=== PATIENT | female | born 1945 | race Caucasian/White ===

== ENCOUNTER → 2016-11-25 | Outpatient (CLI) | payer MEDICARE, OTHER | LOC: OD 15:46 | PROVIDERS: ATTEND Family Medicine | DX: J44.9 Chronic obstructive pulmonary disease, unspecified (principal); R05 Cough; E11.9 Type 2 diabetes mellitus without complications | CPT/HCPCS: 36415; 71020; 83036 ==

== ENCOUNTER 2017-02-24 08:35 | Day surgery (SDC) | payer MEDICARE, OTHER ==
[~2017-02-24 08:35] MED LIST: BUPIVACAINE HCL 0.75% INJ/PF (7.5 MG/1 ML) 10 ML SDV OS PRN; CHONDR SU A NA/HYALUR INTRAOC KIT (SURGICARE) ONE; EPINEPHRINE INJ/PF 1 MG/1 ML AMPULE ONE; KETOROLAC TROMETHAMINE 0.45% 4 DROP/0.4 ML DROPERETTE OS PRN; LIDOCAINE 1% INJ-PF (10 MG/ML) 30 ML SDV ONE
[2017-02-24] MEDS: CYCLOPENTOLATE 0.2%/PHENYLEPHRINE 1% OPH SOLN 2 ML OS PRN ×3 (08:59→09:37)
[2017-02-24] MEDS: TROPICAMIDE 1% OPH SOLN 3 ML OS PRN ×3 (08:59→09:37)
[2017-02-24] MEDS: BESIFLOXACIN HCL 0.6% OPH SUSP 5 ML BOTTLE OS PRN ×4 (09:00→10:09)
[2017-02-24] MEDS: TETRACAINE HCL 0.5% OPH SOLN 2 ML OS PRN ×3 (09:01→09:45)
[2017-02-24] MEDS ORDERED: MIDAZOLAM 2 MG/2 ML INJ ONE (09:21)
[2017-02-24] MEDS ORDERED: ALBUTEROL SULFATE 0.083% NEB 2.5 MG/3 ML AMPUL NEB ONE (09:27)
--- NOTE | 2017-02-27 20:33 | [facility] OPERATIVE REPORT E ---
[facility] Operative Report NAME: DIEGO BURDEN AGE: 71Y DATE OF SURGERY: 02/24/2017 ROOM: PREOPERATIVE DIAGNOSIS: Cataract, left eye. POSTOPERATIVE DIAGNOSIS: Cataract, left eye. OPERATION: Cataract extraction with intraocular lens implant of the left eye. SURGEON: AUDELIA DIAZ M.D. ANESTHESIA: Topical. PROCEDURE: After obtaining appropriate consent, the patient's left eye was prepped and draped in sterile fashion as well as the surgeon in a sterile manner and cataract surgery was started. First a paracentesis blade was used to make a small side-port incision. Viscoelastic was used to inflate the anterior chamber. Next a 2.4 mm incision was made with the paracentesis blade. A continuous capsulorrhexis incision was made using a cystotome and Utrata forceps. Following this hydrodissection was carried out to make the lens fully loose and mobile and it was rotated 90 degrees. Following this, a tssofp-pob-fzowxbe technique was used to phacoemulsify the lens with a CDE of 7.86. The remaining cortex was removed with irrigation/aspiration. Provisc was instilled into the capsular bag to inflate the bag. A SN60WF, 22.0 diopter lens was placed. The remaining viscoelastic material was removed with irrigation/aspiration. Following this, a 10-0 nylon suture was used to close the incision and it was found to be watertight. Vigamox was instilled in the eye and a protective shield was placed over the eye. The patient returned to the postoperative recovery in stable condition. DICTATING PHYSICIAN: AUDELIA DIAZ M.D. [id number] PHY#: [id number] ID: [id number] JOB#: [id number] ACCT: [id number] cc:AUDELIA DIAZ M.D. >
--- NOTE | 2017-02-27 20:34 | [facility] DISCHARGE SUMMARY E ---
[facility] Discharge Summary NAME: DIEGO BURDEN AGE: 71Y ADMITTED: 02/24/2017 DISCHARGED: 02/24/2017 HISTORY OF PRESENT ILLNESS AND HOSPITAL COURSE: This is a 71-year-old female who underwent cataract extraction of the left eye. DIAGNOSIS: Cataract, left eye. HOSPITAL COURSE: She underwent surgery because she was having trouble reading small print. DISCHARGE INSTRUCTIONS: 1. She should be on a regular diet. 2. No bending at her waist and no heavy lifting. 3. She should use his Besivance, Ilevro, and Durezol at 3 p.m. and 8 p.m. and sleep with a rigid shield. 4. I will see her for her one-day postoperative tomorrow. DICTATING PHYSICIAN: AUDELIA DIAZ M.D. [id number] PHY#: [id number] ID: [id number] JOB#: [id number] ACCT: [id number] cc:AUDELIA DIAZ M.D. >
== END 2017-02-24 11:00 | disposition home or self-care (01) ==
LOC: SC 08:35
PROVIDERS: ATTEND Internal Medicine
PROC: 08RK3JZ Replacement of Left Lens with Synthetic Substitute, Percutaneous Approach (ICD-10-PCS; principal; 2017-02-24 10:00)
DX: H25.812 Combined forms of age-related cataract, left eye (principal); Z96.1 Presence of intraocular lens; H04.123 Dry eye syndrome of bilateral lacrimal glands; E11.9 Type 2 diabetes mellitus without complications; H53.2 Diplopia; J44.9 Chronic obstructive pulmonary disease, unspecified; M19.90 Unspecified osteoarthritis, unspecified site; F17.210 Nicotine dependence, cigarettes, uncomplicated; I11.0 Hypertensive heart disease with heart failure; I50.9 Heart failure, unspecified; I35.8 Other nonrheumatic aortic valve disorders; Z79.1 Long term (current) use of non-steroidal anti-inflammatories (NSAID); Z79.84 Long term (current) use of oral hypoglycemic drugs; Z79.82 Long term (current) use of aspirin; Z88.5 Allergy status to narcotic agent; Z85.41 Personal history of malignant neoplasm of cervix uteri; Z79.51 Long term (current) use of inhaled steroids
CPT/HCPCS: 66984; 82962; V2632; J2250; J3490 ×2; A9270 ×2; J0171; 142

== ENCOUNTER → 2017-05-25 | Outpatient (CLI) | payer MEDICARE, OTHER ==
--- NOTE | 2017-05-25 17:12 | WOMENS IMAGING REPORT ---
EXAM DESCRIPTION: 3D SCREENING MAMMO BILAT COMPLETED DATE/TIME: 05/25/2017 2:26 pm REASON FOR STUDY: ROUTINE SCREENING; Z12.31 Z12.31 ENCNTR SCREEN MAMMOGRAM FOR MALIGNANT NEOPLASM O F DYLAN COMPARISON: Multiple since 2008 TECHNIQUE: Standard craniocaudal and mediolateral oblique views of each breast recorded using digita l acquisition and breast tomosynthesis. LIMITATIONS: None. FINDINGS: Findings present which are benign by mammographic criteria. No suspicious masses, calcifi cations or architectural distortion. Pertinent benign findings: Bilateral benign breast parenchymal calcifications. Read with the assistance of CAD. .[facility] - R2 Cenova Version 1.3 .[facility] - R2 Cenova Version 1.3 .[facility] - R2 Cenova Version 2.4 .[facility] - R2 Cenova Version 2.4 .[facility] - R2 S[employer]ability Project Manager Version 9.2 Benign mammographic findings may include one or more of the following: Smooth masses, popcorn/rim/co arse calcifications, asymmetries, post-procedure changes, and lesions with long-standing stability. IMPRESSION: BENIGN MAMMOGRAPHIC FINDINGS. BIRADS 2 BREAST DENSITY: b. There are scattered areas of fibroglandular density. BIRAD: 2 BENIGN FINDING(S) RECOMMENDATION: RECOMMENDATION: ROUTINE SCREENING Please continue yearly bilateral screening tomosynthesis in May 2018 COMMENT: The patient has been notified of the results by letter per MQSA requirements. Additional no tification policies are in place for contacting patient with suspicious or incomplete findings. Quality ID #225: The [employer] recommends an annual screening mammogram for women aged 40 years or over. This facility utilizes a reminder system to ensure that all patients receive reminder letters, and/or direct phone calls for appointments. This includes reminders for routine scr eening mammograms, diagnostic mammograms, or other Breast Imaging Interventions when appropriate. Th is patient will be placed in the appropriate reminder system. The [employer] (ACR) has developed recommendations for screening MRI of the breast s in certain patient populations, to be used in conjunction with mammography. Breast MRI surveillanc e may be appropriate for women with more than 20% lifetime risk of developing breast cancer as deter mined by genetic testing, significant family history of the disease, or history of mantle radiation f or Hodgkins Disease. ACR Practice Guidelines 2008. DBT Technology DBT is a type of tomographic mammography. With conventional mammography, overlapping breast tissue ma y make lesions difficult to detect, even with good compression. DBT uses an x-ray tube that rotates a round the breast, taking images at different angles. These images are then combined to create thin sl ices of the breast that the radiologist can view as a 3D reconstruction. The [employer] unit can perform full-field digital mammograms (2D imaging); or DBT (3D imaging); or both, in a combination mode that quickly performs both the mammogram and the tomosynthesis scan while the breast is still compressed. PQRS 6045F: Fluoroscopic imaging is not utilized for breast tomosynthesis. TECHNICAL DOCUMENTATION: FINDING NUMBER: (1) ASSESSMENT: (1) JOB ID: [id number] [employer]- All Rights Reserved
== END ==
LOC: WI 14:09
PROVIDERS: ATTEND Family Medicine
DX: Z12.31 Encounter for screening mammogram for malignant neoplasm of breast (principal)
CPT/HCPCS: 77063; G0202; 77067

== ENCOUNTER 2017-07-18 09:32 | Observation (INO) | payer MEDICARE, OTHER ==
[2017-07-18 10:03] LABS: ABSOLUTE BASOPHILS # (AUTO) 0.1 10^3/uL (0.0-0.2); ABSOLUTE EOSINOPHILS # (AUTO) 0.1 10^3/uL (0.0-0.6); ABSOLUTE LYMPHOCYTES (AUTO) 1.7 10^3/uL (0.5-4.7); ABSOLUTE MONOCYTES (AUTO) 0.6 10^3/uL (0.1-1.4); ABSOLUTE NEUT (AUTO) 7.6 10^3/uL (1.7-8.2); EOSINOPHILS % (AUTO) 0.9 % (0-6); HEMATOCRIT 43.4 % (36.0-47.0); HEMOGLOBIN 15.2 g/dL (12.0-15.5); HGB HCT DIFFERENCE 2.2; LYMPHOCYTES % (AUTO) 16.5 % (13-45); MEAN CORPUSCULAR HEMOGLOBIN 32.9 pg (27.0-33.4); MEAN CORPUSCULAR VOLUME 94 fl (80-97); MONOCYTES % (AUTO) 6.3 % (3-13); RED BLOOD COUNT 4.62 10^6/uL (3.72-5.28); RED CELL DISTRIBUTION WIDTH 13.4 % (11.5-14.0); SEGMENTED NEUTROPHILS % (AUTO) 75.3 % (42-78); WHITE BLOOD COUNT 10.1 10^3/uL (4.0-10.5)
[2017-07-18 10:06] LABS: APPEARANCE,URINE CLEAR; BILIRUBIN,URINE NEGATIVE (NEGATIVE); GLUCOSE, URINE NEGATIVE (NEGATIVE); KETONES,URINE NEGATIVE (NEGATIVE); LEUKOCYTE ESTERASE,URINE NEGATIVE (NEGATIVE); NITRITE,URINE NEGATIVE (NEGATIVE); PROTEIN,URINE NEGATIVE (NEGATIVE); URINE SPECIFIC GRAVITY 1.001; UROBILINOGEN,URINE NEGATIVE mg/dL (<2.0)
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
[2017-07-18 10:50] LABS: ALANINE AMINOTRANSFERASE 24 U/L (9-52); ALBUMIN 4.4 g/dL (3.5-5.0); ALKALINE PHOSPHATASE 98 U/L (38-126); ANION GAP 13 (5-19); ASPARTATE AMINO TRANSFERASE 21 U/L (14-36); BILIRUBIN,DIRECT 0.5 mg/dL (0.0-0.4); BILIRUBIN,TOTAL 0.8 mg/dL (0.2-1.3); BLOOD UREA NITROGEN 13 mg/dL (7-20); CALCIUM 9.2 mg/dL (8.4-10.2); CARBON DIOXIDE 26 mmol/L (22-30); CHLORIDE 108 mmol/L (98-107); CREATININE RESULT 0.64 mg/dL (0.52-1.25); GLUCOSE 85 mg/dL (75-110); POTASSIUM 3.8 mmol/L (3.6-5.0); SODIUM 147.1 mmol/L (137-145); TOTAL PROTEIN 6.9 g/dL (6.3-8.2)
--- NOTE | 2017-07-18 10:53 | RADIOLOGY REPORT (SQ) ---
EXAM DESCRIPTION: CT CERVICAL SPINE WITHOUT COMPLETED DATE/TIME: 07/18/2017 10:38 am REASON FOR STUDY: fall with neck pain COMPARISON: None. TECHNIQUE: Axial images acquired through the cervical spine without intravenous contrast. Images re viewed with lung, soft tissue and bone windows. Reconstructed coronal and sagittal MPR images review ed. Images stored on PACS. All CT scanners at this facility use dose modulation, iterative reconstruction, and/or weight based d osing when appropriate to reduce radiation dose to as low as reasonably achievable (ALARA). [facility]: Dose Right [facility]: CareDose [facility]: Dose Right [facility]: Teradose 4D [facility]: Smart [employer]odies RADIATION DOSE: Up-to-date CT equipment and radiation dose reduction techniques were employed. CTDIv ol: 19.2 mGy. DLP: 329 mGy-cm. mGy. LIMITATIONS: None. FINDINGS: ALIGNMENT: Anatomic. MINERALIZATION: Normal. VERTEBRAL BODIES: No fractures or dislocation. DISCS: Multilevel disc space narrowing with osteophytes. FACETS, LATERAL MASSES, POSTERIOR ELEMENTS: Facet arthropathy. No fractures. No dislocation. No ac robinson findings. HARDWARE: None in the spine. VISUALIZED RIBS: No fractures. LUNG APICES AND SOFT TISSUES: No significant or acute findings. OTHER: No other significant finding. IMPRESSION: CHRONIC DEGENERATIVE CHANGES. NO ACUTE FINDINGS. TECHNICAL DOCUMENTATION: JOB ID: [id number] Quality ID # [id number]: Final reports with documentation of one or more dose reduction techniques (e.g., Au tomated exposure control, adjustment of the mA and/or kV according to patient size, use of iterative reconstruction technique) 2010 [employer]- All Rights Reserved
--- NOTE | 2017-07-18 10:58 | RADIOLOGY REPORT (SQ) ---
EXAM DESCRIPTION: CT HEAD WITHOUT COMPLETED DATE/TIME: 07/18/2017 10:38 am REASON FOR STUDY: Near-syncope, fall, Hx brain radiation COMPARISON: CT and MR 2011 TECHNIQUE: Axial images acquired through the brain without intravenous contrast. Images reviewed wi th bone, brain and subdural windows. Images stored on PACS. All CT scanners at this facility use dose modulation, iterative reconstruction, and/or weight based d osing when appropriate to reduce radiation dose to as low as reasonably achievable (ALARA). [facility]: Dose Right [facility]: CareDose [facility]: Dose Right [facility]: Teradose 4D [facility]: [facility] RADIATION DOSE: Up-to-date CT equipment and radiation dose reduction techniques were employed. CTDIv ol: 64.6 mGy. DLP: 2326 mGy-cm. mGy. LIMITATIONS: Motion artifact FINDINGS: VENTRICLES: Normal size and contour. CEREBRUM: No masses. No hemorrhage. No midline shift. No evidence for acute infarction. Normal gra y/white matter differentiation. No areas of low density in the white matter. CEREBELLUM: No masses. No hemorrhage. No alteration of density. No evidence for acute infarction. EXTRAAXIAL SPACES: No fluid collections. No masses. ORBITS AND GLOBE: No intra- or extraconal masses. Normal contour of globe without masses. CALVARIUM: No fracture. PARANASAL SINUSES: No fluid or mucosal thickening. SOFT TISSUES: No mass or hematoma. OTHER: No other significant finding. IMPRESSION: Nothing acute. Study is limited by motion artifact. EVIDENCE OF ACUTE STROKE: NO. COMMENT: At malignancy of concern, consider MR follow-up. Quality ID # [id number]: Final reports with documentation of one or more dose reduction techniques (e.g., Au tomated exposure control, adjustment of the mA and/or kV according to patient size, use of iterative reconstruction technique) TECHNICAL DOCUMENTATION: JOB ID: [id number] [employer]- All Rights Reserved
--- NOTE | 2017-07-18 11:04 | RADIOLOGY REPORT (SQ) ---
EXAM DESCRIPTION: CHEST / portable COMPLETED DATE/TIME: 07/18/2017 10:41 am REASON FOR STUDY: near Syncope COMPARISON: 11/25/2016 EXAM PARAMETERS: NUMBER OF VIEWS: two views TECHNIQUE: Digital Frontal and Lateral radiographic views of the chest acquired. RADIATION DOSE: NA LIMITATIONS: Patient body habitus FINDINGS: LUNGS AND PLEURA: No opacities, masses or pneumothorax. No pleural effusion. MEDIASTINUM AND HILAR STRUCTURES: No masses or contour abnormalities. HEART AND VASCULAR STRUCTURES: Heart normal size. No evidence for failure. BONES: No acute findings. HARDWARE: None in the chest. OTHER: No other significant finding. IMPRESSION: NO SIGNIFICANT RADIOGRAPHIC FINDING IN THE CHEST. TECHNICAL DOCUMENTATION: JOB ID: [id number] [employer]- All Rights Reserved
[2017-07-18 11:11] LABS: TROPONIN I < 0.012 ng/mL
--- NOTE | 2017-07-18 11:32 | RADIOLOGY REPORT (SQ) ---
EXAM DESCRIPTION: U/S RETROPERITON (RENAL/AORTA) COMPLETED DATE/TIME: 07/18/2017 11:24 am REASON FOR STUDY: Abdominal pain and near syncope COMPARISON: None. TECHNIQUE: Static and dynamic grayscale images acquired of the aorta and stored on PACs. Selected co cody Doppler and spectral images recorded. LIMITATIONS: None. FINDINGS: AORTIC CALIBER MAXIMAL PROXIMAL: 2.0 cm. MID: 1.5 cm. DISTAL: 2.1 cm. ILIAC DIAMETER RIGHT: Not seen cm. LEFT: Not seen cm. OTHER: No other significant finding. IMPRESSION: NO ABDOMINAL AORTIC ANEURYSM. TECHNICAL DOCUMENTATION: JOB ID: [id number] [employer]- All Rights Reserved
[2017-07-18] MEDS ORDERED: HYDROCODONE/ACETAMINOPHEN 10-325 MG TABLET PO ONE (13:03)
--- NOTE | 2017-07-18 14:11 | EKG REPORT ---
SEVERITY:- OTHERWISE NORMAL ECG - SINUS RHYTHM BORDERLINE LEFT AXIS DEVIATION : Confirmed by: Derick Dao 18-Jul-2017 14:10:47
[2017-07-18] MEDS ORDERED: HYDROCODONE/ACETAMINOPHEN 5-325 MG TABLET PO ONE (14:35)
[2017-07-18] MEDS ORDERED: IPRATROPIUM/ALBUTEROL 0.5-2.5 MG/3 ML AMPUL NEB PRN (15:10)
[2017-07-18] MEDS ORDERED: ACETAMINOPHEN 325 MG TABLET PO PRN (15:23)
[2017-07-18] MEDS ORDERED: DOCUSATE SODIUM 100 MG CAPSULE PO PRN (15:23)
[2017-07-18] MEDS ORDERED: AMLODIPINE BESYLATE 5 MG TABLET PO ONE (15:30)
[2017-07-18] MEDS ORDERED: INSULIN LISPRO 100 UNIT/ML 3 ML VIAL SUBCUT PRN (15:41)
[2017-07-18] MEDS ORDERED: DEXTROSE 40% GEL 15 GM TUBE PO PRN ×2 (15:41)
[2017-07-18] MEDS ORDERED: GLUCAGON,HUMAN RECOMB 1 MG INJ IM PRN (15:41)
[2017-07-18] MEDS ORDERED: DEXTROSE 50%-WATER 25 GM/50 ML DISP.SYRIN IV PRN ×2 (15:41)
[2017-07-18] MEDS ORDERED: NORMAL SALINE 1000 ML 1,000 ML IV PRN (15:43)
[2017-07-18] MEDS ORDERED: NICOTINE 21 MG/24 HR PATCH.TD24 TD ONE (16:00)
[2017-07-18] MEDS ORDERED: IPRATROPIUM/ALBUTEROL 0.5-2.5 MG/3 ML AMPUL NEB ONE (16:00)
[2017-07-18] MEDS ORDERED: NORMAL SALINE 1000 ML 1,000 ML IV ONE (16:00)
--- NOTE | 2017-07-18 16:03 | PDOC H&P ---
History of Present Illness Admission Date/PCP: 07/18/17 13:43 MOSHE MEDINA MD History of Present Illness: DIEGO BURDEN is a 72 year old female who presented to the emergency department with a complaint of generalized weakness and fall. Pt reports that upon waking this morning, she felt fatigued and "lightheaded." She states that she ambulated independently to the bathroom, but then had difficulty getting up from the commode. She reports that as she was walking down the hallway to the kitchen, she became lightheaded and felt her "legs giving out" and states she fell, landing on her buttocks. She reports that she was aware that she was going to fall and was able to hold onto the wall to ease her way down. She denies injury related to the fall. She denies hitting her head and LOC. She called out to her granddaughter, who lives with her, for help and who then called EMS for assistance. Work up in the emergency department was essentially normal; Head and C-spine CT were normal. Ultrasound of aorta was negative, chest xray was normal, EKG was normal, and laboratory work up did not reveal any significant abnormalities. Pt reports that she is feeling better, however, continues to require assistance with ambulation 2/2 generalized weakness. She was referred to the hospitalist service for observational admission of near syncope. Past Medical History Cardiac Medical History: Reports: Congestive Heart Failure, Coronary Artery Disease, Hyperlipidema, Hypertension, Heart Murmur - Told she has a leaky aortic valve Denies: Atrial Fibrillation, Myocardial Infarction, Peripheral Vascular Disease, Pulmonary Embolism Pulmonary Medical History: Reports: Asthma - ON MEDS, Bronchitis, Chronic Obstructive Pulmonary Disease (COPD), Pneumonia Denies: Respiratory Failure, Sleep Apnea, Tuberculosis Neurological Medical History: Denies: Seizures Endocrine Medical History: Reports: Diabetes Mellitus Type 2 Denies: Hyperthyroidism, Hypothyroidism Renal/ Medical History: Reports: None Malignancy Medical History: Reports: Cervical Cancer - s/p hysterectomy, Ovarian Cancer, Other - sinus meningioma s/p radiation treatments Denies: Breast Cancer, Lung Cancer GI Medical History: Reports: None Denies: Hepatitis, Hiatal Hernia Musculoskeltal Medical History: Reports: Arthritis - DJD Denies: Fibromyalgia Psychiatric Medical History: Denies: Dementia, Depression, General Anxiety Disorder Hematology: Reports: None Denies: Anemia, Sickle Cell Disease Infectious Medical History: Reports: Clostridium Difficile Past Surgical History Past Surgical History: Reports: Appendectomy, Hysterectomy, Orthopedic Surgery Denies: Amputation, Section, Cholecystectomy, Coronary Artery Bypass Graft, Gastric Bypass Surgery, Herniorrhaphy, Mastectomy, Pacemaker, Tonsillectomy, Tubal Ligation Social History Information Source: Patient, Relative Lives with: Family Smoking Status: Current Every Day Smoker - 1 pack a day. Number of Years Smokin Frequency of Alcohol Use: None Hx Recreational Drug Use: No Hx Prescription Drug Abuse: No - Advance Directive Resuscitation Status: Full Code Family History Family History: Reviewed & Not Pertinent Parental Family History Reviewed: Yes Children Family History Reviewed: Yes Sibling(s) Family History Reviewed.: Yes Medication/Allergy Home Medications: Amlodipine Besylate [Norvasc 10 mg Tablet] 10 mg PO QHS 07/18/17 Atorvastatin Calcium [Lipitor 40 mg Tablet] 40 mg PO QHS 07/18/17 Fluticasone/Salmeterol [Advair 250-50 Diskus 14 Dose/Diskus] 1 puff IH Q12 07/18 Furosemide [Lasix 40 mg Tablet] 40 mg PO DAILY 07/18/17 Hydrocodone/Acetaminophen [Hydrocodone-Acetamin 10-325 mg] 1 tab PO Q6HP PRN Lisinopril [Prinivil 40 mg Tablet] 40 mg PO DAILY 07/18/17 Meloxicam [Mobic] 150 mg PO DAILY 07/18/17 Metformin HCl [Glucophage] 850 mg PO BID 07/18/17 Allergies/Adverse Reactions: codeine [Codeine] Adverse Reaction (Verified 07/18/17 13:59) nausea/vomiting Review of Systems Constitutional: PRESENT: as per HPI, weakness. ABSENT: fatigue, fever(s), headache(s) Eyes: ABSENT: visual disturbances Ears: ABSENT: hearing changes Nose, Mouth, and Throat: PRESENT: as per HPI. ABSENT: headache(s), sore throat , vertigo Cardiovascular: ABSENT: chest pain, dyspnea on exertion, edema, orthropnea, palpitations Respiratory: ABSENT: cough, hemoptysis Gastrointestinal: ABSENT: abdominal pain, constipation, diarrhea, hematemesis, hematochezia, nausea, vomiting Genitourinary: ABSENT: dysuria, hematuria Musculoskeletal: PRESENT: back pain. ABSENT: deformity, joint swelling Integumentary: ABSENT: rash, wounds Neurological: PRESENT: weakness. ABSENT: abnormal gait, abnormal speech, confusion, dizziness, focal weakness, syncope Psychiatric: ABSENT: anxiety, depression, homidical ideation, suicidal ideation Endocrine: ABSENT: cold intolerance, heat intolerance, polydipsia, polyuria Hematologic/Lymphatic: ABSENT: easy bleeding, easy bruising Physical Exam Vital Signs: Temp Pulse Resp BP Pulse Ox 62 163/63 H 07/18/17 15:21 07/18/17 15:21 General appearance: PRESENT: no acute distress, well-developed, well-nourished Head exam: PRESENT: atraumatic, normocephalic Eye exam: PRESENT: conjunctiva pink, EOMI, PERRLA. ABSENT: scleral icterus Ear exam: PRESENT: normal external ear exam Mouth exam: PRESENT: moist, tongue midline Neck exam: ABSENT: carotid bruit, JVD, lymphadenopathy, thyromegaly Respiratory exam: PRESENT: symmetrical, unlabored, wheezes - bibasilar expiratory; Rt>Lt. ABSENT: crackles, rales, rhonchi Cardiovascular exam: PRESENT: RRR, +S1, +S2. ABSENT: diastolic murmur, rubs, systolic murmur Pulses: PRESENT: normal dorsalis pedis pul Vascular exam: PRESENT: normal capillary refill GI/Abdominal exam: PRESENT: normal bowel sounds, soft. ABSENT: distended, guarding, mass, organolmegaly, rebound, tenderness Rectal exam: PRESENT: deferred Extremities exam: PRESENT: full ROM. ABSENT: calf tenderness, clubbing, pedal edema Neurological exam: PRESENT: alert, awake, oriented to person, oriented to place , oriented to time, oriented to situation, CN II-XII grossly intact. ABSENT: motor sensory deficit Psychiatric exam: PRESENT: appropriate affect, normal mood. ABSENT: homicidal ideation, suicidal ideation Skin exam: PRESENT: dry, intact, warm. ABSENT: cyanosis, rash Results Impressions: Head CT 07/18/17 10:12 IMPRESSION: Nothing acute. Study is limited by motion artifact. EVIDENCE OF ACUTE STROKE: NO. Renal Ultrasound 07/18/17 10:13 IMPRESSION: NO ABDOMINAL AORTIC ANEURYSM. Chest X-Ray 07/18/17 10:16 IMPRESSION: NO SIGNIFICANT RADIOGRAPHIC FINDING IN THE CHEST. Cervical Spine CT 07/18/17 10:30 IMPRESSION: CHRONIC DEGENERATIVE CHANGES. NO ACUTE FINDINGS. Assessment & Plan - Diagnosis (1) Near syncope Is this a current diagnosis for this admission?: Yes Plan: Pt presented with fall 2/2 near syncope. Differential includes TIA, cardiac arrythmias, orthostatic hypotension, and medication side effect. Emergency department evaluation included blood work, CT head and C-spine, and ultrasound of aorta; all of which was unrevealing. She is found to be orthostatic with supine BP 163/63 HR 62 and standing BP 98/ 74 HR 91. She will be admitted to observation tele on continuous cardiac monitoring and provided IVF hydration. As she does not describe LOC, confusion, slurred speech, or focal deficits and none are revealed on exam, she will be monitored for now. Should she develop more definitive s/sx of TIA/CVA, we will need to obtain MRI. 1- Admit to medicine on continuous telemetry 2- IVF 3- Will hold pt's home lasix and lisinopril for now 4- Will provide reduced dose of amlodipine. 5- SCHUYLER hose 6- Fall precautions (2) Orthostatic hypotension Is this a current diagnosis for this admission?: Yes Plan: Pt is profoundly orthostatic with SBP dropping from 160 to 90s with standing. Will make adjustments to home HTN medications and rehydrate with IVF as described above. (4) Hypertension Qualifiers: Hypertension type: essential hypertension Qualified Code(s): I10 - Essential (primary) hypertension Is this a current diagnosis for this admission?: Yes Plan: Adjustments to home medications as above; will need to reevaluate home regiment at time of discharge. 1- Cardiac diet 2- Daily wts (5) Hyperlipidemia Is this a current diagnosis for this admission?: Yes Plan: Will hold atorvastatin for now; pt with generalized weakness, potentially is myopathy r/t statin intolerance. (6) Diabetes mellitus type 2 in nonobese Is this a current diagnosis for this admission?: Yes Plan: Will hold metformin while inpatient. 1- Consistent carb diet 2- Accuchecks ACHS with [employer]SI for coverage (7) Tobacco dependence Is this a current diagnosis for this admission?: Yes Plan: Smoking cessation discussed. Nicotine replacement therapy provided. - Time Time Spent: 50 to 70 Minutes Smoking Cessation Education: 3 to 10 minutes Medications reviewed and adjusted accordingly: Yes Anticipated discharge: Home Within: within 24 hours
[2017-07-18] MEDS ORDERED: INFLUENZA ADLT QUAD (36MOS+) 2017-18 VAC 0.5 ML SYR IM PRN (18:10)
[2017-07-18] MEDS: FAMOTIDINE 20 MG TABLET PO SCH (21:26)
[2017-07-18] MEDS: HYDROCODONE/ACETAMINOPHEN 10-325 MG TABLET PO PRN (21:27)
[2017-07-18] MEDS: FLUTICASONE/SALMETEROL DISKUS 250-50 MCG/DOSE IH SCH (21:29)
[2017-07-18] MEDS ORDERED: AMLODIPINE BESYLATE 10 MG TABLET PO SCH (22:00)
[2017-07-18] MEDS ORDERED: AMLODIPINE BESYLATE 5 MG TABLET PO SCH (22:00)
[2017-07-18] MEDS ORDERED: ATORVASTATIN CALCIUM 40 MG TABLET PO SCH (22:00)
[2017-07-19] MEDS: HYDROCODONE/ACETAMINOPHEN 10-325 MG TABLET PO PRN (03:31)
[2017-07-19 06:11] LABS: HEMATOCRIT 42.3 % (36.0-47.0); HEMOGLOBIN 14.7 g/dL (12.0-15.5); HGB HCT DIFFERENCE 1.8; MEAN CORPUSCULAR HEMOGLOBIN 32.5 pg (27.0-33.4); MEAN CORPUSCULAR HGB CONC 34.7 g/dL (32.0-36.0); MEAN CORPUSCULAR VOLUME 94 fl (80-97); RED BLOOD COUNT 4.52 10^6/uL (3.72-5.28); RED CELL DISTRIBUTION WIDTH 13.4 % (11.5-14.0); WHITE BLOOD COUNT 6.2 10^3/uL (4.0-10.5)
[2017-07-19 06:45] LABS: ANION GAP 13 (5-19); BLOOD UREA NITROGEN 8 mg/dL (7-20); CALCIUM 9.1 mg/dL (8.4-10.2); CARBON DIOXIDE 23 mmol/L (22-30); CHLORIDE 110 mmol/L (98-107); CREATININE RESULT 0.53 mg/dL (0.52-1.25); GLUCOSE 84 mg/dL (75-110); POTASSIUM 3.4 mmol/L (3.6-5.0); SODIUM 146.4 mmol/L (137-145)
[2017-07-19] MEDS ORDERED: POTASSIUM CHLORIDE 10 MEQ TABLET.SA PO ONE (07:48)
[2017-07-19] MEDS: FAMOTIDINE 20 MG TABLET PO SCH (09:20)
[2017-07-19] MEDS: FLUTICASONE/SALMETEROL DISKUS 250-50 MCG/DOSE IH SCH (09:21)
[2017-07-19 09:38] VITALS: BP 142/90
[2017-07-19] MEDS ORDERED: ASPIRIN 81 MG TABLET, ENT COATED PO SCH (10:00)
[2017-07-19] MEDS ORDERED: METFORMIN HCL 850 MG TABLET PO SCH (10:00)
[2017-07-19] MEDS ORDERED: ENOXAPARIN SODIUM INJ 40 MG/0.4 ML DISP.SYRIN SUBCUT SCH (10:00)
[2017-07-19] MEDS ORDERED: NICOTINE 21 MG/24 HR PATCH.TD24 TD SCH (10:00)
--- NOTE | 2017-07-19 10:06 | DISCHARGE SUMMARY E ---
Discharge Summary NAME: DIEGO BURDEN : 1945 AGE: 72Y ADMITTED: 07/18/2017 DISCHARGED: 07/19/2017 CODE STATUS: FULL CODE. PRIMARY CARE PROVIDER: Tom Polk M.D. DISCHARGE DIAGNOSES: Include: 1. Orthostatic hypertension. 2. Near-syncope secondary to #1. 3. Hypertension. 4. Hyperlipidemia. 5. Diabetes mellitus type 2. 6. Tobacco dependency. 7. Dehydration. DISCHARGE MEDICATIONS: Include: 1. Norvasc 10 mg p.o. at hour of sleep. 2. Lipitor 40 mg p.o. daily. 3. Advair 250/50 one puff inhalation q.12 hours. 4. Lasix 20 mg p.o. daily. 5. Vicodin 10/325 one tablet p.o. q.6 hours p.r.n. 6. Lisinopril 20 mg p.o. daily. 7. Mobic 15 mg p.o. daily. 8. Glucophage 850 mg p.o. b.i.d. DIET: Heart healthy, diabetic. ACTIVITY: As tolerated. DIAGNOSTICS: Lab values are as follows: Hematology obtained on 07/19/2017: WBCs are 6.2, hemoglobin is 14.7, hematocrit is 42.3, platelet count is 160,000. Chemistry panel obtained on 07/19/2017: Sodium is 146, potassium 4.4. chloride is 110, carbon dioxide 23, BUN 8, creatinine is 0.53, glucose 84, calcium is 9.1, bilirubin is 0.8, AST 21, ALT is 24, alk phos 98. CK-MB is 1.70, troponin is 0.012. Total protein 6.9, albumin 4.4, lipase is 100. Urinalysis obtained on 07/18/2017: Color colorless, appearance clear, pH is 7.0, specific gravity is 1.001, protein negative, glucose negative, ketones negative, occult blood negative, nitrite negative, bilirubin negative, urobilinogen is negative, leukocyte esterase is negative, WBCs 0. EKG obtained on 07/18/2017 reveals sinus rhythm with left axis deviation. Head CT obtained on 07/18/2017 reveals nothing acute study, no acute findings. Renal ultrasound obtained on 07/18/2017 reveals no abdominal aortic aneurysm to be noted. Chest x-ray obtained on 07/18/2017 reveals no significant radiographic finding of the chest. Cervical spine CT obtained on 07/18/2017 revealed chronic degenerative changes but no acute findings. PHYSICAL EXAMINATION: GENERAL: On examination, the patient is a well-developed, well-nourished 72-year-old female who is awake, alert, and oriented to person, place, time, and situation. She is verbal, conversational, ambulatory, does not appear to be in any acute distress. VITAL SIGNS FOLLOWS: Temperature is 98.3, pulse 72, respirations 190, blood pressure is 138/57, oxygen saturation 96% on room air. SKIN: Warm and dry. No rashes. Not diaphoretic. HEENT: Pupils equal, round, reactive to light and accommodation. Conjunctivae pink. No JVP. CARDIOVASCULAR SYSTEM: Heart is regular. There is no murmur or rub. CHEST: Clear, symmetrical, unlabored. ABDOMEN: Soft, nontender, nondistended. BACK: No CVA tenderness, sacral edema. EXTREMITIES: No clubbing, cyanosis, or edema. PSYCHIATRIC: Appropriate affect. Pleasant mood. HISTORY OF PRESENT ILLNESS: The patient is a 72-year-old female with a past medical history of hypertension and chronic pain. The patient presented to the emergency department with a chief complaint of generalized weakness and presyncope. The patient reports upon walking on the morning of presentation where she felt fatigued and lightheaded, the patient stated that she normally ambulated independently to the bathroom but was having difficulty getting to the commode. The patient stated that she was walking down the hallway to the kitchen; she became lightheaded and felt as though her legs may be giving out, and she landed on her buttocks. The patient said she felt that she was going to fall and was able to hold on to the wall and ease her way down. The patient denies any injury related to the fall. Denies hitting her head. No loss of consciousness. The patient's granddaughter who lives with her was able to help and notified EMS. Upon presentation to the emergency department, the patient's workup was unremarkable; however, the patient was found to have mild hypernatremia, suggestive of dehydration, and the patient was referred to the hospitalist for admission and management. HOSPITAL COURSE: Patient was admitted to telemetry unit. The patient was gently hydrated, and the patient denied any further symptoms since admission. The patient denied any symptoms of nausea, vomiting, diarrhea. No shortness of breath, dizziness, chest pain. The patient did not have any replication of symptoms. The patient's orthostatic vitals did show about a 20 mmHg drop systolically from lying to standing, and therefore the patient was encouraged to get up slowly. The patient's diuretic was cut in half as well as her lisinopril, and the patient does have an already scheduled followup appointment with her primary care provider on . The patient is quite eager for discharge. The patient will ambulate this morning after breakfast and can be discharged after that. DISCHARGE PLANNING: The patient is going to follow up with her primary care provider, Dr. Polk, within 2 days for hospital followup. Time spent on this discharge including assessment, plan, physical examination, patient education, and review of previous current medical records is 25 minutes. DICTATING PHYSICIAN: CALVIN GUNDERSON NP [id number] PHY#: [id number] ID: [id number] JOB#: [id number] ACCT: [id number] cc:CALVIN GUNDERSON NP > MTDD
== END 2017-07-19 10:11 | disposition home health service (06) ==
LOC: ER 09:32 → INTOOBSV 13:43 → EH 13:43 → 3W 16:53
PROVIDERS: ADMIT Internal Medicine; ATTEND Internal Medicine
PROC: 3E0234Z Introduction of Serum, Toxoid and Vaccine into Muscle, Percutaneous Approach (ICD-10-PCS; principal; 2017-07-19)
DX: I95.1 Orthostatic hypotension (principal); I11.0 Hypertensive heart disease with heart failure; I50.9 Heart failure, unspecified; E78.5 Hyperlipidemia, unspecified; E11.9 Type 2 diabetes mellitus without complications; F17.210 Nicotine dependence, cigarettes, uncomplicated; E86.0 Dehydration; I25.10 Atherosclerotic heart disease of native coronary artery without angina pectoris; R53.1 Weakness; M54.9 Dorsalgia, unspecified; R05 Cough; R09.89 Other specified symptoms and signs involving the circulatory and respiratory systems; E87.0 Hyperosmolality and hypernatremia; Z85.41 Personal history of malignant neoplasm of cervix uteri; Z90.710 Acquired absence of both cervix and uterus; Z85.43 Personal history of malignant neoplasm of ovary; Z92.3 Personal history of irradiation; Z90.49 Acquired absence of other specified parts of digestive tract; Z23 Encounter for immunization; Z85.841 Personal history of malignant neoplasm of brain; Z79.899 Other long term (current) drug therapy
CPT/HCPCS: 99285; 36415 ×2; 82553; 82962 ×2; 83690; 85025; 85027; 80048; 80053; 81001; 84484; 71020; 76770; 70450; 72125; 90686; 93005; 93010; 94640; A9270 ×10; J3490 ×2; J7030; J7620

== ENCOUNTER 2017-07-21 13:14 | Observation (INO) | payer MEDICARE, OTHER ==
[2017-07-21 13:53] LABS: ABSOLUTE BASOPHILS # (AUTO) 0.1 10^3/uL (0.0-0.2); ABSOLUTE EOSINOPHILS # (AUTO) 0.1 10^3/uL (0.0-0.6); ABSOLUTE LYMPHOCYTES (AUTO) 1.7 10^3/uL (0.5-4.7); ABSOLUTE MONOCYTES (AUTO) 0.6 10^3/uL (0.1-1.4); ABSOLUTE NEUT (AUTO) 4.6 10^3/uL (1.7-8.2); BASOPHILS % (AUTO) 0.8 % (0-2); HEMOGLOBIN 15.8 g/dL (12.0-15.5); HGB HCT DIFFERENCE 2.4; LYMPHOCYTES % (AUTO) 24.6 % (13-45); MEAN CORPUSCULAR HEMOGLOBIN 32.6 pg (27.0-33.4); MEAN CORPUSCULAR HGB CONC 35.1 g/dL (32.0-36.0); MEAN CORPUSCULAR VOLUME 93 fl (80-97); MONOCYTES % (AUTO) 8.2 % (3-13); RED BLOOD COUNT 4.84 10^6/uL (3.72-5.28); RED CELL DISTRIBUTION WIDTH 13.8 % (11.5-14.0); SEGMENTED NEUTROPHILS % (AUTO) 65.4 % (42-78); WHITE BLOOD COUNT 7.1 10^3/uL (4.0-10.5)
[2017-07-21 14:01] LABS: PARTIAL THROMBOPLASTIN TIME 31.7 SEC (23.5-35.8); PROTHROMBIN TIME 13.4 SEC (11.4-15.4)
--- NOTE | 2017-07-21 14:19 | RADIOLOGY REPORT (SQ) ---
EXAM DESCRIPTION: CT HEAD WITHOUT COMPLETED DATE/TIME: 07/21/2017 2:05 pm REASON FOR STUDY: right paralysis COMPARISON: CT brain 07/18/2017, 05/19/2012 TECHNIQUE: Axial images acquired through the brain without intravenous contrast. Images reviewed wi th bone, brain and subdural windows. Images stored on PACS. All CT scanners at this facility use dose modulation, iterative reconstruction, and/or weight based d osing when appropriate to reduce radiation dose to as low as reasonably achievable (ALARA). [facility]: Dose Right [facility]: CareDose [facility]: Dose Right [facility]: Teradose 4D [facility]: [employer] RADIATION DOSE: Up-to-date CT equipment and radiation dose reduction techniques were employed. CTDIv ol: 59.0 mGy. DLP: 1163 mGy-cm. mGy. LIMITATIONS: Motion artifact FINDINGS: VENTRICLES: Normal size and contour. CEREBRUM: Motion artifact. On images without motion, there is no CT evidence of acute large territor y ischemic change, acute intracranial hemorrhage, mass effect, or midline shift. Spotty white matter disease is present with an old left frontal deep white matter infarct. CEREBELLUM: Punctate low attenuation in the left dre axial image 14 from chronic small vessel diseas e. No posterior fossa acute large territory ischemic change, hemorrhage, or midline shift. EXTRAAXIAL SPACES: No fluid collections. No masses. ORBITS AND GLOBE: No intra- or extraconal masses. Normal contour of globe without masses. Old bilat eral cataract surgery CALVARIUM: No fracture. PARANASAL SINUSES: No fluid or mucosal thickening. SOFT TISSUES: No mass or hematoma. OTHER: No other significant finding. IMPRESSION: Limited study due to patient motion artifact. No acute intracranial hemorrhage, mass effect, or midline shift. 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 COMMENT: Quality ID # [id number]: Final reports with documentation of one or more dose reduction techniques (e.g., Automated exposure control, adjustment of the mA and/or kV according to patient size, use of iterative reconstruction technique) TECHNICAL DOCUMENTATION: JOB ID: [id number] rumr: turn off the lights- All Rights Reserved
[2017-07-21 14:23] LABS: ALANINE AMINOTRANSFERASE 27 U/L (9-52); ALBUMIN 4.6 g/dL (3.5-5.0); ALKALINE PHOSPHATASE 83 U/L (38-126); ANION GAP 15 (5-19); ASPARTATE AMINO TRANSFERASE 18 U/L (14-36); BILIRUBIN,DIRECT 0.6 mg/dL (0.0-0.4); BILIRUBIN,TOTAL 0.7 mg/dL (0.2-1.3); BLOOD UREA NITROGEN 20 mg/dL (7-20); CALCIUM 10.1 mg/dL (8.4-10.2); CARBON DIOXIDE 22 mmol/L (22-30); CHLORIDE 107 mmol/L (98-107); CREATINE KINASE 103 U/L (30-135); CREATININE RESULT 0.75 mg/dL (0.52-1.25); GLUCOSE 85 mg/dL (75-110); POTASSIUM 3.9 mmol/L (3.6-5.0); SODIUM 144.3 mmol/L (137-145); TOTAL PROTEIN 7.5 g/dL (6.3-8.2)
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
[2017-07-21 14:36] LABS: CREATINE KINASE MB 1.24 ng/mL (<4.55); TROPONIN I < 0.012 ng/mL
--- NOTE | 2017-07-21 14:41 | RADIOLOGY REPORT (SQ) ---
EXAM DESCRIPTION: CHEST SINGLE VIEW COMPLETED DATE/TIME: 07/21/2017 1:58 pm REASON FOR STUDY: right paralysis COMPARISON: Chest films 07/18/2017, 11/25/2016 CT chest 08/01/2012 EXAM PARAMETERS: NUMBER OF VIEWS: One view. TECHNIQUE: Single frontal radiographic view of the chest acquired. RADIATION DOSE: NA LIMITATIONS: None. FINDINGS: LUNGS AND PLEURA: 5 mm nodule seen on chest CT 08/01/2012 is not apparent by plain film. No acute infiltrates. No pleural effusion. No pneumothorax. MEDIASTINUM AND HILAR STRUCTURES: No masses. Contour normal. HEART AND VASCULAR STRUCTURES: Borderline cardiomegaly. Normal pulmonary vascular pattern BONES: Osteoporotic, old healed left lower lateral rib fractures. HARDWARE: None in the chest. OTHER: No other significant finding. IMPRESSION: No acute infiltrates. TECHNICAL DOCUMENTATION: JOB ID: [id number] [employer]- All Rights Reserved
[2017-07-21] MEDS ORDERED: ASPIRIN 325 MG TABLET PO ONE (15:09)
[2017-07-21] MEDS ORDERED: OXYCODONE-ACETAMINOPHEN 5-325 MG TABLET PO ONE (15:09)
[2017-07-21] MEDS ORDERED: DIAZEPAM INJ 10 MG/2 ML DISP.SYRIN IV ONE ×2 (15:28→20:27)
[2017-07-21] MEDS ORDERED: ENOXAPARIN SODIUM INJ 40 MG/0.4 ML DISP.SYRIN SUBCUT ONE (16:00)
[2017-07-21] MEDS ORDERED: HYDROCODONE/ACETAMINOPHEN 10-325 MG TABLET PO PRN (17:12)
[2017-07-21] MEDS ORDERED: LABETALOL HCL INJ 20 MG/4 ML DISP.SYRIN IV PRN (17:12)
--- NOTE | 2017-07-21 17:57 | RADIOLOGY REPORT (SQ) ---
EXAM DESCRIPTION: MRI HEAD COMBO COMPLETED DATE/TIME: 07/21/2017 5:23 pm REASON FOR STUDY: CT changes, TIA vs CVA, H/O radiation COMPARISON: CT dated 07/21/2017. MRI dated 05/22/2012. TECHNIQUE: Multiplanar imaging includes noncontrasted T1, T2, FLAIR, Diffusion with ADC map and post gadolinium contrast T1 sequences. Images stored on PACS. CONTRAST TYPE AND DOSE: 10 mL Multihance. RENAL FUNCTION: GFR > 60. LIMITATIONS: None. FINDINGS: ANATOMY: No anomalies. Normal vascular flow voids. Pituitary fossa normal. CSF SPACES: Atrophy-induced prominence of CSF spaces and ventricles. CEREBRUM: High-signal intensity lesions scattered throughout the white matter on FLAIR imaging with d istribution suggesting chronic micro-vascular ischemic change. No evidence of hemorrhage, mass, extra axial fluid collection or acute ischemic change. No enhancing lesions. POSTERIOR FOSSA: No signal alteration. No hemorrhage. Again seen is an enhancing mass along the righ t side of the cavernous sinus and extending into the pre pontine cistern. This appears generally unc hanged in size and appearance compared to the prior study. There is some impression and deformity up on the right side of the gwyn. ORBITS: No masses. Globes normal. PARANASAL SINUSES: No fluid levels. Mucosa normal. DIFFUSION: Restricted diffusion in the left side of the gwyn. OTHER: No other significant finding. IMPRESSION: 1. RESTRICTED DIFFUSION IN THE LEFT SIDE OF THE GWYN CONSISTENT WITH ACUTE INFARCT. 2. ENHANCING MASS ON THE RIGHT SIDE OF THE CAVERNOUS SINUS EXTENDING INTO THE PRE PONTINE CISTERN, ES SENTIALLY UNCHANGED SINCE 2011. THIS IS PRESUMABLY A MENINGIOMA. THIS DOES CAUSE SOME MAS S EFFECT ON THE RIGHT SIDE OF THE GWYN WITH SOME DEFORMITY. 3. ATROPHY AND CHRONIC MICRO-VASCULAR ISCHEMIC CHANGES. EVIDENCE OF ACUTE STROKE: YES. LEFT VERTEBROBASILAR COMMENT: Pertinent findings on the imaging study reported as a CRITICAL RESULT to the ER staff by [employer] engineering technologist at17:50 on 07/21/2017. Category of Critical Result: Acute infarct. TECHNICAL DOCUMENTATION: JOB ID: [id number] [employer]- All Rights Reserved
--- NOTE | 2017-07-21 18:43 | HISTORY AND PHYSICAL E ---
History and Physical NAME: DIEGO BURDEN : 1945 AGE: 72Y ADMITTED: 07/21/2017 ROOM: ED15 CODE STATUS: FULL CODE. PRIMARY CARE PROVIDER: Dr. Polk. CHIEF COMPLAINT: Right-sided weakness. HISTORY OF PRESENT ILLNESS: The patient is a 72-year-old female with a past medical history of hypertension. The patient presented to the emergency department via EMS, due to right-sided weakness. According to the patient, her symptoms started Tuesday, when she noticed that her right side was weak. Family noticed that the patient did not use her right extremity to feed herself Tuesday night. The patient was seen and evaluated by home health services today, and the patient was noted to have garbled speech and both upper and lower extremity right-sided weakness, which is new for the patient, and subsequently, felt that the patient had had a stroke. Upon presentation to the emergency department, the patient was found to be normotensive, oxygenating 94% on room air. The patient was not tachycardic. She was in sinus rhythm. A plain CT of the head revealed evidence of old lacunar infarction. The patient was referred to the hospitalist for admission and management. Of note, the patient was observed on the Hospitalist service 07/18/2017 through 07/19/2017 for near-syncope. At that time, the patient came in due to an episode of near-syncope, and the patient was found to be symptomatically orthostatic at that time, and was felt to be dehydrated. The patient was given fluids overnight, and the patient had complete resolution of her symptoms. The patient walked under her own power around the unit and was discharged with home health services, as well as additional mobility devices. The patient's family and the patient are adamant that the patient was at her baseline when she left this hospital on Tuesday, and her symptoms came on later in the week. They do not feel that there were associated symptoms. The patient had been discharged on a reduced dose of Lasix, as well as a reduction in her blood pressure medications, and the patient has been taking the reduced dosages according to family that is present at bedside. PAST MEDICAL HISTORY: Remarkable for: 1. Coronary artery disease. 2. Hyperlipidemia. 3. Hypertension. 4. Chronic obstructive pulmonary disease. 5. Diabetes mellitus, type 2. 6. Tobacco dependency, continuous. 7. History of cervical cancer. 8. 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 9. Arthritis and degenerative disk disease. 10. Remote history of Clostridium difficile colitis. PAST SURGICAL HISTORY: Remarkable for: 1. Hysterectomy. 2. Appendectomy. ALLERGIES: INCLUDE CODEINE. HOME MEDICATIONS: Include: 1. Lisinopril 20 mg p.o. daily. 2. Lasix 20 mg p.o. daily. 3. Glucophage 850 mg p.o. b.i.d. 4. Mobic 150 mg p.o. daily. 5. Vicodin 10/325 one tablet p.o. q.6 hours p.r.n. 6. Advair 250/50 one puff inhalation q.12 hours. 7. Lipitor 40 mg p.o. q. hour of sleep. 8. Norvasc 10 mg p.o. q. hour of sleep. SOCIAL HISTORY: The patient currently resides at home. The patient does have family nearby that are quite attentive with her. The patient is a smoker. She smokes about a pack a day, and has about 52 pack years. No history of alcohol use or illicit drug use. FAMILY MEDICAL HISTORY: Remarkable for cerebrovascular accident in her mother. The patient stated that her mother had numerous strokes and then . The patient also admits to a family history of coronary artery disease. The patient does have children, all of which are healthy. The patient also has a sister present at the bedside, who is healthy. REVIEW OF SYSTEMS: CONSTITUTIONAL: The patient denies any fevers, chills, dizziness or loss of appetite. The patient admits to both upper and lower extremity weakness. INTEGUMENTARY: The patient denies any diaphoresis, rashes, bruising or itching. HEENT: Denies any vision changes, hearing loss, nasal drainage, sore throat. No headaches. CARDIOVASCULAR: Denies any chest pain, edema, heart palpitations. RESPIRATORY: Denies any cough, sputum production or hemoptysis. GASTROINTESTINAL: Denies any nausea, vomiting, diarrhea, abdominal pain, bloating, hematemesis, constipation, melena, hematochezia. No epigastric pain. GENITOURINARY: Denies any hematuria, pyuria or dysuria. MUSCULOSKELETAL: The patient does have some chronic joint pain. NEUROLOGICAL: No seizures, tremors. Denies loss of consciousness. HEMATOLOGICAL: Denies any elle bleeding, easy bruising. ENDOCRINE: Denies any recent weight changes. PSYCHIATRIC: Denies suicidal/homicidal ideation. NEUROLOGICAL: The patient is noted to have garbled speech, as well as flaccidity of her right upper and lower extremities. Rest of review of the other organ systems is negative. PHYSICAL EXAMINATION: GENERAL: The patient is a well-developed, well-nourished 72-year-old female, who is awake, alert and oriented to person, place, time and situation. She is verbal, conversational. Her speech is garbled, but she does not appear to be in any acute distress. VITAL SIGNS ARE FOLLOWS: Temperature is 98.6, pulse 73, respirations 17, blood pressure 121/68. Oxygen saturation 95% on room air. SKIN: Warm and dry. No rashes. She is not diaphoretic. HEENT: Pupils equal, round and reactive to light and accommodation. Conjunctivae are pink. Sclerae are not icteric. There are no mouth lesions. Tongue is midline. The patient does have a slight right-sided facial droop. NECK: Supple. No JVD. No palpable lymphadenopathy or thyromegaly. The CARDIOVASCULAR: Heart is regular. There is no murmur, rub. CHEST: Clear, symmetrical, unlabored. ABDOMEN: Soft, nontender, nondistended. Bowel sounds are present. No palpable organomegaly. BACK: No CVA tenderness or sacral edema. EXTREMITIES: No clubbing, cyanosis, edema or peripheral signs of embolization. Plus 2 pedal pulses noted bilaterally. PSYCHIATRIC: Patient denies suicidal or homicidal ideation. DIAGNOSTICS: Lab values are as follows: Hematology obtained 07/21/2017: WBC is 10.1, hemoglobin, hematocrit 45.0, platelet count is 190,000. Coagulation obtained 07/21/2017: PT is 13.5, INR is 0.95. Chemistry panel obtained 07/21/2017: Sodium is 144, potassium 3.4, chloride is 107, carbon dioxide 22, BUN 20, creatinine 0.75. Glucose 85, calcium is 2.1, bilirubin is 0.7. AST 18, ALT 27, alk phos 83. CK 103, CK MB is 1.64. Troponin is 0.012. Total protein 7.5, albumin 4.6. Chest x-ray obtained on 07/21/2017 reveals no acute infiltrate. EKG obtained on 07/21/2017 reveals sinus rhythm. Head CT obtained on 07/21/2017 reveals limited study, due to motion artifact. No acute intracranial hemorrhage, mass effect or midline shift. No CT evidence of acute large territory infarct. Old left pontine lacunar infarct. Left posterior frontal periventricular white matter infarct with spotty low attenuation of the white matter from chronic small vessel disease. IMPRESSION AND PLAN: 1. Acute cerebrovascular accident. Will obtain MRI, carotid Doppler, echocardiogram. Start the patient on full dose statin. The patient was aspirin-sidney; therefore, will start the patient on aspirin therapy and consult Physical, Occupational and Speech Therapies, and also social science instructor to help arrange rehab, and follow. 2. Hypertension. Will hold the patient's blood pressure medications this evening to allow for permissive hypertension. 3. Arthritis pain. Will continue the patient's home medications. 4. Hyperlipidemia. The patient will be on maximized statin therapy. 5. Diabetes mellitus type 2. Will add sliding scale coverage. 6. Tobacco dependency. Will add a p.r.n. nicotine patch. I did spend 3 minutes discussing cessation education. The patient declines any pharmacological intervention at this time. DISPOSITION: The patient is a FULL CODE. Pending patient's symptomatology and diagnostic findings, will reevaluate in the a.m. Will admit the patient to inpatient IMCU, as the patient's expected length of stay should surpass 2 midnights. Time spent on this admission, including assessment, plan, physical examination, patient education and extensive family meeting and teaching is 60 minutes. DICTATING PHYSICIAN: CALVIN GUNDERSON NP [id number] PHY#: [id number] ID: [id number] JOB#: [id number] ACCT: [id number] cc:DORINDA GOYAL M.D. > ELIZA
[2017-07-21] MEDS ORDERED: ATORVASTATIN CALCIUM 80 MG TABLET PO SCH (22:00)
[2017-07-21] MEDS ORDERED: NICOTINE 14 MG/24 HR PATCH.TD24 TD ONE (22:30)
[2017-07-21] MEDS ORDERED: HALOPERIDOL LACTATE INJ 5 MG/1 ML VIAL IV ONE (23:16)
[2017-07-21] MEDS ORDERED: LIDOCAINE 5% (700 MG) TRANSDERMAL ADH..PATCH TP ONE (23:45)
[2017-07-22] MEDS ORDERED: LIDOCAINE 5% (700 MG) TRANSDERMAL ADH..PATCH ONE ×2 (00:21→01:13)
--- NOTE | 2017-07-22 00:33 | ER Document Report ---
ED NIH Stroke Scale - NIH Stroke Scale When completed:: Before Alteplase *: 1. NIH scale should be completed with appropriate accompanying assessment tools. *: 2. The NIH should reflect what the patient is capable of doing and should not be coached by the clinician. 1a. Level of Consciousness: 0=Alert;keenly responsive -: 1=Drowsy -: 2=Obtunded -: 3=Coma/unresponsive or reflex to noxious stimuli. 1a. Responses: 0 1b. Orientation Questions: a. What month is it? -: b. How old are you? -: 0=Answers both questions correctly. -: 1=Answers one question correctly or patient is intubated or has orotracheal trauma. -: 2=Answers neither question correctly. 1b. Responses: 0 1c. Response to commands: a. Open and close eyes? -: b. Weights And Measures Inspector and release hand? -: Credit is given despite weakness. Demonstration of task is permitted. Substitute command if hands cannot be used. -: 0=Performs both tasks correctly -: 1=Performs one task correctly -: 2=Performs neither task correctly 1c. Responses: 0 2. Gaze: Establish eye contact and instruct patient to "Follow my finger" -: 0=Normal -: 1=Partial gaze palsy. Gaze is abnormal in one or both eyes, but where forced deviation or total gaze paresis is not present. -: 2=Forced deviation or total gaze paresis. 2. Responses: 0 3. Visual Mcneill: Sees fingers in all four quadrants. -: 0=No visual loss. -: 1=Partial hemianopsia. -: 2=Complete hemianopsia. -: 3=Bilateral hemianopsia (including Cortical blindness) 3. Responses: 0 4. Facial Movement: Instruct patient to: -: a. Show me your teeth -: b. Raise your eyebrows -: c. Close your eyes -: d. Smile -: 0=Normal symmetrical movement -: 1=Minor paralysis (flattened nasolabial fold, asymmetry on smiling). -: 2=Partial paralysis (total or near total paralysis of lower face). -: 3=Complete paralysis of upper and lower face 4. Responses: 0 5. Motor functions (left arm): Alternate sides and extend each arm with palms down (90 degrees if sitting or 45 degrees for supine). -: 0=No drift;limb holds for full 10 seconds. -: 1=Drift; limb holds but drifts down before full 10 seconds, but does not hit bed. -: 2=Some effort against gravity; limb cannot get to or maintain position. -: 3=No effort against gravity; limb falls. -: 4=No movement. -: UN=Amputation, joint fusion, explain in comments. 5. Responses (left arm): 0 5. Motor Functions (right arm): Alternate sides and extend each arm with palms down (90 degrees if sitting or 45 degrees for supine). -: 0=No drift;limb holds for full 10 seconds. -: 1=Drift; limb holds but drifts down before full 10 seconds, but does not hit bed. -: 2=Some effort against gravity; limb cannot get to or maintain position. -: 3=No effort against gravity; limb falls. -: 4=No movement. -: UN=Amputation, joint fusion, explain in comments. 5. Responses (right arm): 4 6. Motor Functions (left leg): With patient lying supine, alternate sides and extend each leg (30 degrees always while supine). -: 0=No drift, leg holds position for full 5 seconds -: 1=Drift; leg falls before full 5 seconds but does not hit bed. -: 2=Some effort against gravity, leg falls to bed but some effort against gravity. -: 3=No effort against gravity, leg falls to bed immediately. -: 4=No movement. -: UN=Amputation, joint fusion; explain in comments. 6. Responses (left leg): 0 6. Motor Functions (right leg): With patient lying supine, alternate sides and extend each leg (30 degrees always while supine). -: 0=No drift, leg holds position for full 5 seconds -: 1=Drift; leg falls before full 5 seconds but does not hit bed. -: 2=Some effort against gravity, leg falls to bed but some effort against gravity. -: 3=No effort against gravity, leg falls to bed immediately. -: 4=No movement. -: UN=Amputation, joint fusion; explain in comments. 6. Responses (right leg): 4 7. Limb Ataxia: With eyes open instruct patient to: -: a. "Touch your finger to your nose". -: b. "Touch your heel to your bloom" -: 0=Absent -: 1=Present in one limb. -: 2=Present in two limbs. -: UN=Amputation or joint fusion; explain in comments. 7. Responses: 0 8. Sensory: Test sensation using pinprick or noxious stimuli. Test as many body parts as possible. -: 0=Normal;no sensory loss -: 1=Mile to moderate sensory loss (patient feels pin prick but is less sharp on affected side). -: 2=Severe or total sensory loss. 8. Responses: 0 9. Best Language: Instruct patient to: -: a. "Describe what you see in this picture." -: b. "Name the items in this picture." -: c. "Read these sentences." -: 0=No aphasia, normal -: 1=Mild to moderate aphasia. -: 2=Severe aphasia -: 3=Mute, global aphasia, no usable speech or auditory comprehension. 9. Responses: 1 10. Articulation, Dysarthia: Instruct patient to: -: "Read these words" or "Repeat these words" -: 0=Normal -: 1=Mild to moderate; patient may slur some words but can be understood without difficulty. -: 2=Severe; patients speech so slurred as to be unintelligible in the absence of dysphasia. -: UN=Intubated or other physical barrier, explain in comments. 10. Responses: 0 11. Extinction or inattention: 0=No abnormality -: 1= Visual, tactile, auditory, spatial, or personal inattention or extinction to bilateral simulation in one or the sensory modalities. -: 2=Profound gely-inattention or gely-inattention to more than one modality; does not recognize own hand. 11. Responses: 0 Total Score: 9
[2017-07-22] MEDS ORDERED: MORPHINE SULFATE 10 MG/ML INJ IV ONE (04:00)
[2017-07-22 09:07] VITALS: BP 151/64
--- NOTE | 2017-07-22 09:22 | EKG REPORT ---
SEVERITY:- ABNORMAL ECG - SINUS RHYTHM CONSIDER LEFT VENTRICULAR HYPERTROPHY : Confirmed by: Derick Dao 22-Jul-2017 09:21:58
--- NOTE | 2017-07-22 09:29 | Progress Note ---
Provider Note Provider Note: There is a 72-year-old female who was admitted for acute left pontine stroke yesterday. Patient was due to have an echo and ultrasound of the carotids today. I was called by the nurse at and informed that the patient was fully dressed by her family. I was informed that they wanted to take the patient out of the hospital AGAINST MEDICAL ADVICE. I came to see the patient at 923 and the patient was not in the room. The nurse informed me that the patient was taken home by family.
[2017-07-22] MEDS ORDERED: NICOTINE 14 MG/24 HR PATCH.TD24 TD PRN (10:00)
[2017-07-22] MEDS ORDERED: ENOXAPARIN SODIUM INJ 40 MG/0.4 ML DISP.SYRIN SUBCUT SCH (10:00)
--- NOTE | 2017-07-22 17:45 | PDOC DISCHARGE SUMMARY ---
General - Admit/Disc Date/PCP Admission Date/Primary Care Provider: 07/21/17 15:11 MOSHE MEDINA MD Discharge Date: 07/22/17 - Additional Information Home Medications: Albuterol Sulfate [Ventolin HFA MDI 18 GM] 2 puff IH Q8HP PRN 07/21/17 Amlodipine Besylate [Norvasc 10 mg Tablet] 10 mg PO DAILY 07/21/17 Atorvastatin Calcium [Lipitor 40 mg Tablet] 40 mg PO QHS 07/21/17 Fluticasone/Salmeterol [Advair 250-50 Diskus 14 Dose/Diskus] 1 puff IH Q12 07/21 Furosemide [Lasix 40 mg Tablet] 40 mg PO DAILY 07/21/17 Hydrocodone Bit/Acetaminophen [Hydrocodon-Acetaminophn 10-325] 1 tab PO Q4HP PRN 07/21/17 Lisinopril [Prinivil 40 mg Tablet] 40 mg PO DAILY 07/21/17 Metformin HCl [Glucophage] 850 mg PO BID 07/21/17 History of Present Illness History of Present Illness: DIEGO BURDEN is a 72 year old female admitted with acute pontine stroke. Please see HPI for further details Hospital Course Hospital Course: Patient was admitted and given at least aspirin. Please see H&P for details. The patient left AMA early this morning prior to ever being seen by me. Please see nurse's notes. Physical Exam Vital Signs: Temp Pulse Resp BP Pulse Ox 97.9 F 84 18 151/64 H 97 07/22/17 07:52 07/22/17 07:52 07/22/17 07:52 07/22/17 07:52 07/22/17 07:52 Intake & Output 07/21/17 07/22/17 07/23/17 06:59 06:59 06:59 Intake Total 1 Balance 1 Results Impressions: Chest X-Ray 07/21/17 13:41 IMPRESSION: No acute infiltrates. Head CT 07/21/17 13:41 IMPRESSION: Limited study due to patient motion artifact. No acute intracranial hemorrhage, mass effect, or midline shift. No CT evidence of acute large territory infarct Old left pontine lacunar infarct, left posterior frontal periventricular white matter infarct with spotty low attenuation in the white matter from chronic small vessel disease EVIDENCE OF ACUTE STROKE: NO. Head MRI 07/21/17 17:23 IMPRESSION: 1. RESTRICTED DIFFUSION IN THE LEFT SIDE OF THE GWYN CONSISTENT WITH ACUTE INFARCT. 2. ENHANCING MASS ON THE RIGHT SIDE OF THE CAVERNOUS SINUS EXTENDING INTO THE PRE PONTINE CISTERN, ESSENTIALLY UNCHANGED SINCE 2011. THIS IS PRESUMABLY A MENINGIOMA. THIS DOES CAUSE SOME MASS EFFECT ON THE RIGHT SIDE OF THE GWYN WITH SOME DEFORMITY. 3. ATROPHY AND CHRONIC MICRO-VASCULAR ISCHEMIC CHANGES. EVIDENCE OF ACUTE STROKE: YES. LEFT VERTEBROBASILAR Qualifiers PATEINT BEING DISCHARGED WITH ANY OF THE FOLLOWING DIAGNOSIS?: Stroke Stroke Pt being discharged on Anti-thrombolytic therapy?: No Reason(s) for not prescribing Anti-thrombolytic therapy:: Drug declined by patient Stroke Pt being discharged on Anti-coagulation therapy?: No Reason(s) for not prescribing Anti-coagulation therapy:: Drug declined by patient Stroke Pt being discharged on Statins?: No Reason(s) for not prescribing Statins therapy:: Drug declined by patient [place] Pt being discharged on Aspirin therapy?: No Reason(s) for not prescribing Aspirin therapy:: Drug declined by patient [place] Pt being discharged on Statins?: No Reason(s) for not prescribing Statin therapy:: Drug declined by patient
[2017-07-22] MEDS ORDERED: LIDOCAINE 5% (700 MG) TRANSDERMAL ADH..PATCH TP SCH (22:00)
== END 2017-07-22 08:55 | disposition left against medical advice (07) ==
LOC: ER 13:14 → EH 15:11 → INTOOBSV 15:11 → 3N 20:58
PROVIDERS: ADMIT Emergency Medicine; ATTEND Emergency Medicine
DX: I63.8 Other cerebral infarction (principal); G81.91 Hemiplegia, unspecified affecting right dominant side; R29.709 NIHSS score 9; Z53.21 Procedure and treatment not carried out due to patient leaving prior to being seen by health care provider; I25.10 Atherosclerotic heart disease of native coronary artery without angina pectoris; I10 Essential (primary) hypertension; E78.5 Hyperlipidemia, unspecified; E11.9 Type 2 diabetes mellitus without complications; J44.9 Chronic obstructive pulmonary disease, unspecified; F17.210 Nicotine dependence, cigarettes, uncomplicated; M19.90 Unspecified osteoarthritis, unspecified site; Z79.84 Long term (current) use of oral hypoglycemic drugs; Z92.3 Personal history of irradiation; Z86.03 Personal history of neoplasm of uncertain behavior; Z90.49 Acquired absence of other specified parts of digestive tract; Z79.899 Other long term (current) drug therapy; Z82.3 Family history of stroke
CPT/HCPCS: 93005; 99285; 36415; 82553; 82550; 85025; 85610; 85730; 80053; 84484; 70553; 71010; 70450; 93010; 97163; 97167; A9577; A9270 ×4; J3360; J1630; J2270; J1650; J3490; G8978; G8979; G8987; G8988

== ENCOUNTER 2017-07-27 11:10 | Emergency (ER) | payer MEDICARE, OTHER ==
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
[2017-07-27] MEDS ORDERED: IPRATROPIUM/ALBUTEROL 0.5-2.5 MG/3 ML AMPUL NEB ONE (11:35)
[2017-07-27 11:57] LABS: ABSOLUTE BASOPHILS # (AUTO) 0.1 10^3/uL (0.0-0.2); ABSOLUTE EOSINOPHILS # (AUTO) 0.1 10^3/uL (0.0-0.6); ABSOLUTE MONOCYTES (AUTO) 0.9 10^3/uL (0.1-1.4); ABSOLUTE NEUT (AUTO) 6.4 10^3/uL (1.7-8.2); BASOPHILS % (AUTO) 0.9 % (0-2); EOSINOPHILS % (AUTO) 0.8 % (0-6); HEMATOCRIT 45.3 % (36.0-47.0); HEMOGLOBIN 15.9 g/dL (12.0-15.5); HGB HCT DIFFERENCE 2.4; LYMPHOCYTES % (AUTO) 21.1 % (13-45); MEAN CORPUSCULAR HEMOGLOBIN 32.9 pg (27.0-33.4); MEAN CORPUSCULAR HGB CONC 35.2 g/dL (32.0-36.0); MEAN CORPUSCULAR VOLUME 94 fl (80-97); MONOCYTES % (AUTO) 9.2 % (3-13); RED BLOOD COUNT 4.84 10^6/uL (3.72-5.28); RED CELL DISTRIBUTION WIDTH 13.2 % (11.5-14.0); WHITE BLOOD COUNT 9.5 10^3/uL (4.0-10.5)
--- NOTE | 2017-07-27 12:18 | RADIOLOGY REPORT (SQ) ---
EXAM DESCRIPTION: CHEST SINGLE VIEW COMPLETED DATE/TIME: 07/27/2017 12:03 pm REASON FOR STUDY: Congested cough with thick yellow sputum, COPD COMPARISON: AP chest 07/21/2017 Chest films 07/08/2017, 11/25/2016 EXAM PARAMETERS: NUMBER OF VIEWS: One view. TECHNIQUE: Single frontal radiographic view of the chest acquired. RADIATION DOSE: NA LIMITATIONS: AP portable chest film, obese patient, EKG leads over the chest FINDINGS: LUNGS AND PLEURA: No opacities, masses or pneumothorax. No pleural effusion. MEDIASTINUM AND HILAR STRUCTURES: No masses. Contour normal. HEART AND VASCULAR STRUCTURES: Heart normal in size. Normal vasculature. BONES: No acute findings. HARDWARE: None in the chest. OTHER: No other significant finding. IMPRESSION: NO ACUTE RADIOGRAPHIC FINDING IN THE CHEST. TECHNICAL DOCUMENTATION: JOB ID: [id number] [employer]- All Rights Reserved
[2017-07-27] MEDS ORDERED: ALBUTEROL SULFATE 0.083% NEB 2.5 MG/3 ML AMPUL NEB ONE ×2 (12:25→13:10)
[2017-07-27] MEDS ORDERED: METHYLPREDNISOLONE INJ 125 MG/2 ML SDV IV ONE (12:25)
[2017-07-27 13:03] LABS: APPEARANCE,URINE CLEAR; BILIRUBIN,URINE NEGATIVE (NEGATIVE); GLUCOSE, URINE NEGATIVE (NEGATIVE); KETONES,URINE NEGATIVE (NEGATIVE); LEUKOCYTE ESTERASE,URINE SMALL (NEGATIVE); NITRITE,URINE NEGATIVE (NEGATIVE); PROTEIN,URINE NEGATIVE (NEGATIVE); URINE SPECIFIC GRAVITY 1.017
[2017-07-27] MEDS ORDERED: LEVOFLOXACIN 750 MG/D5W RTU 750 MG/150 ML RTUPB IV ONE (14:22)
[2017-07-27 15:14] LABS: ALANINE AMINOTRANSFERASE 24 U/L (9-52); ALBUMIN 4.6 g/dL (3.5-5.0); ALKALINE PHOSPHATASE 96 U/L (38-126); ANION GAP 16 (5-19); ASPARTATE AMINO TRANSFERASE 28 U/L (14-36); BILIRUBIN,DIRECT 0.9 mg/dL (0.0-0.4); BLOOD UREA NITROGEN 21 mg/dL (7-20); CALCIUM 10.1 mg/dL (8.4-10.2); CARBON DIOXIDE 26 mmol/L (22-30); CHLORIDE 102 mmol/L (98-107); CREATINE KINASE 137 U/L (30-135); CREATININE RESULT 0.73 mg/dL (0.52-1.25); GLUCOSE 93 mg/dL (75-110); POTASSIUM 4.1 mmol/L (3.6-5.0); SODIUM 143.7 mmol/L (137-145); TOTAL PROTEIN 7.6 g/dL (6.3-8.2)
[2017-07-27 15:26] LABS: CREATINE KINASE MB 1.45 ng/mL (<4.55)
[2017-07-27 15:28] LABS: TROPONIN I < 0.012 ng/mL
[2017-07-27 18:36] VITALS: BP 138/61
--- NOTE | 2017-07-27 19:29 | EKG REPORT ---
SEVERITY:- ABNORMAL ECG - SINUS TACHYCARDIA PROBABLE LVH WITH SECONDARY REPOL ABNRM : Confirmed by: Siobhan Molina MD 27-Jul-2017 19:28:44
== END 2017-07-27 18:38 | disposition home or self-care (01) ==
LOC: ER 11:10
DX: J44.1 Chronic obstructive pulmonary disease with (acute) exacerbation (principal); R09.81 Nasal congestion; F17.210 Nicotine dependence, cigarettes, uncomplicated; I50.9 Heart failure, unspecified; I25.10 Atherosclerotic heart disease of native coronary artery without angina pectoris; E78.00 Pure hypercholesterolemia, unspecified; I11.0 Hypertensive heart disease with heart failure; E11.9 Type 2 diabetes mellitus without complications; Z86.73 Personal history of transient ischemic attack (TIA), and cerebral infarction without residual deficits; Z88.6 Allergy status to analgesic agent; Z90.710 Acquired absence of both cervix and uterus
CPT/HCPCS: 93005; 94640 ×2; 99284; 96375; 96365; 36415; 87040; 87070; 87086; 87205; 82553; 82550; 85025; 87077; 87088; 80053; 81001; 84484; 87186; 71010; 93010; J2930; J1956; A9270 ×2; J7620

== ENCOUNTER 2017-09-19 14:10 | Inpatient (IN) | payer MEDICARE, OTHER, MEDICAID ==
--- NOTE | 2017-09-19 14:57 | RADIOLOGY REPORT (SQ) ---
EXAM DESCRIPTION: CT HEAD WITHOUT COMPLETED DATE/TIME: 09/19/2017 2:49 pm REASON FOR STUDY: stroke s/s COMPARISON: None. TECHNIQUE: Axial images acquired through the brain without intravenous contrast. Images reviewed wi th bone, brain and subdural windows. Images stored on PACS. All CT scanners at this facility use dose modulation, iterative reconstruction, and/or weight based d osing when appropriate to reduce radiation dose to as low as reasonably achievable (ALARA). [facility]: Dose Right [facility]: CareDose [facility]: Dose Right [facility]: Teradose 4D [facility]: Smart Bitglass RADIATION DOSE: CT Rad equipment meets quality standard of care and radiation dose reduction techniq ues were employed. CTDIvol: 64.6 mGy. DLP: 1034 mGy-cm. mGy. LIMITATIONS: None. FINDINGS: VENTRICLES: Prominent. CEREBRUM: No masses. No hemorrhage. No midline shift. Areas of low density in the white matter mos t likely due to chronic micro-vascular ischemic change. No evidence for acute infarction. CEREBELLUM: No masses. No hemorrhage. No alteration of density. No evidence for acute infarction. EXTRAAXIAL SPACES: Mild age-related involutional change. No fluid collections. No masses. ORBITS AND GLOBE: No intra- or extraconal masses. Normal contour of globe without masses. CALVARIUM: No fracture. PARANASAL SINUSES: No fluid or mucosal thickening. SOFT TISSUES: No mass or hematoma. OTHER: No other significant finding. IMPRESSION: No acute findings. EVIDENCE OF ACUTE STROKE: NO. TECHNICAL DOCUMENTATION: JOB ID: [id number] Quality ID # [id number]: Final reports with documentation of one or more dose reduction techniques (e.g., Au tomated exposure control, adjustment of the mA and/or kV according to patient size, use of iterative reconstruction technique) 2010 [employer]- All Rights Reserved
--- NOTE | 2017-09-19 15:25 | RADIOLOGY REPORT (SQ) ---
EXAM DESCRIPTION: CHEST SINGLE VIEW COMPLETED DATE/TIME: 09/19/2017 3:14 pm REASON FOR STUDY: stroke s/s COMPARISON: 07/27/2017 EXAM PARAMETERS: NUMBER OF VIEWS: One view. TECHNIQUE: Single frontal radiographic view of the chest acquired. RADIATION DOSE: NA LIMITATIONS: None. FINDINGS: LUNGS AND PLEURA: No new opacities, masses or pneumothorax. No pleural effusion. MEDIASTINUM AND HILAR STRUCTURES: No masses. Contour normal. HEART AND VASCULAR STRUCTURES: Heart normal in size. Normal vasculature. BONES: No acute findings. HARDWARE: None in the chest. OTHER: No other significant finding. IMPRESSION: NO ACUTE RADIOGRAPHIC FINDING IN THE CHEST. NO SIGNIFICANT CHANGE FROM PRIOR STUDY. TECHNICAL DOCUMENTATION: JOB ID: [id number] [employer]- All Rights Reserved
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
[2017-09-19 16:36] LABS: INTERNATIONAL RATION (INR) 0.93; PROTHROMBIN TIME 13.1 SEC (11.4-15.4)
[2017-09-19 16:37] LABS: PARTIAL THROMBOPLASTIN TIME 30.6 SEC (23.5-35.8)
--- NOTE | 2017-09-19 16:41 | EKG REPORT ---
SEVERITY:- ABNORMAL ECG - SINUS RHYTHM ATRIAL PREMATURE COMPLEX LEFT VENTRICULAR HYPERTROPHY : Confirmed by: Derick Dao 19-Sep-2017 16:40:50
[2017-09-19 16:42] LABS: ABSOLUTE LYMPHOCYTES (AUTO) 0.9 10^3/uL (0.5-4.7); ABSOLUTE MONOCYTES (AUTO) 0.4 10^3/uL (0.1-1.4); ABSOLUTE NEUT (AUTO) 3.3 10^3/uL (1.7-8.2); BASOPHILS % (AUTO) 0.6 % (0-2); EOSINOPHILS % (AUTO) 0.8 % (0-6); HEMATOCRIT 39.8 % (36.0-47.0); HEMOGLOBIN 13.4 g/dL (12.0-15.5); LYMPHOCYTES % (AUTO) 19.6 % (13-45); MEAN CORPUSCULAR HEMOGLOBIN 31.5 pg (27.0-33.4); MEAN CORPUSCULAR HGB CONC 33.5 g/dL (32.0-36.0); MEAN CORPUSCULAR VOLUME 94 fl (80-97); MONOCYTES % (AUTO) 8.9 % (3-13); PLATELET COUNT 179 10^3/uL (150-450); RED BLOOD COUNT 4.23 10^6/uL (3.72-5.28); SEGMENTED NEUTROPHILS % (AUTO) 70.1 % (42-78); TOTAL CELLS COUNTED % (AUTO) 100 %; WHITE BLOOD COUNT 4.7 10^3/uL (4.0-10.5)
[2017-09-19 17:07] LABS: A TYPE INFLUENZA AG NEGATIVE (NEGATIVE); B INFLUENZA AG NEGATIVE (NEGATIVE)
[2017-09-19 17:21] LABS: CREATINE KINASE MB 0.94 ng/mL (<4.55); TROPONIN I 0.018 ng/mL
[2017-09-19 17:23] LABS: ALANINE AMINOTRANSFERASE 39 U/L (9-52); ALBUMIN 4.2 g/dL (3.5-5.0); ALKALINE PHOSPHATASE 48 U/L (38-126); ANION GAP 14 (5-19); ASPARTATE AMINO TRANSFERASE 66 U/L (14-36); BILIRUBIN,DIRECT 0.7 mg/dL (0.0-0.4); BILIRUBIN,TOTAL 0.8 mg/dL (0.2-1.3); BLOOD UREA NITROGEN 29 mg/dL (7-20); CALCIUM 9.4 mg/dL (8.4-10.2); CARBON DIOXIDE 24 mmol/L (22-30); CHLORIDE 102 mmol/L (98-107); CREATINE KINASE 85 U/L (30-135); GLUCOSE 81 mg/dL (75-110); POTASSIUM 3.8 mmol/L (3.6-5.0); SODIUM 140.3 mmol/L (137-145); TOTAL PROTEIN 6.8 g/dL (6.3-8.2)
[2017-09-19 17:59] LABS: APPEARANCE,URINE SLIGHTLY-CLOUDY; BILIRUBIN,URINE NEGATIVE (NEGATIVE); COLOR,URINE YELLOW; GLUCOSE, URINE NEGATIVE (NEGATIVE); KETONES,URINE NEGATIVE (NEGATIVE); LEUKOCYTE ESTERASE,URINE NEGATIVE (NEGATIVE); NITRITE,URINE NEGATIVE (NEGATIVE); PROTEIN,URINE NEGATIVE (NEGATIVE); URINE SPECIFIC GRAVITY 1.023
[2017-09-19] MEDS ORDERED: ACETAMINOPHEN 325 MG TABLET PO ONE (20:03)
[2017-09-19] MEDS ORDERED: NORMAL SALINE 1000 ML 2,000 ML IV ONE (20:41)
[2017-09-19] MEDS ORDERED: ONDANSETRON HCL INJ/PF 4 MG/2 ML SDV IV PRN (20:42)
[2017-09-19] MEDS ORDERED: ACETAMINOPHEN 325 MG TABLET PO PRN (20:42)
[2017-09-19] MEDS ORDERED: MAGNESIUM HYDROXIDE SUSP 30 ML UDCUP PO PRN (20:42)
[2017-09-19] MEDS ORDERED: ALBUTEROL SULFATE HFA (90 MCG/PUFF) 200 PUFF/8.5 GM MDI IH PRN (20:49)
[2017-09-19 21:40] LABS: URINE AMPHETAMINES SCREEN NEGATIVE; URINE BARBITURATES SCREEN NEGATIVE; URINE BENZODIAZEPINES SCREEN NEGATIVE; URINE COCAINE SCREEN NEGATIVE; URINE MARIJUANA (THC) SCREEN NEGATIVE; URINE METHADONE SCREEN NEGATIVE; URINE PHENCYCLIDINE SCREEN NEGATIVE
[2017-09-19] MEDS ORDERED: LORAZEPAM INJ 2 MG/1 ML VIAL ONE (22:28)
[2017-09-19 23:09] LABS: CREATINE KINASE MB 0.87 ng/mL (<4.55); TROPONIN I 0.013 ng/mL
[2017-09-19] MEDS: ATORVASTATIN CALCIUM 80 MG TABLET PO SCH (23:32)
[2017-09-19] MEDS: HEPARIN SOD (PORCINE) 5,000 UNIT/ML 1 ML SYRINGE SUBCUT SCH (23:33)
[2017-09-19] MEDS: FLUTICASONE/SALMETEROL DISKUS 250-50 MCG/DOSE IH SCH (23:34)
[2017-09-19] MEDS: HYDROCODONE/ACETAMINOPHEN 5-325 MG TABLET PO PRN (23:36)
[2017-09-19] MEDS: NORMAL SALINE 1000 ML 1,000 ML IV PRN (23:37)
--- NOTE | 2017-09-20 00:18 | RADIOLOGY REPORT (SQ) ---
EXAM DESCRIPTION: KUB/ABDOMEN (SINGLE VIEW) CLINICAL HISTORY: 72 years, Female, abd pain COMPARISON: None. NUMBER OF VIEWS: Two. LIMITATIONS: None. FINDINGS: Intestinal gas pattern is unremarkable. No dilated bowel loops. No suspicious calcification. Mild osteoarthritis of bilateral hips. Moderate disc desiccation. IMPRESSION: No acute findings. 2011 [employer]- All Rights Reserved
[2017-09-20] MEDS: NORMAL SALINE 1000 ML 1,000 ML IV PRN (01:39)
[2017-09-20] MEDS ORDERED: HALOPERIDOL LACTATE INJ 5 MG/1 ML VIAL IV ONE (03:45)
[2017-09-20 04:12] LABS: APPEARANCE,URINE CLEAR; BILIRUBIN,URINE NEGATIVE (NEGATIVE); COLOR,URINE STRAW; GLUCOSE, URINE NEGATIVE (NEGATIVE); KETONES,URINE NEGATIVE (NEGATIVE); LEUKOCYTE ESTERASE,URINE NEGATIVE (NEGATIVE); NITRITE,URINE NEGATIVE (NEGATIVE); PROTEIN,URINE NEGATIVE (NEGATIVE); URINE SPECIFIC GRAVITY 1.004; UROBILINOGEN,URINE NEGATIVE mg/dL (<2.0)
[2017-09-20] MEDS: HEPARIN SOD (PORCINE) 5,000 UNIT/ML 1 ML SYRINGE SUBCUT SCH ×3 (05:24→23:29)
[2017-09-20 05:30] LABS: CHOLESTEROL 113.39 mg/dL (0-200); TRIGLYCERIDES 142 mg/dL (<150)
[2017-09-20 05:41] LABS: DIRECT LDL 35 mg/dL (<100)
[2017-09-20 05:49] LABS: CREATINE KINASE MB 1.77 ng/mL (<4.55); TROPONIN I 0.014 ng/mL
--- NOTE | 2017-09-20 07:36 | PDOC H&P ---
History of Present Illness Admission Date/PCP: 09/19/17 18:38 History of Present Illness: DIEGO BURDEN is a 72 year old female with a past medical history of acute 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 When I see this patient, she is awake alert and oriented 3. She reports that she has had nausea and vomiting for about 2 days. Apparently there is been a virus going through the family. I discussed her care with her son and over the phone in the company of her sister. He reports that at 930 yesterday morning she was normal and at 1130 she had a late breakfast. He reports that later after this she became confused and was not talking correctly and unable to move her legs. Patient does not recall any of these events. She is referred to the hospital service for possible TIA. There is some concern and it is noted to be on admission, the patient has multiple fingerlike bruises on her inner thighs. Her sister reports that she has concerns that patient's narcotics are being diverted by the family. Past Medical History Cardiac Medical History: Reports: Congestive Heart Failure, Coronary Artery Disease, Hyperlipidema, Hypertension - medicated, Heart Murmur - Told she has a leaky aortic valve Denies: Atrial Fibrillation, Myocardial Infarction, Peripheral Vascular Disease, Pulmonary Embolism Pulmonary Medical History: Reports: Asthma - ON MEDS, Bronchitis, Chronic Obstructive Pulmonary Disease (COPD), Pneumonia Denies: Respiratory Failure, Sleep Apnea, Tuberculosis Neurological Medical History: Denies: Seizures Endocrine Medical History: Reports: Diabetes Mellitus Type 2 Denies: Hyperthyroidism, Hypothyroidism Malignancy Medical History: Reports: Cervical Cancer - Surgery, Ovarian Cancer Denies: Breast Cancer, Lung Cancer GI Medical History: Denies: Hepatitis, Hiatal Hernia Musculoskeltal Medical History: Reports: Arthritis - DJD Denies: Fibromyalgia Psychiatric Medical History: Denies: Dementia, Depression Hematology: Denies: Anemia, Sickle Cell Disease Infectious Medical History: Reports: Clostridium Difficile Past Surgical History Past Surgical History: Reports: Appendectomy, Hysterectomy, Orthopedic Surgery Denies: Amputation, Section, Cholecystectomy, Coronary Artery Bypass Graft, Gastric Bypass Surgery, Herniorrhaphy, Mastectomy, Pacemaker, Tonsillectomy, Tubal Ligation Social History Smoking Status: Unknown if Ever Smoked Frequency of Alcohol Use: None Hx Recreational Drug Use: No Drugs: None Hx Prescription Drug Abuse: No - Advance Directive Resuscitation Status: Do Not Resuscitate Surrogate healthcare decision maker:: Reema Sifuentes, sister Family History Family History: CVA, Hypertension Parental Family History Reviewed: Yes Children Family History Reviewed: Yes Sibling(s) Family History Reviewed.: Yes Medication/Allergy Home Medications: Albuterol Sulfate [Ventolin HFA MDI 18 GM] 2 puff IH TIDP PRN 09/19/17 Amlodipine Besylate [Norvasc 10 mg Tablet] 10 mg PO QHS 09/19/17 Atorvastatin Calcium [Lipitor 40 mg Tablet] 40 mg PO QHS 09/19/17 Clopidogrel Bisulfate [Plavix 75 mg Tablet] 75 mg PO DAILY 09/19/17 Ezetimibe [Zetia 10 mg Tablet] 10 mg PO DAILY 09/19/17 Fluticasone/Salmeterol [Advair 250-50 Diskus 28 dose] 1 inh IH Q12 09/19/17 Furosemide [Lasix 40 mg Tablet] 20 mg PO DAILY 09/19/17 Hydrocodone/Acetaminophen [Hydrocodon-Acetaminophn 10-325] 1 each PO QIDP PRN Lisinopril [Prinivil 40 mg Tablet] 20 mg PO DAILY 09/19/17 Meloxicam [Mobic] 15 mg PO DAILY 09/19/17 Metformin HCl [Glucophage] 850 mg PO [id number] 09/19/17 Allergies/Adverse Reactions: codeine [Codeine] Adverse Reaction (Verified 07/27/17 11:41) nausea/vomiting lorazepam [From Ativan] Adverse Reaction (Verified 09/20/17 01:09) Change in behavior Review of Systems Constitutional: ABSENT: chills, fever(s), headache(s), weight gain, weight loss Eyes: ABSENT: visual disturbances Ears: ABSENT: hearing changes Cardiovascular: ABSENT: chest pain, dyspnea on exertion, edema, orthropnea, palpitations Respiratory: ABSENT: cough, hemoptysis Gastrointestinal: PRESENT: nausea, vomiting. ABSENT: abdominal pain, constipation, diarrhea, hematemesis, hematochezia Genitourinary: ABSENT: dysuria, hematuria Musculoskeletal: ABSENT: joint swelling Integumentary: ABSENT: rash, wounds Neurological: PRESENT: memory loss. ABSENT: abnormal gait, abnormal speech, confusion, dizziness, focal weakness, syncope Psychiatric: ABSENT: anxiety, depression, homidical ideation, suicidal ideation Endocrine: ABSENT: cold intolerance, heat intolerance, polydipsia, polyuria Hematologic/Lymphatic: ABSENT: easy bleeding, easy bruising Physical Exam Vital Signs: Temp Pulse Resp BP Pulse Ox 97.7 F 83 25 H 114/66 95 09/19/17 14:20 09/19/17 15:15 09/19/17 19:38 09/19/17 19:38 09/19/17 19:38 Intake & Output 09/18/17 09/19/17 09/20/17 06:59 06:59 06:59 Weight 70 kg General appearance: PRESENT: no acute distress, well-developed, well-nourished Head exam: PRESENT: atraumatic, normocephalic Eye exam: PRESENT: conjunctiva pink, EOMI, PERRLA. ABSENT: scleral icterus Ear exam: PRESENT: normal external ear exam Mouth exam: PRESENT: dry mucosa, tongue midline Neck exam: ABSENT: carotid bruit, JVD, lymphadenopathy, thyromegaly Respiratory exam: PRESENT: clear to auscultation tressa. ABSENT: rales, rhonchi, wheezes Cardiovascular exam: PRESENT: RRR, +S1, +S2, systolic murmur. ABSENT: diastolic murmur, rubs Pulses: PRESENT: normal dorsalis pedis pul Vascular exam: PRESENT: normal capillary refill GI/Abdominal exam: PRESENT: normal bowel sounds, soft. ABSENT: distended, guarding, mass, organolmegaly, rebound, tenderness Rectal exam: PRESENT: deferred Extremities exam: PRESENT: full ROM. ABSENT: calf tenderness, clubbing, pedal edema Neurological exam: PRESENT: alert, awake, oriented to person, oriented to place , oriented to time, oriented to situation, CN II-XII grossly intact. ABSENT: motor sensory deficit Psychiatric exam: PRESENT: appropriate affect, normal mood. ABSENT: homicidal ideation, suicidal ideation Skin exam: PRESENT: dry, intact, warm. ABSENT: cyanosis, rash Results Impressions: Chest X-Ray 09/19/17 14:30 IMPRESSION: NO ACUTE RADIOGRAPHIC FINDING IN THE CHEST. NO SIGNIFICANT CHANGE FROM PRIOR STUDY. Head CT 09/19/17 14:30 IMPRESSION: No acute findings. EVIDENCE OF ACUTE STROKE: NO. Assessment & Plan - Diagnosis (1) TIA (transient ischemic attack) Is this a current diagnosis for this admission?: Yes Plan: Concern for TIA like symptoms. obtain MRI On telemetry Give aspirin Likely secondary to nausea vomiting and dehydration. (2) CHF (congestive heart failure) Qualifiers: Congestive heart failure type: unspecified Congestive heart failure chronicity: chronic Qualified Code(s): I50.9 - Heart failure, unspecified Is this a current diagnosis for this admission?: Yes Plan: Patient is currently euvolemic (3) CVA (cerebral vascular accident) Qualifiers: CVA mechanism: unspecified Qualified Code(s): I63.9 - Cerebral infarction, unspecified Is this a current diagnosis for this admission?: Yes Plan: Patient had an acute pontine CVA and 1117 and was signed out AGAINST MEDICAL ADVICE by her family. Due to the fact that her workup was incomplete at that time, will obtain carotid Dopplers and an echocardiogram. (4) Diabetes mellitus type 2 in nonobese Is this a current diagnosis for this admission?: Yes (5) Hyperlipidemia Is this a current diagnosis for this admission?: Yes (6) Hypertension Qualifiers: Hypertension type: essential hypertension Qualified Code(s): I10 - Essential (primary) hypertension Is this a current diagnosis for this admission?: Yes (7) Tobacco dependence Is this a current diagnosis for this admission?: Yes - Time Time Spent: 30 to 50 Minutes Medications reviewed and adjusted accordingly: Yes
--- NOTE | 2017-09-20 10:23 | RADIOLOGY REPORT (SQ) ---
EXAM DESCRIPTION: CAROTID DOPPLER COMPLETED DATE/TIME: 09/20/2017 10:03 am REASON FOR STUDY: tia, hx of pontine infarct COMPARISON: CT brain 09/19/2017, 07/21/2017 MRI brain 07/21/2017 TECHNIQUE: Grayscale ultrasound, Doppler velocity and spectra, and color Doppler images acquired of the extra-cranial carotid and vertebral arteries. Images stored on PACS. LIMITATIONS: None. FINDINGS: RIGHT CAROTID CCA Velocities: Within normal limits. ICA Velocities Peak systolic 0.44 m/s. End diastolic 0.17 m/s. Proximal ICA/CCA peak systolic ratio 0.9. Spectra normal. No significant plaque. LEFT CAROTID CCA Velocities: Within normal limits. ICA Velocities Peak systolic 0.78 m/s. End diastolic 0.27 m/s. Proximal ICA/CCA peak systolic ratio 1.0. Spectra normal. No significant plaque. VERTEBRAL ARTERIES: Antegrade flow. Normal waveforms. SUBCLAVIAN ARTERIES: Not examined OTHER: No other significant finding. IMPRESSION: NO HEMODYNAMICALLY SIGNIFICANT STENOSIS. COMMENT: Quality ID #[id number]: Velocity criteria are extrapolated from the diameter data as defined by t he Society of Radiologists in Ultrasound Consensus Conference. Radiology 2003: 229; 340-346. TECHNICAL DOCUMENTATION: JOB ID: [id number] [employer]- All Rights Reserved
[2017-09-20] MEDS: EZETIMIBE 10 MG TABLET PO SCH (10:33)
[2017-09-20] MEDS: NICOTINE 21 MG/24 HR PATCH.TD24 TD SCH (10:34)
[2017-09-20] MEDS: CLOPIDOGREL BISULFATE 75 MG TABLET PO SCH (10:34)
[2017-09-20] MEDS: ASPIRIN 325 MG TABLET, ENT COATED PO SCH (10:34)
[2017-09-20] MEDS ORDERED: DIAZEPAM 5 MG TABLET ONE (11:23)
[2017-09-20] MEDS ORDERED: DIAZEPAM 5 MG TABLET PO PRN (11:51)
[2017-09-20 12:05] LABS: CREATINE KINASE MB 2.63 ng/mL (<4.55); TROPONIN I 0.013 ng/mL
--- NOTE | 2017-09-20 12:18 | Physician Advisory Note ---
Physician Advisor ProgressNote .: [facility] I have reviewed the medical record for this patient. Physician Advisor Statement: Please consider documenting, if you agree: 1. Specify type of altered mental status present: A. "Acute Metabolic Encephalopathy due to " = altered mental status due to acute or chronic medical disease state, such as fever, infection, dehydration, electrolyte imbalance, acidosis, hypoxia. B. "Acute Toxic Encephalopathy due to " = altered mental status due to drug, poison, or toxin. C. "Acute Delirium due to " = nonspecific disorientation/behavioral problem, cause that can be psychiatric, encephalopathic or intracranial. *If documentation does not specify the underlying cause of delirium, the ICD-10 coding classification attributes it to a psychiatric origin (such as schizophrenia, makenzie, or rapid progression of dementia), with a correspondingly lower severity of illness than if there is encephalopathy. -Cause Ex.s: acute cerebral ischemia of ___ location, hypotension w/atherosclerotic cerebrovascular dz, reversible cerebrovascular vasoconstriction syndrome , acute cerebrovascular insult, acute ____{embolic/thrombotic/systemic hypoperfusion from intravascular volume depletion} CVA of Rt/Lt___ location involving the ___ artery, producing dominant/nondominant Rt hemiparesis, slurred speech, ... 2. "mild Rt hemiparesis, residual from prior CVA" 3. "Chronic CHF, suspect diastolic", or "Chronic HF w/preserved EF" - 2011 ECHO = LV EF 60%, mild Aortic Regurg, mildly dilated LA. Diastolic fn not assessed. 4. Medical necessity: If you find that pt is clinically not safe for d/c today , please document concerns/reasons, & may change to Inpatient status. - Ex: "mental status worsened since arrival, not safe for d/c", "I AM CONCERNED about ", "persistent acute neurologic deficits", "new neurologic findings developing", ... (see points below) Status: Medicare pt, appropriately brought in initially as Outpt Obs for AMS, possible TIA/dehydration. However, since coming in, pt may have had significant worsening in mental status. Per 09/19/17 nursing notes: EMS reported pt w/slurred speech, confusion, & decreased ambulation x 30hrs prior to arrival. Pt had had improvement but not resolution of Rt sided weakness deficits since CVA in Nov. At 14:10, GCS 14 (not oriented to month/year), speech slurred. At 20:26, "pt calm, rational, thinking intact, speech clear & appropriate. Strength L>R, ROM limited on Rt. Bruises noted upper thighs." At 03:29, note states "confused upon arrival & has remained confused requiring continuous oversight for pt safety. Pt is restless & is repeatedly trying to get OOB. Pt has begun hallucinating... unable to grasp reality.... At 03:45, straight cath collected 400ml urine. "Remains agitated & confused." ED dr note stated Rt weakness, unable to walk, weakness coming & going, Rt facial weakness, flattening of Rt nasolabial fold, slightly slurred speech, mild -mod Rt pronator drift, RUE & RLE weaker than LUE & LLE. Thanks! CK
--- NOTE | 2017-09-20 14:24 | RADIOLOGY REPORT (SQ) ---
EXAM DESCRIPTION: MRI HEAD WITHOUT COMPLETED DATE/TIME: 09/20/2017 12:18 pm REASON FOR STUDY: tia, hx of meningioma and pontine infarct COMPARISON: CT brain 09/19/2017, 07/21/2017 MRI brain 07/21/2017, 05/22/2012 TECHNIQUE: Multiplanar imaging includes non-contrasted T1, T2, FLAIR, and diffusion with ADC map seq uences. Images stored on PACS. LIMITATIONS: Motion artifact. Rapid sequences were utilized. FINDINGS: Study is degraded by patient motion artifact. No gross large territory acute ischemic change on today's exam. No midline shift. No acute intracra nial hemorrhage. There is a subacute to chronic appearing left pontine infarct best shown on axial T1 image 80. Multi ple small foci of increased FLAIR/T2 signal in the deep periventricular white matter are present, sim ilar compared to 07/21/2017 MRI brain. Limited view of the orbits and paranasal sinuses, mastoid air cells unremarkable. Stable small clivu s meningioma to the right of midline, 13 x 5 mm in size axial image 8. IMPRESSION: Motion artifact throughout the study. No acute findings. Left pontine infarct, spotty bifrontal and biparietal deep periventricular white matter disease. The se findings are similar compared to MRI brain 07/21/2017 Stable plaque-like meningioma along the right clivus EVIDENCE OF ACUTE STROKE: NO. TECHNICAL DOCUMENTATION: JOB ID: [id number] [employer]- All Rights Reserved
--- NOTE | 2017-09-20 15:22 | PDOC PROGRESS REPORT ---
Subjective Progress Note for:: 09/20/17 Subjective:: Patient is slightly confused today. She is alert to person and place and time but is confused as to why she is in the hospital. Reason For Visit: TIA Physical Exam Vital Signs: Temp Pulse Resp BP Pulse Ox 98.0 F 109 H 18 146/76 H 95 09/20/17 07:19 09/20/17 08:00 09/20/17 08:00 09/20/17 08:00 09/20/17 08:00 Intake & Output 09/19/17 09/20/17 09/21/17 06:59 06:59 06:59 Intake Total 619 Output Total 800 Balance -181 Weight 64.8 kg General appearance: PRESENT: no acute distress Eye exam: PRESENT: conjunctiva pink. ABSENT: scleral icterus Mouth exam: PRESENT: moist, tongue midline Neck exam: ABSENT: JVD Respiratory exam: PRESENT: clear to auscultation tressa. ABSENT: rales, rhonchi, wheezes Cardiovascular exam: PRESENT: RRR. ABSENT: diastolic murmur, rubs, systolic murmur GI/Abdominal exam: PRESENT: normal bowel sounds, soft. ABSENT: distended, guarding, mass, organolmegaly, rebound, tenderness Extremities exam: ABSENT: calf tenderness, clubbing, pedal edema Neurological exam: PRESENT: alert, awake, oriented to person, oriented to place , oriented to time, motor sensory deficit - Strength 4 out of 5 in the right upper and lower extremity.. ABSENT: oriented to situation Psychiatric exam: PRESENT: agitated Skin exam: PRESENT: dry, intact, warm. ABSENT: cyanosis, rash Results Laboratory Results: 09/20/17 09/20/17 03:45 04:35 Triglycerides 142 Cholesterol 113.39 LDL Cholesterol Direct 35 VLDL Cholesterol 28.0 HDL Cholesterol 51 Urine Color STRAW Urine Appearance CLEAR Urine pH 5.0 Ur Specific [place] 1.004 Urine Protein NEGATIVE Urine Glucose (UA) NEGATIVE Urine Ketones NEGATIVE Urine Blood SMALL H Urine Nitrite NEGATIVE Ur Leukocyte Esterase NEGATIVE Urine WBC (Auto) 1 09/19/17 09/19/17 09/20/17 22:26 22:26 04:35 Creatine Kinase 82 110 CK-MB (CK-2) 0.87 Troponin I 0.013 09/20/17 09/20/17 09/20/17 04:35 11:00 11:00 Creatine Kinase 150 H CK-MB (CK-2) 1.77 2.63 Troponin I 0.014 0.013 Impressions: KUB X-Ray 09/19/17 00:00 IMPRESSION: No acute findings. 2010 [employer]- All Rights Reserved Chest X-Ray 09/19/17 14:30 IMPRESSION: NO ACUTE RADIOGRAPHIC FINDING IN THE CHEST. NO SIGNIFICANT CHANGE FROM PRIOR STUDY. Head CT 09/19/17 14:30 IMPRESSION: No acute findings. EVIDENCE OF ACUTE STROKE: NO. Carotid Doppler Study 09/20/17 00:00 IMPRESSION: NO HEMODYNAMICALLY SIGNIFICANT STENOSIS. Head MRI 09/20/17 00:00 IMPRESSION: Motion artifact throughout the study. No acute findings. Left pontine infarct, spotty bifrontal and biparietal deep periventricular white matter disease. 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 Assessment & Plan - Diagnosis (1) Delirium Is this a current diagnosis for this admission?: Yes Plan: The patient is somewhat confused today. It is unclear as to whether she did suffer a TIA and that is the source for her confusion or whether it could possibly be medication related. She does take chronic pain medications. We will continue to watch closely with continued neurological exams. I do not feel that she is safe to be discharged given her continued confusion and we will need to monitor at least 1 more night and will change to an inpatient. (2) CVA (cerebral vascular accident) Qualifiers: CVA mechanism: unspecified Qualified Code(s): I63.9 - Cerebral infarction, unspecified Is this a current diagnosis for this admission?: Yes Plan: Has had a previous CVA with right-sided weakness. MRI did not show an acute CVA. This may have represented a TIA. We will continue with aspirin, Plavix, statin. (3) CHF (congestive heart failure) Qualifiers: Congestive heart failure type: unspecified Congestive heart failure chronicity: chronic Qualified Code(s): I50.9 - Heart failure, unspecified Is this a current diagnosis for this admission?: Yes Plan: Patient is currently euvolemic. (4) Diabetes mellitus type 2 in nonobese Is this a current diagnosis for this admission?: Yes (5) Hyperlipidemia Is this a current diagnosis for this admission?: Yes Plan: Continue with Lipitor and Zetia. (6) Hypertension Qualifiers: Hypertension type: essential hypertension Qualified Code(s): I10 - Essential (primary) hypertension Is this a current diagnosis for this admission?: Yes - Time Time Spent with patient: 25-34 minutes - Inpatient Certification Medical Necessity: Need for Neurological Checks
[2017-09-20] MEDS: FLUTICASONE/SALMETEROL DISKUS 250-50 MCG/DOSE IH SCH ×2 (16:04→23:28)
[2017-09-20] MEDS ORDERED: LORAZEPAM INJ 2 MG/1 ML VIAL IV ONE (22:24)
[2017-09-20] MEDS: ATORVASTATIN CALCIUM 80 MG TABLET PO SCH (23:28)
[2017-09-21 05:01] LABS: ABSOLUTE LYMPHOCYTES (AUTO) 0.8 10^3/uL (0.5-4.7); ABSOLUTE MONOCYTES (AUTO) 0.6 10^3/uL (0.1-1.4); ABSOLUTE NEUT (AUTO) 7.1 10^3/uL (1.7-8.2); BASOPHILS % (AUTO) 0.3 % (0-2); HEMATOCRIT 39.7 % (36.0-47.0); HEMOGLOBIN 13.9 g/dL (12.0-15.5); LYMPHOCYTES % (AUTO) 9.8 % (13-45); MEAN CORPUSCULAR HEMOGLOBIN 32.3 pg (27.0-33.4); MEAN CORPUSCULAR VOLUME 93 fl (80-97); MONOCYTES % (AUTO) 7.3 % (3-13); PLATELET COUNT 162 10^3/uL (150-450); RED BLOOD COUNT 4.29 10^6/uL (3.72-5.28); RED CELL DISTRIBUTION WIDTH 13.7 % (11.5-14.0); SEGMENTED NEUTROPHILS % (AUTO) 82.6 % (42-78); TOTAL CELLS COUNTED % (AUTO) 100 %; WHITE BLOOD COUNT 8.6 10^3/uL (4.0-10.5)
[2017-09-21 05:26] LABS: ANION GAP 13 (5-19); BLOOD UREA NITROGEN 11 mg/dL (7-20); CALCIUM 9.5 mg/dL (8.4-10.2); CARBON DIOXIDE 21 mmol/L (22-30); CHLORIDE 112 mmol/L (98-107); GLUCOSE 76 mg/dL (75-110); POTASSIUM 3.3 mmol/L (3.6-5.0); SODIUM 146.4 mmol/L (137-145)
[2017-09-21] MEDS: HEPARIN SOD (PORCINE) 5,000 UNIT/ML 1 ML SYRINGE SUBCUT SCH ×3 (09:00→22:32)
[2017-09-21] MEDS ORDERED: CEFTRIAXONE 1 GM/D5W RTU 1 GM/50 ML RTUPB IV SCH (10:00)
--- NOTE | 2017-09-21 10:33 | PDOC PROGRESS REPORT ---
Subjective Progress Note for:: 09/21/17 Subjective:: Patient denies any complaints. She has one positive blood culture. Reason For Visit: TIA Physical Exam Vital Signs: Temp Pulse Resp BP Pulse Ox 99.1 F 105 H 23 H 148/57 H 96 09/21/17 07:08 09/21/17 07:08 09/21/17 07:08 09/21/17 07:08 09/21/17 07:08 Intake & Output 09/20/17 09/21/17 09/22/17 06:59 06:59 06:59 Intake Total 619 2557 Output Total 800 600 Balance -181 1957 Weight 64.8 kg General appearance: PRESENT: no acute distress Eye exam: PRESENT: conjunctiva pink. ABSENT: scleral icterus Mouth exam: PRESENT: moist, tongue midline Neck exam: ABSENT: JVD Respiratory exam: PRESENT: crackles - Right basilar. ABSENT: rales, rhonchi, wheezes Cardiovascular exam: PRESENT: RRR. ABSENT: diastolic murmur, rubs, systolic murmur GI/Abdominal exam: PRESENT: normal bowel sounds, soft. ABSENT: distended, guarding, mass, organolmegaly, rebound, tenderness Extremities exam: ABSENT: calf tenderness, clubbing, pedal edema Neurological exam: PRESENT: alert, awake, oriented to person, oriented to place , oriented to time, CN II-XII grossly intact. ABSENT: oriented to situation, motor sensory deficit Psychiatric exam: PRESENT: appropriate affect Skin exam: PRESENT: dry, intact, warm. ABSENT: cyanosis, rash Results Laboratory Results: 09/21/17 04:18 09/21/17 04:18 09/21/17 09/21/17 04:18 04:18 WBC 8.6 RBC 4.29 Hgb 13.9 Hct 39.7 MCV 93 MCH 32.3 MCHC 35.0 RDW 13.7 Plt Count 162 Seg Neutrophils % 82.6 H Lymphocytes % 9.8 L Monocytes % 7.3 Eosinophils % 0.0 Basophils % 0.3 Absolute Neutrophils 7.1 Absolute Lymphocytes 0.8 Absolute Monocytes 0.6 Absolute Eosinophils 0.0 Absolute Basophils 0.0 Sodium 146.4 H Potassium 3.3 L Chloride 112 H Carbon Dioxide 21 L Anion Gap 13 BUN 11 Creatinine 0.63 Est GFR ( Amer) > 60 Est GFR (Non-Af Amer) > 60 Glucose 76 Calcium 9.5 09/19/17 09/19/17 09/20/17 22:26 22:26 04:35 Creatine Kinase 82 110 CK-MB (CK-2) 0.87 Troponin I 0.013 09/20/17 09/20/17 09/20/17 04:35 11:00 11:00 Creatine Kinase 150 H CK-MB (CK-2) 1.77 2.63 Troponin I 0.014 0.013 Impressions: KUB X-Ray 09/19/17 00:00 IMPRESSION: No acute findings. 2010 [employer]- All Rights Reserved Chest X-Ray 09/19/17 14:30 IMPRESSION: NO ACUTE RADIOGRAPHIC FINDING IN THE CHEST. NO SIGNIFICANT CHANGE FROM PRIOR STUDY. Head CT 09/19/17 14:30 IMPRESSION: No acute findings. EVIDENCE OF ACUTE STROKE: NO. Carotid Doppler Study 09/20/17 00:00 IMPRESSION: NO HEMODYNAMICALLY SIGNIFICANT STENOSIS. Head MRI 09/20/17 00:00 IMPRESSION: Motion artifact throughout the study. No acute findings. Left pontine infarct, spotty bifrontal and biparietal deep periventricular white matter disease. 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 Assessment & Plan - Diagnosis (1) Delirium Is this a current diagnosis for this admission?: Yes Plan: The patient is less confused today. She does have a positive blood culture. This most likely is the cause for her symptoms. Will start the patient on Rocephin today. (2) CVA (cerebral vascular accident) Qualifiers: CVA mechanism: unspecified Qualified Code(s): I63.9 - Cerebral infarction, unspecified Is this a current diagnosis for this admission?: Yes Plan: Has had a previous CVA with right-sided weakness. MRI did not show an acute CVA. This may have represented a TIA. We will continue with aspirin, Plavix, statin. (3) CHF (congestive heart failure) Qualifiers: Congestive heart failure type: unspecified Congestive heart failure chronicity: chronic Qualified Code(s): I50.9 - Heart failure, unspecified Is this a current diagnosis for this admission?: Yes Plan: Patient is currently euvolemic. (4) Diabetes mellitus type 2 in nonobese Is this a current diagnosis for this admission?: Yes (5) Hyperlipidemia Is this a current diagnosis for this admission?: Yes Plan: Continue with Lipitor and Zetia. (6) Hypertension Qualifiers: Hypertension type: essential hypertension Qualified Code(s): I10 - Essential (primary) hypertension Is this a current diagnosis for this admission?: Yes - Time Time Spent with patient: 25-34 minutes - Inpatient Certification Medical Necessity: Need for IV Antibiotics
[2017-09-21] MEDS: POTASSI CL 20 MEQ/50 ML RIDER 20 MEQ/50 ML RTUPB IV SCH ×2 (11:02→13:53)
[2017-09-21] MEDS: FLUTICASONE/SALMETEROL DISKUS 250-50 MCG/DOSE IH SCH ×2 (11:02→22:31)
[2017-09-21] MEDS: NICOTINE 21 MG/24 HR PATCH.TD24 TD SCH (11:02)
[2017-09-21] MEDS: CLOPIDOGREL BISULFATE 75 MG TABLET PO SCH (11:02)
[2017-09-21] MEDS: ASPIRIN 325 MG TABLET, ENT COATED PO SCH (11:02)
[2017-09-21] MEDS: EZETIMIBE 10 MG TABLET PO SCH (11:03)
[2017-09-21] MEDS: CEFTRIAXONE SODIUM 1,000 MG in DEXTROSE 5%-WATER 50 ML IV SCH (13:50)
[2017-09-21] MEDS: NORMAL SALINE 1000 ML 1,000 ML IV PRN (20:42)
[2017-09-21] MEDS: ATORVASTATIN CALCIUM 80 MG TABLET PO SCH (22:31)
[2017-09-22] MEDS: HYDROCODONE/ACETAMINOPHEN 5-325 MG TABLET PO PRN (01:14)
[2017-09-22] MEDS: NORMAL SALINE 1000 ML 1,000 ML IV PRN ×3 (04:30→23:36)
[2017-09-22 05:25] LABS: ABSOLUTE LYMPHOCYTES (AUTO) 1.3 10^3/uL (0.5-4.7); ABSOLUTE MONOCYTES (AUTO) 0.8 10^3/uL (0.1-1.4); ABSOLUTE NEUT (AUTO) 8.5 10^3/uL (1.7-8.2); BASOPHILS % (AUTO) 0.3 % (0-2); HEMATOCRIT 40.3 % (36.0-47.0); LYMPHOCYTES % (AUTO) 11.9 % (13-45); MEAN CORPUSCULAR HEMOGLOBIN 32.1 pg (27.0-33.4); MEAN CORPUSCULAR HGB CONC 34.6 g/dL (32.0-36.0); MEAN CORPUSCULAR VOLUME 93 fl (80-97); MONOCYTES % (AUTO) 7.6 % (3-13); PLATELET COUNT 173 10^3/uL (150-450); RED BLOOD COUNT 4.35 10^6/uL (3.72-5.28); RED CELL DISTRIBUTION WIDTH 14.1 % (11.5-14.0); SEGMENTED NEUTROPHILS % (AUTO) 80.2 % (42-78); TOTAL CELLS COUNTED % (AUTO) 100 %; WHITE BLOOD COUNT 10.6 10^3/uL (4.0-10.5)
[2017-09-22] MEDS: HEPARIN SOD (PORCINE) 5,000 UNIT/ML 1 ML SYRINGE SUBCUT SCH ×3 (05:43→21:54)
[2017-09-22 05:47] LABS: ANION GAP 19 (5-19); BLOOD UREA NITROGEN 13 mg/dL (7-20); CALCIUM 9.7 mg/dL (8.4-10.2); CARBON DIOXIDE 16 mmol/L (22-30); CHLORIDE 115 mmol/L (98-107); GLUCOSE 79 mg/dL (75-110); POTASSIUM 3.3 mmol/L (3.6-5.0); SODIUM 149.7 mmol/L (137-145)
[2017-09-22] MEDS: ASPIRIN 325 MG TABLET, ENT COATED PO SCH (09:21)
[2017-09-22] MEDS: CLOPIDOGREL BISULFATE 75 MG TABLET PO SCH (09:21)
[2017-09-22] MEDS: EZETIMIBE 10 MG TABLET PO SCH (09:21)
[2017-09-22] MEDS: NICOTINE 21 MG/24 HR PATCH.TD24 TD SCH (09:22)
[2017-09-22] MEDS: FLUTICASONE/SALMETEROL DISKUS 250-50 MCG/DOSE IH SCH ×2 (09:29→21:56)
[2017-09-22] MEDS: CEFTRIAXONE SODIUM 1,000 MG in DEXTROSE 5%-WATER 50 ML IV SCH (11:07)
--- NOTE | 2017-09-22 13:14 | PDOC PROGRESS REPORT ---
Subjective Progress Note for:: 09/22/17 Subjective:: Patient was confused and hallucinating at the time of my exam. Reason For Visit: BACTEREMIA Physical Exam Vital Signs: Temp Pulse Resp BP Pulse Ox 97.6 F 115 H 20 159/72 H 95 09/22/17 08:19 09/22/17 08:19 09/22/17 08:19 09/22/17 08:19 09/22/17 08:19 Intake & Output 09/21/17 09/22/17 09/23/17 06:59 06:59 06:59 Intake Total 2414 Output Total 375 Balance 2039 Weight 62.9 kg General appearance: PRESENT: no acute distress Eye exam: PRESENT: conjunctiva pink. ABSENT: scleral icterus Mouth exam: PRESENT: moist, tongue midline Neck exam: ABSENT: JVD Respiratory exam: PRESENT: clear to auscultation tressa. ABSENT: rales, rhonchi, wheezes Cardiovascular exam: PRESENT: RRR. ABSENT: diastolic murmur, rubs, systolic murmur GI/Abdominal exam: PRESENT: normal bowel sounds, soft. ABSENT: distended, guarding, mass, organolmegaly, rebound, tenderness Extremities exam: ABSENT: calf tenderness, clubbing, pedal edema Neurological exam: PRESENT: alert, awake, oriented to person, oriented to place , CN II-XII grossly intact. ABSENT: oriented to time, oriented to situation, motor sensory deficit Psychiatric exam: PRESENT: agitated Skin exam: PRESENT: dry, intact, warm. ABSENT: cyanosis, rash Results Laboratory Results: 09/22/17 04:23 09/22/17 04:23 09/22/17 09/22/17 04:23 04:23 WBC 10.6 H RBC 4.35 Hgb 14.0 Hct 40.3 MCV 93 MCH 32.1 MCHC 34.6 RDW 14.1 H Plt Count 173 Seg Neutrophils % 80.2 H Lymphocytes % 11.9 L Monocytes % 7.6 Eosinophils % 0.0 Basophils % 0.3 Absolute Neutrophils 8.5 H Absolute Lymphocytes 1.3 Absolute Monocytes 0.8 Absolute Eosinophils 0.0 Absolute Basophils 0.0 Sodium 149.7 H Potassium 3.3 L Chloride 115 H Carbon Dioxide 16 L Anion Gap 19 BUN 13 Creatinine 0.69 Est GFR ( Amer) > 60 Est GFR (Non-Af Amer) > 60 Glucose 79 Calcium 9.7 Impressions: KUB X-Ray 09/19/17 00:00 IMPRESSION: No acute findings. 2010 [employer]- All Rights Reserved Chest X-Ray 09/19/17 14:30 IMPRESSION: NO ACUTE RADIOGRAPHIC FINDING IN THE CHEST. NO SIGNIFICANT CHANGE FROM PRIOR STUDY. Head CT 09/19/17 14:30 IMPRESSION: No acute findings. EVIDENCE OF ACUTE STROKE: NO. Carotid Doppler Study 09/20/17 00:00 IMPRESSION: NO HEMODYNAMICALLY SIGNIFICANT STENOSIS. Head MRI 09/20/17 00:00 IMPRESSION: Motion artifact throughout the study. No acute findings. Left pontine infarct, spotty bifrontal and biparietal deep periventricular white matter disease. 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 Assessment & Plan - Diagnosis (1) Delirium Is this a current diagnosis for this admission?: Yes Plan: She is more confused today. The patient is growing out a staph auricularis from her blood culture. This most likely is the cause for her symptoms. Will change from Rocephin to Levaquin. (2) CVA (cerebral vascular accident) Qualifiers: CVA mechanism: unspecified Qualified Code(s): I63.9 - Cerebral infarction, unspecified Is this a current diagnosis for this admission?: Yes Plan: Has had a previous CVA with right-sided weakness. MRI did not show an acute CVA. This may have represented a TIA. We will continue with aspirin, Plavix, statin. (3) CHF (congestive heart failure) Qualifiers: Congestive heart failure type: unspecified Congestive heart failure chronicity: chronic Qualified Code(s): I50.9 - Heart failure, unspecified Is this a current diagnosis for this admission?: Yes Plan: Patient is currently euvolemic. (4) Diabetes mellitus type 2 in nonobese Is this a current diagnosis for this admission?: Yes (5) Hyperlipidemia Is this a current diagnosis for this admission?: Yes Plan: Continue with Lipitor and Zetia. (6) Hypertension Qualifiers: Hypertension type: essential hypertension Qualified Code(s): I10 - Essential (primary) hypertension Is this a current diagnosis for this admission?: Yes - Time Time Spent with patient: 25-34 minutes - Inpatient Certification Medical Necessity: Need Close Monitoring Due to Risk of Patient Decompensation, Need for IV Antibiotics
[2017-09-22] MEDS ORDERED: POTASSIUM CHLORIDE 10 MEQ TABLET.SA PO ONE (14:00)
[2017-09-22] MEDS ORDERED: LEVOFLOXACIN 750 MG/D5W RTU 750 MG/150 ML RTUPB IV ONE (14:00)
[2017-09-22] MEDS: ATORVASTATIN CALCIUM 80 MG TABLET PO SCH (21:55)
[2017-09-22] MEDS: POTASSIUM CHLORIDE 10 MEQ TABLET.SA PO SCH (21:56)
[2017-09-23] MEDS: HYDROCODONE/ACETAMINOPHEN 5-325 MG TABLET PO PRN ×4 (04:35→21:55)
[2017-09-23 05:28] LABS: ABSOLUTE BASOPHILS # (AUTO) 0.1 10^3/uL (0.0-0.2); ABSOLUTE EOSINOPHILS # (AUTO) 0.1 10^3/uL (0.0-0.6); ABSOLUTE LYMPHOCYTES (AUTO) 1.4 10^3/uL (0.5-4.7); BASOPHILS % (AUTO) 0.6 % (0-2); EOSINOPHILS % (AUTO) 1.5 % (0-6); HEMATOCRIT 39.1 % (36.0-47.0); HEMOGLOBIN 13.4 g/dL (12.0-15.5); LYMPHOCYTES % (AUTO) 16.4 % (13-45); MEAN CORPUSCULAR HEMOGLOBIN 31.9 pg (27.0-33.4); MEAN CORPUSCULAR HGB CONC 34.1 g/dL (32.0-36.0); MEAN CORPUSCULAR VOLUME 93 fl (80-97); MONOCYTES % (AUTO) 11.3 % (3-13); PLATELET COUNT 151 10^3/uL (150-450); RED BLOOD COUNT 4.19 10^6/uL (3.72-5.28); RED CELL DISTRIBUTION WIDTH 13.7 % (11.5-14.0); SEGMENTED NEUTROPHILS % (AUTO) 70.2 % (42-78); TOTAL CELLS COUNTED % (AUTO) 100 %; WHITE BLOOD COUNT 8.6 10^3/uL (4.0-10.5)
[2017-09-23] MEDS: HEPARIN SOD (PORCINE) 5,000 UNIT/ML 1 ML SYRINGE SUBCUT SCH ×3 (05:45→21:55)
[2017-09-23 05:49] LABS: ANION GAP 16 (5-19); BLOOD UREA NITROGEN 9 mg/dL (7-20); CARBON DIOXIDE 18 mmol/L (22-30); CHLORIDE 112 mmol/L (98-107); GLUCOSE 84 mg/dL (75-110); SODIUM 145.9 mmol/L (137-145)
[2017-09-23 05:57] LABS: POTASSIUM 2.9 mmol/L (3.6-5.0)
[2017-09-23] MEDS: POTASSIUM CHLORIDE 20 MEQ/50 ML RTU IV SCH ×2 (06:39→09:52)
[2017-09-23] MEDS ORDERED: POTASSIUM CHLORIDE 10 MEQ TABLET.SA PO ONE (07:00)
[2017-09-23] MEDS ORDERED: POTASSIUM CHLORIDE 20 MEQ/15 ML UDCUP PO ONE (08:00)
[2017-09-23] MEDS: POTASSIUM CHLORIDE 10 MEQ TABLET.SA PO SCH ×2 (09:54→21:55)
[2017-09-23] MEDS: EZETIMIBE 10 MG TABLET PO SCH (09:57)
[2017-09-23] MEDS: CLOPIDOGREL BISULFATE 75 MG TABLET PO SCH (09:58)
[2017-09-23] MEDS: ASPIRIN 325 MG TABLET, ENT COATED PO SCH (09:59)
[2017-09-23] MEDS: FLUTICASONE/SALMETEROL DISKUS 250-50 MCG/DOSE IH SCH ×2 (09:59→21:55)
[2017-09-23] MEDS: NICOTINE 21 MG/24 HR PATCH.TD24 TD SCH (10:00)
[2017-09-23] MEDS: LEVOFLOXACIN 750 MG/D5W RTU 750 MG/150 ML RTUPB IV SCH (12:50)
--- NOTE | 2017-09-23 13:33 | PDOC PROGRESS REPORT ---
Subjective Progress Note for:: 09/23/17 Subjective:: Patient was confused at the time of my exam. Reason For Visit: BACTEREMIA Physical Exam Vital Signs: Temp Pulse Resp BP Pulse Ox 99.9 F 96 20 157/70 H 97 09/23/17 12:50 09/23/17 12:50 09/23/17 12:50 09/23/17 12:50 09/23/17 12:50 Intake & Output 09/22/17 09/23/17 09/24/17 06:59 06:59 06:59 Intake Total 2414 3650 120 Output Total 375 Balance 2039 3650 120 Weight 62.9 kg 62.8 kg General appearance: PRESENT: no acute distress Eye exam: PRESENT: conjunctiva pink. ABSENT: scleral icterus Mouth exam: PRESENT: moist, tongue midline Neck exam: ABSENT: JVD Respiratory exam: PRESENT: clear to auscultation tressa. ABSENT: rales, rhonchi, wheezes Cardiovascular exam: PRESENT: RRR. ABSENT: diastolic murmur, rubs, systolic murmur GI/Abdominal exam: PRESENT: normal bowel sounds, soft. ABSENT: distended, guarding, mass, organolmegaly, rebound, tenderness Extremities exam: PRESENT: full ROM. ABSENT: calf tenderness, clubbing, pedal edema Neurological exam: PRESENT: awake, oriented to person, oriented to place. ABSENT: oriented to time, oriented to situation Psychiatric exam: PRESENT: appropriate affect Skin exam: PRESENT: dry, intact, warm. ABSENT: cyanosis, rash Results Laboratory Results: 09/23/17 04:57 09/23/17 04:57 09/23/17 09/23/17 09/23/17 04:57 04:57 04:57 WBC 8.6 RBC 4.19 Hgb 13.4 Hct 39.1 MCV 93 MCH 31.9 MCHC 34.1 RDW 13.7 Plt Count 151 Seg Neutrophils % 70.2 Lymphocytes % 16.4 Monocytes % 11.3 Eosinophils % 1.5 Basophils % 0.6 Absolute Neutrophils 6.0 Absolute Lymphocytes 1.4 Absolute Monocytes 1.0 Absolute Eosinophils 0.1 Absolute Basophils 0.1 Sodium 145.9 H Potassium 2.9 L* Chloride 112 H Carbon Dioxide 18 L Anion Gap 16 BUN 9 Creatinine 0.56 Est GFR ( Amer) > 60 Est GFR (Non-Af Amer) > 60 Glucose 84 Calcium 9.0 Magnesium 1.7 Impressions: KUB X-Ray 09/19/17 00:00 IMPRESSION: No acute findings. 2010 [employer]- All Rights Reserved Chest X-Ray 09/19/17 14:30 IMPRESSION: NO ACUTE RADIOGRAPHIC FINDING IN THE CHEST. NO SIGNIFICANT CHANGE FROM PRIOR STUDY. Head CT 09/19/17 14:30 IMPRESSION: No acute findings. EVIDENCE OF ACUTE STROKE: NO. Carotid Doppler Study 09/20/17 00:00 IMPRESSION: NO HEMODYNAMICALLY SIGNIFICANT STENOSIS. Head MRI 09/20/17 00:00 IMPRESSION: Motion artifact throughout the study. No acute findings. Left pontine infarct, spotty bifrontal and biparietal deep periventricular white matter disease. 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 Assessment & Plan - Diagnosis (1) Delirium Is this a current diagnosis for this admission?: Yes Plan: She is confused today. The patient is growing out a staph auricularis from her blood culture. This most likely is the cause for her symptoms. Will continue Levaquin. (2) CVA (cerebral vascular accident) Qualifiers: CVA mechanism: unspecified Qualified Code(s): I63.9 - Cerebral infarction, unspecified Is this a current diagnosis for this admission?: Yes Plan: Has had a previous CVA with right-sided weakness. MRI did not show an acute CVA. This may have represented a TIA. We will continue with aspirin, Plavix, statin. (3) CHF (congestive heart failure) Qualifiers: Congestive heart failure type: unspecified Congestive heart failure chronicity: chronic Qualified Code(s): I50.9 - Heart failure, unspecified Is this a current diagnosis for this admission?: Yes Plan: Patient is currently euvolemic. (4) Diabetes mellitus type 2 in nonobese Is this a current diagnosis for this admission?: Yes (5) Hyperlipidemia Is this a current diagnosis for this admission?: Yes Plan: Continue with Lipitor and Zetia. (6) Hypertension Qualifiers: Hypertension type: essential hypertension Qualified Code(s): I10 - Essential (primary) hypertension Is this a current diagnosis for this admission?: Yes - Time Time Spent with patient: 25-34 minutes - Inpatient Certification Medical Necessity: Need for IV Antibiotics
[2017-09-23] MEDS: NORMAL SALINE 1000 ML 1,000 ML IV PRN (15:40)
[2017-09-23] MEDS: ATORVASTATIN CALCIUM 80 MG TABLET PO SCH (21:55)
[2017-09-24] MEDS: NORMAL SALINE 1000 ML 1,000 ML IV PRN (00:06)
[2017-09-24 05:10] LABS: ABSOLUTE EOSINOPHILS # (AUTO) 0.2 10^3/uL (0.0-0.6); ABSOLUTE LYMPHOCYTES (AUTO) 1.3 10^3/uL (0.5-4.7); ABSOLUTE MONOCYTES (AUTO) 0.9 10^3/uL (0.1-1.4); ABSOLUTE NEUT (AUTO) 5.6 10^3/uL (1.7-8.2); BASOPHILS % (AUTO) 0.4 % (0-2); EOSINOPHILS % (AUTO) 2.8 % (0-6); HEMOGLOBIN 13.4 g/dL (12.0-15.5); LYMPHOCYTES % (AUTO) 15.9 % (13-45); MEAN CORPUSCULAR HEMOGLOBIN 31.9 pg (27.0-33.4); MEAN CORPUSCULAR HGB CONC 34.4 g/dL (32.0-36.0); MEAN CORPUSCULAR VOLUME 93 fl (80-97); MONOCYTES % (AUTO) 10.7 % (3-13); PLATELET COUNT 144 10^3/uL (150-450); RED BLOOD COUNT 4.21 10^6/uL (3.72-5.28); RED CELL DISTRIBUTION WIDTH 14.1 % (11.5-14.0); SEGMENTED NEUTROPHILS % (AUTO) 70.2 % (42-78); TOTAL CELLS COUNTED % (AUTO) 100 %; WHITE BLOOD COUNT 7.9 10^3/uL (4.0-10.5)
[2017-09-24 05:30] LABS: ANION GAP 9 (5-19); BLOOD UREA NITROGEN 8 mg/dL (7-20); CARBON DIOXIDE 20 mmol/L (22-30); CHLORIDE 113 mmol/L (98-107); GLUCOSE 83 mg/dL (75-110); POTASSIUM 3.8 mmol/L (3.6-5.0); SODIUM 141.7 mmol/L (137-145)
[2017-09-24] MEDS: HEPARIN SOD (PORCINE) 5,000 UNIT/ML 1 ML SYRINGE SUBCUT SCH ×3 (05:47→21:45)
[2017-09-24] MEDS: CLOPIDOGREL BISULFATE 75 MG TABLET PO SCH (09:56)
[2017-09-24] MEDS: EZETIMIBE 10 MG TABLET PO SCH (09:56)
[2017-09-24] MEDS: POTASSIUM CHLORIDE 10 MEQ TABLET.SA PO SCH ×2 (09:56→21:45)
[2017-09-24] MEDS: ASPIRIN 325 MG TABLET, ENT COATED PO SCH (09:56)
[2017-09-24] MEDS: FLUTICASONE/SALMETEROL DISKUS 250-50 MCG/DOSE IH SCH ×2 (09:57→21:45)
[2017-09-24] MEDS: NICOTINE 21 MG/24 HR PATCH.TD24 TD SCH (09:57)
[2017-09-24] MEDS: LEVOFLOXACIN 750 MG/D5W RTU 750 MG/150 ML RTUPB IV SCH (09:57)
--- NOTE | 2017-09-24 10:08 | PDOC PROGRESS REPORT ---
Subjective Progress Note for:: 09/24/17 Subjective:: Patient is less confused this morning Reason For Visit: BACTEREMIA Physical Exam Vital Signs: Temp Pulse Resp BP Pulse Ox 98.0 F 96 22 H 171/73 H 95 09/24/17 03:59 09/24/17 03:59 09/24/17 03:59 09/24/17 03:59 09/24/17 03:59 Intake & Output 09/23/17 09/24/17 09/25/17 06:59 06:59 06:59 Intake Total 3650 3580 Balance 3650 3580 Weight 62.8 kg 63.2 kg General appearance: PRESENT: no acute distress Eye exam: PRESENT: conjunctiva pink. ABSENT: scleral icterus Mouth exam: PRESENT: moist, tongue midline Neck exam: ABSENT: JVD Respiratory exam: PRESENT: clear to auscultation tressa. ABSENT: rales, rhonchi, wheezes Cardiovascular exam: PRESENT: RRR. ABSENT: diastolic murmur, rubs, systolic murmur GI/Abdominal exam: PRESENT: normal bowel sounds, soft. ABSENT: distended, guarding, mass, organolmegaly, rebound, tenderness Extremities exam: ABSENT: calf tenderness, clubbing, pedal edema Neurological exam: PRESENT: alert, awake, oriented to person, oriented to place , oriented to time, oriented to situation, CN II-XII grossly intact. ABSENT: motor sensory deficit Psychiatric exam: PRESENT: appropriate affect Skin exam: PRESENT: dry, intact, warm. ABSENT: cyanosis, rash Results Laboratory Results: 09/24/17 04:32 09/24/17 04:32 09/24/17 09/24/17 04:32 04:32 WBC 7.9 RBC 4.21 Hgb 13.4 Hct 39.0 MCV 93 MCH 31.9 MCHC 34.4 RDW 14.1 H Plt Count 144 L Seg Neutrophils % 70.2 Lymphocytes % 15.9 Monocytes % 10.7 Eosinophils % 2.8 Basophils % 0.4 Absolute Neutrophils 5.6 Absolute Lymphocytes 1.3 Absolute Monocytes 0.9 Absolute Eosinophils 0.2 Absolute Basophils 0.0 Sodium 141.7 Potassium 3.8 Chloride 113 H Carbon Dioxide 20 L Anion Gap 9 BUN 8 Creatinine 0.55 Est GFR ( Amer) > 60 Est GFR (Non-Af Amer) > 60 Glucose 83 Calcium 9.0 Impressions: KUB X-Ray 09/19/17 00:00 IMPRESSION: No acute findings. 2010 [employer] All Rights Reserved Chest X-Ray 09/19/17 14:30 IMPRESSION: NO ACUTE RADIOGRAPHIC FINDING IN THE CHEST. NO SIGNIFICANT CHANGE FROM PRIOR STUDY. Head CT 09/19/17 14:30 IMPRESSION: No acute findings. EVIDENCE OF ACUTE STROKE: NO. Carotid Doppler Study 09/20/17 00:00 IMPRESSION: NO HEMODYNAMICALLY SIGNIFICANT STENOSIS. Head MRI 09/20/17 00:00 IMPRESSION: Motion artifact throughout the study. No acute findings. Left pontine infarct, spotty bifrontal and biparietal deep periventricular white matter disease. 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 Assessment & Plan - Diagnosis (1) Delirium Is this a current diagnosis for this admission?: Yes Plan: The patient is growing out a staph auricularis from her blood culture. This most likely is the cause for her symptoms. Her confusion is improving. Will continue Levaquin. (2) CVA (cerebral vascular accident) Qualifiers: CVA mechanism: unspecified Qualified Code(s): I63.9 - Cerebral infarction, unspecified Is this a current diagnosis for this admission?: Yes Plan: Has had a previous CVA with right-sided weakness. MRI did not show an acute CVA. This may have represented a TIA. We will continue with aspirin, Plavix, statin. (3) CHF (congestive heart failure) Qualifiers: Congestive heart failure type: unspecified Congestive heart failure chronicity: chronic Qualified Code(s): I50.9 - Heart failure, unspecified Is this a current diagnosis for this admission?: Yes Plan: Patient is currently euvolemic. (4) Diabetes mellitus type 2 in nonobese Is this a current diagnosis for this admission?: Yes (5) Hyperlipidemia Is this a current diagnosis for this admission?: Yes Plan: Continue with Lipitor and Zetia. (6) Hypertension Qualifiers: Hypertension type: essential hypertension Qualified Code(s): I10 - Essential (primary) hypertension Is this a current diagnosis for this admission?: Yes Plan: Her blood pressure has been elevated. Will add on Norvasc. - Time Time Spent with patient: 25-34 minutes - Inpatient Certification Medical Necessity: Need for IV Antibiotics
[2017-09-24] MEDS ORDERED: AMLODIPINE BESYLATE 5 MG TABLET PO ONE (11:00)
[2017-09-24] MEDS: ATORVASTATIN CALCIUM 80 MG TABLET PO SCH (21:45)
[2017-09-25] MEDS: NORMAL SALINE 1000 ML 1,000 ML IV PRN ×2 (01:55→19:54)
[2017-09-25] MEDS: HEPARIN SOD (PORCINE) 5,000 UNIT/ML 1 ML SYRINGE SUBCUT SCH ×3 (06:29→21:46)
[2017-09-25] MEDS: EZETIMIBE 10 MG TABLET PO SCH (09:04)
[2017-09-25] MEDS: POTASSIUM CHLORIDE 10 MEQ TABLET.SA PO SCH ×2 (09:04→21:46)
[2017-09-25] MEDS: AMLODIPINE BESYLATE 5 MG TABLET PO SCH (09:05)
[2017-09-25] MEDS: ASPIRIN 325 MG TABLET, ENT COATED PO SCH (09:05)
[2017-09-25] MEDS: CLOPIDOGREL BISULFATE 75 MG TABLET PO SCH (09:05)
[2017-09-25] MEDS: NICOTINE 21 MG/24 HR PATCH.TD24 TD SCH (09:05)
[2017-09-25] MEDS: LEVOFLOXACIN 750 MG/D5W RTU 750 MG/150 ML RTUPB IV SCH (09:06)
[2017-09-25] MEDS: FLUTICASONE/SALMETEROL DISKUS 250-50 MCG/DOSE IH SCH ×2 (09:06→21:47)
--- NOTE | 2017-09-25 11:16 | PDOC PROGRESS REPORT ---
Subjective Progress Note for:: 09/25/17 Subjective:: Patient is less confused this morning Reason For Visit: BACTEREMIA Physical Exam Vital Signs: Temp Pulse Resp BP Pulse Ox 97.4 F 98 20 164/74 H 98 09/25/17 07:19 09/25/17 07:19 09/25/17 07:19 09/25/17 07:19 09/25/17 07:19 Intake & Output 09/24/17 09/25/17 09/26/17 06:59 06:59 06:59 Intake Total 3580 3242 Balance 3580 3242 Weight 63.2 kg 68.3 kg General appearance: PRESENT: no acute distress Eye exam: PRESENT: conjunctiva pink. ABSENT: scleral icterus Mouth exam: PRESENT: moist, tongue midline Neck exam: ABSENT: JVD Respiratory exam: PRESENT: clear to auscultation tressa. ABSENT: rales, rhonchi, wheezes Cardiovascular exam: PRESENT: RRR. ABSENT: diastolic murmur, rubs, systolic murmur GI/Abdominal exam: PRESENT: normal bowel sounds, soft. ABSENT: distended, guarding, mass, organolmegaly, rebound, tenderness Extremities exam: ABSENT: calf tenderness, clubbing, pedal edema Neurological exam: PRESENT: alert, awake, oriented to person, oriented to place , CN II-XII grossly intact. ABSENT: oriented to time, oriented to situation, motor sensory deficit Psychiatric exam: PRESENT: appropriate affect Skin exam: PRESENT: dry, intact, warm. ABSENT: cyanosis, rash Results Laboratory Results: 09/24/17 04:32 09/24/17 04:32 Impressions: KUB X-Ray 09/19/17 00:00 IMPRESSION: No acute findings. [facility] [employer]- All Rights Reserved Chest X-Ray 09/19/17 14:30 IMPRESSION: NO ACUTE RADIOGRAPHIC FINDING IN THE CHEST. NO SIGNIFICANT CHANGE FROM PRIOR STUDY. Head CT 09/19/17 14:30 IMPRESSION: No acute findings. EVIDENCE OF ACUTE STROKE: NO. Carotid Doppler Study 09/20/17 00:00 IMPRESSION: NO HEMODYNAMICALLY SIGNIFICANT STENOSIS. Head MRI 09/20/17 00:00 IMPRESSION: Motion artifact throughout the study. No acute findings. Left pontine infarct, spotty bifrontal and biparietal deep periventricular white matter disease. 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 Assessment & Plan - Diagnosis (1) Delirium Is this a current diagnosis for this admission?: Yes Plan: The patient is growing out a staph auricularis from her blood culture. This most likely is the cause for her symptoms. Her confusion is improving. Will continue Levaquin. (2) CVA (cerebral vascular accident) Qualifiers: CVA mechanism: unspecified Qualified Code(s): I63.9 - Cerebral infarction, unspecified Is this a current diagnosis for this admission?: Yes Plan: Has had a previous CVA with right-sided weakness. MRI did not show an acute CVA. This may have represented a TIA. We will continue with aspirin, Plavix, statin. (3) CHF (congestive heart failure) Qualifiers: Congestive heart failure type: unspecified Congestive heart failure chronicity: chronic Qualified Code(s): I50.9 - Heart failure, unspecified Is this a current diagnosis for this admission?: Yes Plan: Patient is currently euvolemic. (4) Diabetes mellitus type 2 in nonobese Is this a current diagnosis for this admission?: Yes (5) Hyperlipidemia Is this a current diagnosis for this admission?: Yes Plan: Continue with Lipitor and Zetia. (6) Hypertension Qualifiers: Hypertension type: essential hypertension Qualified Code(s): I10 - Essential (primary) hypertension Is this a current diagnosis for this admission?: Yes Plan: Her blood pressure has been elevated. Will continue with Norvasc. - Time Time Spent with patient: 25-34 minutes - Inpatient Certification Medical Necessity: Need Close Monitoring Due to Risk of Patient Decompensation
[2017-09-25] MEDS: ATORVASTATIN CALCIUM 80 MG TABLET PO SCH (21:45)
[2017-09-25] MEDS: HYDROCODONE/ACETAMINOPHEN 5-325 MG TABLET PO PRN (21:55)
[2017-09-25] MEDS ORDERED: HALOPERIDOL 5 MG TABLET PO SCH (22:00)
[2017-09-26 05:39] LABS: ABSOLUTE EOSINOPHILS # (AUTO) 0.2 10^3/uL (0.0-0.6); ABSOLUTE LYMPHOCYTES (AUTO) 1.5 10^3/uL (0.5-4.7); ABSOLUTE MONOCYTES (AUTO) 0.8 10^3/uL (0.1-1.4); ABSOLUTE NEUT (AUTO) 4.9 10^3/uL (1.7-8.2); BASOPHILS % (AUTO) 0.6 % (0-2); EOSINOPHILS % (AUTO) 2.4 % (0-6); HEMATOCRIT 38.3 % (36.0-47.0); HEMOGLOBIN 13.4 g/dL (12.0-15.5); LYMPHOCYTES % (AUTO) 19.8 % (13-45); MEAN CORPUSCULAR HEMOGLOBIN 32.1 pg (27.0-33.4); MEAN CORPUSCULAR VOLUME 92 fl (80-97); MONOCYTES % (AUTO) 10.5 % (3-13); PLATELET COUNT 169 10^3/uL (150-450); RED BLOOD COUNT 4.17 10^6/uL (3.72-5.28); SEGMENTED NEUTROPHILS % (AUTO) 66.7 % (42-78); TOTAL CELLS COUNTED % (AUTO) 100 %; WHITE BLOOD COUNT 7.3 10^3/uL (4.0-10.5)
[2017-09-26 05:45] LABS: ANION GAP 10 (5-19); BLOOD UREA NITROGEN 7 mg/dL (7-20); CALCIUM 9.5 mg/dL (8.4-10.2); CARBON DIOXIDE 20 mmol/L (22-30); CHLORIDE 112 mmol/L (98-107); GLUCOSE 99 mg/dL (75-110); POTASSIUM 3.4 mmol/L (3.6-5.0); SODIUM 142.1 mmol/L (137-145)
[2017-09-26] MEDS: HEPARIN SOD (PORCINE) 5,000 UNIT/ML 1 ML SYRINGE SUBCUT SCH ×2 (06:24→13:48)
[2017-09-26] MEDS: FLUTICASONE/SALMETEROL DISKUS 250-50 MCG/DOSE IH SCH (09:14)
[2017-09-26] MEDS: CLOPIDOGREL BISULFATE 75 MG TABLET PO SCH (09:14)
[2017-09-26] MEDS: ASPIRIN 325 MG TABLET, ENT COATED PO SCH (09:14)
[2017-09-26] MEDS: EZETIMIBE 10 MG TABLET PO SCH (09:14)
[2017-09-26] MEDS: AMLODIPINE BESYLATE 5 MG TABLET PO SCH (09:14)
[2017-09-26] MEDS: NICOTINE 21 MG/24 HR PATCH.TD24 TD SCH (09:15)
[2017-09-26] MEDS: POTASSIUM CHLORIDE 10 MEQ TABLET.SA PO SCH (09:15)
[2017-09-26] MEDS ORDERED: LEVOFLOXACIN 750 MG TABLET PO SCH (10:00)
[2017-09-26] MEDS ORDERED: LEVOFLOXACIN 500 MG TABLET PO SCH (10:00)
--- NOTE | 2017-09-26 12:08 | PDOC TRANSFER SUMMARY ---
General - Admit/Disc Date/PCP Admission Date/Primary Care Provider: 09/21/17 14:06 Discharge Date: 09/26/17 - Discharge Diagnosis (1) Delirium Is this a current diagnosis for this admission?: Yes Summary: Most likely secondary to bronchitis with bacteremia. This is resolved. (2) CVA (cerebral vascular accident) Is this a current diagnosis for this admission?: Yes Summary: Patient is right-sided weakness. She most likely suffered a TIA as her symptoms resolved. (3) CHF (congestive heart failure) Is this a current diagnosis for this admission?: Yes (4) Diabetes mellitus type 2 in nonobese Is this a current diagnosis for this admission?: Yes (5) Hyperlipidemia Is this a current diagnosis for this admission?: Yes (6) Hypertension Is this a current diagnosis for this admission?: Yes - Additional Information Resuscitation Status: Do Not Resuscitate Discharge Diet: Cardiac, Diabetic Discharge Activity: Activity As Tolerated Prescriptions: Levofloxacin [Levaquin 750 mg Tablet] 750 mg PO DAILY #9 tablet Home Medications: Albuterol Sulfate [Ventolin HFA MDI 18 GM] 2 puff IH TIDP PRN 09/19/17 Amlodipine Besylate [Norvasc 10 mg Tablet] 10 mg PO QHS 09/19/17 Atorvastatin Calcium [Lipitor 40 mg Tablet] 40 mg PO QHS 09/19/17 Clopidogrel Bisulfate [Plavix 75 mg Tablet] 75 mg PO DAILY 09/19/17 Ezetimibe [Zetia 10 mg Tablet] 10 mg PO DAILY 09/19/17 Fluticasone/Salmeterol [Advair 250-50 Diskus 28 dose] 1 inh IH Q12 09/19/17 Furosemide [Lasix 40 mg Tablet] 20 mg PO DAILY 09/19/17 Lisinopril [Prinivil 40 mg Tablet] 20 mg PO DAILY 09/19/17 Meloxicam [Mobic] 15 mg PO DAILY 09/19/17 Metformin HCl [Glucophage] 850 mg PO [id number] 09/19/17 Albuterol Sulfate [Proair HFA Inhalation Aerosol 8.5 gm MDI] 2 puff IH Q6HP PRN hfa.aer.ad 09/26/17 Aspirin [Ecotrin 325 mg EC Tablet] 325 mg PO DAILY tabec 09/26/17 Haloperidol [Haldol 5 mg Tablet] 5 mg PO QHS tablet 09/26/17 Levofloxacin [Levaquin 750 mg Tablet] 750 mg PO DAILY #9 tablet 09/26/17 Potassium Chloride [Klor-Con 10 Meq Tablet.sa] 20 meq PO Q12 tablet.sa History of Present Illness Admission Date/PCP: 09/21/17 14:06 History of Present Illness: DIEGO BURDEN is a 72 year old female with a past medical history of acute 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 When I see this patient, she is awake alert and oriented 3. She reports that she has had nausea and vomiting for about 2 days. Apparently there is been a virus going through the family. I discussed her care with her son and over the phone in the company of her sister. He reports that at 930 yesterday morning she was normal and at 1130 she had a late breakfast. He reports that later after this she became confused and was not talking correctly and unable to move her legs. Patient does not recall any of these events. She is referred to the hospital service for possible TIA. There is some concern and it is noted to be on admission, the patient has multiple fingerlike bruises on her inner thighs. Her sister reports that she has concerns that patient's narcotics are being diverted by the family. Hospital Course Hospital Course: 72-year-old female with a history of CVA in July 2017 as well as a history of hypertension, hyperlipidemia, congestive heart failure who presented to emergency room with altered mental status. The patient had had nausea and vomiting for 2 days. The patient had been confused and had difficulty moving her legs right greater than left. Patient was admitted to the hospital service for TIA. There is also concern that she may have some infection as cause for her symptoms. The patient had a positive blood culture that grew out staph auricularis. This was treated with Levaquin. She will need a total of 14 days of Levaquin. She so far has completed 5 days of antibiotic. The patient was worked up for a CVA versus a TIA and the MRI did not show any acute event. Echocardiogram showed no significant stenosis. Is felt that she most likely had a TIA. Patient also did have delirium and this probably was related to the infection although the possibilities. TIA also was considered. She still has some intermittent confusion and probably has some baseline dementia. Patient has a history of heart disease but has not had any problems with any chest pain. The patient is weak and was felt that she would benefit from rehab and will be sent to [place] skilled nurse facility today. Physical Exam Vital Signs: Temp Pulse Resp BP Pulse Ox 97.3 F 82 17 155/63 H 100 09/26/17 07:29 09/26/17 07:29 09/26/17 07:29 09/26/17 07:29 09/26/17 07:29 Intake & Output 09/25/17 09/26/17 09/27/17 06:59 06:59 06:59 Intake Total 3242 2134 Balance 3242 2134 Weight 68.3 kg 69.3 kg General appearance: PRESENT: no acute distress Eye exam: PRESENT: conjunctiva pink. ABSENT: scleral icterus Mouth exam: PRESENT: moist, tongue midline Neck exam: ABSENT: JVD Respiratory exam: PRESENT: clear to auscultation tressa. ABSENT: rales, rhonchi, wheezes Cardiovascular exam: PRESENT: RRR. ABSENT: diastolic murmur, rubs, systolic murmur GI/Abdominal exam: PRESENT: normal bowel sounds, soft. ABSENT: distended, guarding, mass, organolmegaly, rebound, tenderness Extremities exam: ABSENT: calf tenderness, clubbing, pedal edema Neurological exam: PRESENT: alert, awake, oriented to person, oriented to place , oriented to time, CN II-XII grossly intact, motor sensory deficit - Mild right lower extremity weakness.. ABSENT: oriented to situation Psychiatric exam: PRESENT: appropriate affect Skin exam: PRESENT: dry, intact, warm. ABSENT: cyanosis, rash Results Laboratory Results: 09/26/17 05:12 09/26/17 05:12 09/26/17 09/26/17 05:12 05:12 WBC 7.3 RBC 4.17 Hgb 13.4 Hct 38.3 MCV 92 MCH 32.1 MCHC 35.0 RDW 14.0 Plt Count 169 Seg Neutrophils % 66.7 Lymphocytes % 19.8 Monocytes % 10.5 Eosinophils % 2.4 Basophils % 0.6 Absolute Neutrophils 4.9 Absolute Lymphocytes 1.5 Absolute Monocytes 0.8 Absolute Eosinophils 0.2 Absolute Basophils 0.0 Sodium 142.1 Potassium 3.4 L Chloride 112 H Carbon Dioxide 20 L Anion Gap 10 BUN 7 Creatinine 0.49 L Est GFR ( Amer) > 60 Est GFR (Non-Af Amer) > 60 Glucose 99 Calcium 9.5 Impressions: KUB X-Ray 09/19/17 00:00 IMPRESSION: No acute findings. 2010 [employer]- All Rights Reserved Chest X-Ray 09/19/17 14:30 IMPRESSION: NO ACUTE RADIOGRAPHIC FINDING IN THE CHEST. NO SIGNIFICANT CHANGE FROM PRIOR STUDY. Head CT 09/19/17 14:30 IMPRESSION: No acute findings. EVIDENCE OF ACUTE STROKE: NO. Carotid Doppler Study 09/20/17 00:00 IMPRESSION: NO HEMODYNAMICALLY SIGNIFICANT STENOSIS. Head MRI 09/20/17 00:00 IMPRESSION: Motion artifact throughout the study. No acute findings. Left pontine infarct, spotty bifrontal and biparietal deep periventricular white matter disease. 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 Transfer Plan - Disposition Transfer Plan: Patient will be transferred to [place] [facility] skilled nurse facility today for rehab. - Time Spent with Patient Time spent with patient: Greater than 30 Minutes Qualifiers PATEINT BEING DISCHARGED WITH ANY OF THE FOLLOWING DIAGNOSIS?: No Plan Discharge Plan: Patient is transferred to [place] [facility] skilled nurse facility for rehab. Time Spent: Greater than 30 Minutes
[2017-09-26] MEDS ORDERED: BISACODYL 10 MG SUPP.RECT PR ONE (13:00)
[2017-09-26 13:19] VITALS: BP 145/67
[2017-09-26] MEDS: HYDROCODONE/ACETAMINOPHEN 5-325 MG TABLET PO PRN (13:52)
== END 2017-09-26 17:28 | DRG 872 ==
LOC: ER 14:10 → INTOOBSV 18:38 → EH 18:38 → 3W 09-20 01:11 → OBSVTOIN 09-21 14:06
PROVIDERS: ADMIT Emergency Medicine; ATTEND Emergency Medicine
DX: R78.81 Bacteremia (principal); G45.9 Transient cerebral ischemic attack, unspecified; B95.7 Other staphylococcus as the cause of diseases classified elsewhere; Z66 Do not resuscitate; J40 Bronchitis, not specified as acute or chronic; I50.9 Heart failure, unspecified; I11.0 Hypertensive heart disease with heart failure; I25.10 Atherosclerotic heart disease of native coronary artery without angina pectoris; E78.00 Pure hypercholesterolemia, unspecified; E11.9 Type 2 diabetes mellitus without complications; C53.9 Malignant neoplasm of cervix uteri, unspecified; D32.9 Benign neoplasm of meninges, unspecified; R41.0 Disorientation, unspecified; Z86.73 Personal history of transient ischemic attack (TIA), and cerebral infarction without residual deficits
CPT/HCPCS: 36415; 51701; 70450; 70551; 71045; 74018; 80048; 80053; 80061; 80307; 81001; 82550; 82553; 82962; 83036; 83605; 83735; 84484; 85025; 85610; 85730; 87040; 87077; 87086; 87186; 87804; 93005; 93010; 93880; 99285; G0378; G8987-GO; G8988-GO; G9159-GN; G9160-GN; J0696; J1630; J1644; J1956; J2060; J3480; J3490; J7030

== ENCOUNTER 2017-11-25 20:32 | Emergency (ER) | payer MEDICARE, OTHER, MEDICAID ==
[2017-11-25] MEDS ORDERED: FENTANYL CITRATE INJ/PF 100 MCG/2 ML AMPUL IV ONE (20:52)
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
--- NOTE | 2017-11-25 21:42 | RADIOLOGY REPORT (SQ) ---
EXAM DESCRIPTION: HIP RIGHT 2-3 VIEWS COMPLETED DATE/TIME: 11/25/2017 9:34 pm REASON FOR STUDY: right hip pain COMPARISON: None. NUMBER OF VIEWS: Two views. TECHNIQUE: AP pelvis and additional frog-leg view of the right hip. LIMITATIONS: None. FINDINGS: MINERALIZATION: Normal. RIGHT HIP: Mild to moderate osteoarthritis. No fracture or dislocation. No worrisome bone lesions. LEFT HIP: Mild to moderate osteoarthritis. No fracture or dislocation. No worrisome bone lesions. PUBIS AND ISCHIUM: No fracture. PELVIS: No fracture. SACRUM: No fracture or dislocation. No worrisome bone lesions. LOWER LUMBAR SPINE: No fracture or dislocation. No worrisome bone lesions. Advanced degenerative dis c disease. SOFT TISSUES: No findings. OTHER: No other significant finding. IMPRESSION: DEGENERATIVE CHANGE ABOVE. NO RADIOGRAPHIC EVIDENCE OF ACUTE INJURY. TECHNICAL DOCUMENTATION: JOB ID: [id number] [employer]- All Rights Reserved Reading location - IP/workstation name: [email or web address]
--- NOTE | 2017-11-25 21:48 | EKG REPORT ---
SEVERITY:- ABNORMAL ECG - SINUS RHYTHM ATRIAL PREMATURE COMPLEX PROBABLE LEFT ATRIAL ABNORMALITY LEFT VENTRICULAR HYPERTROPHY : Confirmed by: Derick Dao 25-Nov-2017 21:48:22
[2017-11-25 22:03] LABS: PARTIAL THROMBOPLASTIN TIME 29.4 SEC (23.5-35.8); PROTHROMBIN TIME 13.9 SEC (11.4-15.4)
[2017-11-25 22:04] LABS: ABSOLUTE BASOPHILS # (AUTO) 0.1 10^3/uL (0.0-0.2); ABSOLUTE LYMPHOCYTES (AUTO) 1.3 10^3/uL (0.5-4.7); ABSOLUTE MONOCYTES (AUTO) 0.7 10^3/uL (0.1-1.4); ABSOLUTE NEUT (AUTO) 7.5 10^3/uL (1.7-8.2); BASOPHILS % (AUTO) 0.8 % (0-2); EOSINOPHILS % (AUTO) 0.3 % (0-6); HEMATOCRIT 32.8 % (36.0-47.0); HEMOGLOBIN 11.2 g/dL (12.0-15.5); LYMPHOCYTES % (AUTO) 13.2 % (13-45); MEAN CORPUSCULAR HEMOGLOBIN 32.4 pg (27.0-33.4); MEAN CORPUSCULAR HGB CONC 34.3 g/dL (32.0-36.0); MEAN CORPUSCULAR VOLUME 95 fl (80-97); MONOCYTES % (AUTO) 7.6 % (3-13); PLATELET COUNT 211 10^3/uL (150-450); RED BLOOD COUNT 3.47 10^6/uL (3.72-5.28); RED CELL DISTRIBUTION WIDTH 15.8 % (11.5-14.0); SEGMENTED NEUTROPHILS % (AUTO) 78.1 % (42-78); TOTAL CELLS COUNTED % (AUTO) 100 %; WHITE BLOOD COUNT 9.6 10^3/uL (4.0-10.5)
[2017-11-25 22:05] LABS: ALANINE AMINOTRANSFERASE 24 U/L (9-52); ALKALINE PHOSPHATASE 70 U/L (38-126); ANION GAP 10 (5-19); ASPARTATE AMINO TRANSFERASE 21 U/L (14-36); BILIRUBIN,DIRECT 0.2 mg/dL (0.0-0.4); BILIRUBIN,TOTAL 0.6 mg/dL (0.2-1.3); BLOOD UREA NITROGEN 15 mg/dL (7-20); CALCIUM 9.4 mg/dL (8.4-10.2); CARBON DIOXIDE 27 mmol/L (22-30); CHLORIDE 102 mmol/L (98-107); GLUCOSE 96 mg/dL (75-110); POTASSIUM 3.4 mmol/L (3.6-5.0); SODIUM 139.1 mmol/L (137-145); TOTAL PROTEIN 6.3 g/dL (6.3-8.2)
--- NOTE | 2017-11-25 23:13 | RADIOLOGY REPORT (SQ) ---
EXAM DESCRIPTION: CT PELVIS WITHOUT COMPLETED DATE/TIME: 11/25/2017 11:03 pm REASON FOR STUDY: pain COMPARISON: None. TECHNIQUE: CT scan of the pelvis performed without intravenous or oral contrast. Images reviewed wi th soft tissue and bone windows. Reconstructed coronal and sagittal MPR images reviewed. All images stored on PACS. All CT scanners at this facility use dose modulation, iterative reconstruction, and/or weight based d osing when appropriate to reduce radiation dose to as low as reasonably achievable (ALARA). [facility]: Dose Right [facility]: CareDose [facility]: Dose Right [facility]: Teradose 4D [facility]: Cagenix RADIATION DOSE: CT Rad equipment meets quality standard of care and radiation dose reduction techniq ues were employed. CTDIvol: 23.1 mGy. DLP: 724 mGy-cm. mGy. LIMITATIONS: None. FINDINGS: PELVIC BONES: No acute fracture. No worrisome bone lesions. VISUALIZED SPINE: Degenerative change without fracture. HIP(S): Mild to moderate osteoarthritis. No acute fracture or dislocation. No worrisome bone lesions . PELVIC SOFT TISSUES: No significant findings. EXTRAPELVIC SOFT TISSUES: There is a 6.8 x 3.3 x 7.8 cm soft tissue mass centered within the subcutan eous fat of the right lateral hip with surrounding stranding presumably representing a soft tissue he matoma. Soft tissues otherwise grossly normal. OTHER: No other significant finding. IMPRESSION: NO FRACTURE. PRESUMED SOFT TISSUE HEMATOMA RIGHT LATERAL HIP. CORRELATE WITH ANY HISTORY OF TRAUMA ONLY PROVID ED HISTORY IS PAIN. TECHNICAL DOCUMENTATION: JOB ID: [id number] Quality ID # [id number]: Final reports with documentation of one or more dose reduction techniques (e.g., Au tomated exposure control, adjustment of the mA and/or kV according to patient size, use of iterative reconstruction technique) 2010 [employer]- All Rights Reserved Reading location - IP/workstation name: [email or web address]
[2017-11-25 23:41] LABS: APPEARANCE,URINE CLEAR; BILIRUBIN,URINE NEGATIVE (NEGATIVE); COLOR,URINE YELLOW; GLUCOSE, URINE NEGATIVE (NEGATIVE); KETONES,URINE NEGATIVE (NEGATIVE); LEUKOCYTE ESTERASE,URINE NEGATIVE (NEGATIVE); NITRITE,URINE NEGATIVE (NEGATIVE); PROTEIN,URINE NEGATIVE (NEGATIVE); URINE SPECIFIC GRAVITY 1.013
[2017-11-26 00:19] VITALS: BP 157/78
== END 2017-11-25 23:46 | disposition home or self-care (01) ==
LOC: ER 20:32
DX: S70.01XA Contusion of right hip, initial encounter (principal); S30.0XXA Contusion of lower back and pelvis, initial encounter; M25.551 Pain in right hip; W01.0XXA Fall on same level from slipping, tripping and stumbling without subsequent striking against object, initial encounter; Y93.89 Activity, other specified; Y92.003 Bedroom of unspecified non-institutional (private) residence as the place of occurrence of the external cause; I69.351 Hemiplegia and hemiparesis following cerebral infarction affecting right dominant side; M51.36 Other intervertebral disc degeneration, lumbar region; I25.10 Atherosclerotic heart disease of native coronary artery without angina pectoris; I10 Essential (primary) hypertension; J44.9 Chronic obstructive pulmonary disease, unspecified; E11.9 Type 2 diabetes mellitus without complications; Z87.891 Personal history of nicotine dependence; Z85.41 Personal history of malignant neoplasm of cervix uteri; Z85.43 Personal history of malignant neoplasm of ovary
CPT/HCPCS: 93005; 99284; 96374; 36415; 87086; 85025; 85610; 85730; 80053; 81001; 73502; 72192; 93010; J3010

== ENCOUNTER 2017-12-14 13:27 | Inpatient (IN) | payer MEDICARE, OTHER, MEDICAID ==
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
--- NOTE | 2017-12-14 14:48 | RADIOLOGY REPORT (SQ) ---
EXAM DESCRIPTION: HIP RIGHT AP/LATERAL COMPLETED DATE/TIME: 12/14/2017 2:32 pm REASON FOR STUDY: fell/pain COMPARISON: Right hip films 11/25/2017 CT pelvis 11/25/2017 NUMBER OF VIEWS: Two views. TECHNIQUE: AP pelvis and additional frog-leg view of the right hip. LIMITATIONS: None. FINDINGS: MINERALIZATION: Osteopenic RIGHT HIP: Question nondisplaced fracture through the right femur intratrochanteric region on AP view marked with an arrow. This report was called to Dr. Bautista in the emergency room LEFT HIP: No fracture or dislocation. No worrisome bone lesions. PUBIS AND ISCHIUM: No fracture. PELVIS: No fracture. SACRUM: No fracture or dislocation. No worrisome bone lesions. Bilateral SI joint sclerosis LOWER LUMBAR SPINE: Facet arthropathy L5-S1 SOFT TISSUES: No findings. OTHER: No other significant finding. IMPRESSION: Question acute right intratrochanteric fracture proximal femur. Recommend CT for follow up. TECHNICAL DOCUMENTATION: JOB ID: [id number] [employer]- All Rights Reserved Reading location - IP/workstation name: [email or web address]
[2017-12-14 14:58] LABS: ABSOLUTE BASOPHILS # (AUTO) 0.1 10^3/uL (0.0-0.2); ABSOLUTE EOSINOPHILS # (AUTO) 0.1 10^3/uL (0.0-0.6); ABSOLUTE LYMPHOCYTES (AUTO) 1.7 10^3/uL (0.5-4.7); ABSOLUTE MONOCYTES (AUTO) 0.5 10^3/uL (0.1-1.4); ABSOLUTE NEUT (AUTO) 6.1 10^3/uL (1.7-8.2); EOSINOPHILS % (AUTO) 0.6 % (0-6); HEMATOCRIT 40.3 % (36.0-47.0); HEMOGLOBIN 13.6 g/dL (12.0-15.5); LYMPHOCYTES % (AUTO) 20.3 % (13-45); MEAN CORPUSCULAR HGB CONC 33.7 g/dL (32.0-36.0); MEAN CORPUSCULAR VOLUME 95 fl (80-97); MONOCYTES % (AUTO) 6.4 % (3-13); PLATELET COUNT 340 10^3/uL (150-450); RED BLOOD COUNT 4.24 10^6/uL (3.72-5.28); RED CELL DISTRIBUTION WIDTH 15.6 % (11.5-14.0); SEGMENTED NEUTROPHILS % (AUTO) 71.7 % (42-78); TOTAL CELLS COUNTED % (AUTO) 100 %; WHITE BLOOD COUNT 8.6 10^3/uL (4.0-10.5)
[2017-12-14 15:20] LABS: ALANINE AMINOTRANSFERASE 23 U/L (9-52); ALKALINE PHOSPHATASE 95 U/L (38-126); ASPARTATE AMINO TRANSFERASE 23 U/L (14-36); BILIRUBIN,DIRECT 0.6 mg/dL (0.0-0.4); BILIRUBIN,TOTAL 0.6 mg/dL (0.2-1.3); BLOOD UREA NITROGEN 41 mg/dL (7-20); CALCIUM 10.3 mg/dL (8.4-10.2); CHLORIDE 103 mmol/L (98-107); GLUCOSE 113 mg/dL (75-110); POTASSIUM 3.4 mmol/L (3.6-5.0); TOTAL PROTEIN 7.9 g/dL (6.3-8.2)
[2017-12-14 15:29] LABS: CARBON DIOXIDE 21 mmol/L (22-30); SODIUM 142.9 mmol/L (137-145)
[2017-12-14 15:33] LABS: ANION GAP 19 (5-19)
--- NOTE | 2017-12-14 15:43 | RADIOLOGY REPORT (SQ) ---
EXAM DESCRIPTION: CT PELVIS WITHOUT COMPLETED DATE/TIME: 12/14/2017 3:21 pm REASON FOR STUDY: xray suggestive of right IT fx/fall pain COMPARISON: CT pelvis 11/25/2017 Right hip films 12/14/2017, 11/25/2017 TECHNIQUE: CT scan of the pelvis performed without intravenous or oral contrast. Images reviewed wi th soft tissue and bone windows. Reconstructed coronal and sagittal MPR images reviewed. All images stored on PACS. All CT scanners at this facility use dose modulation, iterative reconstruction, and/or weight based d osing when appropriate to reduce radiation dose to as low as reasonably achievable (ALARA). [facility]: Dose Right [facility]: CareDose [facility]: Dose Right [facility]: Teradose 4D [facility]: Red e App RADIATION DOSE: CT Rad equipment meets quality standard of care and radiation dose reduction techniq ues were employed. CTDIvol: 10.6 mGy. DLP: 379 mGy-cm. mGy. LIMITATIONS: None. FINDINGS: Bones are osteoporotic An acute right intertrochanteric fracture is present, best shown on coronal images 44-49, and axial i mages 59-65. No significant varus or valgus angulation. Remainder of the bony pelvis is osteoporotic without acute fracture. There is sclerosis along the le ft sacral ala likely from old sacral insufficiency fracture. Bilateral SI joint vacuum phenomenon and bony spurring. Degenerative changes lower lumbar spine. Soft tissue images of the pelvis demonstrate post hysterectomy change. Decrease in size of right glu teal hematoma since 11/25/2017. Currently, hematoma measures 3 x 1.6 cm (was 5 x 3 cm). IMPRESSION: Acute right intertrochanteric proximal femoral fracture TECHNICAL DOCUMENTATION: JOB ID: [id number] Quality ID # [id number]: Final reports with documentation of one or more dose reduction techniques (e.g., Au tomated exposure control, adjustment of the mA and/or kV according to patient size, use of iterative reconstruction technique) 2010 [employer]- All Rights Reserved Reading location - IP/workstation name: [email or web address]
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
[2017-12-14] MEDS ORDERED: ZOLPIDEM TARTRATE 5 MG TABLET PO PRN (16:24)
[2017-12-14] MEDS ORDERED: ONDANSETRON HCL INJ/PF 4 MG/2 ML SDV IV PRN (16:24)
[2017-12-14] MEDS ORDERED: ACETAMINOPHEN 325 MG TABLET PO PRN (16:24)
[2017-12-14] MEDS ORDERED: INSULIN LISPRO 100 UNIT/ML 3 ML VIAL SUBCUT PRN (16:52)
[2017-12-14] MEDS ORDERED: DEXTROSE 40% GEL 15 GM TUBE PO PRN ×2 (16:52)
[2017-12-14] MEDS ORDERED: DEXTROSE 50%-WATER 25 GM/50 ML DISP.SYRIN IV PRN ×2 (16:52)
[2017-12-14] MEDS ORDERED: GLUCAGON,HUMAN RECOMB 1 MG INJ IM PRN (16:52)
--- NOTE | 2017-12-14 17:22 | RADIOLOGY REPORT (SQ) ---
EXAM DESCRIPTION: CHEST SINGLE VIEW COMPLETED DATE/TIME: 12/14/2017 5:05 pm REASON FOR STUDY: Fractured hip for surgery COMPARISON: 09/19/2017 EXAM PARAMETERS: NUMBER OF VIEWS: One view. TECHNIQUE: Single frontal radiographic view of the chest acquired. RADIATION DOSE: NA LIMITATIONS: None. FINDINGS: LUNGS AND PLEURA: No opacities, masses or pneumothorax. No pleural effusion. MEDIASTINUM AND HILAR STRUCTURES: No masses. Contour normal. HEART AND VASCULAR STRUCTURES: Heart normal in size. Normal vasculature. BONES: No acute findings. HARDWARE: None in the chest. OTHER: No other significant finding. IMPRESSION: NO ACUTE RADIOGRAPHIC FINDING IN THE CHEST. TECHNICAL DOCUMENTATION: JOB ID: [id number] [employer]- All Rights Reserved Reading location - IP/workstation name: [email or web address]
--- NOTE | 2017-12-14 17:24 | PDOC H&P ---
History of Present Illness Admission Date/PCP: 12/14/17 16:35 MOSHE MEDINA MD Patient complains of: Pain to right hip for one week History of Present Illness: DIEGO BURDEN is a 72 year old female presented to emergency room for the second occasion complaining of persistent right hip. Patient states that while at home she fell and hit her right hip last week. Patient states that after she had another stroke on September and has been having problems with her right side. She thinks that likely contributed to her falling. She lives by herself however her sister helps her on a daily basis with daily day activities. My understanding is that when she initially presented to emergency room she was evaluated through regular x-rays and CT and the fracture was not visible at that time. Today the same workup yielded nondisplaced intratrocanteric fracture. Dr. King was contacted by ED physician and he recommended for patient to be admitted under the hospitalist service due to comorbidities. To stroke patient has coronary artery disease, high blood pressure, diabetes Past Medical History Cardiac Medical History: Reports: Congestive Heart Failure, Coronary Artery Disease, Hyperlipidema, Hypertension - medicated, Heart Murmur - Told she has a leaky aortic valve Denies: Atrial Fibrillation, Myocardial Infarction, Peripheral Vascular Disease, Pulmonary Embolism Pulmonary Medical History: Reports: Asthma - ON MEDS, Bronchitis, Chronic Obstructive Pulmonary Disease (COPD), Pneumonia Denies: Respiratory Failure, Sleep Apnea, Tuberculosis EENT Medical History: Reports: None Neurological Medical History: Reports: None Denies: Seizures Endocrine Medical History: Reports: Diabetes Mellitus Type 2 Denies: Hyperthyroidism, Hypothyroidism Malignancy Medical History: Reports: Cervical Cancer - Surgery, Ovarian Cancer Denies: Breast Cancer, Lung Cancer GI Medical History: Denies: Hepatitis, Hiatal Hernia Musculoskeltal Medical History: Reports: Arthritis - DJD Denies: Fibromyalgia Skin Medical History: Reports: None Psychiatric Medical History: Denies: Dementia, Depression Traumatic Medical History: Reports: None Hematology: Denies: Anemia, Sickle Cell Disease Infectious Medical History: Reports: Clostridium Difficile Past Surgical History Past Surgical History: Reports: Appendectomy, Hysterectomy, Orthopedic Surgery Denies: Amputation, Section, Cholecystectomy, Coronary Artery Bypass Graft, Gastric Bypass Surgery, Herniorrhaphy, Mastectomy, Pacemaker, Tonsillectomy, Tubal Ligation Social History Information Source: Patient Smoking Status: Former Smoker - Stopped in July,. Frequency of Alcohol Use: None Hx Recreational Drug Use: No Drugs: None Hx Prescription Drug Abuse: No - Advance Directive Resuscitation Status: Full Code Family History Family History: Reviewed & Not Pertinent, CVA, Hypertension Parental Family History Reviewed: Yes Children Family History Reviewed: Yes Sibling(s) Family History Reviewed.: Yes Medication/Allergy Home Medications: Albuterol Sulfate [Ventolin HFA MDI 18 GM] 2 puff IH TIDP PRN 09/19/17 Amlodipine Besylate [Norvasc 10 mg Tablet] 10 mg PO QHS 09/19/17 Atorvastatin Calcium [Lipitor 40 mg Tablet] 40 mg PO QHS 09/19/17 Clopidogrel Bisulfate [Plavix 75 mg Tablet] 75 mg PO DAILY 09/19/17 Ezetimibe [Zetia 10 mg Tablet] 10 mg PO DAILY 09/19/17 Fluticasone/Salmeterol [Advair 250-50 Diskus 28 dose] 1 inh IH Q12 09/19/17 Furosemide [Lasix 40 mg Tablet] 20 mg PO DAILY 09/19/17 Lisinopril [Prinivil 40 mg Tablet] 20 mg PO DAILY 09/19/17 Meloxicam [Mobic] 15 mg PO DAILY 09/19/17 Metformin HCl [Glucophage] 850 mg PO [id number] 09/19/17 Albuterol Sulfate [Proair HFA Inhalation Aerosol 8.5 gm MDI] 2 puff IH Q6HP PRN hfa.aer.ad 09/26/17 Aspirin [Ecotrin 325 mg EC Tablet] 325 mg PO DAILY tabec 09/26/17 Haloperidol [Haldol 5 mg Tablet] 5 mg PO QHS tablet 09/26/17 Levofloxacin [Levaquin 750 mg Tablet] 750 mg PO DAILY #9 tablet 09/26/17 Potassium Chloride [Klor-Con 10 Meq Tablet.sa] 20 meq PO Q12 tablet.sa Tramadol HCl [Ultram 50 mg Tablet] 50 mg PO TID PRN 7 Days #20 tab 11/25/17 Allergies/Adverse Reactions: codeine [Codeine] Adverse Reaction (Verified 12/14/17 13:30) nausea/vomiting lorazepam [From Ativan] Adverse Reaction (Verified 12/14/17 13:30) Change in behavior Review of Systems Constitutional: ABSENT: anorexia, fatigue, headache(s), weakness Eyes: ABSENT: visual disturbances Ears: ABSENT: hearing changes Nose, Mouth, and Throat: ABSENT: mouth pain, sore throat Cardiovascular: ABSENT: chest pain, edema, orthropnea Respiratory: ABSENT: cough, dyspnea Gastrointestinal: ABSENT: abdominal pain, nausea, vomiting Genitourinary: ABSENT: dysuria Musculoskeletal: PRESENT: joint swelling, other - right hip pain Neurological: ABSENT: numbness, paresthesias Physical Exam Vital Signs: Temp Pulse Resp BP Pulse Ox 97.4 F 86 22 H 121/69 98 12/14/17 13:32 12/14/17 13:32 12/14/17 13:32 12/14/17 13:32 12/14/17 13:32 Results Impressions: Hip/Pelvis X-Ray 12/14/17 14:10 IMPRESSION: Question acute right intratrochanteric fracture proximal femur. Recommend CT for followup. Pelvis CT 12/14/17 14:38 IMPRESSION: Acute right intertrochanteric proximal femoral fracture Assessment & Plan - Diagnosis (1) Intertrochanteric fracture of right hip Qualifiers: Encounter type: initial encounter Fracture type: closed Fracture alignment: nondisplaced Qualified Code(s): S72.144A - Nondisplaced intertrochanteric fracture of right femur, initial encounter for closed fracture Is this a current diagnosis for this admission?: Yes Plan: Reconsult Dr Brumfield. For now to start heparin subQ since patient is on plavix. Start bowel regimen to avoid post op ileus. Further orders pertaining surgery including DVT prophylaxis by Dr King (2) Diabetes mellitus type 2 in nonobese Is this a current diagnosis for this admission?: Yes Plan: To place patient on home Humalog sliding scale with bedside glucose before meals and at bedtime (3) History of CVA with residual deficit Is this a current diagnosis for this admission?: Yes Plan: Patient had recent stroke in September 2017 making her high risk within the first 6 month. Deficit definitely contributed to fall. Patient agrees that she may need to go to retirement (4) Hyperlipidemia Qualifiers: Hyperlipidemia type: unspecified Qualified Code(s): E78.5 - Hyperlipidemia , unspecified Is this a current diagnosis for this admission?: Yes Plan: Continue outpatient regimen (5) Hypertension Qualifiers: Hypertension type: essential hypertension Is this a current diagnosis for this admission?: Yes Plan: Continue outpatient regimen (6) Pre-op evaluation Is this a current diagnosis for this admission?: Yes Plan: Will hold plavix and aspirin. To consult cardiology for pre op clearance/ evaluation (7) Hypokalemia Is this a current diagnosis for this admission?: Yes Plan: Replace p.o. and trend - Time Time Spent: 30 to 50 Minutes Medications reviewed and adjusted accordingly: Yes Anticipated discharge: SNF Within: within 72 hours - Inpatient Certification Based on my medical assessment, after consideration of the patient's comorbidities, presenting symptoms, or acuity I expect that the services needed warrant INPATIENT care.: Yes I certify that my determination is in accordance with my understanding of Medicare's requirements for reasonable and necessary INPATIENT services [42 CFR 412.3e].: Yes Medical Necessity: Need Close Monitoring Due to Risk of Patient Decompensation, Need for Surgery
[2017-12-14] MEDS ORDERED: POLYETHYLENE GLYCOL 3350 POWDER 17 GM/1 PACKET PO ONE (17:30)
[2017-12-14] MEDS ORDERED: POTASSIUM CHLORIDE 10 MEQ TABLET.SA PO ONE (18:00)
[2017-12-14] MEDS: LACTULOSE SYRUP 20 GM/30 ML UDCUP PO SCH (19:58)
--- NOTE | 2017-12-14 21:27 | RADIOLOGY REPORT (SQ) ---
EXAM DESCRIPTION: CT CHEST WITH COMPLETED DATE/TIME: 12/14/2017 9:14 pm REASON FOR STUDY: eval for metastatic disease COMPARISON: None. TECHNIQUE: CT scan of the chest performed using helical scanning technique with dynamic intravenous contrast injection. Images reviewed with lung, soft tissue and bone windows. Reconstructed coronal and sagittal MPR images reviewed. All images stored on PACS. All CT scanners at this facility use dose modulation, iterative reconstruction, and/or weight based d osing when appropriate to reduce radiation dose to as low as reasonably achievable (ALARA). [facility]: Dose Right [facility]: CareDose [facility]: Dose Right [facility]: Teradose 4D [facility]: Panviva CONTRAST TYPE AND DOSE: contrast/concentration: Isovue 370.00 mg/ml; Total Contrast Delivered: 80.0 ml; Total Saline Delivered: 40.0 ml RENAL FUNCTION: Creatinine 1.1 RADIATION DOSE: . LIMITATIONS: None. FINDINGS: LUNGS AND PLEURA: No opacities, nodules, masses. No pneumothorax. No effusions. HILAR AND MEDIASTINAL STRUCTURES: No identified masses or abnormal nodes. HEART AND VASCULAR STRUCTURES: No aneurysm or dissection. No central pulmonary emboli. No pericardi al effusion. Coronary artery calcification. HARDWARE: None in the chest. UPPER ABDOMEN: See separate report of the CT of the abdomen. THYROID AND OTHER SOFT TISSUES: Calcified thyroid nodule under 1 cm. Requires no further evaluation. BONES: No significant finding. OTHER: No other significant finding. IMPRESSION: No metastatic lesions. TECHNICAL DOCUMENTATION: JOB ID: [id number] Quality ID # [id number]: Final reports with documentation of one or more dose reduction techniques (e.g., Au tomated exposure control, adjustment of the mA and/or kV according to patient size, use of iterative reconstruction technique) 2010 [employer]- All Rights Reserved Reading location - IP/workstation name: [email or web address]
--- NOTE | 2017-12-14 21:31 | RADIOLOGY REPORT (SQ) ---
EXAM DESCRIPTION: CT ABDOMEN IV CONTRAST ONLY COMPLETED DATE/TIME: 12/14/2017 9:14 pm REASON FOR STUDY: eval for metastatic disease (Abd ONLY per Dr King) COMPARISON: None. TECHNIQUE: CT scan of the abdomen performed with intravenous and without oral contrast using helical scanning technique with dynamic intravenous contrast injection. Images reviewed with lung, soft tiss ue, and bone windows. Reconstructed coronal and sagittal MPR images reviewed. Delayed images were not acquired. All images stored on PACS. All CT scanners at this facility use dose modulation, iterative reconstruc tion, and/or weight based dosing when appropriate to reduce radiation dose to as low as reasonably ac hievable (ALARA). [facility]: Dose Right [facility]: CareDose [facility]: Dose Right [facility]: Teradose 4D [facility]: AlloCure CONTRAST TYPE AND DOSE: 80 Isovue 370- low osmolar. RENAL FUNCTION: Creatinine 1.1 RADIATION DOSE: CT Rad equipment meets quality standard of care and radiation dose reduction techniq ues were employed. CTDIvol: 6.0 mGy. DLP: 249 mGy-cm. . LIMITATIONS: None. FINDINGS: LOWER CHEST: See separate report of the CT of the chest. LIVER: Normal size. No masses. No dilated ducts. SPLEEN: Normal size. No focal lesions. PANCREAS: No masses. No significant calcifications. No adjacent inflammation or peripancreatic fluid collections. Pancreatic duct not dilated. GALLBLADDER: Gallstones. No inflammatory changes to suggest cholecystitis. ADRENAL GLANDS: No significant masses or asymmetry. RIGHT KIDNEY AND URETER: No solid masses. No significant calcifications. No hydronephrosis or hyd roureter. LEFT KIDNEY AND URETER: No solid masses. No significant calcifications. No hydronephrosis or hydr oureter. AORTA AND VESSELS: No aneurysm. No dissection. Renal arteries, SMA, celiac without stenosis. RETROPERITONEUM: No retroperitoneal adenopathy, hemorrhage or masses. BOWEL AND PERITONEAL CAVITY: No masses or inflammatory changes. No free fluid or peritoneal masses. APPENDIX: Not visualized. ABDOMINAL WALL: No masses. No hernias. BONES: No significant or acute findings. OTHER: No other significant finding. IMPRESSION: Gallstones. No metastases. TECHNICAL DOCUMENTATION: JOB ID: [id number] Quality ID # [id number]: Final reports with documentation of one or more dose reduction techniques (e.g., Au tomated exposure control, adjustment of the mA and/or kV according to patient size, use of iterative reconstruction technique) 2010 [employer]- All Rights Reserved Reading location - IP/workstation name: [email or web address]
[2017-12-14] MEDS: ATORVASTATIN CALCIUM 40 MG TABLET PO SCH (22:42)
[2017-12-14] MEDS: HEPARIN SOD (PORCINE) 5,000 UNIT/ML 1 ML SYRINGE SUBCUT SCH (22:42)
--- NOTE | 2017-12-14 22:49 | EKG REPORT ---
SEVERITY:- ABNORMAL ECG - SINUS RHYTHM NONSPECIFIC T ABNORMALITIES, LATERAL LEADS : Confirmed by: Ezio Massey MD 14-Dec-2017 22:48:28
[2017-12-15 05:13] LABS: ABSOLUTE BASOPHILS # (AUTO) 0.1 10^3/uL (0.0-0.2); ABSOLUTE EOSINOPHILS # (AUTO) 0.1 10^3/uL (0.0-0.6); ABSOLUTE LYMPHOCYTES (AUTO) 2.2 10^3/uL (0.5-4.7); ABSOLUTE MONOCYTES (AUTO) 0.6 10^3/uL (0.1-1.4); ABSOLUTE NEUT (AUTO) 3.2 10^3/uL (1.7-8.2); BASOPHILS % (AUTO) 1.3 % (0-2); EOSINOPHILS % (AUTO) 1.3 % (0-6); HEMATOCRIT 36.2 % (36.0-47.0); HEMOGLOBIN 12.6 g/dL (12.0-15.5); LYMPHOCYTES % (AUTO) 35.6 % (13-45); MEAN CORPUSCULAR HEMOGLOBIN 32.4 pg (27.0-33.4); MEAN CORPUSCULAR HGB CONC 34.8 g/dL (32.0-36.0); MEAN CORPUSCULAR VOLUME 93 fl (80-97); PLATELET COUNT 256 10^3/uL (150-450); RED BLOOD COUNT 3.89 10^6/uL (3.72-5.28); RED CELL DISTRIBUTION WIDTH 15.6 % (11.5-14.0); SEGMENTED NEUTROPHILS % (AUTO) 52.8 % (42-78); TOTAL CELLS COUNTED % (AUTO) 100 %; WHITE BLOOD COUNT 6.1 10^3/uL (4.0-10.5)
[2017-12-15 05:40] LABS: ANION GAP 12 (5-19); BLOOD UREA NITROGEN 34 mg/dL (7-20); CALCIUM 9.6 mg/dL (8.4-10.2); CARBON DIOXIDE 23 mmol/L (22-30); CHLORIDE 108 mmol/L (98-107); GLUCOSE 87 mg/dL (75-110); POTASSIUM 3.5 mmol/L (3.6-5.0); SODIUM 143.4 mmol/L (137-145)
[2017-12-15] MEDS: OXYCODONE-ACETAMINOPHEN 5-325 MG TABLET PO PRN (05:51)
[2017-12-15] MEDS: HEPARIN SOD (PORCINE) 5,000 UNIT/ML 1 ML SYRINGE SUBCUT SCH ×3 (05:51→22:26)
[2017-12-15] MEDS ORDERED: POTASSIUM CHLORIDE 10 MEQ TABLET.SA PO ONE ×2 (08:32→09:58)
[2017-12-15] MEDS ORDERED: ALPRAZOLAM 0.5 MG TABLET PO PRN (09:23)
[2017-12-15] MEDS: LACTULOSE SYRUP 20 GM/30 ML UDCUP PO SCH ×2 (09:38→17:33)
[2017-12-15] MEDS: MAGNESIUM SULFATE/D5W 1 GM/100 ML RTUPB IV SCH ×2 (10:01→11:20)
[2017-12-15] MEDS: AMLODIPINE BESYLATE 10 MG TABLET PO SCH (10:02)
[2017-12-15] MEDS: MORPHINE SULFATE 10 MG/ML INJ IV PRN (12:25)
--- NOTE | 2017-12-15 13:05 | RADIOLOGY REPORT (SQ) ---
EXAM DESCRIPTION: NM WHOLE BODY BONE SCAN COMPLETED DATE/TIME: 12/15/2017 12:40 pm REASON FOR STUDY: eval for metastatic disease COMPARISON: CT chest abdomen pelvis 12/14/2017 CT pelvis 12/14/2017, 11/25/2017 Right hand films 12/14/2017 RADIONUCLIDE AND DOSE: 21.2 millicuries Tc99m MDP. The route of agent administration: Intravenous. ADDITIONAL DRUGS AND DOSES: None. TECHNIQUE: Routine delayed images at 3 hour post radionuclide injection acquired of the bony skeleto n including anterior and posterior whole-body projections and additional focused images as needed. LIMITATIONS: Whole-body planar images were unobtainable due to patient cooperation. Static images o nishi the chest abdomen pelvis and upper legs were obtained. FINDINGS: There is a band of increased uptake along the of right femur intertrochanteric region diego elating with fractures seen on prior CT. There are increased foci of uptake along the left anterior 4th 5th 6th and 7th ribs likely radiograph ically occult fractures at the rib -costochondral cartilage junction. No bandlike increased uptake over the spine worrisome for acute or subacute vertebral body compressio n fracture. No other increased uptake over the pelvis worrisome for radiographically occult sacral or left hip fr acture. IMPRESSION: Increased uptake right femur intertrochanteric region from acute fracture Increased uptake left anterior lower ribs from fractures at the rib-costochondral cartilage junction COMMENT: Quality measure 147: Current bone scan is compared with any available plain radiographs, p rior bone scans, and CT/MRI. TECHNICAL DOCUMENTATION: JOB ID: [id number] [employer]- All Rights Reserved Reading location - IP/workstation name: [email or web address]
--- NOTE | 2017-12-15 14:48 | PDOC PROGRESS REPORT ---
Subjective Progress Note for:: 12/15/17 Subjective:: Patient complains of pain and being nervous because has to go for another test. Discussed with patient the reason why she had been subject to a lot of scanning. She was made aware that as per orthopedist request we will order the test since there was a concern about the possibility of a malignancy. She was also made aware that so far the tests have been negative. Review of system All organ systems evaluated and negative except as in subjective All significant diagnostics and laboratories have been reviewed Reason For Visit: RIGHT HIP FRACTURE,HX OF STROKE Physical Exam Vital Signs: Temp Pulse Resp BP Pulse Ox 98.0 F 78 18 133/66 H 100 12/14/17 23:23 12/14/17 23:23 12/14/17 23:23 12/14/17 23:23 12/14/17 23:23 Intake & Output 12/14/17 12/15/17 12/16/17 06:59 06:59 06:59 Intake Total 220 Balance 220 Weight 58.8 kg General appearance: PRESENT: cooperative, well-developed, well-nourished Head exam: PRESENT: atraumatic, normocephalic Eye exam: PRESENT: conjunctiva pink, EOMI, PERRLA Ear exam: PRESENT: normal external ear exam Mouth exam: PRESENT: moist Neck exam: PRESENT: full ROM. ABSENT: JVD, lymphadenopathy, tenderness Respiratory exam: PRESENT: clear to auscultation tressa Cardiovascular exam: PRESENT: RRR. ABSENT: diastolic murmur, systolic murmur Vascular exam: PRESENT: normal capillary refill GI/Abdominal exam: PRESENT: normal bowel sounds, soft. ABSENT: tenderness Extremities exam: PRESENT: +1 edema. ABSENT: full ROM Musculoskeletal exam: ABSENT: ambulatory Neurological exam: PRESENT: alert, awake, oriented to person, oriented to place , oriented to time, oriented to situation, CN II-XII grossly intact Psychiatric exam: PRESENT: anxious Skin exam: PRESENT: normal color Results Laboratory Results: 12/15/17 04:57 12/15/17 04:57 12/15/17 12/15/17 04:57 04:57 WBC 6.1 RBC 3.89 Hgb 12.6 Hct 36.2 MCV 93 MCH 32.4 MCHC 34.8 RDW 15.6 H Plt Count 256 Seg Neutrophils % 52.8 Lymphocytes % 35.6 Monocytes % 9.0 Eosinophils % 1.3 Basophils % 1.3 Absolute Neutrophils 3.2 Absolute Lymphocytes 2.2 Absolute Monocytes 0.6 Absolute Eosinophils 0.1 Absolute Basophils 0.1 Sodium 143.4 Potassium 3.5 L Chloride 108 H Carbon Dioxide 23 Anion Gap 12 BUN 34 H Creatinine 0.78 Est GFR ( Amer) > 60 Est GFR (Non-Af Amer) > 60 Glucose 87 Calcium 9.6 Magnesium 1.5 L Impressions: Abdomen CT 12/14/17 00:00 IMPRESSION: Gallstones. No metastases. Chest CT 12/14/17 00:00 IMPRESSION: No metastatic lesions. Hip/Pelvis X-Ray 12/14/17 14:10 IMPRESSION: Question acute right intratrochanteric fracture proximal femur. Recommend CT for followup. Pelvis CT 12/14/17 14:38 IMPRESSION: Acute right intertrochanteric proximal femoral fracture Chest X-Ray 12/14/17 16:17 IMPRESSION: NO ACUTE RADIOGRAPHIC FINDING IN THE CHEST. Assessment & Plan - Diagnosis (1) Intertrochanteric fracture of right hip Qualifiers: Encounter type: initial encounter Fracture type: closed Fracture alignment: nondisplaced Qualified Code(s): S72.144A - Nondisplaced intertrochanteric fracture of right femur, initial encounter for closed fracture Is this a current diagnosis for this admission?: Yes Plan: Dr. King had requested scanning patient to evaluate for the possibility of malignancy. So far CT of the abdomen and chest have been negative. Bone scan is significant for rib fractures and right intertrochanteric fracture. Will continue with pain management. If cleared by cardiology for surgery she may be ready to go for procedure on Tuesday, December 19 which hopefully had clear Plavix from her system (2) Diabetes mellitus type 2 in nonobese Is this a current diagnosis for this admission?: Yes Plan: Continue Humalog sliding scale with bedside glucose before meals and at bedtime (3) History of CVA with residual deficit Is this a current diagnosis for this admission?: Yes Plan: Patient had recent stroke in September 2017 making her high risk within the first 6 months. Deficit definitely contributed to fall. Patient agrees that she may need to go to assisted (4) Hyperlipidemia Qualifiers: Hyperlipidemia type: unspecified Qualified Code(s): E78.5 - Hyperlipidemia , unspecified Is this a current diagnosis for this admission?: Yes Plan: Continue outpatient regimen (5) Hypertension Qualifiers: Hypertension type: essential hypertension Qualified Code(s): I10 - Essential (primary) hypertension Is this a current diagnosis for this admission?: Yes Plan: Continue outpatient regimen (6) Pre-op evaluation Is this a current diagnosis for this admission?: Yes Plan: Plavix and aspirin on hold. Cardiology has been consulted for preop evaluation. Dr. De Oliveira states that she may be able to be ready for surgery pending to clearance by December 19 from his stand point of view. (7) Hypokalemia Is this a current diagnosis for this admission?: Yes Plan: Replace p.o. and trend (8) Hypomagnesemia Is this a current diagnosis for this admission?: Yes Plan: Replace IV and trend (9) Rib fractures Qualifiers: Rib fracture type: multiple ribs Fracture type: closed Laterality: right Fracture healing: with routine healing Is this a current diagnosis for this admission?: Yes Plan: Patient has been suffering recurrent falls contributing to rib fractures which have been detected for bone scan - Time Time Spent with patient: 15-24 minutes Medications reviewed and adjusted accordingly: Yes Anticipated discharge: SNF Within: Other - Intake a week or longer - Inpatient Certification Based on my medical assessment, after consideration of the patient's comorbidities, presenting symptoms, or acuity I expect that the services needed warrant INPATIENT care.: Yes I certify that my determination is in accordance with my understanding of Medicare's requirements for reasonable and necessary INPATIENT services [42 CFR 412.3e].: Yes Medical Necessity: Need Close Monitoring Due to Risk of Patient Decompensation, Need for Pain Control, Need for IV Antibiotics, Need for Surgery
[2017-12-15] MEDS ORDERED: (PENDING PHARMACY ID) (Tolterodine Tartrate [Tolterodine Tartrate Er] 4 MG) PO SCH (17:00)
[2017-12-15] MEDS: TOLTERODINE TARTRATE 1 MG TABLET PO SCH (17:55)
--- NOTE | 2017-12-15 18:35 | XCELERA REPORT ---
[address] [address] Transthoracic Echocardiogram Report Name: DIEGO BURDEN Age: 72 yrs Gender: Female : 1945 Patient Status: Inpatient Patient Location: [address] [place] [address] Study Date: 12/15/2017 10:33 AM Height: 60 in Weight: 121 lb BSA: 1.5 m2 Procedure: A complete two-dimensional transthoracic echocardiogram was performed (2D, M-mode, spectral and color flow Doppler). The study was technically adequate with some images being suboptimal in quality. Reason For Study: Heart murmur, preop cardiac evaluation Ordering Physician: DERICK ROBLES Performed By: Maris Simms Interpretation Summary The left ventricular ejection fraction is normal. There is mild concentric left ventricular hypertrophy. The left ventricle is grossly normal size. Doppler measurements suggest pseudonormalized left ventricular relaxation, which is associated with grade II/IV or mild to moderate diastolic dysfunction Wall motion cannot be accurately commented on, but no definite regional wall motion abnormalities noted. The right ventricular systolic function is normal. The left atrium is mildly dilated. The right atrium is normal in size There is a trace amount of mitral regurgitation There is no mitral valve stenosis. There is a trace or physiologic amount of tricuspid regurgitation Tricuspid regurgitation jet envelope not well defined to measure RV systolic pressure accurately. The aortic root is not well visualized but is probably normal size. The inferior vena cava was not well visualized There is no pericardial effusion. MMode/2D Measurements & Calculations RVDd: 3.2 cm LVIDd: 3.3 cm FS: 37.9 % Ao root diam: 2.4 cm IVSd: 1.1 cm LVIDs: 2.1 cm EDV(Teich): 45.5 ml LVPWd: 0.98 cm ESV(Teich): 14.0 ml Ao root area: 4.4 cm2 EF(Teich): 69.3 % LA dimension: 3.7 cm Doppler Measurements & Calculations MV E max star: MV P1/2t max star: Ao V2 max: AI max star: 78.5 cm/sec 79.0 cm/sec 123.7 cm/sec 376.8 cm/sec MV A max star: MV P1/2t: 108.3 msec Ao max PG: AI max P.4 cm/sec 6.1 mmHg 56.8 mmHg MV E/A: 0.65 MVA(P1/2t): 2.0 cm2 AI dec slope: MV dec slope: 213.7 cm/sec2 202.0 cm/sec2 MV dec time: AI P1/2t: 0.36 sec 546.4 msec LV V1 max PG: PA V2 max: 5.1 mmHg 73.2 cm/sec LV V1 max: PA max P.1 mmHg 112.5 cm/sec Left Ventricle The left ventricle is grossly normal size. There is mild concentric left ventricular hypertrophy. The left ventricular ejection fraction is normal. Doppler measurements suggest pseudonormalized left ventricular relaxation, which is associated with grade II/IV or mild to moderate diastolic dysfunction. Wall motion cannot be accurately commented on, but no definite regional wall motion abnormalities noted. Right Ventricle The right ventricle is grossly normal size. There is normal right ventricular wall thickness. The right ventricular systolic function is normal. Atria The right atrium is normal in size. The left atrium is mildly dilated. Interarterial septum not well visualized and not well dopplered. Cannot comment on ASD/PFO presence. Mitral Valve There is mild mitral leaflet calcification. There is moderate mitral annular calcification. There is no mitral valve stenosis. There is a trace amount of mitral regurgitation. Aortic Valve The aortic valve opens well. There is no aortic valve stenosis. There is a mild to moderate amount of aortic regurgitation. Tricuspid Valve The tricuspid valve is not well visualized, but is grossly normal. There is no tricuspid stenosis. There is a trace or physiologic amount of tricuspid regurgitation. Tricuspid regurgitation jet envelope not well defined to measure RV systolic pressure accurately. Pulmonic Valve The pulmonic valve is not well visualized. Great Vessels The aortic root is not well visualized but is probably normal size. The inferior vena cava was not well visualized. Effusions There is no pericardial effusion. : DERICK ROBLES > Derick Robles
--- NOTE | 2017-12-15 20:38 | PDOC CONSULTATION ---
Consultation Consult Date: 12/14/17 Attending physician:: CHARISSA CLAY Consult reason:: Cardiac clearance History of Present Illness Admission Date/PCP: 12/14/17 16:35 MOSHE MEDINA MD Patient complains of: Right hip pain History of Present Illness: DIEGO BURDEN is a 72 year old female presented to emergency room for the second occasion complaining of persistent right hip. Patient states that while at home she fell and hit her right hip last week. Patient states that after she had another stroke on September and has been having problems with her right side. She thinks that likely contributed to her falling. She lives by herself however her sister helps her on a daily basis with daily day activities. My understanding is that when she initially presented to emergency room she was evaluated through regular x-rays and CT and the fracture was not visible at that time. Today the same workup yielded nondisplaced intratrocanteric fracture. Dr. King was contacted by ED physician and he recommended for patient to be admitted under the hospitalist service due to comorbidities. To stroke patient has coronary artery disease, high blood pressure, diabetes. Patient denied any prior history of myocardial infarction, strokes, mini strokes , blood clots in the legs are in the lungs. She does however describes history of heart murmur. Patient denied any sustained palpitations, syncope, near syncope. Past Medical History Cardiac Medical History: Reports: Congestive Heart Failure, Coronary Artery Disease, Hyperlipidema, Hypertension - medicated, Heart Murmur - Told she has a leaky aortic valve Denies: Atrial Fibrillation, Myocardial Infarction, Peripheral Vascular Disease, Pulmonary Embolism Pulmonary Medical History: Reports: Asthma - ON MEDS, Bronchitis, Chronic Obstructive Pulmonary Disease (COPD), Pneumonia Denies: Respiratory Failure, Sleep Apnea, Tuberculosis EENT Medical History: Reports: None Neurological Medical History: Reports: None Denies: Seizures Endocrine Medical History: Reports: Diabetes Mellitus Type 2 Denies: Hyperthyroidism, Hypothyroidism Malignancy Medical History: Reports: Cervical Cancer - Surgery, Ovarian Cancer Denies: Breast Cancer, Lung Cancer GI Medical History: Denies: Hepatitis, Hiatal Hernia Musculoskeltal Medical History: Reports: Arthritis - DJD Denies: Fibromyalgia Skin Medical History: Reports: None Psychiatric Medical History: Denies: Dementia, Depression Traumatic Medical History: Reports: None Hematology: Denies: Anemia, Sickle Cell Disease Infectious Medical History: Reports: Clostridium Difficile Past Surgical History Past Surgical History: Reports: Appendectomy, Hysterectomy, Orthopedic Surgery Denies: Amputation, Section, Cholecystectomy, Coronary Artery Bypass Graft, Gastric Bypass Surgery, Herniorrhaphy, Mastectomy, Pacemaker, Tonsillectomy, Tubal Ligation Social History Information Source: Patient Smoking Status: Former Smoker - Stopped in July,. Frequency of Alcohol Use: None Hx Recreational Drug Use: No Drugs: None Hx Prescription Drug Abuse: No - Advance Directive Resuscitation Status: Full Code Surrogate healthcare decision maker:: Patient's son is the surrogate decision-maker Family History Family History: Reviewed & Not Pertinent, CVA, Hypertension Parental Family History Reviewed: Yes Children Family History Reviewed: Yes Sibling(s) Family History Reviewed.: Yes Medication/Allergy Home Medications: Amlodipine Besylate [Norvasc 10 mg Tablet] 10 mg PO DAILY 12/14/17 Aspirin [Ecotrin 81 mg EC Tablet] 81 mg PO DAILY 12/14/17 Atorvastatin Calcium [Lipitor 40 mg Tablet] 40 mg PO QHS 12/14/17 Clopidogrel Bisulfate [Plavix 75 mg Tablet] 75 mg PO DAILY 12/14/17 Metformin HCl [Glucophage] 850 mg PO BID 12/14/17 Tolterodine Tartrate [Tolterodine Tartrate ER] 4 mg PO WSUPPER 12/14/17 Allergies/Adverse Reactions: codeine [Codeine] Adverse Reaction (Verified 12/14/17 13:30) nausea/vomiting lorazepam [From Ativan] Adverse Reaction (Verified 12/14/17 13:30) Change in behavior Review of Systems Review of Systems: Please see history of present illness and past medical history as wall. Constitutional: No fever or chills reported. Head : No recent chronic headaches, recent head injury. Eyes: No recent eye pain, diplopia, redness, discharge, acute visual changes. Ears: No recent chronic ear pain, acute hearing loss, ear discharge. Oral cavity: No recent ulcerations, bleeding, oral cavity discomfort. Neck: No recent acute neck pain reported. Hematologic: No recent easy bruising or bleeding or hematologic malignancy reported. Lymphatic: No recent lymphatic malignancy, chronic lymphadenopathy reported yet Cardiovascular system review: See history of present illness. Respiratory system review: History of mild chronic cough but denies hemoptysis, blood clots in the lungs reported. Mild Shortness of breath on exertion Gastrointestinal system review: Negative for any recent acute or chronic abdominal pain, hematemesis, melena, recent change in bowel habits. Genitourinary system review: No recent acute or chronic hematuria, flank pain, UTI etc. reported. Skin system review: Negative for any recent abnormal bruising, no rash, no pruritus reported. Neurologic: No prior history of strokes, mini strokes, seizure disorder. Psychologic: No history of major psychosis or major depression reported. Musculoskeletal: Minor aches and pains reported. No acute joint swelling reported. Right hip fracture as noted above. Endocrine: No recent polyuria, polydipsia, recent heat or cold intolerance. Physical Exam Vital Signs: Temp Pulse Resp BP Pulse Ox 97.4 F 86 22 H 121/69 98 12/14/17 13:32 12/14/17 13:32 12/14/17 13:32 12/14/17 13:32 12/14/17 13:32 Exam: GENERAL: well-nourished and in no acute distress. Alert and oriented x3 HEAD: Atraumatic, normocephalic. EYES: Pupils equal round and reactive to light, extraocular movements intact, sclera anicteric, conjunctiva are normal. ENT: TMs normal, nares patent, oropharynx clear without exudates. Moist mucous membranes. No oral ulcerations or bleeding gums noted NECK: supple without lymphadenopathy. Trachea is central. No cervical or axillary lymphadenopathy noted. Carotids are 2+, JVD WNL LUNGS: Respiration seems nonlabored, no significant accessory muscle action noted. Breath sounds clear to auscultation bilaterally and equal noted. No wheezes rales or rhonchi noted. No significant dullness noted on percussion. CHEST: Palpation of the chest wall shows no significant chest wall tenderness. No other significant abnormalities noted. 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 ABDOMEN: Soft, no significant tenderness appreciated, normoactive bowel sounds. No guarding, no rebound. No rigidity noted . No masses appreciated. EXTREMITIES: Pedal pulses are 1-2+, no calf tenderness noted. No clubbing or cyanosis. negative pedal edema noted NEUROLOGICAL: Focused neurological exam showed no significant neurologic deficit. Normal speech, no focal weakness appreciated. PSYCH: Normal mood, normal affect. Judgment and insight within normal limits. SKIN: No significant ecchymosis, skin is noted to be warm. MUSCULOSKELETAL EXAM: No significant acute joint swelling noted. Right hip fracture findings noted. Results EKG Comments: Showed sinus rhythm, no acute ST-T wave changes are noted. Impressions: Hip/Pelvis X-Ray 12/14/17 14:10 IMPRESSION: Question acute right intratrochanteric fracture proximal femur. Recommend CT for followup. Pelvis CT 12/14/17 14:38 IMPRESSION: Acute right intertrochanteric proximal femoral fracture Chest X-Ray 12/14/17 16:17 IMPRESSION: NO ACUTE RADIOGRAPHIC FINDING IN THE CHEST. Assessment & Plan - Diagnosis (1) Pre-op evaluation Is this a current diagnosis for this admission?: Yes (2) Diabetes mellitus type 2 in nonobese Is this a current diagnosis for this admission?: Yes (3) Hyperlipidemia Qualifiers: Hyperlipidemia type: unspecified Qualified Code(s): E78.5 - Hyperlipidemia , unspecified Is this a current diagnosis for this admission?: Yes (4) Hypertension Qualifiers: Hypertension type: essential hypertension Qualified Code(s): I10 - Essential (primary) hypertension Is this a current diagnosis for this admission?: Yes (5) Intertrochanteric fracture of right hip Qualifiers: Encounter type: initial encounter Fracture type: closed Fracture alignment: nondisplaced Qualified Code(s): S72.144A - Nondisplaced intertrochanteric fracture of right femur, initial encounter for closed fracture Is this a current diagnosis for this admission?: Yes (6) Cardiac murmur Is this a current diagnosis for this admission?: Yes - Notes Notes: Patient for cardiology clearance. She has multiple comorbid issues. This includes diabetes, hypertension, hyperlipidemia, previous history of stroke but there is no significant cardiac history that she gives although in previous records there is mention of CHF. During this admission, patient is noted to be is stable from cardiac standpoint but because of history of CHF, previous CVA and other significant comorbid diagnosis have ordered a 2D echo. Patient also noted to have 2/6 ejection murmur in the aortic area. Need to rule out aortic stenosis. Right now patient is in sinus rhythm, no clinical CHF and no clinical angina therefore patient is cleared for surgery. A 2D echocardiogram is being obtained just to make sure that patient does not have any significant stenotic heart valve disease or significantly low EF. Once echo report comes back satisfactory, the surgeons can proceed with the surgery. Patient will of course need pulmonary toilet, DVT prophylaxis, adequate pain control. Would also recommend cardiac monitoring and postop. - Time Time Spent: 30 to 50 Minutes - CODE STATUS was discussed, patient remains full code. Surrogate decision-maker unchanged. Multiple medical problems were addressed. More than 50% of the time spent coordinating care, discussing management plans with involved caregivers. Management plans discussed with involved personnels. Medical decision making was of moderate to high complexity , patient's has multiple comorbidities. Medications reviewed and adjusted accordingly: Yes
--- NOTE | 2017-12-15 20:40 | PDOC PROGRESS REPORT ---
Subjective Progress Note for:: 12/15/17 Subjective:: Patient is little frustrated because of right hip pain.. Pt is denying any chest arm or neck discomfort. Patient denying any PND, orthopnea. Patient denied any sustained palpitations, dizziness, syncope, near syncope. Patient denying any fever chills. Patient denying any other significant discomfort. Patient is maintaining sinus rhythm. Review of systems: Rest review of systems negative. Medications: Medications have been reviewed. Reason For Visit: RIGHT HIP FRACTURE,HX OF STROKE Physical Exam Vital Signs: Temp Pulse Resp BP Pulse Ox 97.4 F 66 13 117/56 L 97 12/15/17 15:31 12/15/17 15:31 12/15/17 15:31 12/15/17 15:31 12/15/17 15:31 Intake & Output 12/14/17 12/15/17 12/16/17 06:59 06:59 06:59 Intake Total 220 980 Balance 220 980 Weight 58.8 kg Exam: GENERAL: well-nourished and in no acute distress. Alert and oriented x3 HEAD: Atraumatic, normocephalic. EYES: Pupils equal round and reactive to light, extraocular movements intact, sclera anicteric, conjunctiva are normal. ENT: TMs normal, nares patent, oropharynx clear without exudates. Moist mucous membranes. No oral ulcerations or bleeding gums noted NECK: supple without lymphadenopathy. Trachea is central. No cervical or axillary lymphadenopathy noted. Carotids are 2+, JVD WNL LUNGS: Respiration seems nonlabored, no significant accessory muscle action noted. Breath sounds clear to auscultation bilaterally and equal noted. No wheezes rales or rhonchi noted. No significant dullness noted on percussion. CHEST: Palpation of the chest wall shows no significant chest wall tenderness. No other significant abnormalities noted. 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 ABDOMEN: Soft, no significant tenderness appreciated, normoactive bowel sounds. No guarding, no rebound. No rigidity noted . No masses appreciated. EXTREMITIES: Pedal pulses are 1-2+, no calf tenderness noted. No clubbing or cyanosis. negative pedal edema noted NEUROLOGICAL: Focused neurological exam showed no significant neurologic deficit. Normal speech, no focal weakness appreciated. PSYCH: Normal mood, normal affect. Judgment and insight within normal limits. SKIN: No significant ecchymosis, skin is noted to be warm. MUSCULOSKELETAL EXAM: No significant acute joint swelling noted. Right hip fracture findings noted. Results Laboratory Results: 12/15/17 04:57 12/15/17 04:57 12/15/17 12/15/17 04:57 04:57 WBC 6.1 RBC 3.89 Hgb 12.6 Hct 36.2 MCV 93 MCH 32.4 MCHC 34.8 RDW 15.6 H Plt Count 256 Seg Neutrophils % 52.8 Lymphocytes % 35.6 Monocytes % 9.0 Eosinophils % 1.3 Basophils % 1.3 Absolute Neutrophils 3.2 Absolute Lymphocytes 2.2 Absolute Monocytes 0.6 Absolute Eosinophils 0.1 Absolute Basophils 0.1 Sodium 143.4 Potassium 3.5 L Chloride 108 H Carbon Dioxide 23 Anion Gap 12 BUN 34 H Creatinine 0.78 Est GFR ( Amer) > 60 Est GFR (Non-Af Amer) > 60 Glucose 87 Calcium 9.6 Magnesium 1.5 L EKG Comments: Telemetry shows sinus rhythm. Impressions: Abdomen CT 12/14/17 00:00 IMPRESSION: Gallstones. No metastases. Chest CT 12/14/17 00:00 IMPRESSION: No metastatic lesions. Hip/Pelvis X-Ray 12/14/17 14:10 IMPRESSION: Question acute right intratrochanteric fracture proximal femur. Recommend CT for followup. Pelvis CT 12/14/17 14:38 IMPRESSION: Acute right intertrochanteric proximal femoral fracture Chest X-Ray 12/14/17 16:17 IMPRESSION: NO ACUTE RADIOGRAPHIC FINDING IN THE CHEST. Body Scan Nuclear Medicine 12/15/17 00:00 IMPRESSION: Increased uptake right femur intertrochanteric region from acute fracture Increased uptake left anterior lower ribs from fractures at the rib- costochondral cartilage junction Assessment & Plan - Diagnosis (1) Pre-op evaluation Is this a current diagnosis for this admission?: Yes (2) Diabetes mellitus type 2 in nonobese Is this a current diagnosis for this admission?: Yes (3) History of CVA with residual deficit Is this a current diagnosis for this admission?: Yes (4) Hyperlipidemia Qualifiers: Hyperlipidemia type: unspecified Qualified Code(s): E78.5 - Hyperlipidemia , unspecified Is this a current diagnosis for this admission?: Yes (5) Hypertension Qualifiers: Hypertension type: essential hypertension Qualified Code(s): I10 - Essential (primary) hypertension Is this a current diagnosis for this admission?: Yes (6) Intertrochanteric fracture of right hip Qualifiers: Encounter type: initial encounter Fracture type: closed Fracture alignment: nondisplaced Qualified Code(s): S72.144A - Nondisplaced intertrochanteric fracture of right femur, initial encounter for closed fracture Is this a current diagnosis for this admission?: Yes - Notes Notes: Patient noted to be currently stable as regards above diagnosis. 2D echocardiogram was obtained and reviewed. It showed LVEF to be WNL. Patient not noted to have any significant valvular regurgitation or stenosis. Mild to moderate diastolic dysfunction noted. Feel that patient would be a satisfactory candidate for orthopedic surgery. Will follow patient postop. - Time Time with patient: 15-25 minutes - CODE STATUS was discussed, patient remains full code. Multiple medical problems were addressed. More than 50% of the time spent coordinating care, discussing management plans with involved caregivers. Management plans discussed with involved personnels. Medical decision making was of moderate to high complexity, patient's has multiple comorbidities. Medications reviewed and adjusted accordingly: Yes
[2017-12-15] MEDS: ATORVASTATIN CALCIUM 40 MG TABLET PO SCH (22:25)
[2017-12-16] MEDS: OXYCODONE-ACETAMINOPHEN 5-325 MG TABLET PO PRN ×3 (06:14→21:58)
[2017-12-16] MEDS: HEPARIN SOD (PORCINE) 5,000 UNIT/ML 1 ML SYRINGE SUBCUT SCH ×3 (06:16→21:58)
--- NOTE | 2017-12-16 07:10 | PDOC CONSULTATION ---
Consultation Consult Date: 12/16/17 Consult reason:: Right femoral neck fracture,? Pathologic History of Present Illness Admission Date/PCP: 12/14/17 16:35 MOSHE MEDINA MD History of Present Illness: DIEGO BURDEN is a 72 year old female with a noncontributory past medical history who presents with a right femoral neck fracture and what appears to be an underlying lucent lesion Past Medical History Cardiac Medical History: Reports: Congestive Heart Failure, Coronary Artery Disease, Hyperlipidema, Hypertension - medicated, Heart Murmur - Told she has a leaky aortic valve Denies: Atrial Fibrillation, Myocardial Infarction, Peripheral Vascular Disease, Pulmonary Embolism Pulmonary Medical History: Reports: Asthma - ON MEDS, Bronchitis, Chronic Obstructive Pulmonary Disease (COPD), Pneumonia Denies: Respiratory Failure, Sleep Apnea, Tuberculosis EENT Medical History: Reports: None Neurological Medical History: Reports: None Denies: Seizures Endocrine Medical History: Reports: Diabetes Mellitus Type 2 Denies: Hyperthyroidism, Hypothyroidism Malignancy Medical History: Reports: Cervical Cancer - Surgery, Ovarian Cancer Denies: Breast Cancer, Lung Cancer GI Medical History: Denies: Hepatitis, Hiatal Hernia Musculoskeltal Medical History: Reports: Arthritis - DJD Denies: Fibromyalgia Skin Medical History: Reports: None Psychiatric Medical History: Denies: Dementia, Depression Traumatic Medical History: Reports: None Hematology: Denies: Anemia, Sickle Cell Disease Infectious Medical History: Reports: Clostridium Difficile Past Surgical History Past Surgical History: Reports: Appendectomy, Hysterectomy Denies: Amputation, Section, Cholecystectomy, Coronary Artery Bypass Graft, Gastric Bypass Surgery, Herniorrhaphy, Mastectomy, Pacemaker, Tonsillectomy, Tubal Ligation Social History Information Source: Patient, [facility] Records Smoking Status: Former Smoker - Stopped in July,. Frequency of Alcohol Use: None Hx Recreational Drug Use: No Drugs: None Hx Prescription Drug Abuse: No - Advance Directive Resuscitation Status: Full Code Family History Family History: Reviewed & Not Pertinent, CVA, Hypertension Parental Family History Reviewed: No Children Family History Reviewed: No Sibling(s) Family History Reviewed.: No Medication/Allergy Home Medications: Amlodipine Besylate [Norvasc 10 mg Tablet] 10 mg PO DAILY 12/14/17 Aspirin [Ecotrin 81 mg EC Tablet] 81 mg PO DAILY 12/14/17 Atorvastatin Calcium [Lipitor 40 mg Tablet] 40 mg PO QHS 12/14/17 Clopidogrel Bisulfate [Plavix 75 mg Tablet] 75 mg PO DAILY 12/14/17 Metformin HCl [Glucophage] 850 mg PO BID 12/14/17 Tolterodine Tartrate [Tolterodine Tartrate ER] 4 mg PO WSUPPER 12/14/17 Allergies/Adverse Reactions: codeine [Codeine] Adverse Reaction (Verified 12/14/17 13:30) nausea/vomiting lorazepam [From Ativan] Adverse Reaction (Verified 12/14/17 13:30) Change in behavior Review of Systems ROS unobtainable: Due to mental status Physical Exam Vital Signs: Temp Pulse Resp BP Pulse Ox 36.4 C 66 16 103/68 97 12/15/17 23:07 12/15/17 23:07 12/15/17 23:07 12/15/17 23:07 12/15/17 23:07 Intake & Output 12/15/17 12/16/17 12/17/17 06:59 06:59 06:59 Intake Total 220 1402 Balance 220 1402 Weight 58.8 kg 61.9 kg Physical Exam: Patient is an elderly white female lying in a hospital bed. She is alert and conversant but somewhat confused. General appearance: PRESENT: mild distress Head exam: PRESENT: normocephalic Respiratory exam: PRESENT: unlabored Cardiovascular exam: PRESENT: RRR Pulses: PRESENT: +1 pedal pulses bilateral Vascular exam: PRESENT: normal capillary refill GI/Abdominal exam: PRESENT: soft Rectal exam: PRESENT: deferred Extremities exam: PRESENT: other - Right lower extremity anatomy appears near anatomic. Passive range of motion is not assessed. Distal neurovascular examination is intact. Neurological exam: PRESENT: alert, awake, oriented to person, oriented to situation - Patient not aware that she has a hip fracture. Psychiatric exam: PRESENT: anxious, normal mood. ABSENT: homicidal ideation, suicidal ideation Skin exam: PRESENT: dry, intact, warm. ABSENT: cyanosis, rash Results Laboratory Results: 12/15/17 04:57 12/15/17 04:57 Impressions: Abdomen CT 12/14/17 00:00 IMPRESSION: Gallstones. No metastases. Chest CT 12/14/17 00:00 IMPRESSION: No metastatic lesions. Hip/Pelvis X-Ray 12/14/17 14:10 IMPRESSION: Question acute right intratrochanteric fracture proximal femur. Recommend CT for followup. Pelvis CT 12/14/17 14:38 IMPRESSION: Acute right intertrochanteric proximal femoral fracture Chest X-Ray 12/14/17 16:17 IMPRESSION: NO ACUTE RADIOGRAPHIC FINDING IN THE CHEST. Body Scan Nuclear Medicine 12/15/17 00:00 IMPRESSION: Increased uptake right femur intertrochanteric region from acute fracture Increased uptake left anterior lower ribs from fractures at the rib- costochondral cartilage junction Status: Imported from PACS Assessment & Plan - Diagnosis (1) Intertrochanteric fracture of right hip Qualifiers: Encounter type: initial encounter Fracture type: closed Fracture alignment: nondisplaced Qualified Code(s): S72.144A - Nondisplaced intertrochanteric fracture of right femur, initial encounter for closed fracture Is this a current diagnosis for this admission?: Yes Plan: 72-year-old white female with a right proximal femur fracture and questionable underlying lytic lesion. All imaging studies to date including bone scan and abdomen pelvis and chest CT scans are negative with respect to any further lesions throughout the body. Serum protein electrophoresis is pending. Tentative plan for proximal femoral hemiarthroplasty on Tuesday with a biopsy of the lytic lesion. - Time Time Spent: 50 to 70 Minutes Anticipated discharge: SNF Within: Other
[2017-12-16 08:18] LABS: ABSOLUTE BASOPHILS # (AUTO) 0.1 10^3/uL (0.0-0.2); ABSOLUTE EOSINOPHILS # (AUTO) 0.1 10^3/uL (0.0-0.6); ABSOLUTE LYMPHOCYTES (AUTO) 1.6 10^3/uL (0.5-4.7); ABSOLUTE MONOCYTES (AUTO) 0.6 10^3/uL (0.1-1.4); ABSOLUTE NEUT (AUTO) 4.7 10^3/uL (1.7-8.2); HEMATOCRIT 39.9 % (36.0-47.0); HEMOGLOBIN 13.4 g/dL (12.0-15.5); LYMPHOCYTES % (AUTO) 23.1 % (13-45); MEAN CORPUSCULAR HEMOGLOBIN 32.1 pg (27.0-33.4); MEAN CORPUSCULAR HGB CONC 33.7 g/dL (32.0-36.0); MEAN CORPUSCULAR VOLUME 95 fl (80-97); PLATELET COUNT 255 10^3/uL (150-450); RED BLOOD COUNT 4.19 10^6/uL (3.72-5.28); RED CELL DISTRIBUTION WIDTH 15.5 % (11.5-14.0); SEGMENTED NEUTROPHILS % (AUTO) 66.9 % (42-78); TOTAL CELLS COUNTED % (AUTO) 100 %
[2017-12-16 08:35] LABS: ANION GAP 12 (5-19); BLOOD UREA NITROGEN 22 mg/dL (7-20); CALCIUM 9.8 mg/dL (8.4-10.2); CARBON DIOXIDE 22 mmol/L (22-30); CHLORIDE 107 mmol/L (98-107); GLUCOSE 82 mg/dL (75-110); POTASSIUM 4.4 mmol/L (3.6-5.0)
[2017-12-16] MEDS: IPRATROPIUM/ALBUTEROL 0.5-2.5 MG/3 ML AMPUL NEB PRN (08:38)
[2017-12-16] MEDS: AMLODIPINE BESYLATE 10 MG TABLET PO SCH (10:03)
[2017-12-16] MEDS: LACTULOSE SYRUP 20 GM/30 ML UDCUP PO SCH ×2 (10:04→17:58)
[2017-12-16] MEDS: ALPRAZOLAM 0.5 MG TABLET PO PRN (10:17)
--- NOTE | 2017-12-16 13:57 | PDOC PROGRESS REPORT ---
Subjective Progress Note for:: 12/16/17 Subjective:: No complaints Review of system All organ systems evaluated and negative except as in subjective All significant diagnostics and laboratories have been reviewed Reason For Visit: RIGHT HIP FRACTURE,HX OF STROKE Physical Exam Vital Signs: Temp Pulse Resp BP Pulse Ox 97.5 F 66 16 103/68 97 12/15/17 23:07 12/15/17 23:07 12/15/17 23:07 12/15/17 23:07 12/15/17 23:07 Intake & Output 12/15/17 12/16/17 12/17/17 06:59 06:59 06:59 Intake Total 220 1402 Balance 220 1402 Weight 58.8 kg 61.9 kg Results Laboratory Results: 12/15/17 04:57 12/15/17 04:57 Impressions: Abdomen CT 12/14/17 00:00 IMPRESSION: Gallstones. No metastases. Chest CT 12/14/17 00:00 IMPRESSION: No metastatic lesions. Hip/Pelvis X-Ray 12/14/17 14:10 IMPRESSION: Question acute right intratrochanteric fracture proximal femur. Recommend CT for followup. Pelvis CT 12/14/17 14:38 IMPRESSION: Acute right intertrochanteric proximal femoral fracture Chest X-Ray 12/14/17 16:17 IMPRESSION: NO ACUTE RADIOGRAPHIC FINDING IN THE CHEST. Body Scan Nuclear Medicine 12/15/17 00:00 IMPRESSION: Increased uptake right femur intertrochanteric region from acute fracture Increased uptake left anterior lower ribs from fractures at the rib- costochondral cartilage junction Assessment & Plan - Diagnosis (1) Intertrochanteric fracture of right hip Qualifiers: Encounter type: initial encounter Fracture type: closed Fracture alignment: nondisplaced Qualified Code(s): S72.144A - Nondisplaced intertrochanteric fracture of right femur, initial encounter for closed fracture Is this a current diagnosis for this admission?: Yes Plan: Dr. King had requested scanning patient to evaluate for the possibility of malignancy. So far CT of the abdomen and chest have been negative. Bone scan is significant for rib fractures and right intertrochanteric fracture. Will continue with pain management. If cleared by cardiology for surgery she may be ready to go for procedure on Tuesday, December 19 and hopefully Plavix had been cleared from her system (2) Diabetes mellitus type 2 in nonobese Is this a current diagnosis for this admission?: Yes Plan: Continue Humalog sliding scale with bedside glucose before meals and at bedtime (3) History of CVA with residual deficit Is this a current diagnosis for this admission?: Yes Plan: Patient had recent stroke in September 2017 making her high risk within the first 6 months. Deficit definitely contributed to fall. Patient agrees that she may need to go to retirement (4) Hyperlipidemia Qualifiers: Hyperlipidemia type: unspecified Qualified Code(s): E78.5 - Hyperlipidemia , unspecified Is this a current diagnosis for this admission?: Yes Plan: Continue outpatient management (5) Hypertension Qualifiers: Hypertension type: essential hypertension Qualified Code(s): I10 - Essential (primary) hypertension Is this a current diagnosis for this admission?: Yes Plan: Continue outpatient regimen (6) Pre-op evaluation Is this a current diagnosis for this admission?: Yes Plan: Plavix and aspirin on hold. Cardiology has been consulted for preop evaluation. (7) Hypokalemia Is this a current diagnosis for this admission?: Yes Plan: Replace p.o. and trend (8) Hypomagnesemia Is this a current diagnosis for this admission?: Yes Plan: Replaced (9) Rib fractures Qualifiers: Rib fracture type: multiple ribs Fracture type: closed Laterality: right Fracture healing: with routine healing Is this a current diagnosis for this admission?: Yes Plan: Patient has been suffering recurrent falls contributing to rib fractures which have been detected for bone scan (10) Diastolic dysfunction without heart failure Is this a current diagnosis for this admission?: Yes Plan: Blood pressure management - Time Time Spent with patient: 15-24 minutes Medications reviewed and adjusted accordingly: Yes Anticipated discharge: SNF Within: Other - Awaiting for patient to have surgery - Inpatient Certification Based on my medical assessment, after consideration of the patient's comorbidities, presenting symptoms, or acuity I expect that the services needed warrant INPATIENT care.: Yes I certify that my determination is in accordance with my understanding of Medicare's requirements for reasonable and necessary INPATIENT services [42 CFR 412.3e].: Yes Medical Necessity: Need Close Monitoring Due to Risk of Patient Decompensation
[2017-12-16] MEDS: TOLTERODINE TARTRATE 1 MG TABLET PO SCH (16:30)
[2017-12-16] MEDS: ATORVASTATIN CALCIUM 40 MG TABLET PO SCH (21:58)
[2017-12-17 07:05] LABS: ANION GAP 14 (5-19); BLOOD UREA NITROGEN 21 mg/dL (7-20); CALCIUM 9.7 mg/dL (8.4-10.2); CARBON DIOXIDE 25 mmol/L (22-30); CHLORIDE 105 mmol/L (98-107); GLUCOSE 79 mg/dL (75-110); POTASSIUM 4.3 mmol/L (3.6-5.0); SODIUM 143.5 mmol/L (137-145)
[2017-12-17 08:54] LABS: ABSOLUTE BASOPHILS # (AUTO) 0.1 10^3/uL (0.0-0.2); ABSOLUTE EOSINOPHILS # (AUTO) 0.1 10^3/uL (0.0-0.6); ABSOLUTE LYMPHOCYTES (AUTO) 1.8 10^3/uL (0.5-4.7); ABSOLUTE MONOCYTES (AUTO) 0.7 10^3/uL (0.1-1.4); ABSOLUTE NEUT (AUTO) 4.6 10^3/uL (1.7-8.2); BASOPHILS % (AUTO) 0.8 % (0-2); EOSINOPHILS % (AUTO) 1.8 % (0-6); HEMATOCRIT 38.9 % (36.0-47.0); HEMOGLOBIN 13.1 g/dL (12.0-15.5); LYMPHOCYTES % (AUTO) 24.6 % (13-45); MEAN CORPUSCULAR HEMOGLOBIN 32.2 pg (27.0-33.4); MEAN CORPUSCULAR HGB CONC 33.7 g/dL (32.0-36.0); MEAN CORPUSCULAR VOLUME 96 fl (80-97); MONOCYTES % (AUTO) 9.1 % (3-13); PLATELET COUNT 207 10^3/uL (150-450); RED BLOOD COUNT 4.07 10^6/uL (3.72-5.28); RED CELL DISTRIBUTION WIDTH 15.9 % (11.5-14.0); SEGMENTED NEUTROPHILS % (AUTO) 63.7 % (42-78); TOTAL CELLS COUNTED % (AUTO) 100 %; WHITE BLOOD COUNT 7.2 10^3/uL (4.0-10.5)
[2017-12-17] MEDS: OXYCODONE-ACETAMINOPHEN 5-325 MG TABLET PO PRN ×3 (09:38→21:15)
[2017-12-17] MEDS: AMLODIPINE BESYLATE 10 MG TABLET PO SCH (09:38)
[2017-12-17] MEDS: LACTULOSE SYRUP 20 GM/30 ML UDCUP PO SCH ×2 (09:40→17:36)
[2017-12-17] MEDS: HEPARIN SOD (PORCINE) 5,000 UNIT/ML 1 ML SYRINGE SUBCUT SCH (13:44)
[2017-12-17] MEDS: ALPRAZOLAM 0.5 MG TABLET PO PRN (15:11)
--- NOTE | 2017-12-17 15:52 | PDOC PROGRESS REPORT ---
Subjective Progress Note for:: 12/17/17 Subjective:: 72 yr old female with past medical history of Aortic insufficiency Coronary artery disease Diastolic heart failure Hypertension Hyperlipidemia COPD Type 2 diabetes Cervical cancer and ovarian cancer Arthritis degenerative joint disease Prior stroke with residual right-sided weakness. He presented to the hospital on December 14 right pain after she fell at home and hit her right hip a week prior to presentation. She was found to have a nondisplaced intertrochanteric right hip fracture. She has a history of prior stroke with residual right-sided weakness. Plavix is on hold. She is awaiting surgery on Tuesday. She complains of R hip pain Reason For Visit: RIGHT HIP FRACTURE,HX OF STROKE Physical Exam Vital Signs: Temp Pulse Resp BP Pulse Ox 98.3 F 81 13 108/89 H 99 12/17/17 11:00 12/17/17 11:00 12/17/17 11:00 12/17/17 11:00 12/17/17 11:00 Intake & Output 12/16/17 12/17/17 12/18/17 06:59 06:59 06:59 Intake Total 1402 1256 Balance 1402 1256 Weight 61.9 kg 64.2 kg General appearance: PRESENT: hard of hearing, well-nourished Head exam: PRESENT: normocephalic Eye exam: ABSENT: scleral icterus Ear exam: PRESENT: normal external ear exam Neck exam: ABSENT: tracheal deviation Respiratory exam: PRESENT: symmetrical, unlabored. ABSENT: wheezes Cardiovascular exam: PRESENT: RRR GI/Abdominal exam: PRESENT: normal bowel sounds, soft. ABSENT: tenderness Rectal exam: PRESENT: deferred Extremities exam: ABSENT: calf tenderness, pedal edema Neurological exam: PRESENT: alert, awake Psychiatric exam: PRESENT: anxious Results Laboratory Results: 12/17/17 07:56 12/17/17 06:12 12/17/17 12/17/17 12/17/17 06:12 06:12 07:56 WBC Cancelled 7.2 RBC Cancelled 4.07 Hgb Cancelled 13.1 Hct Cancelled 38.9 MCV Cancelled 96 MCH Cancelled 32.2 MCHC Cancelled 33.7 RDW Cancelled 15.9 H Plt Count Cancelled 207 Seg Neutrophils % Cancelled 63.7 Lymphocytes % Cancelled 24.6 Monocytes % Cancelled 9.1 Eosinophils % Cancelled 1.8 Basophils % Cancelled 0.8 Absolute Neutrophils Cancelled 4.6 Absolute Lymphocytes Cancelled 1.8 Absolute Monocytes Cancelled 0.7 Absolute Eosinophils Cancelled 0.1 Absolute Basophils Cancelled 0.1 Sodium 143.5 Potassium 4.3 Chloride 105 Carbon Dioxide 25 Anion Gap 14 BUN 21 H Creatinine 0.71 Est GFR ( Amer) > 60 Est GFR (Non-Af Amer) > 60 Glucose 79 Calcium 9.7 Magnesium 1.8 Impressions: Abdomen CT 12/14/17 00:00 IMPRESSION: Gallstones. No metastases. Chest CT 12/14/17 00:00 IMPRESSION: No metastatic lesions. Hip/Pelvis X-Ray 12/14/17 14:10 IMPRESSION: Question acute right intratrochanteric fracture proximal femur. Recommend CT for followup. Pelvis CT 12/14/17 14:38 IMPRESSION: Acute right intertrochanteric proximal femoral fracture Chest X-Ray 12/14/17 16:17 IMPRESSION: NO ACUTE RADIOGRAPHIC FINDING IN THE CHEST. Body Scan Nuclear Medicine 12/15/17 00:00 IMPRESSION: Increased uptake right femur intertrochanteric region from acute fracture Increased uptake left anterior lower ribs from fractures at the rib- costochondral cartilage junction Assessment & Plan - Diagnosis (1) Intertrochanteric fracture of right hip Qualifiers: Encounter type: initial encounter Fracture type: closed Fracture alignment: nondisplaced Qualified Code(s): S72.144A - Nondisplaced intertrochanteric fracture of right femur, initial encounter for closed fracture Is this a current diagnosis for this admission?: Yes Plan: Plan for surgery on Tuesday. Aspirin and Plavix on hold. Continue analgesics for pain control (2) Rib fractures Qualifiers: Rib fracture type: multiple ribs Fracture type: closed Laterality: right Fracture healing: with routine healing Is this a current diagnosis for this admission?: Yes Plan: Analgesics for pain Incentive spirometry (3) History of CVA with residual deficit Is this a current diagnosis for this admission?: Yes Plan: fall precautions (4) Diabetes mellitus type 2 in nonobese Is this a current diagnosis for this admission?: Yes Plan: Insulin sliding scale (5) Diastolic dysfunction without heart failure Is this a current diagnosis for this admission?: Yes Plan: Echo done on 12/15/17 shows mild to moderate diastolic dysfunction mild to moderate AI Monitor fluid status- avoid fluid overload- IV fluid rate cut back (6) Hyperlipidemia Qualifiers: Hyperlipidemia type: unspecified Qualified Code(s): E78.5 - Hyperlipidemia , unspecified Is this a current diagnosis for this admission?: Yes Plan: On Statin (7) Hypertension Qualifiers: Hypertension type: essential hypertension Qualified Code(s): I10 - Essential (primary) hypertension Is this a current diagnosis for this admission?: Yes Plan: Continue Amlodipine (8) Hypokalemia Is this a current diagnosis for this admission?: Yes Plan: Replete and monitor (9) Hypomagnesemia Is this a current diagnosis for this admission?: Yes Plan: Replete and monitor - Time Time Spent with patient: 35 or more minutes
[2017-12-17] MEDS: MAGNESIUM OXIDE 400 MG TABLET PO SCH (17:35)
[2017-12-17] MEDS: TOLTERODINE TARTRATE 1 MG TABLET PO SCH (17:35)
[2017-12-17] MEDS: ATORVASTATIN CALCIUM 40 MG TABLET PO SCH (21:14)
[2017-12-18] MEDS: OXYCODONE-ACETAMINOPHEN 5-325 MG TABLET PO PRN ×2 (04:41→11:14)
[2017-12-18 05:21] LABS: INTERNATIONAL RATION (INR) 0.95; PARTIAL THROMBOPLASTIN TIME 30.2 SEC (23.5-35.8); PROTHROMBIN TIME 13.2 SEC (11.4-15.4)
[2017-12-18 05:22] LABS: ALANINE AMINOTRANSFERASE 26 U/L (9-52); ALBUMIN 3.6 g/dL (3.5-5.0); ALKALINE PHOSPHATASE 78 U/L (38-126); ANION GAP 11 (5-19); ASPARTATE AMINO TRANSFERASE 21 U/L (14-36); BILIRUBIN,DIRECT 0.4 mg/dL (0.0-0.4); BILIRUBIN,TOTAL 0.4 mg/dL (0.2-1.3); BLOOD UREA NITROGEN 19 mg/dL (7-20); CALCIUM 9.6 mg/dL (8.4-10.2); CARBON DIOXIDE 23 mmol/L (22-30); CHLORIDE 106 mmol/L (98-107); GLUCOSE 82 mg/dL (75-110); PHOSPHORUS 4.1 mg/dL (2.5-4.5); POTASSIUM 4.6 mmol/L (3.6-5.0); SODIUM 139.5 mmol/L (137-145); TOTAL PROTEIN 6.1 g/dL (6.3-8.2)
[2017-12-18] MEDS: MORPHINE SULFATE 10 MG/ML INJ IV PRN ×3 (05:44→19:35)
[2017-12-18] MEDS: IPRATROPIUM/ALBUTEROL 0.5-2.5 MG/3 ML AMPUL NEB PRN (07:54)
[2017-12-18] MEDS ORDERED: AMLODIPINE BESYLATE 10 MG TABLET PO SCH (08:11)
[2017-12-18] MEDS ORDERED: ENOXAPARIN SODIUM INJ 40 MG/0.4 ML DISP.SYRIN SUBCUT SCH (10:00)
[2017-12-18] MEDS: AMLODIPINE BESYLATE 5 MG TABLET PO SCH (10:00)
[2017-12-18] MEDS: MAGNESIUM OXIDE 400 MG TABLET PO SCH ×2 (10:00→17:49)
[2017-12-18] MEDS: LACTULOSE SYRUP 20 GM/30 ML UDCUP PO SCH ×2 (10:15→17:28)
--- NOTE | 2017-12-18 11:25 | PDOC PROGRESS REPORT ---
Subjective Progress Note for:: 12/16/17 Subjective:: Patient is little frustrated because of right hip pain.. Pt is denying any chest arm or neck discomfort. Patient denying any PND, orthopnea. Patient denied any sustained palpitations, dizziness, syncope, near syncope. Patient denying any fever chills. Patient denying any other significant discomfort. Patient is maintaining sinus rhythm. Review of systems: Rest review of systems negative. Medications: Medications have been reviewed. Reason For Visit: RIGHT HIP FRACTURE,HX OF STROKE Physical Exam Vital Signs: Temp Pulse Resp BP Pulse Ox 97.7 F 97 16 122/51 L 100 12/16/17 19:46 12/16/17 19:46 12/16/17 19:46 12/16/17 19:46 12/16/17 19:46 Intake & Output 12/15/17 12/16/17 12/17/17 06:59 06:59 06:59 Intake Total 220 1402 1016 Balance 220 1402 1016 Weight 58.8 kg 61.9 kg Exam: GENERAL: well-nourished and in no acute distress. Alert and oriented x3 HEAD: Atraumatic, normocephalic. EYES: Pupils equal round and reactive to light, extraocular movements intact, sclera anicteric, conjunctiva are normal. ENT: TMs normal, nares patent, oropharynx clear without exudates. Moist mucous membranes. No oral ulcerations or bleeding gums noted NECK: supple without lymphadenopathy. Trachea is central. No cervical or axillary lymphadenopathy noted. Carotids are 2+, JVD WNL LUNGS: Respiration seems nonlabored, no significant accessory muscle action noted. Breath sounds clear to auscultation bilaterally and equal noted. No wheezes rales or rhonchi noted. No significant dullness noted on percussion. CHEST: Palpation of the chest wall shows no significant chest wall tenderness. No other significant abnormalities noted. HEART: [place] [employer], No PSH, 1/6 PAULA aortic area, 1/6 diez systolic murmur mitral area, no rubs, no gallops. ABDOMEN: Soft, no significant tenderness appreciated, normoactive bowel sounds. No guarding, no rebound. No rigidity noted . No masses appreciated. EXTREMITIES: Pedal pulses are 1-2+, no calf tenderness noted. No clubbing or cyanosis. negative pedal edema noted NEUROLOGICAL: Focused neurological exam showed no significant neurologic deficit. Normal speech, no focal weakness appreciated. PSYCH: Normal mood, normal affect. Judgment and insight within normal limits. SKIN: No significant ecchymosis, skin is noted to be warm. MUSCULOSKELETAL EXAM: No significant acute joint swelling noted. Right hip fracture findings noted. Results Laboratory Results: 12/16/17 07:28 12/16/17 07:28 12/16/17 12/16/17 07:28 07:28 WBC 7.0 RBC 4.19 Hgb 13.4 Hct 39.9 MCV 95 MCH 32.1 MCHC 33.7 RDW 15.5 H Plt Count 255 Seg Neutrophils % 66.9 Lymphocytes % 23.1 Monocytes % 8.0 Eosinophils % 1.0 Basophils % 1.0 Absolute Neutrophils 4.7 Absolute Lymphocytes 1.6 Absolute Monocytes 0.6 Absolute Eosinophils 0.1 Absolute Basophils 0.1 Sodium 141.0 Potassium 4.4 Chloride 107 Carbon Dioxide 22 Anion Gap 12 BUN 22 H Creatinine 0.67 Est GFR ( Amer) > 60 Est GFR (Non-Af Amer) > 60 Glucose 82 Calcium 9.8 Magnesium 2.0 Impressions: Abdomen CT 12/14/17 00:00 IMPRESSION: Gallstones. No metastases. Chest CT 12/14/17 00:00 IMPRESSION: No metastatic lesions. Hip/Pelvis X-Ray 12/14/17 14:10 IMPRESSION: Question acute right intratrochanteric fracture proximal femur. Recommend CT for followup. Pelvis CT 12/14/17 14:38 IMPRESSION: Acute right intertrochanteric proximal femoral fracture Chest X-Ray 12/14/17 16:17 IMPRESSION: NO ACUTE RADIOGRAPHIC FINDING IN THE CHEST. Body Scan Nuclear Medicine 12/15/17 00:00 IMPRESSION: Increased uptake right femur intertrochanteric region from acute fracture Increased uptake left anterior lower ribs from fractures at the rib- costochondral cartilage junction Assessment & Plan - Diagnosis (1) Pre-op evaluation Is this a current diagnosis for this admission?: Yes (2) Diabetes mellitus type 2 in nonobese Is this a current diagnosis for this admission?: Yes (3) Hyperlipidemia Qualifiers: Hyperlipidemia type: unspecified Qualified Code(s): E78.5 - Hyperlipidemia , unspecified Is this a current diagnosis for this admission?: Yes (4) Hypertension Qualifiers: Hypertension type: essential hypertension Qualified Code(s): I10 - Essential (primary) hypertension Is this a current diagnosis for this admission?: Yes (5) Intertrochanteric fracture of right hip Qualifiers: Encounter type: initial encounter Fracture type: closed Fracture alignment: nondisplaced Qualified Code(s): S72.144A - Nondisplaced intertrochanteric fracture of right femur, initial encounter for closed fracture Is this a current diagnosis for this admission?: Yes (6) Cardiac murmur Is this a current diagnosis for this admission?: Yes - Notes Notes: Patient noted to be currently stable as regards above diagnosis. Patient was previously cleared for surgery from cardiac standpoint. 2D echocardiogram was obtained and reviewed. It showed LVEF to be WNL. Patient not noted to have any significant valvular regurgitation or stenosis. Mild to moderate diastolic dysfunction noted. Feel that patient would be a satisfactory candidate for orthopedic surgery. Will follow patient postop. Will pick patient up on the day of surgery. Also please note that I would not be available on site on the 16th of this month but will be available for phone consultation. - Time Time with patient: 15-25 minutes - CODE STATUS was discussed, patient remains full code. Surrogate decision-maker unchanged. Multiple medical problems were addressed. More than 50% of the time spent coordinating care, discussing management plans with involved caregivers. Management plans discussed with involved personnels. Medical decision making was of moderate to high complexity , patient's has multiple comorbidities. Medications reviewed and adjusted accordingly: Yes
--- NOTE | 2017-12-18 12:29 | PDOC PROGRESS REPORT ---
Subjective Progress Note for:: 12/18/17 Subjective:: 72-year-old white female who has sustained fracture of right proximal female lying comfortably in hospital bed. She has many pillows placed under knee with the right lower extremity in slight external rotation. She notes this is a comfortable position. She has no concerns at this time and indicates her pain is well managed. She is curious as to whether her surgery will take place on Tuesday. She was reassured that orthopedic services are awaiting results of SPEP. Once results have been obtained, we will plan for surgical preparation. Reason For Visit: RIGHT HIP FRACTURE,HX OF STROKE Physical Exam Vital Signs: Temp Pulse Resp BP Pulse Ox 36.8 C 92 20 132/65 H 98 12/18/17 11:34 12/18/17 11:34 12/18/17 11:34 12/18/17 11:34 12/18/17 11:34 Intake & Output 12/17/17 12/18/17 12/19/17 06:59 06:59 06:59 Intake Total 1256 1150 Balance 1256 1150 Weight 64.2 kg 64.7 kg General appearance: PRESENT: no acute distress, well-developed, well-nourished Head exam: PRESENT: atraumatic, normocephalic Additional comments: Patient self-report she is hard of hearing. Pulses: PRESENT: normal dorsalis pedis pul, +2 pedal pulses bilateral Additional comments: Patient lying recumbent in hospital bed with right lower extremity in slight external rotation elevated at the knee with multiple pillows. Resolving ecchymosis along greater trochanter of right femur. She is nontender to palpation. She is hesitant to perform active range of motion due to pain on initiation of motion. No sensory or motor deficits noted. Denies tingling or numbness. +2 dorsalis pedis pulses and less than 2 seconds capillary refill to toes on right foot. Additional comments: Patient maintains nonweightbearing status on right lower extremity. She will work with physical therapy to improve strength and range of motion and work towards independent ambulation right lower extremity postoperatively. Neurological exam: PRESENT: alert, awake, oriented to person, oriented to place , oriented to time, oriented to situation, CN II-XII grossly intact. ABSENT: motor sensory deficit Psychiatric exam: PRESENT: appropriate affect, normal mood. ABSENT: homicidal ideation, suicidal ideation Results Laboratory Results: 12/17/17 07:56 12/18/17 04:17 12/18/17 12/18/17 04:17 04:17 Sodium 139.5 Potassium 4.6 Chloride 106 Carbon Dioxide 23 Anion Gap 11 BUN 19 Creatinine 0.69 Est GFR ( Amer) > 60 Est GFR (Non-Af Amer) > 60 Glucose 82 Calcium 9.6 Phosphorus 4.1 Magnesium 1.8 Total Bilirubin 0.4 AST 21 ALT 26 Alkaline Phosphatase 78 Total Protein 6.1 L Albumin 3.6 TSH 4.08 12/18/17 04:17 NT-Pro-B Natriuret Pep 315 Impressions: Abdomen CT 12/14/17 00:00 IMPRESSION: Gallstones. No metastases. Chest CT 12/14/17 00:00 IMPRESSION: No metastatic lesions. Hip/Pelvis X-Ray 12/14/17 14:10 IMPRESSION: Question acute right intratrochanteric fracture proximal femur. Recommend CT for followup. Pelvis CT 12/14/17 14:38 IMPRESSION: Acute right intertrochanteric proximal femoral fracture Chest X-Ray 12/14/17 16:17 IMPRESSION: NO ACUTE RADIOGRAPHIC FINDING IN THE CHEST. Body Scan Nuclear Medicine 12/15/17 00:00 IMPRESSION: Increased uptake right femur intertrochanteric region from acute fracture Increased uptake left anterior lower ribs from fractures at the rib- costochondral cartilage junction Assessment & Plan - Diagnosis (1) Intertrochanteric fracture of right hip Qualifiers: Encounter type: initial encounter Fracture type: closed Fracture alignment: nondisplaced Qualified Code(s): S72.144A - Nondisplaced intertrochanteric fracture of right femur, initial encounter for closed fracture Is this a current diagnosis for this admission?: Yes Plan: 72-year-old white female with right proximal femoral fracture. Patient was found to have a lytic lesion on the right femur therefore subsequent CT scans and lab panels were ordered. CT is negative for evidence of other lytic lesions however we are still awaiting results of SPEP panel. Pending results of SPEP, patient will likely be scheduled for proximal femoral hemiarthroplasty with biopsy of the right hip on Tuesday, December 19, [address] Ramirez. Until then we will continue: 1. Nonweightbearing status right lower extremity 2. Current pain management regimen 3. DVT prophylaxis
--- NOTE | 2017-12-18 13:39 | PDOC PROGRESS REPORT ---
Subjective Progress Note for:: 12/18/17 Subjective:: 72 yr old female with past medical history of Aortic insufficiency Coronary artery disease Diastolic heart failure Hypertension Hyperlipidemia COPD Type 2 diabetes Cervical cancer and ovarian cancer Arthritis degenerative joint disease Prior stroke with residual right-sided weakness. He presented to the hospital on December 14 right pain after she fell at home and hit her right hip a week prior to presentation. She was found to have a nondisplaced intertrochanteric right hip fracture and suspected lytic lesion. SPEP is pending. The patient has a history of prior stroke with residual right-sided weakness. Plavix is on hold. Possible surgery on Tuesday. Hip pain better controlled. Appetite is good, no constipation. Reason For Visit: RIGHT HIP FRACTURE,HX OF STROKE Physical Exam Vital Signs: Temp Pulse Resp BP Pulse Ox 98.3 F 92 20 132/65 H 98 12/18/17 11:34 12/18/17 11:34 12/18/17 11:34 12/18/17 11:34 12/18/17 11:34 Intake & Output 12/17/17 12/18/17 12/19/17 06:59 06:59 06:59 Intake Total 1256 1150 Balance 1256 1150 Weight 64.2 kg 64.7 kg General appearance: PRESENT: no acute distress Eye exam: ABSENT: scleral icterus Ear exam: PRESENT: normal external ear exam Neck exam: ABSENT: tracheal deviation Respiratory exam: PRESENT: clear to auscultation tressa, symmetrical, unlabored Cardiovascular exam: PRESENT: RRR GI/Abdominal exam: PRESENT: normal bowel sounds, soft. ABSENT: tenderness Rectal exam: PRESENT: deferred Gentrourinary exam: ABSENT: indwelling catheter Extremities exam: ABSENT: calf tenderness Musculoskeletal exam: PRESENT: other - R range of movement R hip Neurological exam: PRESENT: alert, awake, oriented to person Psychiatric exam: PRESENT: normal mood Skin exam: ABSENT: petechiae Results Laboratory Results: 12/17/17 07:56 12/18/17 04:17 12/18/17 12/18/17 04:17 04:17 Sodium 139.5 Potassium 4.6 Chloride 106 Carbon Dioxide 23 Anion Gap 11 BUN 19 Creatinine 0.69 Est GFR ( Amer) > 60 Est GFR (Non-Af Amer) > 60 Glucose 82 Calcium 9.6 Phosphorus 4.1 Magnesium 1.8 Total Bilirubin 0.4 AST 21 ALT 26 Alkaline Phosphatase 78 Total Protein 6.1 L Albumin 3.6 TSH 4.08 12/18/17 04:17 NT-Pro-B Natriuret Pep 315 Impressions: Abdomen CT 12/14/17 00:00 IMPRESSION: Gallstones. No metastases. Chest CT 12/14/17 00:00 IMPRESSION: No metastatic lesions. Hip/Pelvis X-Ray 12/14/17 14:10 IMPRESSION: Question acute right intratrochanteric fracture proximal femur. Recommend CT for followup. Pelvis CT 12/14/17 14:38 IMPRESSION: Acute right intertrochanteric proximal femoral fracture Chest X-Ray 12/14/17 16:17 IMPRESSION: NO ACUTE RADIOGRAPHIC FINDING IN THE CHEST. Body Scan Nuclear Medicine 12/15/17 00:00 IMPRESSION: Increased uptake right femur intertrochanteric region from acute fracture Increased uptake left anterior lower ribs from fractures at the rib- costochondral cartilage junction Assessment & Plan - Diagnosis (1) Intertrochanteric fracture of right hip Qualifiers: Encounter type: initial encounter Fracture type: closed Fracture alignment: nondisplaced Qualified Code(s): S72.144A - Nondisplaced intertrochanteric fracture of right femur, initial encounter for closed fracture Is this a current diagnosis for this admission?: Yes Plan: Plan for surgery on Tuesday. Aspirin and Plavix on hold. Continue analgesics for pain control (2) Rib fractures Qualifiers: Rib fracture type: multiple ribs Fracture type: closed Laterality: right Fracture healing: with routine healing Is this a current diagnosis for this admission?: Yes Plan: Analgesics for pain Incentive spirometry (3) History of CVA with residual deficit Is this a current diagnosis for this admission?: Yes Plan: fall precautions (4) Diabetes mellitus type 2 in nonobese Is this a current diagnosis for this admission?: Yes Plan: Insulin sliding scale (5) Diastolic dysfunction without heart failure Is this a current diagnosis for this admission?: Yes Plan: Echo done on 12/15/17 shows mild to moderate diastolic dysfunction mild to moderate AI Monitor fluid status- avoid fluid overload. (6) Hyperlipidemia Qualifiers: Hyperlipidemia type: unspecified Qualified Code(s): E78.5 - Hyperlipidemia , unspecified Is this a current diagnosis for this admission?: Yes Plan: On Statin (7) Hypertension Qualifiers: Hypertension type: essential hypertension Qualified Code(s): I10 - Essential (primary) hypertension Is this a current diagnosis for this admission?: Yes Plan: Continue Amlodipine (8) Hypokalemia Is this a current diagnosis for this admission?: Yes Plan: Replete and monitor (9) Hypomagnesemia Is this a current diagnosis for this admission?: Yes Plan: Replete and monitor - Time Time Spent with patient: 25-34 minutes
[2017-12-18] MEDS: TOLTERODINE TARTRATE 1 MG TABLET PO SCH (17:49)
[2017-12-18] MEDS: ATORVASTATIN CALCIUM 40 MG TABLET PO SCH (22:08)
[2017-12-19] MEDS ORDERED: VANCOMYCIN HCL 1,000 MG in DEXTROSE 5%-WATER 250 ML IV PRN (05:00)
[2017-12-19] MEDS ORDERED: VANCOMYCIN HCL 1,000 MG in NORMAL SALINE 250 ML IV PRN (05:00)
[2017-12-19] MEDS ORDERED: TRANEXAMIC ACID INJ/PF 1,000 MG/10 ML SDV IV PRN (05:00)
[2017-12-19] MEDS: OXYCODONE-ACETAMINOPHEN 5-325 MG TABLET PO PRN (06:43)
--- NOTE | 2017-12-19 08:15 | EKG REPORT ---
SEVERITY:- ABNORMAL ECG - SINUS RHYTHM CONSIDER LEFT VENTRICULAR HYPERTROPHY : Confirmed by: Derick Dao 19-Dec-2017 08:14:12
[2017-12-19] MEDS: MAGNESIUM OXIDE 400 MG TABLET PO SCH (09:06)
[2017-12-19] MEDS: AMLODIPINE BESYLATE 5 MG TABLET PO SCH (09:06)
[2017-12-19] MEDS: LACTULOSE SYRUP 20 GM/30 ML UDCUP PO SCH (09:06)
[2017-12-19] MEDS: MORPHINE SULFATE 10 MG/ML INJ IV PRN ×3 (09:44→22:43)
[2017-12-19] MEDS ORDERED: FENTANYL CITRATE INJ/PF 100 MCG/2 ML AMPUL ONE ×4 (10:43→13:55)
[2017-12-19] MEDS ORDERED: PROPOFOL INJ 200 MG/20 ML VIAL IV ONE (10:44)
[2017-12-19] MEDS ORDERED: ACETAMINOPHEN 0 ML IV ONE (10:44)
[2017-12-19] MEDS ORDERED: TRANEXAMIC ACID INJ/PF 1,000 MG/10 ML SDV IV ONE ×2 (10:44→14:15)
[2017-12-19] MEDS ORDERED: ONDANSETRON HCL INJ/PF 4 MG/2 ML SDV ONE (10:44)
[2017-12-19] MEDS ORDERED: TETRACAINE HCL/PF 20MG/2ML AMPULE (SPINAL) ONE (10:47)
[2017-12-19] MEDS ORDERED: THROMBIN (BOVINE) TOPICAL 20000 UNIT VIAL ONE (10:55)
[2017-12-19] MEDS ORDERED: THROMBIN (BOVINE) 5000 UNIT EPITAXIS KIT ONE (10:55)
[2017-12-19] MEDS ORDERED: BUPIVACAINE INJ/PF LIPOSOME/PF 266 MG/20 ML SDV ONE (10:55)
--- NOTE | 2017-12-19 11:02 | PDOC PROGRESS REPORT ---
Subjective Progress Note for:: 12/19/17 Subjective:: 72 yr old female with past medical history of Aortic insufficiency Coronary artery disease Diastolic heart failure Hypertension Hyperlipidemia COPD Type 2 diabetes Cervical cancer and ovarian cancer Arthritis degenerative joint disease Prior stroke with residual right-sided weakness. He presented to the hospital on December 14 right pain after she fell at home and hit her right hip a week prior to presentation. She was found to have a nondisplaced intertrochanteric right hip fracture and suspected lytic lesion. SPEP is pending. The patient has a history of prior stroke with residual right-sided weakness. Plavix and Aspirin on hold. Surgery today. No complaints at present. Reason For Visit: RIGHT HIP FRACTURE,HX OF STROKE Physical Exam Vital Signs: Temp Pulse Resp BP Pulse Ox 98.1 F 81 20 129/58 H 98 12/19/17 07:36 12/19/17 07:36 12/19/17 07:36 12/19/17 07:36 12/19/17 07:36 Intake & Output 12/18/17 12/19/17 12/20/17 06:59 06:59 06:59 Intake Total 1150 1129 Balance 1150 1129 Weight 64.7 kg 64 kg General appearance: PRESENT: no acute distress Eye exam: ABSENT: scleral icterus Ear exam: PRESENT: normal external ear exam Mouth exam: PRESENT: moist Neck exam: ABSENT: tracheal deviation Respiratory exam: PRESENT: clear to auscultation tressa, symmetrical, unlabored Cardiovascular exam: PRESENT: RRR GI/Abdominal exam: PRESENT: soft. ABSENT: tenderness Rectal exam: PRESENT: deferred Extremities exam: ABSENT: pedal edema Neurological exam: PRESENT: alert, awake Results Laboratory Results: 12/17/17 07:56 12/18/17 04:17 12/18/17 04:17 NT-Pro-B Natriuret Pep 315 Impressions: Abdomen CT 12/14/17 00:00 IMPRESSION: Gallstones. No metastases. Chest CT 12/14/17 00:00 IMPRESSION: No metastatic lesions. Hip/Pelvis X-Ray 12/14/17 14:10 IMPRESSION: Question acute right intratrochanteric fracture proximal femur. Recommend CT for followup. Pelvis CT 12/14/17 14:38 IMPRESSION: Acute right intertrochanteric proximal femoral fracture Chest X-Ray 12/14/17 16:17 IMPRESSION: NO ACUTE RADIOGRAPHIC FINDING IN THE CHEST. Body Scan Nuclear Medicine 12/15/17 00:00 IMPRESSION: Increased uptake right femur intertrochanteric region from acute fracture Increased uptake left anterior lower ribs from fractures at the rib- costochondral cartilage junction Assessment & Plan - Diagnosis (1) Intertrochanteric fracture of right hip Qualifiers: Encounter type: initial encounter Fracture type: closed Fracture alignment: nondisplaced Qualified Code(s): S72.144A - Nondisplaced intertrochanteric fracture of right femur, initial encounter for closed fracture Is this a current diagnosis for this admission?: Yes Plan: Plan for surgery on Tuesday. Aspirin and Plavix on hold. Continue analgesics for pain control (2) Rib fractures Qualifiers: Rib fracture type: multiple ribs Fracture type: closed Laterality: right Fracture healing: with routine healing Is this a current diagnosis for this admission?: Yes Plan: Analgesics for pain Incentive spirometry (3) History of CVA with residual deficit Is this a current diagnosis for this admission?: Yes Plan: fall precautions (4) Diabetes mellitus type 2 in nonobese Is this a current diagnosis for this admission?: Yes Plan: Insulin sliding scale (5) Diastolic dysfunction without heart failure Is this a current diagnosis for this admission?: Yes Plan: Echo done on 12/15/17 shows mild to moderate diastolic dysfunction mild to moderate AI Monitor fluid status- avoid fluid overload. (6) Hyperlipidemia Qualifiers: Hyperlipidemia type: unspecified Qualified Code(s): E78.5 - Hyperlipidemia , unspecified Is this a current diagnosis for this admission?: Yes Plan: On Statin (7) Hypertension Qualifiers: Hypertension type: essential hypertension Qualified Code(s): I10 - Essential (primary) hypertension Is this a current diagnosis for this admission?: Yes Plan: Continue Amlodipine (8) Hypokalemia Is this a current diagnosis for this admission?: Yes Plan: Replete and monitor (9) Hypomagnesemia Is this a current diagnosis for this admission?: Yes Plan: Replete and monitor - Time Time Spent with patient: 25-34 minutes - Plan Summary Plan Summary: Surgery today
[2017-12-19] MEDS ORDERED: EPHEDRINE SULFATE INJ 50 MG/1 ML AMPULE ONE (11:21)
[2017-12-19] MEDS ORDERED: VANCOMYCIN HCL INJ 1000 MG VIAL ONE (12:24)
[2017-12-19] MEDS ORDERED: PROMETHAZINE HCL INJ 25 MG/1 ML VIAL IV PRN (12:49)
[2017-12-19] MEDS ORDERED: FENTANYL CITRATE INJ/PF 100 MCG/2 ML AMPUL IV PRN (12:49)
[2017-12-19] MEDS ORDERED: DIPHENHYDRAMINE HCL 50 MG/ML VIAL IV PRN ×2 (12:49→12:57)
[2017-12-19] MEDS ORDERED: RINGERS SOLUTION,LACTATED 1,000 ML IV PRN ×3 (12:57)
[2017-12-19] MEDS ORDERED: MORPHINE SULFATE 10 MG/ML INJ IM PRN (12:57)
[2017-12-19] MEDS ORDERED: ONDANSETRON HCL INJ/PF 4 MG/2 ML SDV IV PRN (12:57)
[2017-12-19] MEDS ORDERED: MORPHINE SULFATE 10 MG/ML INJ IV PRN ×2 (12:57)
[2017-12-19] MEDS ORDERED: MAG HYDROX/AL HYDROX/SIMETH SUSP 30 ML UDCUP PO PRN (12:57)
[2017-12-19] MEDS ORDERED: OXYCODONE HCL IR 5 MG TABLET PO PRN (12:57)
[2017-12-19] MEDS ORDERED: ZOLPIDEM TARTRATE 5 MG TABLET PO PRN (12:57)
[2017-12-19] MEDS ORDERED: ONDANSETRON 4 MG TAB.RAPDIS PO PRN (12:57)
--- NOTE | 2017-12-19 12:57 | Operative Report ---
Operative Report DATE OF SURGERY: 12/19/17 PREOPERATIVE DIAGNOSIS: Right proximal femur fracture? Pathologic OPERATION: Right proximal femur biopsy. Right proximal femur hemiarthroplasty SURGEON: TAMMIE PATEL ANESTHESIA: Spinal TISSUE REMOVED OR ALTERED: Bone to pathology ESTIMATED BLOOD LOSS: 75 PROCEDURE: [place], Omnifit size 5 cemented stem 44 mm unipolar head, standard neck With the patient in a left lateral decubitus position the right lower extremity hindquarter prepped and draped in a sterile fashion. A curvilinear incision made over the greater trochanter a posterior approach the hip was taken. The femoral head was dislocated and delivered into the surgical field manipulating the lower extremity. The femoral neck was transected using an oscillating saw and the femoral neck and head delivered to the field. The femoral head was measured and noted to be 44 millimeters. Attention is now turned to the femur. Access is gained to the femoral canal using a box osteotome to the piriformis fossa. The femur is then prepared using a series of tapered broaches until a number 5 broach is seated. A trial reduction was now performed using a 44 head and standard neck. Leg length was restored and there is excellent anterior posterior stability. A decision was made to proceed with this construct. All trial implants were removed. A cement restrictor was placed into the femoral canal to a depth of 210 mm. Subsequently polymethylmethacrylate with vancomycin added is introduced into the canal. The final number 5 femoral stem is impacted into the canal. Once the cement has polymerized the case proceeds. The standard neck is impacted onto the trunnion. Final unipolar head 44 millimeters is impacted onto the neck. The hip was reduced. The wound is copiously irrigated with pulsed lavage. A subsequent closed in layers using Vicryl and clarita. A sterile dressing is applied. The patient was returned to the recovery room in satisfactory condition.
[2017-12-19] MEDS: FENTANYL CITRATE INJ/PF 100 MCG/2 ML AMPUL IV PRN ×4 (13:18→13:57)
[2017-12-19] MEDS ORDERED: MIDAZOLAM 2 MG/2 ML INJ ONE (13:21)
[2017-12-19] MEDS ORDERED: METOPROLOL TARTRATE PF/INJ 5 MG/5 ML SDV IV ONE (13:54)
--- NOTE | 2017-12-19 14:09 | RADIOLOGY REPORT (SQ) ---
EXAM DESCRIPTION: PELVIS AP COMPLETED DATE/TIME: 12/19/2017 1:43 pm REASON FOR STUDY: Post Op Long Cassette in PACU COMPARISON: Bone scan 12/15/2017 CT pelvis 12/14/2017 NUMBER OF VIEWS: AP pelvis, AP right femur to include the entire prosthesis TECHNIQUE: Digital radiographic images of the right hip post-procedure. LIMITATIONS: Rotated towards the MAHER orientation FINDINGS: BONES: Osteoporotic. No fracture right hemipelvis identified DEVICE: Right femoral head replacement, femoral component bone cement. [place] bony acetabulum intact SOFT TISSUES: No worrisome findings. Expected postoperative soft tissue changes. IMPRESSION: SATISFACTORY POSTOPERATIVE RIGHT HIP. TECHNICAL DOCUMENTATION: JOB ID: [id number] [employer]- All Rights Reserved Reading location - IP/workstation name: [email or web address]
[2017-12-19] MEDS ORDERED: ALPRAZOLAM 0.25 MG TABLET PO PRN (14:20)
[2017-12-19 14:40] LABS: A/G RATIO 1.4 (0.7-1.7); ALBUMIN 2 3.8 g/dL (2.9-4.4); BETA GLOBULINS 0.7 g/dL (0.7-1.3); GAMMA GLOBULIN 0.8 g/dL (0.4-1.8); GLOBULIN TOTAL 2.8 g/dL (2.2-3.9); MONOCLONAL SPIKE Not Observed g/dL (Not Observed); PROTEIN TOTAL SERUM 6.6 g/dL (6.0-8.5)
[2017-12-19] MEDS ORDERED: METFORMIN HCL 850 MG TABLET PO SCH (18:00)
[2017-12-19] MEDS: SENNOSIDES/DOCUSATE 8.6-50 MG 1 EACH TABLET PO SCH (18:29)
[2017-12-19] MEDS: OXYCODONE HCL SR 10 MG TABLET PO SCH (22:43)
[2017-12-19] MEDS: ATORVASTATIN CALCIUM 40 MG TABLET PO SCH (22:44)
[2017-12-20] MEDS ORDERED: VANCOMYCIN HCL 1,000 MG in DEXTROSE 5%-WATER 250 ML IV ONE (01:00)
[2017-12-20] MEDS ORDERED: VANCOMYCIN HCL 1,000 MG in NORMAL SALINE 250 ML IV ONE (01:00)
[2017-12-20] MEDS: LANSOPRAZOLE 30 MG TAB.RAP.DR PO SCH (06:06)
--- NOTE | 2017-12-20 06:33 | PDOC PROGRESS REPORT ---
Subjective Progress Note for:: 12/20/17 Reason For Visit: RIGHT PROXIMAL FEMUR FRACTURE 72-year-old white female postop day 1 right proximal femoral hemiarthroplasty for fracture Physical Exam Vital Signs: Temp Pulse Resp BP Pulse Ox 36.7 C 104 H 18 107/65 93 12/20/17 04:00 12/20/17 04:00 12/20/17 04:00 12/20/17 04:00 12/20/17 04:00 Intake & Output 12/18/17 12/19/17 12/20/17 06:59 06:59 06:59 Intake Total 1150 1129 2960 Output Total 2050 Balance 1150 1129 910 Weight 64.7 kg 64 kg 66.1 kg General appearance: PRESENT: no acute distress Head exam: PRESENT: normocephalic Respiratory exam: PRESENT: crackles, unlabored Cardiovascular exam: PRESENT: RRR Pulses: PRESENT: +1 pedal pulses bilateral Vascular exam: PRESENT: normal capillary refill GI/Abdominal exam: PRESENT: soft Rectal exam: PRESENT: deferred Extremities exam: PRESENT: other - Left hip dressing clean and dry. Leg lengths are equal. Patient not cooperative and cannot I cannot assess motor function to the left and right foot. There is brisk capillary refill. Neurological exam: PRESENT: alert, awake Skin exam: PRESENT: dry, intact, warm. ABSENT: cyanosis, rash Results Laboratory Results: 12/16/17 10:29 Total Protein 6.6 Albumin 3.8 12/18/17 04:17 NT-Pro-B Natriuret Pep 315 Impressions: Abdomen CT 12/14/17 00:00 IMPRESSION: Gallstones. No metastases. Chest CT 12/14/17 00:00 IMPRESSION: No metastatic lesions. Hip/Pelvis X-Ray 12/14/17 14:10 IMPRESSION: Question acute right intratrochanteric fracture proximal femur. Recommend CT for followup. Pelvis CT 12/14/17 14:38 IMPRESSION: Acute right intertrochanteric proximal femoral fracture Chest X-Ray 12/14/17 16:17 IMPRESSION: NO ACUTE RADIOGRAPHIC FINDING IN THE CHEST. Body Scan Nuclear Medicine 12/15/17 00:00 IMPRESSION: Increased uptake right femur intertrochanteric region from acute fracture Increased uptake left anterior lower ribs from fractures at the rib- costochondral cartilage junction Pelvis X-Ray 04/16/18 12:59 IMPRESSION: SATISFACTORY POSTOPERATIVE RIGHT HIP. Status: Imported from PACS Assessment & Plan - Diagnosis (1) Intertrochanteric fracture of right hip Qualifiers: Encounter type: initial encounter Fracture type: closed Fracture alignment: nondisplaced Qualified Code(s): S72.144A - Nondisplaced intertrochanteric fracture of right femur, initial encounter for closed fracture Is this a current diagnosis for this admission?: Yes Plan: Status post right proximal femoral hemiarthroplasty. Plan will be mobilization with physical therapy. SPEP is negative final path pending. - Time Time Spent with patient: 15-24 minutes Anticipated discharge: SNF Within: when bed available
[2017-12-20 06:35] LABS: HEMATOCRIT 29.9 % (36.0-47.0); HEMOGLOBIN 10.3 g/dL (12.0-15.5); MEAN CORPUSCULAR HGB CONC 34.3 g/dL (32.0-36.0); MEAN CORPUSCULAR VOLUME 96 fl (80-97); PLATELET COUNT 146 10^3/uL (150-450); RED BLOOD COUNT 3.11 10^6/uL (3.72-5.28); RED CELL DISTRIBUTION WIDTH 16.1 % (11.5-14.0)
[2017-12-20 06:50] LABS: ANION GAP 9 (5-19); BLOOD UREA NITROGEN 16 mg/dL (7-20); CALCIUM 9.2 mg/dL (8.4-10.2); CARBON DIOXIDE 25 mmol/L (22-30); CHLORIDE 106 mmol/L (98-107); GLUCOSE 96 mg/dL (75-110); POTASSIUM 4.7 mmol/L (3.6-5.0); SODIUM 139.5 mmol/L (137-145)
[2017-12-20] MEDS ORDERED: IPRATROPIUM/ALBUTEROL 0.5-2.5 MG/3 ML AMPUL NEB ONE (06:51)
[2017-12-20] MEDS: IPRATROPIUM/ALBUTEROL 0.5-2.5 MG/3 ML AMPUL NEB SCH ×4 (08:51→20:21)
[2017-12-20] MEDS ORDERED: MORPHINE SULFATE 10 MG/ML INJ IM PRN (09:30)
[2017-12-20] MEDS: OXYCODONE HCL SR 10 MG TABLET PO SCH (09:46)
[2017-12-20] MEDS: PRENATAL VITAMIN W DHA CAPSULE PO SCH (09:47)
[2017-12-20] MEDS: SENNOSIDES/DOCUSATE 8.6-50 MG 1 EACH TABLET PO SCH ×2 (09:48→17:11)
[2017-12-20] MEDS: CLOPIDOGREL BISULFATE 75 MG TABLET PO SCH (09:48)
[2017-12-20] MEDS: ASPIRIN 81 MG TABLET, ENT COATED PO SCH (09:49)
[2017-12-20] MEDS ORDERED: AMLODIPINE BESYLATE 10 MG TABLET PO SCH (10:00)
[2017-12-20] MEDS: OXYCODONE HCL IR 5 MG TABLET PO PRN ×2 (17:09→21:26)
--- NOTE | 2017-12-20 17:38 | PDOC PROGRESS REPORT ---
Subjective Progress Note for:: 12/20/17 Subjective:: 72 yr old female with past medical history of Aortic insufficiency Coronary artery disease Diastolic heart failure Hypertension Hyperlipidemia COPD Type 2 diabetes Cervical cancer and ovarian cancer Arthritis degenerative joint disease Prior stroke with residual right-sided weakness. He presented to the hospital on December 14 right pain after she fell at home and hit her right hip a week prior to presentation. She was found to have a nondisplaced intertrochanteric right hip fracture and suspected lytic lesion. SPEP is pending. The patient has a history of prior stroke with residual right-sided weakness. POD#1 R hip surgery for fracture. Pain is well controlled. No complaints Reason For Visit: RIGHT PROXIMAL FEMUR FRACTURE Physical Exam Vital Signs: Temp Pulse Resp BP Pulse Ox 98.4 F 112 H 18 152/83 H 92 12/20/17 12:00 12/20/17 16:30 12/20/17 16:30 12/20/17 12:00 12/20/17 16:30 Intake & Output 12/19/17 12/20/17 12/21/17 06:59 06:59 06:59 Intake Total 1129 3660 340 Output Total 2050 Balance 1129 1610 340 Weight 64 kg 66.1 kg General appearance: PRESENT: no acute distress Head exam: PRESENT: normocephalic Eye exam: PRESENT: PERRLA. ABSENT: scleral icterus Ear exam: PRESENT: normal external ear exam Mouth exam: PRESENT: moist Neck exam: ABSENT: tracheal deviation Respiratory exam: PRESENT: clear to auscultation tressa, symmetrical, unlabored Cardiovascular exam: PRESENT: RRR GI/Abdominal exam: PRESENT: normal bowel sounds, soft. ABSENT: tenderness Rectal exam: PRESENT: deferred Extremities exam: ABSENT: pedal edema Neurological exam: PRESENT: alert, awake, oriented to person, oriented to place Psychiatric exam: PRESENT: appropriate affect Skin exam: ABSENT: rash Results Laboratory Results: 12/20/17 06:05 12/20/17 06:05 12/20/17 12/20/17 06:05 06:05 WBC 8.0 RBC 3.11 L Hgb 10.3 L D Hct 29.9 L MCV 96 MCH 33.0 MCHC 34.3 RDW 16.1 H Plt Count 146 L Sodium 139.5 Potassium 4.7 Chloride 106 Carbon Dioxide 25 Anion Gap 9 BUN 16 Creatinine 0.63 Est GFR ( Amer) > 60 Est GFR (Non-Af Amer) > 60 Glucose 96 Calcium 9.2 12/18/17 04:17 NT-Pro-B Natriuret Pep 315 Impressions: Abdomen CT 12/14/17 00:00 IMPRESSION: Gallstones. No metastases. Chest CT 12/14/17 00:00 IMPRESSION: No metastatic lesions. Hip/Pelvis X-Ray 12/14/17 14:10 IMPRESSION: Question acute right intratrochanteric fracture proximal femur. Recommend CT for followup. Pelvis CT 12/14/17 14:38 IMPRESSION: Acute right intertrochanteric proximal femoral fracture Chest X-Ray 12/14/17 16:17 IMPRESSION: NO ACUTE RADIOGRAPHIC FINDING IN THE CHEST. Body Scan Nuclear Medicine 12/15/17 00:00 IMPRESSION: Increased uptake right femur intertrochanteric region from acute fracture Increased uptake left anterior lower ribs from fractures at the rib- costochondral cartilage junction Pelvis X-Ray 12/19/17 12:59 IMPRESSION: SATISFACTORY POSTOPERATIVE RIGHT HIP. Assessment & Plan - Diagnosis (1) Intertrochanteric fracture of right hip Qualifiers: Encounter type: initial encounter Fracture type: closed Fracture alignment: nondisplaced Qualified Code(s): S72.144A - Nondisplaced intertrochanteric fracture of right femur, initial encounter for closed fracture Is this a current diagnosis for this admission?: Yes Plan: POD #1 Continue analgesics for pain control (2) Rib fractures Qualifiers: Rib fracture type: multiple ribs Fracture type: closed Laterality: right Fracture healing: with routine healing Is this a current diagnosis for this admission?: Yes Plan: Analgesics for pain Incentive spirometry (3) History of CVA with residual deficit Is this a current diagnosis for this admission?: Yes Plan: fall precautions, continue Aspirin and Plavix (4) Diabetes mellitus type 2 in nonobese Is this a current diagnosis for this admission?: Yes Plan: Insulin sliding scale (5) Diastolic dysfunction without heart failure Is this a current diagnosis for this admission?: Yes Plan: Echo done on 12/15/17 shows mild to moderate diastolic dysfunction mild to moderate AI Monitor fluid status- avoid fluid overload. (6) Hyperlipidemia Qualifiers: Hyperlipidemia type: unspecified Qualified Code(s): E78.5 - Hyperlipidemia , unspecified Is this a current diagnosis for this admission?: Yes Plan: On Statin (7) Hypertension Qualifiers: Hypertension type: essential hypertension Qualified Code(s): I10 - Essential (primary) hypertension Is this a current diagnosis for this admission?: Yes Plan: BP low- Amlodipine has been held (8) Hypokalemia Is this a current diagnosis for this admission?: Yes Plan: Replete and monitor (9) Hypomagnesemia Is this a current diagnosis for this admission?: Yes Plan: Replete and monitor (10) Anemia Qualifiers: Other causes of anemia: acute posthemorrhagic Is this a current diagnosis for this admission?: Yes Plan: Likely due to intraoperative blood loss and hemodilutional from IV fluids. Continue to monitor Transfuse if hemoglobin <8 - Time Time Spent with patient: 35 or more minutes
[2017-12-20] MEDS: ATORVASTATIN CALCIUM 40 MG TABLET PO SCH (21:25)
[2017-12-21] MEDS: OXYCODONE HCL SR 10 MG TABLET PO SCH ×2 (03:56→11:31)
[2017-12-21] MEDS: OXYCODONE HCL IR 5 MG TABLET PO PRN ×2 (04:40→17:57)
[2017-12-21] MEDS: ACETAMINOPHEN 325 MG TABLET PO PRN (04:41)
[2017-12-21] MEDS: LANSOPRAZOLE 30 MG TAB.RAP.DR PO SCH (06:01)
[2017-12-21 06:03] LABS: HEMATOCRIT 27.6 % (36.0-47.0); HEMOGLOBIN 9.6 g/dL (12.0-15.5); MEAN CORPUSCULAR HEMOGLOBIN 32.9 pg (27.0-33.4); MEAN CORPUSCULAR HGB CONC 34.6 g/dL (32.0-36.0); MEAN CORPUSCULAR VOLUME 95 fl (80-97); PLATELET COUNT 142 10^3/uL (150-450); RED BLOOD COUNT 2.91 10^6/uL (3.72-5.28); RED CELL DISTRIBUTION WIDTH 15.9 % (11.5-14.0); WHITE BLOOD COUNT 6.8 10^3/uL (4.0-10.5)
[2017-12-21 06:20] LABS: ANION GAP 9 (5-19); BLOOD UREA NITROGEN 16 mg/dL (7-20); CALCIUM 9.1 mg/dL (8.4-10.2); CARBON DIOXIDE 26 mmol/L (22-30); CHLORIDE 101 mmol/L (98-107); GLUCOSE 97 mg/dL (75-110); PHOSPHORUS 4.2 mg/dL (2.5-4.5); POTASSIUM 4.2 mmol/L (3.6-5.0); SODIUM 135.8 mmol/L (137-145)
[2017-12-21] MEDS: IPRATROPIUM/ALBUTEROL 0.5-2.5 MG/3 ML AMPUL NEB SCH ×4 (08:41→20:52)
--- NOTE | 2017-12-21 09:42 | EKG REPORT ---
SEVERITY:- OTHERWISE NORMAL ECG - SINUS RHYTHM BORDERLINE LEFT AXIS DEVIATION : Confirmed by: Derick Dao 21-Dec-2017 09:41:20
[2017-12-21] MEDS: SENNOSIDES/DOCUSATE 8.6-50 MG 1 EACH TABLET PO SCH ×2 (11:32→17:57)
[2017-12-21] MEDS: CLOPIDOGREL BISULFATE 75 MG TABLET PO SCH (11:33)
[2017-12-21] MEDS: PRENATAL VITAMIN W DHA CAPSULE PO SCH (11:33)
[2017-12-21] MEDS: MAGNESIUM OXIDE 400 MG TABLET PO SCH (11:33)
[2017-12-21] MEDS: ASPIRIN 81 MG TABLET, ENT COATED PO SCH (11:34)
--- NOTE | 2017-12-21 12:43 | PDOC PROGRESS REPORT ---
Subjective Progress Note for:: 12/21/17 Subjective:: 72 yr old female with past medical history of Aortic insufficiency Coronary artery disease Diastolic heart failure Hypertension Hyperlipidemia COPD Type 2 diabetes Cervical cancer and ovarian cancer Arthritis degenerative joint disease Prior stroke with residual right-sided weakness. She presented to the hospital on December 14 right pain after she fell at home and hit her right hip a week prior to presentation. She was found to have a nondisplaced intertrochanteric right hip fracture and suspected lytic lesion. SPEP is pending. The patient has a history of prior stroke with residual right-sided weakness. POD#2 R hip surgery for fracture. She is currently working with with physical therapy and awaiting rehab. No complaints at present. Pain is relatively well controlled. Appetite is good. Having regular bowel movements. Reason For Visit: RIGHT PROXIMAL FEMUR FRACTURE Physical Exam Vital Signs: Temp Pulse Resp BP Pulse Ox 98.1 F 104 H 18 129/56 H 94 12/21/17 11:32 12/21/17 11:55 12/21/17 11:55 12/21/17 11:32 12/21/17 11:55 Intake & Output 12/20/17 12/21/17 12/22/17 06:59 06:59 06:59 Intake Total 3660 453 Output Total 2050 Balance 1610 453 Weight 66.1 kg 66.3 kg General appearance: PRESENT: no acute distress Head exam: PRESENT: normocephalic Eye exam: ABSENT: scleral icterus Ear exam: PRESENT: normal external ear exam Mouth exam: PRESENT: moist Neck exam: ABSENT: tenderness Respiratory exam: PRESENT: clear to auscultation tressa, unlabored Cardiovascular exam: PRESENT: RRR GI/Abdominal exam: PRESENT: normal bowel sounds, soft Rectal exam: PRESENT: deferred Extremities exam: ABSENT: calf tenderness Neurological exam: PRESENT: alert, awake, oriented to person, oriented to place Psychiatric exam: PRESENT: appropriate affect Skin exam: ABSENT: petechiae Results Laboratory Results: 12/21/17 05:44 12/21/17 05:44 12/21/17 12/21/17 05:44 05:44 WBC 6.8 RBC 2.91 L Hgb 9.6 L Hct 27.6 L MCV 95 MCH 32.9 MCHC 34.6 RDW 15.9 H Plt Count 142 L Sodium 135.8 L Potassium 4.2 Chloride 101 Carbon Dioxide 26 Anion Gap 9 BUN 16 Creatinine 0.61 Est GFR ( Amer) > 60 Est GFR (Non-Af Amer) > 60 Glucose 97 Calcium 9.1 Phosphorus 4.2 Magnesium 1.8 12/18/17 04:17 NT-Pro-B Natriuret Pep 315 Impressions: Abdomen CT 12/14/17 00:00 IMPRESSION: Gallstones. No metastases. Chest CT 12/14/17 00:00 IMPRESSION: No metastatic lesions. Hip/Pelvis X-Ray 12/14/17 14:10 IMPRESSION: Question acute right intratrochanteric fracture proximal femur. Recommend CT for followup. Pelvis CT 12/14/17 14:38 IMPRESSION: Acute right intertrochanteric proximal femoral fracture Chest X-Ray 12/14/17 16:17 IMPRESSION: NO ACUTE RADIOGRAPHIC FINDING IN THE CHEST. Body Scan Nuclear Medicine 12/15/17 00:00 IMPRESSION: Increased uptake right femur intertrochanteric region from acute fracture Increased uptake left anterior lower ribs from fractures at the rib- costochondral cartilage junction Pelvis X-Ray 12/19/17 12:59 IMPRESSION: SATISFACTORY POSTOPERATIVE RIGHT HIP. Assessment & Plan - Diagnosis (1) Intertrochanteric fracture of right hip Qualifiers: Encounter type: subsequent encounter Fracture type: closed Fracture alignment: nondisplaced Is this a current diagnosis for this admission?: Yes Plan: POD #2 Continue analgesics for pain control (2) Rib fractures Qualifiers: Rib fracture type: multiple ribs Fracture type: closed Laterality: right Fracture healing: with routine healing Is this a current diagnosis for this admission?: Yes Plan: Analgesics for pain Incentive spirometry (3) History of CVA with residual deficit Is this a current diagnosis for this admission?: Yes Plan: Continue fall precautions, PT, continue Aspirin and Plavix (4) Diabetes mellitus type 2 in nonobese Is this a current diagnosis for this admission?: Yes Plan: Insulin sliding scale (5) Diastolic dysfunction without heart failure Is this a current diagnosis for this admission?: Yes Plan: Echo done on 12/15/17 shows mild to moderate diastolic dysfunction and mild to moderate AI Monitor fluid status- avoid fluid overload. (6) Hyperlipidemia Qualifiers: Hyperlipidemia type: unspecified Qualified Code(s): E78.5 - Hyperlipidemia , unspecified Is this a current diagnosis for this admission?: Yes Plan: On Statin (7) Hypertension Qualifiers: Hypertension type: essential hypertension Qualified Code(s): I10 - Essential (primary) hypertension Is this a current diagnosis for this admission?: Yes Plan: BP low normal, continue to monitor- Amlodipine has been held (8) Hypokalemia Is this a current diagnosis for this admission?: Yes Plan: Replete and monitor (9) Hypomagnesemia Is this a current diagnosis for this admission?: Yes Plan: Replete and monitor (10) Anemia Qualifiers: Other causes of anemia: acute posthemorrhagic Is this a current diagnosis for this admission?: Yes Plan: Likely due to intraoperative blood loss and hemodilutional from IV fluids. Continue to monitor Transfuse if hemoglobin <8 - Time Time Spent with patient: 35 or more minutes
[2017-12-21] MEDS: ATORVASTATIN CALCIUM 40 MG TABLET PO SCH (21:28)
[2017-12-21] MEDS: MORPHINE SULFATE 10 MG/ML INJ IV PRN (21:28)
[2017-12-22] MEDS: LANSOPRAZOLE 30 MG TAB.RAP.DR PO SCH (05:52)
[2017-12-22 06:28] LABS: HEMATOCRIT 27.4 % (36.0-47.0); HEMOGLOBIN 9.3 g/dL (12.0-15.5); MEAN CORPUSCULAR HEMOGLOBIN 32.7 pg (27.0-33.4); MEAN CORPUSCULAR HGB CONC 33.9 g/dL (32.0-36.0); MEAN CORPUSCULAR VOLUME 97 fl (80-97); PLATELET COUNT 158 10^3/uL (150-450); RED BLOOD COUNT 2.84 10^6/uL (3.72-5.28); RED CELL DISTRIBUTION WIDTH 15.8 % (11.5-14.0); WHITE BLOOD COUNT 5.9 10^3/uL (4.0-10.5)
--- NOTE | 2017-12-22 07:05 | PDOC PROGRESS REPORT ---
Subjective Progress Note for:: 12/22/17 Reason For Visit: RIGHT PROXIMAL FEMUR FRACTURE 72-year-old white female postop day 2 from proximal femoral hemiarthroplasty for an underlying femoral neck fracture,? Pathologic Physical Exam Vital Signs: Temp Pulse Resp BP Pulse Ox 36.8 C 92 16 138/67 H 96 12/22/17 00:00 12/22/17 02:00 12/22/17 00:00 12/22/17 00:00 12/22/17 00:38 Intake & Output 12/21/17 12/22/17 12/23/17 06:59 06:59 06:59 Intake Total 453 450 Balance 453 450 Weight 66.3 kg General appearance: PRESENT: no acute distress Head exam: PRESENT: normocephalic Respiratory exam: PRESENT: unlabored Cardiovascular exam: PRESENT: RRR Pulses: PRESENT: +1 pedal pulses bilateral Vascular exam: PRESENT: normal capillary refill GI/Abdominal exam: PRESENT: soft Rectal exam: PRESENT: deferred Extremities exam: PRESENT: other - Right hip dressing clean dry and intact. Leg lengths are equal. Distal neurovascular examination is intact. Results Laboratory Results: 12/22/17 05:59 12/21/17 05:44 12/22/17 05:59 WBC 5.9 RBC 2.84 L Hgb 9.3 L Hct 27.4 L MCV 97 MCH 32.7 MCHC 33.9 RDW 15.8 H Plt Count 158 12/18/17 04:17 NT-Pro-B Natriuret Pep 315 Impressions: Abdomen CT 12/14/17 00:00 IMPRESSION: Gallstones. No metastases. Chest CT 12/14/17 00:00 IMPRESSION: No metastatic lesions. Hip/Pelvis X-Ray 12/14/17 14:10 IMPRESSION: Question acute right intratrochanteric fracture proximal femur. Recommend CT for followup. Pelvis CT 12/14/17 14:38 IMPRESSION: Acute right intertrochanteric proximal femoral fracture Chest X-Ray 12/14/17 16:17 IMPRESSION: NO ACUTE RADIOGRAPHIC FINDING IN THE CHEST. Body Scan Nuclear Medicine 12/15/17 00:00 IMPRESSION: Increased uptake right femur intertrochanteric region from acute fracture Increased uptake left anterior lower ribs from fractures at the rib- costochondral cartilage junction Pelvis X-Ray 12/19/17 12:59 IMPRESSION: SATISFACTORY POSTOPERATIVE RIGHT HIP. Status: Imported from PACS Assessment & Plan - Diagnosis (1) Intertrochanteric fracture of right hip Qualifiers: Encounter type: subsequent encounter Fracture type: closed Fracture alignment: nondisplaced Is this a current diagnosis for this admission?: Yes Plan: Status post hemiarthroplasty for femoral neck fracture. Patient to be mobilized with physical therapy on a weightbearing as tolerated amatory basis. [facility]. - Time Time Spent with patient: 15-24 minutes Anticipated discharge: SNF Within: when bed available
[2017-12-22] MEDS: MORPHINE SULFATE 10 MG/ML INJ IV PRN ×3 (07:46→22:46)
[2017-12-22] MEDS: IPRATROPIUM/ALBUTEROL 0.5-2.5 MG/3 ML AMPUL NEB SCH ×4 (07:55→21:12)
[2017-12-22] MEDS: PRENATAL VITAMIN W DHA CAPSULE PO SCH (09:53)
[2017-12-22] MEDS: ASPIRIN 81 MG TABLET, ENT COATED PO SCH (09:53)
[2017-12-22] MEDS: CLOPIDOGREL BISULFATE 75 MG TABLET PO SCH (09:53)
[2017-12-22] MEDS: SENNOSIDES/DOCUSATE 8.6-50 MG 1 EACH TABLET PO SCH ×2 (09:53→17:54)
[2017-12-22] MEDS: MAGNESIUM OXIDE 400 MG TABLET PO SCH (09:53)
--- NOTE | 2017-12-22 11:01 | PDOC PROGRESS REPORT ---
Subjective Progress Note for:: 12/22/17 Subjective:: 72 yr old female with past medical history of Aortic insufficiency Coronary artery disease Diastolic heart failure Hypertension Hyperlipidemia COPD Type 2 diabetes Cervical cancer and ovarian cancer Arthritis degenerative joint disease Prior stroke with residual right-sided weakness. She presented to the hospital on December 14 right pain after she fell at home and hit her right hip a week prior to presentation. She was found to have a nondisplaced intertrochanteric right hip fracture and suspected lytic lesion. SPEP is pending. The patient has a history of prior stroke with residual right-sided weakness. POD#3 R hip hemiarthroplasty for femoral neck fracture. She is currently working with physical therapy and awaiting rehab. pain is reasonably well controlled Reason For Visit: RIGHT PROXIMAL FEMUR FRACTURE Physical Exam Vital Signs: Temp Pulse Resp BP Pulse Ox 98.1 F 106 H 18 137/65 H 91 L 12/22/17 07:50 12/22/17 07:55 12/22/17 07:55 12/22/17 07:50 12/22/17 07:55 Intake & Output 12/21/17 12/22/17 12/23/17 06:59 06:59 06:59 Intake Total 453 877 Balance 453 877 Weight 66.3 kg 66.9 kg General appearance: PRESENT: no acute distress Head exam: PRESENT: normocephalic Eye exam: ABSENT: scleral icterus Ear exam: PRESENT: normal external ear exam Mouth exam: PRESENT: moist Neck exam: ABSENT: tenderness Respiratory exam: PRESENT: symmetrical, unlabored Cardiovascular exam: PRESENT: RRR GI/Abdominal exam: PRESENT: normal bowel sounds, soft. ABSENT: tenderness Rectal exam: PRESENT: deferred Extremities exam: ABSENT: calf tenderness Neurological exam: PRESENT: alert, awake Psychiatric exam: PRESENT: appropriate affect Skin exam: ABSENT: petechiae Results Laboratory Results: 12/22/17 05:59 12/21/17 05:44 12/22/17 05:59 WBC 5.9 RBC 2.84 L Hgb 9.3 L Hct 27.4 L MCV 97 MCH 32.7 MCHC 33.9 RDW 15.8 H Plt Count 158 12/18/17 04:17 NT-Pro-B Natriuret Pep 315 Impressions: Abdomen CT 12/14/17 00:00 IMPRESSION: Gallstones. No metastases. Chest CT 12/14/17 00:00 IMPRESSION: No metastatic lesions. Hip/Pelvis X-Ray 12/14/17 14:10 IMPRESSION: Question acute right intratrochanteric fracture proximal femur. Recommend CT for followup. Pelvis CT 12/14/17 14:38 IMPRESSION: Acute right intertrochanteric proximal femoral fracture Chest X-Ray 12/14/17 16:17 IMPRESSION: NO ACUTE RADIOGRAPHIC FINDING IN THE CHEST. Body Scan Nuclear Medicine 12/15/17 00:00 IMPRESSION: Increased uptake right femur intertrochanteric region from acute fracture Increased uptake left anterior lower ribs from fractures at the rib- costochondral cartilage junction Pelvis X-Ray 12/19/17 12:59 IMPRESSION: SATISFACTORY POSTOPERATIVE RIGHT HIP. Assessment & Plan - Diagnosis (1) Intertrochanteric fracture of right hip Qualifiers: Encounter type: subsequent encounter Fracture type: closed Fracture alignment: nondisplaced Is this a current diagnosis for this admission?: Yes Plan: POD #3 Continue analgesics for pain control (2) Rib fractures Qualifiers: Rib fracture type: multiple ribs Fracture type: closed Laterality: right Fracture healing: with routine healing Is this a current diagnosis for this admission?: Yes Plan: Analgesics for pain Incentive spirometry (3) History of CVA with residual deficit Is this a current diagnosis for this admission?: Yes Plan: Continue fall precautions, PT, continue Aspirin and Plavix (4) Diabetes mellitus type 2 in nonobese Is this a current diagnosis for this admission?: Yes Plan: Insulin sliding scale (5) Diastolic dysfunction without heart failure Is this a current diagnosis for this admission?: Yes Plan: Echo done on 12/15/17 shows mild to moderate diastolic dysfunction and mild to moderate AI. Monitor fluid status- avoid fluid overload. (6) Hyperlipidemia Qualifiers: Hyperlipidemia type: unspecified Qualified Code(s): E78.5 - Hyperlipidemia , unspecified Is this a current diagnosis for this admission?: Yes Plan: On Statin (7) Hypertension Qualifiers: Hypertension type: essential hypertension Qualified Code(s): I10 - Essential (primary) hypertension Is this a current diagnosis for this admission?: Yes Plan: BP low normal, continue to monitor- Amlodipine has been held (8) Hypokalemia Is this a current diagnosis for this admission?: Yes Plan: Replete and monitor (9) Hypomagnesemia Is this a current diagnosis for this admission?: Yes Plan: Replete and monitor (10) Anemia Qualifiers: Other causes of anemia: acute posthemorrhagic Is this a current diagnosis for this admission?: Yes Plan: Likely due to intraoperative blood loss and hemodilutional from IV fluids. Continue to monitor Transfuse if hemoglobin <8 - Time Time Spent with patient: 25-34 minutes
[2017-12-22] MEDS: OXYCODONE HCL IR 5 MG TABLET PO PRN (17:58)
[2017-12-22] MEDS: ATORVASTATIN CALCIUM 40 MG TABLET PO SCH (22:47)
[2017-12-23] MEDS: MORPHINE SULFATE 10 MG/ML INJ IV PRN ×2 (01:57→05:27)
[2017-12-23] MEDS: LANSOPRAZOLE 30 MG TAB.RAP.DR PO SCH (05:28)
[2017-12-23] MEDS: IPRATROPIUM/ALBUTEROL 0.5-2.5 MG/3 ML AMPUL NEB SCH ×4 (08:15→19:48)
[2017-12-23] MEDS: SENNOSIDES/DOCUSATE 8.6-50 MG 1 EACH TABLET PO SCH ×2 (09:59→17:17)
[2017-12-23] MEDS: MAGNESIUM OXIDE 400 MG TABLET PO SCH (09:59)
[2017-12-23] MEDS: OXYCODONE HCL IR 5 MG TABLET PO PRN ×3 (09:59→21:03)
[2017-12-23] MEDS: PRENATAL VITAMIN W DHA CAPSULE PO SCH (09:59)
[2017-12-23] MEDS: CLOPIDOGREL BISULFATE 75 MG TABLET PO SCH (09:59)
[2017-12-23] MEDS: ASPIRIN 81 MG TABLET, ENT COATED PO SCH (09:59)
--- NOTE | 2017-12-23 14:36 | PDOC PROGRESS REPORT ---
Subjective Progress Note for:: 12/23/17 Subjective:: I seen and examined the patient while she is resting in bed comfortably. She is not in pain or distress. She is awake alert and oriented. Reason For Visit: RIGHT PROXIMAL FEMUR FRACTURE Physical Exam Vital Signs: Temp Pulse Resp BP Pulse Ox 98.5 F 93 16 123/68 97 12/23/17 11:25 12/23/17 11:54 12/23/17 11:54 12/23/17 11:25 12/23/17 11:25 Intake & Output 12/22/17 12/23/17 12/24/17 06:59 06:59 06:59 Intake Total 877 790 437 Balance 877 790 437 Weight 66.9 kg 67.2 kg General appearance: PRESENT: no acute distress, well-developed, well-nourished Neck exam: ABSENT: carotid bruit, JVD, lymphadenopathy, thyromegaly Respiratory exam: PRESENT: clear to auscultation tressa. ABSENT: rales, rhonchi, wheezes Cardiovascular exam: PRESENT: RRR. ABSENT: diastolic murmur, rubs, systolic murmur Neurological exam: PRESENT: alert, awake, oriented to time, oriented to situation Results Laboratory Results: 12/22/17 05:59 12/21/17 05:44 12/18/17 04:17 NT-Pro-B Natriuret Pep 315 Impressions: Abdomen CT 12/14/17 00:00 IMPRESSION: Gallstones. No metastases. Chest CT 12/14/17 00:00 IMPRESSION: No metastatic lesions. Hip/Pelvis X-Ray 12/14/17 14:10 IMPRESSION: Question acute right intratrochanteric fracture proximal femur. Recommend CT for followup. Pelvis CT 12/14/17 14:38 IMPRESSION: Acute right intertrochanteric proximal femoral fracture Chest X-Ray 12/14/17 16:17 IMPRESSION: NO ACUTE RADIOGRAPHIC FINDING IN THE CHEST. Body Scan Nuclear Medicine 12/15/17 00:00 IMPRESSION: Increased uptake right femur intertrochanteric region from acute fracture Increased uptake left anterior lower ribs from fractures at the rib- costochondral cartilage junction Pelvis X-Ray 12/19/17 12:59 IMPRESSION: SATISFACTORY POSTOPERATIVE RIGHT HIP. Assessment & Plan - Diagnosis (1) Diabetes mellitus type 2 in nonobese Is this a current diagnosis for this admission?: Yes Plan: Stable continue sliding scale. (2) Diastolic dysfunction without heart failure Is this a current diagnosis for this admission?: Yes Plan: Stable no need for intervention. (3) History of CVA with residual deficit Is this a current diagnosis for this admission?: Yes Plan: Stable (4) Intertrochanteric fracture of right hip Qualifiers: Encounter type: subsequent encounter Fracture type: closed Fracture alignment: nondisplaced Is this a current diagnosis for this admission?: Yes Plan: Status post hemiarthroplasty. (5) Rib fractures Qualifiers: Rib fracture type: multiple ribs Fracture type: closed Laterality: right Fracture healing: with routine healing Is this a current diagnosis for this admission?: Yes - Plan Summary Plan Summary: Patient has been awaiting rehab placement.
[2017-12-23] MEDS: ATORVASTATIN CALCIUM 40 MG TABLET PO SCH (21:03)
[2017-12-24] MEDS: OXYCODONE HCL IR 5 MG TABLET PO PRN ×4 (00:37→21:09)
[2017-12-24] MEDS: LANSOPRAZOLE 30 MG TAB.RAP.DR PO SCH (05:35)
--- NOTE | 2017-12-24 08:10 | PDOC PROGRESS REPORT ---
Subjective Progress Note for:: 12/24/17 Reason For Visit: RIGHT PROXIMAL FEMUR FRACTURE 72-year-old white female postop day 5 from right proximal femoral hemiarthroplasty for femoral neck fracture. Patient denies any significant discomfort this morning. Physical Exam Vital Signs: Temp Pulse Resp BP Pulse Ox 36.7 C 104 H 20 146/67 H 100 12/24/17 05:31 12/24/17 05:31 12/24/17 05:31 12/24/17 05:31 12/24/17 05:31 Intake & Output 12/23/17 12/24/17 12/25/17 06:59 06:59 06:59 Intake Total 790 797 Balance 790 797 Weight 67.2 kg 69.2 kg General appearance: PRESENT: no acute distress Head exam: PRESENT: normocephalic Respiratory exam: PRESENT: unlabored Cardiovascular exam: PRESENT: RRR Musculoskeletal exam: PRESENT: other - Right hip dressing clean dry and intact. Leg lengths are equal. Distal neurovascular examination is intact. Results Laboratory Results: 12/22/17 05:59 12/21/17 05:44 12/18/17 04:17 NT-Pro-B Natriuret Pep 315 Impressions: Abdomen CT 12/14/17 00:00 IMPRESSION: Gallstones. No metastases. Chest CT 12/14/17 00:00 IMPRESSION: No metastatic lesions. Hip/Pelvis X-Ray 12/14/17 14:10 IMPRESSION: Question acute right intratrochanteric fracture proximal femur. Recommend CT for followup. Pelvis CT 12/14/17 14:38 IMPRESSION: Acute right intertrochanteric proximal femoral fracture Chest X-Ray 12/14/17 16:17 IMPRESSION: NO ACUTE RADIOGRAPHIC FINDING IN THE CHEST. Body Scan Nuclear Medicine 12/15/17 00:00 IMPRESSION: Increased uptake right femur intertrochanteric region from acute fracture Increased uptake left anterior lower ribs from fractures at the rib- costochondral cartilage junction Pelvis X-Ray 12/19/17 12:59 IMPRESSION: SATISFACTORY POSTOPERATIVE RIGHT HIP. Status: Imported from PACS Assessment & Plan - Diagnosis (1) Intertrochanteric fracture of right hip Qualifiers: Encounter type: subsequent encounter Fracture type: closed Fracture alignment: nondisplaced Is this a current diagnosis for this admission?: Yes Plan: Patient working with physical therapy and awaiting intermediate facility placement
[2017-12-24] MEDS: IPRATROPIUM/ALBUTEROL 0.5-2.5 MG/3 ML AMPUL NEB SCH ×4 (08:45→20:22)
[2017-12-24] MEDS: SENNOSIDES/DOCUSATE 8.6-50 MG 1 EACH TABLET PO SCH ×2 (10:46→18:42)
[2017-12-24] MEDS: MAGNESIUM OXIDE 400 MG TABLET PO SCH (10:46)
[2017-12-24] MEDS: PRENATAL VITAMIN W DHA CAPSULE PO SCH (10:46)
[2017-12-24] MEDS: CLOPIDOGREL BISULFATE 75 MG TABLET PO SCH (10:46)
[2017-12-24] MEDS: ASPIRIN 81 MG TABLET, ENT COATED PO SCH (10:46)
--- NOTE | 2017-12-24 13:36 | PDOC PROGRESS REPORT ---
Subjective Progress Note for:: 12/24/17 Subjective:: No significant change Reason For Visit: RIGHT PROXIMAL FEMUR FRACTURE Physical Exam Vital Signs: Temp Pulse Resp BP Pulse Ox 98.4 F 47 L 18 143/75 H 98 12/24/17 11:39 12/24/17 11:39 12/24/17 11:39 12/24/17 11:39 12/24/17 11:39 Intake & Output 12/23/17 12/24/17 12/25/17 06:59 06:59 06:59 Intake Total 790 797 Balance 790 797 Weight 67.2 kg 69.2 kg Results Laboratory Results: 12/22/17 05:59 12/21/17 05:44 12/18/17 04:17 NT-Pro-B Natriuret Pep 315 Impressions: Abdomen CT 12/14/17 00:00 IMPRESSION: Gallstones. No metastases. Chest CT 12/14/17 00:00 IMPRESSION: No metastatic lesions. Hip/Pelvis X-Ray 12/14/17 14:10 IMPRESSION: Question acute right intratrochanteric fracture proximal femur. Recommend CT for followup. Pelvis CT 12/14/17 14:38 IMPRESSION: Acute right intertrochanteric proximal femoral fracture Chest X-Ray 12/14/17 16:17 IMPRESSION: NO ACUTE RADIOGRAPHIC FINDING IN THE CHEST. Body Scan Nuclear Medicine 12/15/17 00:00 IMPRESSION: Increased uptake right femur intertrochanteric region from acute fracture Increased uptake left anterior lower ribs from fractures at the rib- costochondral cartilage junction Pelvis X-Ray 12/19/17 12:59 IMPRESSION: SATISFACTORY POSTOPERATIVE RIGHT HIP. Assessment & Plan - Diagnosis (1) Diabetes mellitus type 2 in nonobese Is this a current diagnosis for this admission?: Yes Plan: Stable continue sliding scale. (2) Diastolic dysfunction without heart failure Is this a current diagnosis for this admission?: Yes Plan: Stable no need for intervention. (3) History of CVA with residual deficit Is this a current diagnosis for this admission?: Yes Plan: Stable (4) Intertrochanteric fracture of right hip Qualifiers: Encounter type: subsequent encounter Fracture type: closed Fracture alignment: nondisplaced Is this a current diagnosis for this admission?: Yes Plan: Status post hemiarthroplasty. (5) Rib fractures Qualifiers: Rib fracture type: multiple ribs Fracture type: closed Laterality: right Fracture healing: with routine healing Is this a current diagnosis for this admission?: Yes Plan: Supportive treatment
[2017-12-24] MEDS: ATORVASTATIN CALCIUM 40 MG TABLET PO SCH (21:09)
[2017-12-25] MEDS: OXYCODONE HCL IR 5 MG TABLET PO PRN ×5 (03:15→21:36)
[2017-12-25] MEDS: LANSOPRAZOLE 30 MG TAB.RAP.DR PO SCH (05:05)
--- NOTE | 2017-12-25 06:59 | PDOC PROGRESS REPORT ---
Subjective Progress Note for:: 12/25/17 Reason For Visit: RIGHT PROXIMAL FEMUR FRACTURE 72-year-old white female postop day 6 from right proximal femoral hemiarthroplasty for femoral neck fracture. Uneventful postoperative course. Physical Exam Vital Signs: Temp Pulse Resp BP Pulse Ox 37.1 C 97 16 146/73 H 97 12/25/17 03:39 12/25/17 03:39 12/25/17 03:39 12/25/17 03:39 12/25/17 03:39 Intake & Output 12/23/17 12/24/17 12/25/17 06:59 06:59 06:59 Intake Total 790 797 703 Balance 790 797 703 Weight 67.2 kg 69.2 kg 64.3 kg General appearance: PRESENT: no acute distress Head exam: PRESENT: normocephalic Respiratory exam: PRESENT: unlabored Cardiovascular exam: PRESENT: RRR Pulses: PRESENT: +1 pedal pulses bilateral Extremities exam: PRESENT: other - Right hip dressing clean dry and intact. Leg lengths are equal. Distal neurovascular examination is intact. Results Laboratory Results: 12/22/17 05:59 12/21/17 05:44 12/18/17 04:17 NT-Pro-B Natriuret Pep 315 Impressions: Abdomen CT 12/14/17 00:00 IMPRESSION: Gallstones. No metastases. Chest CT 12/14/17 00:00 IMPRESSION: No metastatic lesions. Hip/Pelvis X-Ray 12/14/17 14:10 IMPRESSION: Question acute right intratrochanteric fracture proximal femur. Recommend CT for followup. Pelvis CT 12/14/17 14:38 IMPRESSION: Acute right intertrochanteric proximal femoral fracture Chest X-Ray 12/14/17 16:17 IMPRESSION: NO ACUTE RADIOGRAPHIC FINDING IN THE CHEST. Body Scan Nuclear Medicine 12/15/17 00:00 IMPRESSION: Increased uptake right femur intertrochanteric region from acute fracture Increased uptake left anterior lower ribs from fractures at the rib- costochondral cartilage junction Pelvis X-Ray 12/19/17 12:59 IMPRESSION: SATISFACTORY POSTOPERATIVE RIGHT HIP. Status: Imported from PACS Assessment & Plan - Diagnosis (1) Intertrochanteric fracture of right hip Qualifiers: Encounter type: subsequent encounter Fracture type: closed Fracture alignment: nondisplaced Is this a current diagnosis for this admission?: Yes Plan: Patient being mobilized with physical therapy and awaiting alf facility placement
[2017-12-25] MEDS: IPRATROPIUM/ALBUTEROL 0.5-2.5 MG/3 ML AMPUL NEB SCH ×2 (08:50→12:41)
[2017-12-25] MEDS: MAGNESIUM OXIDE 400 MG TABLET PO SCH (09:27)
[2017-12-25] MEDS: PRENATAL VITAMIN W DHA CAPSULE PO SCH (09:27)
[2017-12-25] MEDS: SENNOSIDES/DOCUSATE 8.6-50 MG 1 EACH TABLET PO SCH ×2 (09:27→18:13)
[2017-12-25] MEDS: ASPIRIN 81 MG TABLET, ENT COATED PO SCH (09:27)
[2017-12-25] MEDS: CLOPIDOGREL BISULFATE 75 MG TABLET PO SCH (09:27)
--- NOTE | 2017-12-25 12:49 | PDOC PROGRESS REPORT ---
Subjective Progress Note for:: 12/20/17 Subjective:: Patient had surgery yesterday. Today she noted to be confused. She did not have memory of having surgery. Complaining of some right hip pain. Pt is denying any chest arm or neck discomfort. Patient denying any PND, orthopnea. Patient denied any sustained palpitations, dizziness, syncope, near syncope. Patient denying any fever chills. Patient denying any other significant discomfort. Patient is maintaining sinus rhythm. Review of systems: Rest review of systems negative. Medications: Medications have been reviewed. Reason For Visit: RIGHT PROXIMAL FEMUR FRACTURE Physical Exam Vital Signs: Temp Pulse Resp BP Pulse Ox 98.7 F 112 H 18 131/61 H 92 12/20/17 16:00 12/20/17 16:30 12/20/17 16:30 12/20/17 16:00 12/20/17 16:30 Intake & Output 12/19/17 12/20/17 12/21/17 06:59 06:59 06:59 Intake Total 1129 3660 340 Output Total 2050 Balance 1129 1610 340 Weight 64 kg 66.1 kg Exam: GENERAL: well-nourished and in no acute distress. Alert and oriented x1, patient noted to be confused. HEAD: Atraumatic, normocephalic. EYES: Pupils equal round and reactive to light, extraocular movements intact, sclera anicteric, conjunctiva are normal. ENT: TMs normal, nares patent, oropharynx clear without exudates. Moist mucous membranes. No oral ulcerations or bleeding gums noted NECK: supple without lymphadenopathy. Trachea is central. No cervical or axillary lymphadenopathy noted. Carotids are 2+, JVD WNL LUNGS: Respiration seems nonlabored, no significant accessory muscle action noted. Breath sounds clear to auscultation bilaterally and equal noted. No wheezes rales or rhonchi noted. No significant dullness noted on percussion. CHEST: Palpation of the chest wall shows no significant chest wall tenderness. No other significant abnormalities noted. HEART: [place] CAP SIZER, No PSH, 1/6 PAULA aortic area, 1/6 diez systolic murmur mitral area, no rubs, no gallops. ABDOMEN: Soft, no significant tenderness appreciated, normoactive bowel sounds. No guarding, no rebound. No rigidity noted . No masses appreciated. EXTREMITIES: Pedal pulses are 1-2+, no calf tenderness noted. No clubbing or cyanosis. negative pedal edema noted NEUROLOGICAL: Patient noted to be confused but is noted to move all 4 extremities. No facial asymmetry was noted. PSYCH: Currently confused. SKIN: No significant ecchymosis, skin is noted to be warm. MUSCULOSKELETAL EXAM: No significant acute joint swelling noted. Postsurgical changes noted right hip. Results Laboratory Results: 12/20/17 06:05 12/20/17 06:05 12/20/17 12/20/17 06:05 06:05 WBC 8.0 RBC 3.11 L Hgb 10.3 L D Hct 29.9 L MCV 96 MCH 33.0 MCHC 34.3 RDW 16.1 H Plt Count 146 L Sodium 139.5 Potassium 4.7 Chloride 106 Carbon Dioxide 25 Anion Gap 9 BUN 16 Creatinine 0.63 Est GFR ( Amer) > 60 Est GFR (Non-Af Amer) > 60 Glucose 96 Calcium 9.2 12/18/17 04:17 NT-Pro-B Natriuret Pep 315 EKG Comments: Telemetry strips shows sinus rhythm. No sustained tachycardia or bradycardia noted. Impressions: Abdomen CT 12/14/17 00:00 IMPRESSION: Gallstones. No metastases. Chest CT 12/14/17 00:00 IMPRESSION: No metastatic lesions. Hip/Pelvis X-Ray 12/14/17 14:10 IMPRESSION: Question acute right intratrochanteric fracture proximal femur. Recommend CT for followup. Pelvis CT 12/14/17 14:38 IMPRESSION: Acute right intertrochanteric proximal femoral fracture Chest X-Ray 12/14/17 16:17 IMPRESSION: NO ACUTE RADIOGRAPHIC FINDING IN THE CHEST. Body Scan Nuclear Medicine 12/15/17 00:00 IMPRESSION: Increased uptake right femur intertrochanteric region from acute fracture Increased uptake left anterior lower ribs from fractures at the rib- costochondral cartilage junction Pelvis X-Ray 12/19/17 12:59 IMPRESSION: SATISFACTORY POSTOPERATIVE RIGHT HIP. Assessment & Plan - Diagnosis (1) Diabetes mellitus type 2 in nonobese Is this a current diagnosis for this admission?: Yes (2) Hyperlipidemia Qualifiers: Hyperlipidemia type: unspecified Qualified Code(s): E78.5 - Hyperlipidemia , unspecified Is this a current diagnosis for this admission?: Yes (3) Hypertension Qualifiers: Hypertension type: essential hypertension Qualified Code(s): I10 - Essential (primary) hypertension Is this a current diagnosis for this admission?: Yes (4) Intertrochanteric fracture of right hip Qualifiers: Encounter type: subsequent encounter Fracture type: closed Fracture alignment: nondisplaced Is this a current diagnosis for this admission?: Yes (5) Cardiac murmur Is this a current diagnosis for this admission?: Yes - Notes Notes: Patient is postop day 1. She seems to have done well but is noted to be confused. Cardiac vigil she is stable. 2D echocardiogram results were reviewed. At this point patient seems stable from cardiac standpoint but she has some other ongoing issues. At this time will see patient on a as needed basis. Please call me if needed. - Time Time with patient: 15-25 minutes - More than 50% of the time spent coordinating care, discussing management plans with involved caregivers. Management plans discussed with involved personnels. Medical decision making was of moderate to high complexity, patient's has multiple comorbidities. Medications reviewed and adjusted accordingly: Yes
[2017-12-25] MEDS ORDERED: IPRATROPIUM/ALBUTEROL 0.5-2.5 MG/3 ML AMPUL NEB PRN (13:26)
--- NOTE | 2017-12-25 13:37 | PDOC PROGRESS REPORT ---
Subjective Subjective:: This is a 72 years old female patient admitted for intertrochanteric femoral fracture she is status post open reduction internal fixation. Currently she has been awaiting for rehab placement. Reason For Visit: RIGHT PROXIMAL FEMUR FRACTURE Physical Exam Vital Signs: Temp Pulse Resp BP Pulse Ox 98.1 F 77 16 130/69 H 95 12/25/17 11:32 12/25/17 12:41 12/25/17 12:41 12/25/17 11:32 12/25/17 12:41 Intake & Output 12/24/17 12/25/17 12/26/17 06:59 06:59 06:59 Intake Total 797 703 Balance 797 703 Weight 69.2 kg 64.3 kg General appearance: PRESENT: no acute distress, well-developed, well-nourished Head exam: PRESENT: atraumatic, normocephalic Respiratory exam: PRESENT: clear to auscultation tressa. ABSENT: rales, rhonchi, wheezes Cardiovascular exam: PRESENT: RRR. ABSENT: diastolic murmur, rubs, systolic murmur Results Laboratory Results: 12/22/17 05:59 12/21/17 05:44 12/18/17 04:17 NT-Pro-B Natriuret Pep 315 Impressions: Abdomen CT 12/14/17 00:00 IMPRESSION: Gallstones. No metastases. Chest CT 12/14/17 00:00 IMPRESSION: No metastatic lesions. Hip/Pelvis X-Ray 12/14/17 14:10 IMPRESSION: Question acute right intratrochanteric fracture proximal femur. Recommend CT for followup. Pelvis CT 12/14/17 14:38 IMPRESSION: Acute right intertrochanteric proximal femoral fracture Chest X-Ray 12/14/17 16:17 IMPRESSION: NO ACUTE RADIOGRAPHIC FINDING IN THE CHEST. Body Scan Nuclear Medicine 12/15/17 00:00 IMPRESSION: Increased uptake right femur intertrochanteric region from acute fracture Increased uptake left anterior lower ribs from fractures at the rib- costochondral cartilage junction Pelvis X-Ray 12/19/17 12:59 IMPRESSION: SATISFACTORY POSTOPERATIVE RIGHT HIP. Assessment & Plan - Diagnosis (1) Diabetes mellitus type 2 in nonobese Is this a current diagnosis for this admission?: Yes Plan: Stable continue sliding scale. (2) Diastolic dysfunction without heart failure Is this a current diagnosis for this admission?: Yes Plan: Stable no need for intervention. (3) History of CVA with residual deficit Is this a current diagnosis for this admission?: Yes Plan: Stable (4) Intertrochanteric fracture of right hip Qualifiers: Encounter type: subsequent encounter Fracture type: closed Fracture alignment: nondisplaced Is this a current diagnosis for this admission?: Yes (5) Rib fractures Qualifiers: Rib fracture type: multiple ribs Fracture type: closed Laterality: right Fracture healing: with routine healing Is this a current diagnosis for this admission?: Yes
[2017-12-25] MEDS: ATORVASTATIN CALCIUM 40 MG TABLET PO SCH (21:37)
[2017-12-26] MEDS: OXYCODONE HCL IR 5 MG TABLET PO PRN ×5 (05:26→23:18)
[2017-12-26] MEDS: LANSOPRAZOLE 30 MG TAB.RAP.DR PO SCH (05:26)
[2017-12-26] MEDS: ASPIRIN 81 MG TABLET, ENT COATED PO SCH (09:12)
[2017-12-26] MEDS: PRENATAL VITAMIN W DHA CAPSULE PO SCH (09:12)
[2017-12-26] MEDS: SENNOSIDES/DOCUSATE 8.6-50 MG 1 EACH TABLET PO SCH ×2 (09:12→17:22)
[2017-12-26] MEDS: CLOPIDOGREL BISULFATE 75 MG TABLET PO SCH (09:12)
[2017-12-26] MEDS: MAGNESIUM OXIDE 400 MG TABLET PO SCH (09:12)
[2017-12-26] MEDS: ACETAMINOPHEN 325 MG TABLET PO PRN ×2 (11:22→17:22)
--- NOTE | 2017-12-26 18:32 | PDOC PROGRESS REPORT ---
Subjective Progress Note for:: 12/26/17 Subjective:: Patient complains of pain to her right knee and unable to keep the leg straight Review of system All organ systems evaluated and negative except as in subjective All significant diagnostics and laboratories have been reviewed Reason For Visit: RIGHT PROXIMAL FEMUR FRACTURE Physical Exam Vital Signs: Temp Pulse Resp BP Pulse Ox 98.6 F 73 18 139/60 H 96 12/26/17 07:39 12/26/17 07:39 12/26/17 07:39 12/26/17 07:39 12/26/17 07:39 Intake & Output 12/25/17 12/26/17 12/27/17 06:59 06:59 06:59 Intake Total 703 810 Balance 703 810 Weight 64.3 kg 64.4 kg General appearance: PRESENT: cooperative, well-developed, well-nourished Head exam: PRESENT: atraumatic, normocephalic Eye exam: PRESENT: conjunctiva pink, EOMI, PERRLA Ear exam: PRESENT: normal external ear exam Mouth exam: PRESENT: moist Neck exam: PRESENT: full ROM. ABSENT: JVD, lymphadenopathy, tenderness Respiratory exam: PRESENT: clear to auscultation tressa Cardiovascular exam: PRESENT: RRR. ABSENT: diastolic murmur, systolic murmur Vascular exam: PRESENT: normal capillary refill GI/Abdominal exam: PRESENT: normal bowel sounds, soft. ABSENT: tenderness Extremities exam: PRESENT: joint swelling. ABSENT: full ROM Musculoskeletal exam: ABSENT: ambulatory Neurological exam: PRESENT: alert, awake, oriented to person, oriented to place , oriented to time, oriented to situation, CN II-XII grossly intact Psychiatric exam: PRESENT: appropriate affect, normal mood Skin exam: PRESENT: intact, petechiae Results Laboratory Results: 12/22/17 05:59 12/21/17 05:44 12/18/17 04:17 NT-Pro-B Natriuret Pep 315 Impressions: Abdomen CT 12/14/17 00:00 IMPRESSION: Gallstones. No metastases. Chest CT 12/14/17 00:00 IMPRESSION: No metastatic lesions. Hip/Pelvis X-Ray 12/14/17 14:10 IMPRESSION: Question acute right intratrochanteric fracture proximal femur. Recommend CT for followup. Pelvis CT 12/14/17 14:38 IMPRESSION: Acute right intertrochanteric proximal femoral fracture Chest X-Ray 12/14/17 16:17 IMPRESSION: NO ACUTE RADIOGRAPHIC FINDING IN THE CHEST. Body Scan Nuclear Medicine 12/15/17 00:00 IMPRESSION: Increased uptake right femur intertrochanteric region from acute fracture Increased uptake left anterior lower ribs from fractures at the rib- costochondral cartilage junction Pelvis X-Ray 12/19/17 12:59 IMPRESSION: SATISFACTORY POSTOPERATIVE RIGHT HIP. Assessment & Plan - Diagnosis (1) Intertrochanteric fracture of right hip Qualifiers: Encounter type: subsequent encounter Fracture type: closed Fracture alignment: nondisplaced Is this a current diagnosis for this admission?: Yes Plan: Patient went through the procedure and now complains of not been able to keep the leg straight. Will reconsult Dr. Ramirez for that particular issue. We will also reconsult physical therapy (2) Diabetes mellitus type 2 in nonobese Is this a current diagnosis for this admission?: Yes Plan: Continue Humalog sliding scale with bedside glucose before meals and at bedtime (3) History of CVA with residual deficit Is this a current diagnosis for this admission?: Yes Plan: Patient had recent stroke in September 2017 making her high risk within the first 6 months. Deficit definitely contributed to fall. Patient agrees that she needs to go to [facility] (4) Hyperlipidemia Qualifiers: Hyperlipidemia type: unspecified Qualified Code(s): E78.5 - Hyperlipidemia , unspecified Is this a current diagnosis for this admission?: Yes Plan: Continue outpatient management (5) Hypertension Qualifiers: Hypertension type: essential hypertension Qualified Code(s): I10 - Essential (primary) hypertension Is this a current diagnosis for this admission?: Yes Plan: Continue outpatient regimen (6) Hypokalemia Is this a current diagnosis for this admission?: Yes Plan: Replaced (7) Hypomagnesemia Is this a current diagnosis for this admission?: Yes Plan: Replaced (8) Rib fractures Qualifiers: Rib fracture type: multiple ribs Fracture type: closed Laterality: right Fracture healing: with routine healing Is this a current diagnosis for this admission?: Yes Plan: Patient has been suffering recurrent falls contributing to rib fractures which have been detected for bone scan (9) Diastolic dysfunction without heart failure Is this a current diagnosis for this admission?: Yes Plan: Blood pressure management. Stable - Time Time Spent with patient: 15-24 minutes Medications reviewed and adjusted accordingly: Yes Anticipated discharge: Acute Rehab Within: when bed available - Inpatient Certification Based on my medical assessment, after consideration of the patient's comorbidities, presenting symptoms, or acuity I expect that the services needed warrant INPATIENT care.: Yes I certify that my determination is in accordance with my understanding of Medicare's requirements for reasonable and necessary INPATIENT services [42 CFR 412.3e].: Yes Medical Necessity: Significant Comorbidiites Make Outpatient Treatment Too Risky , Need Close Monitoring Due to Risk of Patient Decompensation
[2017-12-26] MEDS: ATORVASTATIN CALCIUM 40 MG TABLET PO SCH (23:18)
[2017-12-27] MEDS: LANSOPRAZOLE 30 MG TAB.RAP.DR PO SCH (05:51)
[2017-12-27] MEDS: OXYCODONE HCL IR 5 MG TABLET PO PRN (06:15)
--- NOTE | 2017-12-27 07:00 | PDOC PROGRESS REPORT ---
Subjective Progress Note for:: 12/27/17 Reason For Visit: RIGHT PROXIMAL FEMUR FRACTURE 72-year-old white female postop day 8 from a right proximal femoral hemiarthroplasty. Patient complaining of pain this morning and making limited progress with physical therapy Physical Exam Vital Signs: Temp Pulse Resp BP Pulse Ox 36.8 C 77 16 136/81 H 99 12/27/17 00:00 12/27/17 03:00 12/27/17 00:00 12/27/17 00:00 12/27/17 00:00 Intake & Output 12/25/17 12/26/17 12/27/17 06:59 06:59 06:59 Intake Total 703 810 597 Balance 703 810 597 Weight 64.3 kg 64.4 kg 64.4 kg General appearance: PRESENT: mild distress Head exam: PRESENT: normocephalic Respiratory exam: PRESENT: unlabored Cardiovascular exam: PRESENT: RRR Vascular exam: PRESENT: normal capillary refill GI/Abdominal exam: PRESENT: soft Rectal exam: PRESENT: deferred Extremities exam: PRESENT: other - Right hip dressing clean dry and intact. Leg lengths are equal. Distal neurovascular examination is intact. Neurological exam: PRESENT: alert, awake, oriented to person, oriented to place , oriented to time, oriented to situation. ABSENT: motor sensory deficit Psychiatric exam: PRESENT: appropriate affect, normal mood. ABSENT: homicidal ideation, suicidal ideation Skin exam: PRESENT: dry, intact, warm. ABSENT: cyanosis, rash Results Laboratory Results: 12/22/17 05:59 12/21/17 05:44 12/18/17 04:17 NT-Pro-B Natriuret Pep 315 Impressions: Abdomen CT 12/14/17 00:00 IMPRESSION: Gallstones. No metastases. Chest CT 12/14/17 00:00 IMPRESSION: No metastatic lesions. Hip/Pelvis X-Ray 12/14/17 14:10 IMPRESSION: Question acute right intratrochanteric fracture proximal femur. Recommend CT for followup. Pelvis CT 12/14/17 14:38 IMPRESSION: Acute right intertrochanteric proximal femoral fracture Chest X-Ray 12/14/17 16:17 IMPRESSION: NO ACUTE RADIOGRAPHIC FINDING IN THE CHEST. Body Scan Nuclear Medicine 12/15/17 00:00 IMPRESSION: Increased uptake right femur intertrochanteric region from acute fracture Increased uptake left anterior lower ribs from fractures at the rib- costochondral cartilage junction Pelvis X-Ray 12/19/17 12:59 IMPRESSION: SATISFACTORY POSTOPERATIVE RIGHT HIP. Status: Imported from PACS Assessment & Plan - Diagnosis (1) Intertrochanteric fracture of right hip Qualifiers: Encounter type: subsequent encounter Fracture type: closed Fracture alignment: nondisplaced Is this a current diagnosis for this admission?: Yes Plan: 72-year-old white female status post right femoral neck fracture treated with a longstem cemented hemiarthroplasty because of concerns about an underlying pathologic lesion. Final path is negative. Patient making limited progress with physical therapy. Anticipate the need for half-way facility placement. - Time Time Spent with patient: 15-24 minutes Anticipated discharge: SNF Within: when bed available
[2017-12-27] MEDS: MAGNESIUM OXIDE 400 MG TABLET PO SCH (09:48)
[2017-12-27] MEDS: PRENATAL VITAMIN W DHA CAPSULE PO SCH (09:48)
[2017-12-27] MEDS: ASPIRIN 81 MG TABLET, ENT COATED PO SCH (09:48)
[2017-12-27] MEDS: ACETAMINOPHEN 325 MG TABLET PO PRN ×2 (09:49→22:25)
[2017-12-27] MEDS: AMLODIPINE BESYLATE 5 MG TABLET PO SCH (09:49)
[2017-12-27] MEDS: CLOPIDOGREL BISULFATE 75 MG TABLET PO SCH (09:49)
[2017-12-27] MEDS: LISINOPRIL 10 MG TABLET PO SCH (09:50)
[2017-12-27] MEDS: SENNOSIDES/DOCUSATE 8.6-50 MG 1 EACH TABLET PO SCH ×2 (09:52→17:06)
[2017-12-27] MEDS: OXYCODONE-ACETAMINOPHEN 5-325 MG TABLET PO PRN ×3 (10:47→23:29)
[2017-12-27] MEDS ORDERED: LIDOCAINE 5% (700 MG) TRANSDERMAL ADH..PATCH TP ONE (12:00)
--- NOTE | 2017-12-27 13:09 | RADIOLOGY REPORT (SQ) ---
EXAM DESCRIPTION: HIP RIGHT AP/LATERAL COMPLETED DATE/TIME: 12/27/2017 11:28 am REASON FOR STUDY: pain COMPARISON: 12/19/2017. NUMBER OF VIEWS: Two views. TECHNIQUE: AP pelvis and additional frog-leg view of the right hip. LIMITATIONS: None. FINDINGS: MINERALIZATION: Normal. RIGHT HIP: Stable hip prosthesis. No fracture or dislocation. No worrisome bone lesions. LEFT HIP: No fracture or dislocation. No worrisome bone lesions. PUBIS AND ISCHIUM: No fracture. PELVIS: No fracture. SACRUM: No fracture or dislocation. No worrisome bone lesions. LOWER LUMBAR SPINE: No fracture or dislocation. No worrisome bone lesions. No significant disc disea se. SOFT TISSUES: Overlying skin clarita. No acute findings. OTHER: No other significant finding. IMPRESSION: STABLE POSTOPERATIVE CHANGES IN THE RIGHT HIP. NO ACUTE FINDINGS. TECHNICAL DOCUMENTATION: JOB ID: [id number] [employer]- All Rights Reserved Reading location - IP/workstation name: [email or web address]
--- NOTE | 2017-12-27 13:10 | RADIOLOGY REPORT (SQ) ---
EXAM DESCRIPTION: KNEE RIGHT 3 VIEWS COMPLETED DATE/TIME: 12/27/2017 11:28 am REASON FOR STUDY: pain COMPARISON: None. NUMBER OF VIEWS: Three views. TECHNIQUE: AP, lateral, and sunrise patella radiographic images acquired of the right knee. LIMITATIONS: None. FINDINGS: MINERALIZATION: Normal. BONES: No acute fracture or dislocation. No worrisome bone lesions. Joint space narrowing with osteop hytes in the medial compartment and patellofemoral compartment. JOINT: No effusion. No chondrocalcinosis. OTHER: No other significant finding. IMPRESSION: DEGENERATIVE JOINT DISEASE. NO ACUTE FINDINGS. TECHNICAL DOCUMENTATION: JOB ID: [id number] [employer]- All Rights Reserved Reading location - IP/workstation name: [email or web address]
--- NOTE | 2017-12-27 14:38 | PDOC PROGRESS REPORT ---
Subjective Progress Note for:: 12/27/17 Subjective:: Patient complains of pain to her right knee and unable to keep the leg straight. Talk to nurse to follow-up Dr. Ramirez and physical therapy since patient has been having problems getting her right leg straight after surgery Review of system All organ systems evaluated and negative except as in subjective All significant diagnostics and laboratories have been reviewed Reason For Visit: RIGHT PROXIMAL FEMUR FRACTURE Physical Exam Vital Signs: Temp Pulse Resp BP Pulse Ox 98.3 F 79 18 140/69 H 99 12/27/17 03:28 12/27/17 07:00 12/27/17 03:28 12/27/17 03:28 12/27/17 03:28 Intake & Output 12/26/17 12/27/17 12/28/17 06:59 06:59 06:59 Intake Total 810 1437 Balance 810 1437 Weight 64.4 kg 65.5 kg General appearance: PRESENT: cooperative, mild distress Head exam: PRESENT: atraumatic, normocephalic Eye exam: PRESENT: conjunctiva pink, EOMI, PERRLA Ear exam: PRESENT: normal external ear exam Mouth exam: PRESENT: moist Neck exam: PRESENT: full ROM. ABSENT: JVD, lymphadenopathy, tenderness Respiratory exam: PRESENT: clear to auscultation tressa. ABSENT: tachypnea, unlabored Cardiovascular exam: PRESENT: RRR. ABSENT: diastolic murmur, systolic murmur Vascular exam: PRESENT: normal capillary refill GI/Abdominal exam: PRESENT: normal bowel sounds, soft. ABSENT: distended, tenderness Extremities exam: PRESENT: other - keeps right leg flexed. ABSENT: pedal edema Musculoskeletal exam: ABSENT: ambulatory Neurological exam: PRESENT: alert, awake, oriented to person, oriented to place , oriented to time, oriented to situation, CN II-XII grossly intact Psychiatric exam: PRESENT: appropriate affect, normal mood Skin exam: PRESENT: normal color Results Laboratory Results: 12/22/17 05:59 12/21/17 05:44 12/18/17 04:17 NT-Pro-B Natriuret Pep 315 Impressions: Abdomen CT 12/14/17 00:00 IMPRESSION: Gallstones. No metastases. Chest CT 12/14/17 00:00 IMPRESSION: No metastatic lesions. Hip/Pelvis X-Ray 12/14/17 14:10 IMPRESSION: Question acute right intratrochanteric fracture proximal femur. Recommend CT for followup. Pelvis CT 12/14/17 14:38 IMPRESSION: Acute right intertrochanteric proximal femoral fracture Chest X-Ray 12/14/17 16:17 IMPRESSION: NO ACUTE RADIOGRAPHIC FINDING IN THE CHEST. Body Scan Nuclear Medicine 12/15/17 00:00 IMPRESSION: Increased uptake right femur intertrochanteric region from acute fracture Increased uptake left anterior lower ribs from fractures at the rib- costochondral cartilage junction Pelvis X-Ray 12/19/17 12:59 IMPRESSION: SATISFACTORY POSTOPERATIVE RIGHT HIP. Assessment & Plan - Diagnosis (1) Intertrochanteric fracture of right hip Qualifiers: Encounter type: subsequent encounter Fracture type: closed Fracture alignment: nondisplaced Is this a current diagnosis for this admission?: Yes Plan: Patient went through the procedure and now complains of not been able to keep the leg straight. Reconsult Dr. Ramirez for that particular issue. We will also reconsult physical therapy. Poor prognosis if unable straighten her right leg. (2) Diabetes mellitus type 2 in nonobese Is this a current diagnosis for this admission?: Yes Plan: Continue Humalog sliding scale with bedside glucose before meals and at bedtime (3) History of CVA with residual deficit Is this a current diagnosis for this admission?: Yes Plan: Patient had recent stroke in September 2017 making her high risk within the first 6 months. Deficit definitely contributed to fall. Patient agrees that she needs to go to snf (4) Hyperlipidemia Qualifiers: Hyperlipidemia type: unspecified Qualified Code(s): E78.5 - Hyperlipidemia , unspecified Is this a current diagnosis for this admission?: Yes Plan: Continue outpatient management (5) Hypertension Qualifiers: Hypertension type: essential hypertension Qualified Code(s): I10 - Essential (primary) hypertension Is this a current diagnosis for this admission?: Yes Plan: Continue outpatient regimen (6) Hypokalemia Is this a current diagnosis for this admission?: Yes Plan: Replaced (7) Hypomagnesemia Is this a current diagnosis for this admission?: Yes Plan: Replaced (8) Rib fractures Qualifiers: Rib fracture type: multiple ribs Fracture type: closed Laterality: right Fracture healing: with routine healing Is this a current diagnosis for this admission?: Yes Plan: Patient has been suffering recurrent falls contributing to rib fractures which have been detected for bone scan (9) Diastolic dysfunction without heart failure Is this a current diagnosis for this admission?: Yes Plan: Blood pressure management. Stable - Time Time Spent with patient: 15-24 minutes Medications reviewed and adjusted accordingly: Yes Anticipated discharge: Acute Rehab Within: within 24 hours - Inpatient Certification Based on my medical assessment, after consideration of the patient's comorbidities, presenting symptoms, or acuity I expect that the services needed warrant INPATIENT care.: Yes I certify that my determination is in accordance with my understanding of Medicare's requirements for reasonable and necessary INPATIENT services [42 CFR 412.3e].: Yes Medical Necessity: Significant Comorbidiites Make Outpatient Treatment Too Risky , Need Close Monitoring Due to Risk of Patient Decompensation, Need for Pain Control
[2017-12-27] MEDS: ATORVASTATIN CALCIUM 40 MG TABLET PO SCH (22:25)
[2017-12-28] MEDS: OXYCODONE-ACETAMINOPHEN 5-325 MG TABLET PO PRN ×2 (06:14→15:38)
[2017-12-28] MEDS: LANSOPRAZOLE 30 MG TAB.RAP.DR PO SCH (06:14)
[2017-12-28] MEDS: SENNOSIDES/DOCUSATE 8.6-50 MG 1 EACH TABLET PO SCH (09:47)
[2017-12-28] MEDS: ASPIRIN 81 MG TABLET, ENT COATED PO SCH (09:48)
[2017-12-28] MEDS: AMLODIPINE BESYLATE 5 MG TABLET PO SCH (09:48)
[2017-12-28] MEDS: CLOPIDOGREL BISULFATE 75 MG TABLET PO SCH (09:48)
[2017-12-28] MEDS: MAGNESIUM OXIDE 400 MG TABLET PO SCH (09:49)
[2017-12-28] MEDS: PRENATAL VITAMIN W DHA CAPSULE PO SCH (09:49)
[2017-12-28] MEDS: LISINOPRIL 10 MG TABLET PO SCH (09:49)
[2017-12-28] MEDS ORDERED: LIDOCAINE 5% (700 MG) TRANSDERMAL ADH..PATCH TP SCH (10:00)
--- NOTE | 2017-12-28 13:52 | PDOC TRANSFER SUMMARY ---
General - Admit/Disc Date/PCP Admission Date/Primary Care Provider: 12/14/17 16:35 MOSHE MEDINA MD Discharge Date: 12/28/17 - Discharge Diagnosis (1) Intertrochanteric fracture of right hip Is this a current diagnosis for this admission?: Yes (2) Diabetes mellitus type 2 in nonobese Is this a current diagnosis for this admission?: Yes (3) History of CVA with residual deficit Is this a current diagnosis for this admission?: Yes (4) Hyperlipidemia Is this a current diagnosis for this admission?: Yes (5) Hypertension Is this a current diagnosis for this admission?: Yes (6) Hypokalemia Is this a current diagnosis for this admission?: Yes (7) Hypomagnesemia Is this a current diagnosis for this admission?: Yes (8) Rib fractures Is this a current diagnosis for this admission?: Yes (9) Diastolic dysfunction without heart failure Is this a current diagnosis for this admission?: Yes - Additional Information Resuscitation Status: Full Code Discharge Diet: Cardiac, Diabetic Discharge Activity: Activity As Tolerated Prescriptions: Oxycodone HCl/Acetaminophen [Percocet 5-325 mg Tablet] 1 tab PO Q6HP PRN #10 tablet PRN Reason: Home Medications: Amlodipine Besylate [Norvasc 10 mg Tablet] 10 mg PO DAILY 12/14/17 Aspirin [Ecotrin 81 mg EC Tablet] 81 mg PO DAILY 12/14/17 Atorvastatin Calcium [Lipitor 40 mg Tablet] 40 mg PO QHS 12/14/17 Clopidogrel Bisulfate [Plavix 75 mg Tablet] 75 mg PO DAILY 12/14/17 Metformin HCl [Glucophage] 850 mg PO BID 12/14/17 Tolterodine Tartrate [Tolterodine Tartrate ER] 4 mg PO WSUPPER 12/14/17 Lisinopril [Prinivil 10 mg Tablet] 10 mg PO DAILY tablet 12/28/17 Oxycodone HCl/Acetaminophen [Percocet 5-325 mg Tablet] 1 tab PO Q6HP PRN #10 tablet 12/28/17 Vit/Dha [ Multi + Dha Capsule] 1 cap PO DAILY capsule Sennosides/Docusate 8.6-50 mg [Senna Plus Tablet] 1 each PO BID tablet History of Present Illness Admission Date/PCP: 12/14/17 16:35 MOSHE MEDINA MD History of Present Illness: DIEGO BURDEN is a 72 year old female presented to emergency room for the second occasion complaining of persistent right hip pain. Patient stated that while at home she fell and hit her right hip one week prior to presentation. Patient stated that after she had another stroke on September had been having problems with her right side. She thought that likely contributed to her falling. She lives by herself however her sister helps her on a daily basis with daily day activities. When she initially presented to emergency room she was evaluated through regular x-rays and CT and the fracture was not visible at that time. On the day of admission, the same workup yielded a right sided nondisplaced intratrocanteric fracture. Dr. King was contacted by ED physician and he recommended for patient to be admitted under the hospitalist service due to comorbidities. She admitted history stroke patient has coronary artery disease, high blood pressure, diabetes Hospital Course Hospital Course: Patient was evaluated under the hospitalist service. We can assaulted Dr. Dao for preop evaluation and clearance. Surgery was deferred until December 19 since patient had to remain off Plavix for 5 days. Orthopedic service recommended to perform a malignancy workup which included CT of the abdomen and pelvis, CT of the chest and bone scan since fracture appeared to be suspicious of a malignancy. Workup was negative. As previously stated patient underwent a right femur gely arthroplasty on December 19, 2017 and tolerated procedure well. However, postoperatively patient kept complaining of pain localized to the right knee and she kept the joint in a flexed position. Therefore had been very difficult to straighten the leg. Dr. Ramirez ordered x-rays of the right hip and knee and there were no abnormalities detected that could account for patient's complaint. Patient has been encouraged as to try to participate with therapy and to keep the leg straight. She has also reminded that she lacks resources to be placed in a alf. Antihypertensive medicines were adjusted and diabetes remained controlled while hospitalized. Since patient had achieved maximum benefit of hospitalization stay and case management was able to find a bed in their [facility] prompted to discharge since stable Physical Exam Vital Signs: Temp Pulse Resp BP Pulse Ox 98.1 F 86 19 152/68 H 98 12/28/17 06:00 12/28/17 06:00 12/28/17 06:00 12/28/17 06:00 12/28/17 06:00 Intake & Output 12/27/17 12/28/17 12/29/17 06:59 06:59 06:59 Intake Total 1437 870 Balance 1437 870 Weight 65.5 kg 65.1 kg General appearance: PRESENT: no acute distress, cooperative, well-developed, well-nourished Head exam: PRESENT: atraumatic, normocephalic Eye exam: PRESENT: conjunctiva pink, EOMI, PERRLA Ear exam: PRESENT: normal external ear exam Mouth exam: PRESENT: moist Neck exam: PRESENT: full ROM. ABSENT: JVD, lymphadenopathy, tenderness Respiratory exam: PRESENT: clear to auscultation tressa Cardiovascular exam: PRESENT: RRR. ABSENT: diastolic murmur, systolic murmur Vascular exam: PRESENT: normal capillary refill GI/Abdominal exam: PRESENT: normal bowel sounds, soft. ABSENT: tenderness Extremities exam: PRESENT: joint swelling, other - Mild swelling of right knee. Right lower extremity remains very tender when trying to straighten the leg there is a contracture Neurological exam: PRESENT: alert, awake, oriented to person, oriented to place , oriented to time, oriented to situation, CN II-XII grossly intact Psychiatric exam: PRESENT: appropriate affect, normal mood Skin exam: PRESENT: normal color Results Laboratory Results: 12/22/17 05:59 12/21/17 05:44 12/18/17 04:17 NT-Pro-B Natriuret Pep 315 Impressions: Abdomen CT 12/14/17 00:00 IMPRESSION: Gallstones. No metastases. Chest CT 12/14/17 00:00 IMPRESSION: No metastatic lesions. Pelvis CT 12/14/17 14:38 IMPRESSION: Acute right intertrochanteric proximal femoral fracture Chest X-Ray 12/14/17 16:17 IMPRESSION: NO ACUTE RADIOGRAPHIC FINDING IN THE CHEST. Body Scan Nuclear Medicine 12/15/17 00:00 IMPRESSION: Increased uptake right femur intertrochanteric region from acute fracture Increased uptake left anterior lower ribs from fractures at the rib- costochondral cartilage junction Pelvis X-Ray 12/19/17 12:59 IMPRESSION: SATISFACTORY POSTOPERATIVE RIGHT HIP. Hip/Pelvis X-Ray 12/27/17 00:00 IMPRESSION: STABLE POSTOPERATIVE CHANGES IN THE RIGHT HIP. NO ACUTE FINDINGS. Knee X-Ray 12/27/17 00:00 IMPRESSION: DEGENERATIVE JOINT DISEASE. NO ACUTE FINDINGS. Transfer Plan - Disposition Transfer Plan: Transfer to rehab facility - Time Spent with Patient Time spent with patient: Greater than 30 Minutes Qualifiers - * PATEINT BEING DISCHARGED WITH ANY OF THE FOLLOWING DIAGNOSIS?: No
[2017-12-28 16:05] VITALS: BP 136/72
--- NOTE | 2018-01-03 14:23 | Physician Advisory Note ---
Physician Advisor ProgressNote .: Pursuant to the plan for [facility], I have reviewed the medical record for this patient. Physician Advisor Statement: This pt has documentation of both "Diastolic dysfunction without CHF" and "CHF". Spoke w/attending to clarify her meaning. She reported she meant the pt had structural heart disease consistent with diastolic CHF, without having present or past sx of CHF to her knowledge. This is something that is currently called in the medical literature "chronic stage B heart failure", & would of course be diastolic type. CK
== END 2017-12-28 17:23 | disposition other institution (70) | DRG 470 ==
LOC: ER 13:27 → EH 16:35 → 4S 18:18
PROVIDERS: ADMIT Family Medicine; ATTEND Family Medicine
PROC: 0SRR0J9 Replacement of Right Hip Joint, Femoral Surface with Synthetic Substitute, Cemented, Open Approach (ICD-10-PCS; principal; 2017-12-19 11:15)
DX: S72.141A Displaced intertrochanteric fracture of right femur, initial encounter for closed fracture (principal); S22.41XA Multiple fractures of ribs, right side, initial encounter for closed fracture; D62 Acute posthemorrhagic anemia; I50.32 Chronic diastolic (congestive) heart failure; W19.XXXA Unspecified fall, initial encounter; I11.0 Hypertensive heart disease with heart failure; E11.9 Type 2 diabetes mellitus without complications; I25.10 Atherosclerotic heart disease of native coronary artery without angina pectoris; M19.90 Unspecified osteoarthritis, unspecified site; J44.9 Chronic obstructive pulmonary disease, unspecified; E78.5 Hyperlipidemia, unspecified; E87.6 Hypokalemia; E83.42 Hypomagnesemia; R29.6 Repeated falls; R01.1 Cardiac murmur, unspecified; I69.398 Other sequelae of cerebral infarction; Z88.6 Allergy status to analgesic agent; Z88.8 Allergy status to other drugs, medicaments and biological substances; Z87.891 Personal history of nicotine dependence; Z82.3 Family history of stroke; Z82.49 Family history of ischemic heart disease and other diseases of the circulatory system; Z86.73 Personal history of transient ischemic attack (TIA), and cerebral infarction without residual deficits; Z85.41 Personal history of malignant neoplasm of cervix uteri; Z85.43 Personal history of malignant neoplasm of ovary; Z90.49 Acquired absence of other specified parts of digestive tract; Z90.710 Acquired absence of both cervix and uterus; Z79.51 Long term (current) use of inhaled steroids; Z79.899 Other long term (current) drug therapy; Z79.84 Long term (current) use of oral hypoglycemic drugs; Z79.02 Long term (current) use of antithrombotics/antiplatelets
CPT/HCPCS: 01210; 36415; 71045; 71260; 72170; 72192; 74160; 78306; 80048; 80053; 82962; 83735; 83880; 84100; 84165; 84443; 85025; 85027; 85610; 85730; 88305; 88311; 93005; 93010; 93306; 94640; 94799; 99285; A9561; C9290; G8978-GP; G8979-GP; G8987-GO; G8988-GO; J0131; J1644; J1650; J2250; J2270; J2405; J2704; J3010; J3370; J3475; J3490; J7050; J7620; Q9969

== ENCOUNTER → 2018-05-02 | Outpatient (CLI) | payer MEDICARE, OTHER ==
--- NOTE | 2018-05-02 17:26 | WOMENS IMAGING REPORT ---
EXAM DESCRIPTION: LEFT DIAGNOSTIC MAMMO W/CAD; U/S BREAST UNILAT LIMITED COMPLETED DATE/TIME: 05/02/2018 9:18 am; 05/02/2018 10:16 am REASON FOR STUDY: LEFT BREAST LUMP; LT BREAST LUMP N63.21 N63.20 UNSPECIFIED LUMP IN THE LEFT BREAS T, UNSPECIFIED QUAD N63.21 UNSPECIFIED LUMP IN THE LEFT BREAST, UPPER OUTER QUAD COMPARISON: Multiple mammograms since 2008 TECHNIQUE: Standard craniocaudal and mediolateral oblique images of the breast recorded with digital acquisition. Additional left breast 90 mediolateral view and left breast ultrasound LIMITATIONS: None. FINDINGS: BREAST: Left MASSES: Patient indicates a palpable abnormality at the 10 to 11 o'clock position left breast about 7 cm from the nipple. 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 This is unchanged from multiple mammograms dating ba to 2008. CALCIFICATIONS: No new or suspicious calcifications. ARCHITECTURAL DISTORTION: None. DEVELOPING DENSITY: None. ASYMMETRY: None noted. OTHER: No other significant findings. Read with the assistance of CAD. .[facility] - R2 Cenova Version 1.3 .[facility] Imaging - R2 Cenova Version 1.3 .[facility] Imaging - R2 Cenova Version 2.4 .[facility] [place] R2 Cenova Version 2.4 .[facility] - R2 Geothermal Plant Manager Version 9.2 Left breast ultrasound: The left breast palpable abnormality indicated by the patient correlates with a 2.5 x 1.1 x 0.8 cm fi broadenoma. IMPRESSION: No mammographic evidence for malignancy left breast. BREAST DENSITY: b. There are scattered areas of fibroglandular density. BIRAD: 2 Benign findings. RECOMMENDATION: RECOMMENDED FOLLOW UP: Please continue yearly bilateral screening mammography/tomosy nthesis in May/June 2018. SPECIFIC INTERVENTION/IMAGING/CONSULTATION RECOMMENDED:No additional intervention/ imaging/consultati on needed at this time. COMMUNICATION:Patient notified by letter COMMENT: The patient has been notified of the results by letter per MQSA requirements. Additional no tification policies are in place for contacting patient with suspicious or incomplete findings. Quality ID #225: The [employer] recommends an annual screening mammogram for women aged 40 years or over. This facility utilizes a reminder system to ensure that all patients receive reminder letters, and/or direct phone calls for appointments. This includes reminders for routine scr eening mammograms, diagnostic mammograms, or other Breast Imaging Interventions when appropriate. Th is patient will be placed in the appropriate reminder system. The [employer] (ACR) has developed recommendations for screening MRI of the breast s in certain patient populations, to be used in conjunction with mammography. Breast MRI surveillanc e may be appropriate for women with more than 20% lifetime risk of developing breast cancer as deter mined by genetic testing, significant family history of the disease, or history of mantle radiation f or Hodgkins Disease. ACR Practice Guidelines 2008. TECHNICAL DOCUMENTATION: FINDING NUMBER: (1) ASSESSMENT: (1) JOB ID: [id number] [employer]- All Rights Reserved Reading location - IP/workstation name: [facility]-[email or web address]
--- NOTE | 2018-05-02 17:26 | WOMENS IMAGING REPORT ---
EXAM DESCRIPTION: LEFT DIAGNOSTIC MAMMO W/CAD; U/S BREAST UNILAT LIMITED COMPLETED DATE/TIME: 05/02/2018 9:18 am; 05/02/2018 10:16 am REASON FOR STUDY: LEFT BREAST LUMP; LT BREAST LUMP N63.21 N63.20 UNSPECIFIED LUMP IN THE LEFT BREAS T, UNSPECIFIED QUAD N63.21 UNSPECIFIED LUMP IN THE LEFT BREAST, UPPER OUTER QUAD COMPARISON: Multiple mammograms since 2008 TECHNIQUE: Standard craniocaudal and mediolateral oblique images of the breast recorded with digital acquisition. Additional left breast 90 mediolateral view and left breast ultrasound LIMITATIONS: None. FINDINGS: BREAST: Left MASSES: Patient indicates a palpable abnormality at the 10 to 11 o'clock position left breast about 7 cm from the nipple. 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 This is unchanged from multiple mammograms dating ba to 2008. CALCIFICATIONS: No new or suspicious calcifications. ARCHITECTURAL DISTORTION: None. DEVELOPING DENSITY: None. ASYMMETRY: None noted. OTHER: No other significant findings. Read with the assistance of CAD. .[facility] - R2 Cenova Version 1.3 .[facility] Imaging - R2 Cenova Version 1.3 .[facility] Imaging - R2 Cenova Version 2.4 .[facility] - R2 Cenova Version 2.4 .[facility] - R2 Real Estate Listing Consultant Version 9.2 Left breast ultrasound: The left breast palpable abnormality indicated by the patient correlates with a 2.5 x 1.1 x 0.8 cm fi broadenoma. IMPRESSION: No mammographic evidence for malignancy left breast. BREAST DENSITY: b. There are scattered areas of fibroglandular density. BIRAD: 2 Benign findings. RECOMMENDATION: RECOMMENDED FOLLOW UP: Please continue yearly bilateral screening mammography/tomosy nthesis in May/June 2018. SPECIFIC INTERVENTION/IMAGING/CONSULTATION RECOMMENDED:No additional intervention/ imaging/consultati on needed at this time. COMMUNICATION:Patient notified by letter COMMENT: The patient has been notified of the results by letter per MQSA requirements. Additional no tification policies are in place for contacting patient with suspicious or incomplete findings. Quality ID #225: The [employer] recommends an annual screening mammogram for women aged 40 years or over. This facility utilizes a reminder system to ensure that all patients receive reminder letters, and/or direct phone calls for appointments. This includes reminders for routine scr eening mammograms, diagnostic mammograms, or other Breast Imaging Interventions when appropriate. Th is patient will be placed in the appropriate reminder system. The [employer] (ACR) has developed recommendations for screening MRI of the breast s in certain patient populations, to be used in conjunction with mammography. Breast MRI surveillanc e may be appropriate for women with more than 20% lifetime risk of developing breast cancer as deter mined by genetic testing, significant family history of the disease, or history of mantle radiation f or Hodgkins Disease. ACR Practice Guidelines 2008. TECHNICAL DOCUMENTATION: FINDING NUMBER: (1) ASSESSMENT: (1) JOB ID: [id number] [employer]- All Rights Reserved Reading location - IP/workstation name: [facility]-[email or web address]
== END ==
LOC: WI 08:53
PROVIDERS: ATTEND Family Medicine
DX: N63.21 Unspecified lump in the left breast, upper outer quadrant (principal)
CPT/HCPCS: 76642

== ENCOUNTER → 2018-07-14 | Outpatient (CLI) | payer MEDICARE, OTHER ==
[2018-07-14 08:43] LABS: ANION GAP 15 (5-19); BLOOD UREA NITROGEN 17 mg/dL (7-20); CALCIUM 9.5 mg/dL (8.4-10.2); CARBON DIOXIDE 25 mmol/L (22-30); CHLORIDE 105 mmol/L (98-107); CHOLESTEROL 137.29 mg/dL (0-200); GLUCOSE 83 mg/dL (75-110); POTASSIUM 4.4 mmol/L (3.6-5.0); SODIUM 144.6 mmol/L (137-145); TRIGLYCERIDES 63 mg/dL (<150)
[2018-07-14 09:03] LABS: DIRECT LDL 65 mg/dL (<100)
[2018-07-15 12:37] LABS: MICROALBUMIN URINE 17.6 ug/mL (Not Estab.)
== END ==
LOC: OD 07:39
PROVIDERS: ATTEND Family Medicine
DX: E11.9 Type 2 diabetes mellitus without complications (principal); E78.2 Mixed hyperlipidemia; I10 Essential (primary) hypertension; Z79.899 Other long term (current) drug therapy
CPT/HCPCS: 36415; 80048; 80061; 82043; 82570; 83036; 84443

== ENCOUNTER → 2018-07-19 | Outpatient (CLI) | payer MEDICARE, OTHER ==
--- NOTE | 2018-07-19 10:37 | WOMENS IMAGING REPORT ---
EXAM DESCRIPTION: 3D SCREENING MAMMO BILAT COMPLETED DATE/TIME: 07/19/2018 9:39 am REASON FOR STUDY: BILATERAL SCREENING MAMMO 3D/Z12.31 Z12.31 ENCNTR SCREEN MAMMOGRAM FOR MALIGNANT NEOPLASM OF DYLAN COMPARISON: [id number] TECHNIQUE: Standard craniocaudal and mediolateral oblique views of each breast recorded using digita l acquisition and breast tomosynthesis. LIMITATIONS: None. FINDINGS: Findings present which are benign by mammographic criteria. No suspicious masses, calcifi cations or architectural distortion. Pertinent benign findings: Fat necrosis. Read with the assistance of CAD. .[facility] - R2 Cenova Version 1.3 .[facility] Imaging - R2 Cenova Version 1.3 .[facility] Imaging - R2 Cenova Version 2.4 .[facility] - R2 Cenova Version 2.4 .[facility] - R2 Nuclear Medicine Technologist Version 9.2 Benign mammographic findings may include one or more of the following: Smooth masses, popcorn/rim/co arse calcifications, asymmetries, post-procedure changes, and lesions with long-standing stability. IMPRESSION: BENIGN MAMMOGRAPHIC FINDINGS. BIRADS 2 BREAST DENSITY: b. There are scattered areas of fibroglandular density. BIRAD: 2 BENIGN FINDING(S) RECOMMENDATION: RECOMMENDATION: ROUTINE SCREENING COMMENT: The patient has been notified of the results by letter per SA requirements. Additional no tification policies are in place for contacting patient with suspicious or incomplete findings. Quality ID #225: The [employer] recommends an annual screening mammogram for women aged 40 years or over. This facility utilizes a reminder system to ensure that all patients receive reminder letters, and/or direct phone calls for appointments. This includes reminders for routine scr eening mammograms, diagnostic mammograms, or other Breast Imaging Interventions when appropriate. Th is patient will be placed in the appropriate reminder system. The [employer] (ACR) has developed recommendations for screening MRI of the breast s in certain patient populations, to be used in conjunction with mammography. Breast MRI surveillanc e may be appropriate for women with more than 20% lifetime risk of developing breast cancer as deter mined by genetic testing, significant family history of the disease, or history of mantle radiation f or Hodgkins Disease. ACR Practice Guidelines 2008. DBT Technology DBT is a type of tomographic mammography. With conventional mammography, overlapping breast tissue ma y make lesions difficult to detect, even with good compression. DBT uses an x-ray tube that rotates a round the breast, taking images at different angles. These images are then combined to create thin sl ices of the breast that the radiologist can view as a 3D reconstruction. The [employer] unit can perform full-field digital mammograms (2D imaging); or DBT (3D imaging); or both, in a combination mode that quickly performs both the mammogram and the tomosynthesis scan while the breast is still compressed. PQRS 6045F: Fluoroscopic imaging is not utilized for breast tomosynthesis. TECHNICAL DOCUMENTATION: FINDING NUMBER: (1) ASSESSMENT: (1) JOB ID: [id number] [employer]- All Rights Reserved Reading location - IP/workstation name: [email or web address]
== END ==
LOC: WI 09:01
PROVIDERS: ATTEND Family Medicine
DX: Z12.31 Encounter for screening mammogram for malignant neoplasm of breast (principal)
CPT/HCPCS: 77063; 77067

== ENCOUNTER 2018-12-03 11:08 | Inpatient (IN) | payer MEDICARE, OTHER ==
[2018-12-03 11:38] LABS: ABSOLUTE BASOPHILS # (AUTO) 0.1 10^3/uL (0.0-0.2); ABSOLUTE EOSINOPHILS # (AUTO) 0.1 10^3/uL (0.0-0.6); ABSOLUTE LYMPHOCYTES (AUTO) 1.5 10^3/uL (0.5-4.7); ABSOLUTE MONOCYTES (AUTO) 0.5 10^3/uL (0.1-1.4); ABSOLUTE NEUT (AUTO) 5.4 10^3/uL (1.7-8.2); EOSINOPHILS % (AUTO) 0.8 % (0-6); HEMATOCRIT 40.7 % (36.0-47.0); LYMPHOCYTES % (AUTO) 19.3 % (13-45); MEAN CORPUSCULAR HGB CONC 34.3 g/dL (32.0-36.0); MEAN CORPUSCULAR VOLUME 93 fl (80-97); MONOCYTES % (AUTO) 6.9 % (3-13); PLATELET COUNT 275 10^3/uL (150-450); RED BLOOD COUNT 4.37 10^6/uL (3.72-5.28); TOTAL CELLS COUNTED % (AUTO) 100 %; WHITE BLOOD COUNT 7.5 10^3/uL (4.0-10.5)
[2018-12-03 11:41] LABS: INTERNATIONAL RATION (INR) 0.96
[2018-12-03 11:42] LABS: PARTIAL THROMBOPLASTIN TIME 28.8 SEC (23.5-35.8)
[2018-12-03 11:43] LABS: PROTHROMBIN TIME 13.3 SEC (11.4-15.4)
[2018-12-03 11:53] LABS: ALANINE AMINOTRANSFERASE 19 U/L (9-52); ALBUMIN 4.6 g/dL (3.5-5.0); ALKALINE PHOSPHATASE 75 U/L (38-126); ANION GAP 10 (5-19); ASPARTATE AMINO TRANSFERASE 35 U/L (14-36); BILIRUBIN,DIRECT 0.4 mg/dL (0.0-0.4); BILIRUBIN,TOTAL 0.8 mg/dL (0.2-1.3); BLOOD UREA NITROGEN 21 mg/dL (7-20); CALCIUM 10.2 mg/dL (8.4-10.2); CARBON DIOXIDE 24 mmol/L (22-30); CHLORIDE 108 mmol/L (98-107); CREATINE KINASE 83 U/L (30-135); GLUCOSE 109 mg/dL (75-110); POTASSIUM 4.2 mmol/L (3.6-5.0); SODIUM 141.7 mmol/L (137-145); TOTAL PROTEIN 8.1 g/dL (6.3-8.2)
--- NOTE | 2018-12-03 12:05 | RADIOLOGY REPORT (SQ) ---
EXAM DESCRIPTION: CT HEAD WITHOUT COMPLETED DATE/TIME: 12/03/2018 11:27 am REASON FOR STUDY: stroke s/s left-sided weakness COMPARISON: CT brain 09/19/2017, 07/21/2017, 05/19/2012 TECHNIQUE: Axial images acquired through the brain without intravenous contrast. Images reviewed wi th bone, brain and subdural windows. Additional sagittal and coronal reconstructions were generated. Images stored on PACS. All CT scanners at this facility use dose modulation, iterative reconstruction, and/or weight based d osing when appropriate to reduce radiation dose to as low as reasonably achievable (ALARA). [facility]: Dose Right [facility]: CareDose [facility]: Dose Right [facility]: Teradose 4D [facility]: Diagnostic Innovations RADIATION DOSE: 53 mGy. LIMITATIONS: None. FINDINGS: VENTRICLES: Normal size and contour. CEREBRUM: No CT evidence of acute large territory acute ischemic change, intracranial hemorrhage mass effect or midline shift. There is moderate spotty small vessel ischemic change in the hemispheric wh ite matter, chronic. CEREBELLUM: No masses. No hemorrhage. Old left pontine lacunar infarct. No evidence for acute infa rction. EXTRAAXIAL SPACES: No fluid collections. No masses. ORBITS AND GLOBE: No intra- or extraconal masses. Normal contour of globe without masses. CALVARIUM: No fracture. PARANASAL SINUSES: No fluid or mucosal thickening. SOFT TISSUES: No mass or hematoma. OTHER: No other significant finding. IMPRESSION: Chronic white matter disease with old lacunar infarct in left dre. No acute findings. EVIDENCE OF ACUTE STROKE: NO. COMMUNICATION The critical information above was relayed directly by me Pertinent findings on the imaging study reported as a CRITICAL RESULT to Dr. Brooks [id number] hours on . Category of Critical Result: CT code stroke Quality ID # [id number]: Final reports with documentation of one or more dose reduction techniques (e.g., Au tomated exposure control, adjustment of the mA and/or kV according to patient size, use of iterative reconstruction technique) TECHNICAL DOCUMENTATION: JOB ID: [id number] [employer]- All Rights Reserved Reading location - IP/workstation name: [email or web address]
[2018-12-03 12:06] LABS: CREATINE KINASE MB 0.85 ng/mL (<4.55)
[2018-12-03] MEDS ORDERED: IPRATROPIUM/ALBUTEROL 0.5-2.5 MG/3 ML AMPUL NEB ONE (12:07)
[2018-12-03 12:08] LABS: TROPONIN I < 0.012 ng/mL
--- NOTE | 2018-12-03 12:25 | RADIOLOGY REPORT (SQ) ---
EXAM DESCRIPTION: CHEST SINGLE VIEW COMPLETED DATE/TIME: 12/03/2018 11:56 am REASON FOR STUDY: stroke COMPARISON: AP chest 08/31/2012 CT chest 12/14/2017 EXAM PARAMETERS: NUMBER OF VIEWS: One view. TECHNIQUE: Single frontal radiographic view of the chest acquired. RADIATION DOSE: NA LIMITATIONS: None. FINDINGS: LUNGS AND PLEURA: No opacities, masses or pneumothorax. No pleural effusion. MEDIASTINUM AND HILAR STRUCTURES: No masses. Contour normal. HEART AND VASCULAR STRUCTURES: Mild cardiomegaly, stable BONES: No acute findings. HARDWARE: None in the chest. OTHER: No other significant finding. IMPRESSION: No acute findings TECHNICAL DOCUMENTATION: JOB ID: [id number] [employer]- All Rights Reserved Reading location - IP/workstation name: [email or web address]
[2018-12-03 12:39] LABS: APPEARANCE,URINE CLEAR; BILIRUBIN,URINE NEGATIVE (NEGATIVE); COLOR,URINE YELLOW; GLUCOSE, URINE NEGATIVE (NEGATIVE); KETONES,URINE NEGATIVE (NEGATIVE); LEUKOCYTE ESTERASE,URINE NEGATIVE (NEGATIVE); NITRITE,URINE NEGATIVE (NEGATIVE); PROTEIN,URINE NEGATIVE (NEGATIVE); URINE SPECIFIC GRAVITY 1.014
--- NOTE | 2018-12-03 13:25 | RADIOLOGY REPORT (SQ) ---
EXAM DESCRIPTION: HIP RIGHT AP/LATERAL COMPLETED DATE/TIME: 12/03/2018 1:13 pm REASON FOR STUDY: Fall 2 weeks ago, continued pain in right hip COMPARISON: Pelvis films 12/19/2017, 12/14/2017 Whole-body bone scan 12/15/2017 NUMBER OF VIEWS: Two views. TECHNIQUE: AP pelvis and additional frog-leg view of the right hip. LIMITATIONS: Patient is rotated towards the TURKISH orientation FINDINGS: MINERALIZATION: Osteoporotic RIGHT HIP: Post right hip replacement with a cemented right proximal femoral prosthesis. No lucency around the hardware worrisome for loosening. No proximal femur or right hemipelvis fracture. LEFT HIP: No fracture or dislocation. No worrisome bone lesions. Mild joint space narrowing. PUBIS AND ISCHIUM: Rotated, no gross acute fracture PELVIS: Rotated, no gross acute fracture. Mild bilateral SI joint sclerosis SACRUM: No gross acute fracture LOWER LUMBAR SPINE: Disc space narrowing and facet arthropathy at L4-5 and L5-S1 SOFT TISSUES: Galeano catheter in the bladder. OTHER: No other significant finding. IMPRESSION: Limited plain films, rotated to the TURKISH orientation. No acute fracture or malalignment. Right proximal femoral prosthesis in good alignment. COMMENT: If this patient is unable to bear weight due to pain, consider follow-up bone scan to evalu ate for radiographically occult fracture TECHNICAL DOCUMENTATION: JOB ID: [id number] [employer]- All Rights Reserved Reading location - IP/workstation name: [email or web address]
--- NOTE | 2018-12-03 15:37 | RADIOLOGY REPORT (SQ) ---
EXAM DESCRIPTION: MRI HEAD WITHOUT COMPLETED DATE/TIME: 12/03/2018 2:42 pm REASON FOR STUDY: Acute dysarthria COMPARISON: CT dated 12/03/2018. MR dated 09/20/2017. TECHNIQUE: Multiplanar imaging includes non-contrasted T1, T2, FLAIR, and diffusion with ADC map seq uences. Images stored on PACS. LIMITATIONS: None. FINDINGS: ANATOMY: No anomalies. Normal vascular flow voids. Pituitary fossa normal. CSF SPACES: Atrophy induced prominence of ventricles and CSF spaces. CEREBRUM: High signal intensity lesions scattered throughout the white matter on FLAIR imaging with d istribution suggesting micro-vascular ischemic changes. No evidence of hemorrhage, mass, or extraaxi al fluid collection. POSTERIOR FOSSA: Old infarct in the left side of the gwyn. No hemorrhage. No edema, masses or mass ef fect. Internal auditory canals, cerebello-pontine angles, mastoids normal. DIFFUSION IMAGING: Focal area of restricted diffusion in the right side of the gwyn. ORBITS: No masses. Globes normal. PARANASAL SINUSES: No fluid levels. Mucosa normal. OTHER: Stable meningioma on the right side of the clivus. IMPRESSION: 1. ACUTE INFARCT IN THE RIGHT SIDE OF THE GWYN. 2. STABLE OLD INFARCT IN THE LEFT SIDE OF THE GWYN. 3. STABLE MENINGIOMA ALONG THE RIGHT SIDE OF THE CLIVUS. 4. ATROPHY AND CHRONIC MICRO-VASCULAR ISCHEMIC CHANGES. EVIDENCE OF ACUTE STROKE: NO. TECHNICAL DOCUMENTATION: JOB ID: [id number] [employer]- All Rights Reserved Reading location - IP/workstation name: [email or web address]
[2018-12-03] MEDS ORDERED: ONDANSETRON HCL INJ/PF 4 MG/2 ML SDV IV PRN (16:43)
[2018-12-03] MEDS ORDERED: DOCUSATE SODIUM 100 MG CAPSULE PO PRN (16:43)
--- NOTE | 2018-12-03 16:43 | PDOC H&P ---
History of Present Illness Admission Date/PCP: SMITH BURROWS DO History of Present Illness: DIEGO BURDEN is a 73 year old female patient resident of [facility] with multiple comorbidities including diabetes mellitus type 2, hypertension, hyperlipidemia, history of CVA with residual right-sided weakness, COPD, coronary artery disease, dementia, diastolic CHF and history of cervical cancer brought by EMS for left-sided weakness. Because of patient's underlying dementia and his slurred speech according to get any meaningful history. And also no family members in the room during my encounter. Brief history is obtained verbally from ER attending note and reviewing of her chart and prior medical records. Reportedly patient was in her usual baseline state of health up until this morning when patient is noticed by the long term staff, patient started to have increased slurred speech left facial droop with drooling. At her baseline patient able to ambulate with the help of walker. When I see the patient she is awake alert and difficult to understand because of her slurred speech. Her blood work and urinalysis is unremarkable. MRI of the brain r eported as acute infarct in the right side of the gwyn, stable old infarcts in the left side of the gwyn and stable meningioma along the right side of the clivus. Patient is not a candidate for TPA administration. Further detailed history and review of systems is unobtainable. Past Medical History Cardiac Medical History: Reports: Congestive Heart Failure, Coronary Artery Disease, Hyperlipidema, Hypertension - medicated, Heart Murmur - Told she has a leaky aortic valve Denies: Atrial Fibrillation, Myocardial Infarction, Peripheral Vascular Disease, Pulmonary Embolism Pulmonary Medical History: Reports: Asthma - ON MEDS, Bronchitis, Chronic Obstructive Pulmonary Disease (COPD), Pneumonia Denies: Respiratory Failure, Sleep Apnea, Tuberculosis Neurological Medical History: Denies: Seizures Endocrine Medical History: Reports: Diabetes Mellitus Type 2 Denies: Hyperthyroidism, Hypothyroidism Malignancy Medical History: Reports: Cervical Cancer - Surgery, Ovarian Cancer Denies: Breast Cancer, Lung Cancer GI Medical History: Denies: Hepatitis, Hiatal Hernia Musculoskeltal Medical History: Reports: Arthritis - DJD Denies: Fibromyalgia Psychiatric Medical History: Denies: Dementia, Depression Hematology: Denies: Anemia, Sickle Cell Disease Infectious Medical History: Reports: Clostridium Difficile Past Surgical History Past Surgical History: Reports: Appendectomy, Hysterectomy, Orthopedic Surgery Denies: Amputation, Section, Cholecystectomy, Coronary Artery Bypass Graft, Gastric Bypass Surgery, Herniorrhaphy, Mastectomy, Pacemaker, Tonsillectomy, Tubal Ligation Social History Smoking Status: Former Smoker Frequency of Alcohol Use: None Hx Recreational Drug Use: No Drugs: None Hx Prescription Drug Abuse: No - Advance Directive Resuscitation Status: Full Code Family History Family History: Reviewed & Not Pertinent, CVA, Hypertension Parental Family History Reviewed: Yes Children Family History Reviewed: Yes Sibling(s) Family History Reviewed.: Yes Medication/Allergy Home Medications: Amlodipine Besylate [Norvasc 10 mg Tablet] 10 mg PO DAILY 12/14/17 Aspirin [Ecotrin 81 mg EC Tablet] 81 mg PO DAILY 12/14/17 Atorvastatin Calcium [Lipitor 40 mg Tablet] 40 mg PO QHS 12/14/17 Clopidogrel Bisulfate [Plavix 75 mg Tablet] 75 mg PO DAILY 12/14/17 Metformin HCl [Glucophage] 850 mg PO BID 12/14/17 Tolterodine Tartrate [Tolterodine Tartrate ER] 4 mg PO WSUPPER 12/14/17 Lisinopril [Prinivil 10 mg Tablet] 10 mg PO DAILY tablet 12/28/17 Oxycodone HCl/Acetaminophen [Percocet 5-325 mg Tablet] 1 tab PO Q6HP PRN #10 tablet 12/28/17 Vit/Dha [ Multi + Dha Capsule] 1 cap PO DAILY capsule 12/28/17 Sennosides/Docusate 8.6-50 mg [Senna Plus Tablet] 1 each PO BID tablet 12/28/17 Allergies/Adverse Reactions: codeine [Codeine] Adverse Reaction (Verified 12/14/17 13:30) nausea/vomiting lorazepam [From Ativan] Adverse Reaction (Verified 12/14/17 13:30) Change in behavior Review of Systems ROS unobtainable: Due to mental status, Other - Slurred speech Physical Exam Vital Signs: Temp Pulse Resp BP Pulse Ox 98.2 F 73 18 152/87 H 96 12/03/18 11:09 12/03/18 15:00 12/03/18 15:00 12/03/18 15:00 12/03/18 15:00 Intake & Output 12/02/18 12/03/18 12/04/18 06:59 06:59 06:59 Weight 69.8 kg General appearance: PRESENT: no acute distress Head exam: PRESENT: atraumatic Eye exam: PRESENT: conjunctiva pink Mouth exam: PRESENT: neck supple Neck exam: ABSENT: carotid bruit, JVD, lymphadenopathy, thyromegaly Respiratory exam: PRESENT: clear to auscultation tressa. ABSENT: rales, rhonchi, wheezes Cardiovascular exam: PRESENT: systolic murmur GI/Abdominal exam: PRESENT: normal bowel sounds, soft. ABSENT: distended, guarding, mass, organolmegaly, rebound, tenderness Neurological exam: PRESENT: alert, awake, other - Slurred speech Results Laboratory Results: 12/03/18 11:25 12/03/18 11:25 12/03/18 12/03/18 12/03/18 11:25 11:25 12:05 WBC 7.5 RBC 4.37 Hgb 14.0 Hct 40.7 MCV 93 MCH 32.0 MCHC 34.3 RDW 14.0 Plt Count 275 Seg Neutrophils % 72.0 Lymphocytes % 19.3 Monocytes % 6.9 Eosinophils % 0.8 Basophils % 1.0 Absolute Neutrophils 5.4 Absolute Lymphocytes 1.5 Absolute Monocytes 0.5 Absolute Eosinophils 0.1 Absolute Basophils 0.1 Sodium 141.7 Potassium 4.2 Chloride 108 H Carbon Dioxide 24 Anion Gap 10 BUN 21 H Creatinine 0.80 Est GFR ( Amer) > 60 Est GFR (Non-Af Amer) > 60 Glucose 109 Calcium 10.2 Total Bilirubin 0.8 AST 35 ALT 19 Alkaline Phosphatase 75 Total Protein 8.1 Albumin 4.6 Urine Color YELLOW Urine Appearance CLEAR Urine pH 6.0 Ur Specific [place] 1.014 Urine Protein NEGATIVE Urine Glucose (UA) NEGATIVE Urine Ketones NEGATIVE Urine Blood NEGATIVE Urine Nitrite NEGATIVE Ur Leukocyte Esterase NEGATIVE Urine WBC (Auto) 0 12/03/18 12/03/18 11:25 11:25 Creatine Kinase 83 CK-MB (CK-2) 0.85 Troponin I < 0.012 Impressions: Chest X-Ray 12/03/18 11:19 IMPRESSION: No acute findings Head CT 12/03/18 11:19 IMPRESSION: Chronic white matter disease with old lacunar infarct in left gwyn. No acute findings. EVIDENCE OF ACUTE STROKE: NO. Hip/Pelvis X-Ray 12/03/18 12:03 IMPRESSION: Limited plain films, rotated to the ROMANSH orientation. No acute fracture or malalignment. Right proximal femoral prosthesis in good alignment. Head MRI 12/03/18 13:33 IMPRESSION: 1. ACUTE INFARCT IN THE RIGHT SIDE OF THE GWYN. 2. STABLE OLD INFARCT IN THE LEFT SIDE OF THE GWYN. 3. STABLE MENINGIOMA ALONG THE RIGHT SIDE OF THE CLIVUS. 4. ATROPHY AND CHRONIC MICRO-VASCULAR ISCHEMIC CHANGES. EVIDENCE OF ACUTE STROKE: NO. Assessment and Plan - Diagnosis (1) Acute ischemic stroke Is this a current diagnosis for this admission?: Yes Plan: Her MRI is positive for right-sided infarction involving the gwyn. So far we do not have explanation for patient's recurrent stroke. Her EKG does not show rhythm disorder. We will request carotid Doppler. We will keep the patient on Plavix and aspirin and Lipitor. Consulted Dr. Molina for possible loop recorder placement. (2) Hypertension Qualifiers: Hypertension type: essential hypertension Qualified Code(s): I10 - Essential (primary) hypertension Is this a current diagnosis for this admission?: Yes Plan: To allow permissive hypertension. (3) Type 2 diabetes mellitus Is this a current diagnosis for this admission?: Yes Plan: I will continue her home medications. We will put her on sliding scale. Accu-Chek. We will determine her hemoglobin A1c to determine the status of her diabetes. (4) Coronary artery disease Is this a current diagnosis for this admission?: Yes Plan: No anginal symptoms. We will continue her home medications. (5) History of diastolic CHF Is this a current diagnosis for this admission?: Yes Plan: It seems compensated. (6) COPD (chronic obstructive pulmonary disease) Qualifiers: Emphysema type: unspecified Is this a current diagnosis for this admission?: Yes Plan: We will put her on as needed bronchodilators. (7) Dementia Is this a current diagnosis for this admission?: Yes Plan: Stable without behavioral disorder. - Inpatient Certification Medical Necessity: Significant Comorbidiites Make Outpatient Treatment Too Risky, Need Close Monitoring Due to Risk of Patient Decompensation
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
[2018-12-03] MEDS: ENOXAPARIN SODIUM INJ 40 MG/0.4 ML DISP.SYRIN SUBCUT SCH (17:39)
[2018-12-03] MEDS ORDERED: CLOPIDOGREL BISULFATE 75 MG TABLET PO ONE (18:00)
--- NOTE | 2018-12-03 20:10 | EKG REPORT ---
SEVERITY:- ABNORMAL ECG - SINUS RHYTHM CONSIDER LEFT VENTRICULAR HYPERTROPHY : Confirmed by: Siobhan Molina MD 03-Dec-2018 20:09:57
[2018-12-03] MEDS: FAMOTIDINE 20 MG TABLET PO SCH (23:47)
[2018-12-03] MEDS: ATORVASTATIN CALCIUM 40 MG TABLET PO SCH (23:47)
--- NOTE | 2018-12-04 02:34 | RADIOLOGY REPORT (SQ) ---
EXAM DESCRIPTION: US CAROTID DOPPLER BILATERAL COMPLETED DATE/TME: 12/03/2018 16:46 CLINICAL HISTORY: 73 years, Female, Acute ischemic stroke COMPARISON: None. TECHNIQUE: LIMITATIONS: None. FINDINGS: There is a small amount of plaque at both carotid bifurcations. The arterial velocities in the internal carotid arteries bilaterally are overall relatively low. The peak systolic velocity in the proximal and distal right internal carotid artery were 29 and 21 cm/s respectively, indicating no significant stenosis. The peak systolic velocity in the proximal and distal left internal carotid artery were 46 and 40 cm/s respectively, also indicating no significant stenosis. There was antegrade flow in both vertebral arteries. IMPRESSION: Small amount of plaque at both carotid bifurcations. Arterial velocities are relatively low in the internal carotid arteries bilaterally. No significant stenosis of either internal carotid artery. copyright 2010 [employer]- All Rights Reserved
[2018-12-04 05:39] LABS: CHOLESTEROL 125.42 mg/dL (0-200); TRIGLYCERIDES 134 mg/dL (<150)
[2018-12-04 05:50] LABS: DIRECT LDL 66 mg/dL (<100)
[2018-12-04] MEDS: CLOPIDOGREL BISULFATE 75 MG TABLET PO SCH (10:59)
[2018-12-04] MEDS: ASPIRIN 81 MG TABLET, ENT COATED PO SCH (10:59)
[2018-12-04] MEDS: FAMOTIDINE 20 MG TABLET PO SCH ×2 (10:59→21:43)
[2018-12-04] MEDS ORDERED: DEXTROSE 40% GEL 15 GM TUBE PO PRN ×2 (11:37)
[2018-12-04] MEDS ORDERED: GLUCAGON,HUMAN RECOMB 1 MG INJ IM PRN (11:37)
[2018-12-04] MEDS ORDERED: DEXTROSE 50%-WATER 25 GM/50 ML DISP.SYRIN IV PRN ×2 (11:37)
[2018-12-04] MEDS ORDERED: ACETAMINOPHEN 325 MG TABLET PO PRN (12:37)
--- NOTE | 2018-12-04 15:46 | PDOC PROGRESS REPORT ---
Subjective Progress Note for:: 12/04/18 Subjective:: This is a73 yr old female with a PMH of diabetes mellitus type 2, hypertension, hyperlipidemia, history of CVA with residual right-sided weakness, COPD, coronary artery disease, dementia, diastolic CHF and history of cervical cancer who was brought in due to acute left sided weakness and was found to have an acute infarct in the right side of the gwyn on top of stable old infarcts in the left side of the gwyn and stable meningioma along the right side of the clivus. No acute event overnight. Patient coughed and gagged while she was eating her food this morning. RN expressed she may have aspirated a little. Patient is currently comfortable on room air. She was started on a regular diet on admission as she reportedly passed a bedside swallow eval. RN was able to suction some of the food contents out. She was evaluated by speech therapist who has recommended a pureed diet instead. She denies other acute complaints. Reason For Visit: ACUTE ISCHEMIC STROKE INVOLVING RIGHT GWYN Physical Exam Vital Signs: Temp Pulse Resp BP Pulse Ox 98.3 F 86 20 153/64 H 98 12/04/18 11:49 12/04/18 12:00 12/04/18 12:00 12/04/18 12:00 12/04/18 12:00 Intake & Output 12/03/18 12/04/18 12/05/18 06:59 06:59 06:59 Output Total 650 Balance -650 Weight 147 lb 0.773 oz General appearance: PRESENT: no acute distress, well-developed, well-nourished Head exam: PRESENT: atraumatic, normocephalic Eye exam: PRESENT: conjunctiva pink, EOMI, PERRLA. ABSENT: scleral icterus Ear exam: PRESENT: normal external ear exam Mouth exam: PRESENT: moist, tongue midline Neck exam: ABSENT: carotid bruit, JVD, lymphadenopathy, thyromegaly Respiratory exam: PRESENT: clear to auscultation tressa. ABSENT: rales, rhonchi, wheezes Cardiovascular exam: PRESENT: RRR. ABSENT: diastolic murmur, rubs, systolic murmur Pulses: PRESENT: normal dorsalis pedis pul GI/Abdominal exam: PRESENT: normal bowel sounds, soft. ABSENT: distended, guarding, mass, organolmegaly, rebound, tenderness Rectal exam: PRESENT: deferred Neurological exam: PRESENT: alert, awake, oriented to person, oriented to place, motor sensory deficit - +[employer]ER Results Laboratory Results: 12/03/18 11:25 12/03/18 11:25 12/04/18 04:56 Triglycerides 134 Cholesterol 125.42 LDL Cholesterol Direct 66 VLDL Cholesterol 27.0 HDL Cholesterol 40 12/03/18 12/03/18 11:25 11:25 Creatine Kinase 83 CK-MB (CK-2) 0.85 Troponin I < 0.012 Impressions: Chest X-Ray 12/03/18 11:19 IMPRESSION: No acute findings Head CT 12/03/18 11:19 IMPRESSION: Chronic white matter disease with old lacunar infarct in left gwyn. No acute findings. EVIDENCE OF ACUTE STROKE: NO. Hip/Pelvis X-Ray 12/03/18 12:03 IMPRESSION: Limited plain films, rotated to the NANCY orientation. No acute fracture or malalignment. Right proximal femoral prosthesis in good alignment. Head MRI 12/03/18 13:33 IMPRESSION: 1. ACUTE INFARCT IN THE RIGHT SIDE OF THE GWYN. 2. STABLE OLD INFARCT IN THE LEFT SIDE OF THE GWYN. 3. STABLE MENINGIOMA ALONG THE RIGHT SIDE OF THE CLIVUS. 4. ATROPHY AND CHRONIC MICRO-VASCULAR ISCHEMIC CHANGES. EVIDENCE OF ACUTE STROKE: NO. Carotid Doppler Study 12/03/18 16:46 IMPRESSION: Small amount of plaque at both carotid bifurcations. Arterial velocities are relatively low in the internal carotid arteries bilaterally. No significant stenosis of either internal carotid artery. copyright 2011 [employer]- All Rights Reserved Assessment and Plan - Diagnosis (1) Acute ischemic stroke Is this a current diagnosis for this admission?: Yes Plan: MRI shows an acute infarct in the right side of the gwyn on top of stable old infarcts in the left side of the gwyn and stable meningioma along the right side of the clivus. Continue clopidogrel, aspirin and atorvastatin. (2) Hypertension Qualifiers: Hypertension type: essential hypertension Qualified Code(s): I10 - Essential (primary) hypertension Is this a current diagnosis for this admission?: Yes Plan: Blood pressures running in the 150/80s. Still within 24 hrs from acute CVA. Allow permissive HTN today in the 150-160 systolic. Resume lisinopril and amlodipine tomorrow depending on subsequent blood pressure sin the next 24 hrs. (3) Coronary artery disease Is this a current diagnosis for this admission?: Yes Plan: Stable. Continue antiplatelet and statin. (4) Type 2 diabetes mellitus Is this a current diagnosis for this admission?: Yes Plan: Sugars at goal. On SSI. - Time Time Spent with patient: 15-24 minutes
[2018-12-04] MEDS: INSULIN LISPRO 100 UNIT/ML 3 ML VIAL SUBCUT SCH ×2 (16:57→21:44)
[2018-12-04] MEDS: ENOXAPARIN SODIUM INJ 40 MG/0.4 ML DISP.SYRIN SUBCUT SCH (18:00)
[2018-12-04] MEDS: TRAZODONE HCL 50 MG TABLET PO SCH (21:43)
[2018-12-04] MEDS: QUETIAPINE FUMARATE 25 MG TABLET PO SCH (21:43)
[2018-12-04] MEDS: ATORVASTATIN CALCIUM 40 MG TABLET PO SCH (21:43)
[2018-12-04] MEDS: RISPERIDONE 1 MG TABLET PO SCH (21:43)
[2018-12-05] MEDS: INSULIN LISPRO 100 UNIT/ML 3 ML VIAL SUBCUT SCH ×3 (09:47→21:25)
[2018-12-05] MEDS: CLOPIDOGREL BISULFATE 75 MG TABLET PO SCH (10:27)
[2018-12-05] MEDS: QUETIAPINE FUMARATE 25 MG TABLET PO SCH ×2 (10:27→21:32)
[2018-12-05] MEDS: FAMOTIDINE 20 MG TABLET PO SCH ×2 (10:27→21:32)
[2018-12-05] MEDS: ASPIRIN 81 MG TABLET, ENT COATED PO SCH (10:27)
[2018-12-05] MEDS: RISPERIDONE 1 MG TABLET PO SCH ×2 (10:27→21:32)
[2018-12-05] MEDS ORDERED: METOPROLOL SUCCINATE 25 MG TAB.SR.24H PO ONE (12:56)
--- NOTE | 2018-12-05 13:27 | EKG REPORT ---
SEVERITY:- ABNORMAL ECG - SINUS TACHYCARDIA BORDERLINE LEFT AXIS DEVIATION ABNORMAL T, CONSIDER ISCHEMIA, LATERAL LEADS : Confirmed by: Ezio Massey MD 05-Dec-2018 13:27:01
--- NOTE | 2018-12-05 15:50 | RADIOLOGY REPORT (SQ) ---
EXAM DESCRIPTION: CT HEAD WITHOUT COMPLETED DATE/TIME: 12/05/2018 3:42 pm REASON FOR STUDY: worsening speach and increased right facial droop COMPARISON: 12/03/2018 TECHNIQUE: Axial images acquired through the brain without intravenous contrast. Images reviewed wi th bone, brain and subdural windows. Additional sagittal and coronal reconstructions were generated. Images stored on PACS. All CT scanners at this facility use dose modulation, iterative reconstruction, and/or weight based d osing when appropriate to reduce radiation dose to as low as reasonably achievable (ALARA). [facility]: Dose Right [facility]: CareDose [facility]: Dose Right [facility]: Teradose 4D [facility]: Smart Everplaces RADIATION DOSE: CT Rad equipment meets quality standard of care and radiation dose reduction techniq ues were employed. CTDIvol: 48.6 mGy. DLP: 929 mGy-cm.mGy. LIMITATIONS: None. FINDINGS: VENTRICLES: Prominent. CEREBRUM: No masses. No hemorrhage. No midline shift. Areas of low density in the white matter mos t likely due to chronic micro-vascular ischemic change. No evidence for acute infarction. CEREBELLUM: No masses. No hemorrhage. No alteration of density. No evidence for acute infarction. EXTRAAXIAL SPACES: Age-related involutional change. No fluid collections. No masses. ORBITS AND GLOBE: No intra- or extraconal masses. Normal contour of globe without masses. CALVARIUM: No fracture. PARANASAL SINUSES: No fluid or mucosal thickening. SOFT TISSUES: No mass or hematoma. OTHER: No other significant finding. IMPRESSION: CHRONIC CHANGES OF ATROPHY AND MICROVASCULAR ISCHEMIA. NO ACUTE PROCESS. EVIDENCE OF ACUTE STROKE: NO. TECHNICAL DOCUMENTATION: JOB ID: [id number] Quality ID # [id number]: Final reports with documentation of one or more dose reduction techniques (e.g., Au tomated exposure control, adjustment of the mA and/or kV according to patient size, use of iterative reconstruction technique) 2010 [employer]- All Rights Reserved Reading location - IP/workstation name: [email or web address]
--- NOTE | 2018-12-05 16:07 | PDOC PROGRESS REPORT ---
Subjective Progress Note for:: 12/05/18 Subjective:: No adverse events overnight. Heart rate became elevated earlier and showed a sinus tachycardia but the patient was asymptomatic. It responded to some metoprolol. Later in the day she seemed to her son that she was having more trouble speaking in usual so a head CT has been ordered. Reason For Visit: ACUTE ISCHEMIC STROKE INVOLVING RIGHT GWYN Physical Exam Vital Signs: Temp Pulse Resp BP Pulse Ox 98.2 F 120 H 20 135/94 H 96 12/05/18 11:40 12/05/18 14:00 12/05/18 11:40 12/05/18 11:40 12/05/18 11:40 Intake & Output 12/04/18 12/05/18 12/06/18 06:59 06:59 06:59 Intake Total 268 Output Total 650 585 Balance -650 -317 Weight 66.7 kg 67.3 kg General appearance: PRESENT: no acute distress, cooperative, disheveled Eye exam: PRESENT: EOMI, PERRLA Teeth exam: PRESENT: poor dentation Respiratory exam: PRESENT: clear to auscultation tressa, symmetrical, unlabored. ABSENT: accessory muscle use, crackles, prolonged expiratory phas, rhonchi, tachypnea, wheezes Cardiovascular exam: PRESENT: RRR, +S1, +S2, systolic murmur Pulses: PRESENT: normal carotid pulses Vascular exam: PRESENT: normal capillary refill GI/Abdominal exam: PRESENT: normal bowel sounds, soft. ABSENT: distended, guarding, rebound, tenderness Extremities exam: PRESENT: pedal edema, other - Severe onychomycosis in her feet. ABSENT: clubbing Musculoskeletal exam: PRESENT: normal inspection. ABSENT: deformity Neurological exam: PRESENT: alert, awake, oriented to person, other - She was having trouble putting words to her thoughts coherently Skin exam: PRESENT: dry, warm Results Laboratory Results: 12/03/18 11:25 12/03/18 11:25 12/03/18 12/03/18 11:25 11:25 Creatine Kinase 83 CK-MB (CK-2) 0.85 Troponin I < 0.012 Impressions: Chest X-Ray 12/03/18 11:19 IMPRESSION: No acute findings Hip/Pelvis X-Ray 12/03/18 12:03 IMPRESSION: Limited plain films, rotated to the NANCY orientation. No acute fracture or malalignment. Right proximal femoral prosthesis in good alignment. Head MRI 12/03/18 13:33 IMPRESSION: 1. ACUTE INFARCT IN THE RIGHT SIDE OF THE GWYN. 2. STABLE OLD INFARCT IN THE LEFT SIDE OF THE GWYN. 3. STABLE MENINGIOMA ALONG THE RIGHT SIDE OF THE CLIVUS. 4. ATROPHY AND CHRONIC MICRO-VASCULAR ISCHEMIC CHANGES. EVIDENCE OF ACUTE STROKE: NO. Carotid Doppler Study 12/03/18 16:46 IMPRESSION: Small amount of plaque at both carotid bifurcations. Arterial velocities are relatively low in the internal carotid arteries bilaterally. No significant stenosis of either internal carotid artery. copyright 2011 [employer]- All Rights Reserved Assessment and Plan - Diagnosis (1) Acute ischemic stroke Is this a current diagnosis for this admission?: Yes Plan: MRI shows an acute infarct in the right side of the gwyn on top of stable old infarcts in the left side of the gwyn and stable meningioma along the right side of the clivus. Repeat head CT today was negative. Continue clopidogrel, aspirin and atorvastatin. (2) Dementia Qualifiers: Dementia type: Alzheimer's disease Alzheimer's disease onset: late-onset Dementia behavioral disturbance: without behavioral disturbance Qualified Code(s): G30.1 - Alzheimer's disease with late onset; F02.80 - Dementia in other diseases classified elsewhere without behavioral disturbance Is this a current diagnosis for this admission?: Yes Plan: Stable without behavioral disorder. (3) Hypertension Qualifiers: Hypertension type: essential hypertension Qualified Code(s): I10 - Essential (primary) hypertension Is this a current diagnosis for this admission?: Yes Plan: Lisinopril and amlodipine were resumed today. Because she has some tachycardia Toprol-XL was added. - Time Time Spent with patient: 25-34 minutes - Plan Summary Plan Summary: Needed to stay tonight for a 3 night inpatient qualifying stay so she can go to SNF.
[2018-12-05] MEDS: TRAZODONE HCL 50 MG TABLET PO SCH (21:32)
[2018-12-05] MEDS: ATORVASTATIN CALCIUM 40 MG TABLET PO SCH (21:32)
[2018-12-05] MEDS: METOPROLOL SUCCINATE 25 MG TAB.SR.24H PO SCH (21:32)
[2018-12-06] MEDS: INSULIN LISPRO 100 UNIT/ML 3 ML VIAL SUBCUT SCH ×3 (08:01→22:01)
[2018-12-06] MEDS: CLOPIDOGREL BISULFATE 75 MG TABLET PO SCH (10:57)
[2018-12-06] MEDS: METOPROLOL SUCCINATE 25 MG TAB.SR.24H PO SCH ×2 (10:57→21:13)
[2018-12-06] MEDS: ASPIRIN 81 MG TABLET, ENT COATED PO SCH (10:57)
[2018-12-06] MEDS: FAMOTIDINE 20 MG TABLET PO SCH ×2 (10:57→21:12)
--- NOTE | 2018-12-06 15:41 | PDOC PROGRESS REPORT ---
Subjective Progress Note for:: 12/06/18 Subjective:: She was more somnolent this morning. Her CT scan that was done yesterday showed no evidence of any acute infarct for what was already known to be there. Her vital signs been stable. This morning she was awake somewhat interactive but she was unable to take anything by mouth and the speech therapist recommended n.p.o. for now. Reason For Visit: ACUTE ISCHEMIC STROKE INVOLVING RIGHT GWYN Physical Exam Vital Signs: Temp Pulse Resp BP Pulse Ox 97.1 F 82 16 124/59 L 95 12/06/18 11:33 12/06/18 14:00 12/06/18 11:33 12/06/18 11:33 12/06/18 11:33 Intake & Output 12/05/18 12/06/18 12/07/18 06:59 06:59 06:59 Intake Total 268 175 Output Total 585 300 Balance -317 -125 Weight 67.3 kg 67 kg General appearance: PRESENT: no acute distress, cooperative, disheveled Eye exam: PRESENT: EOMI, PERRLA Teeth exam: PRESENT: poor dentation Respiratory exam: PRESENT: clear to auscultation tressa, symmetrical, unlabored. ABSENT: accessory muscle use, crackles, prolonged expiratory phas, rhonchi, tachypnea, wheezes Cardiovascular exam: PRESENT: RRR, +S1, +S2, systolic murmur Pulses: PRESENT: normal carotid pulses Vascular exam: PRESENT: normal capillary refill GI/Abdominal exam: PRESENT: normal bowel sounds, soft. ABSENT: distended, gu arding, rebound, tenderness Extremities exam: PRESENT: pedal edema, other - Severe onychomycosis in her feet. ABSENT: clubbing Musculoskeletal exam: PRESENT: normal inspection. ABSENT: deformity Neurological exam: PRESENT: alert, awake, oriented to person, responses are very delayed Results Laboratory Results: 12/03/18 11:25 12/03/18 11:25 12/03/18 12/03/18 11:25 11:25 Creatine Kinase 83 CK-MB (CK-2) 0.85 Troponin I < 0.012 Impressions: Chest X-Ray 12/03/18 11:19 IMPRESSION: No acute findings Hip/Pelvis X-Ray 12/03/18 12:03 IMPRESSION: Limited plain films, rotated to the NANCY orientation. No acute fracture or malalignment. Right proximal femoral prosthesis in good alignment. Head MRI 12/03/18 13:33 IMPRESSION: 1. ACUTE INFARCT IN THE RIGHT SIDE OF THE GWYN. 2. STABLE OLD INFARCT IN THE LEFT SIDE OF THE GWYN. 3. STABLE MENINGIOMA ALONG THE RIGHT SIDE OF THE CLIVUS. 4. ATROPHY AND CHRONIC MICRO-VASCULAR ISCHEMIC CHANGES. EVIDENCE OF ACUTE STROKE: NO. Carotid Doppler Study 12/03/18 16:46 IMPRESSION: Small amount of plaque at both carotid bifurcations. Arterial velocities are relatively low in the internal carotid arteries bilaterally. No significant stenosis of either internal carotid artery. copyright 2011 [employer]- All Rights Reserved Head CT 12/05/18 00:00 IMPRESSION: CHRONIC CHANGES OF ATROPHY AND MICROVASCULAR ISCHEMIA. NO ACUTE PROCESS. EVIDENCE OF ACUTE STROKE: NO. Assessment and Plan - Diagnosis (1) Acute ischemic stroke Is this a current diagnosis for this admission?: Yes Plan: MRI shows an acute infarct in the right side of the gwyn on top of stable old infarcts in the left side of the gwyn and stable meningioma along the right side of the clivus. Repeat head CT was negative. Continue clopidogrel, aspirin and atorvastatin. (2) Dementia Qualifiers: Dementia type: Alzheimer's disease Alzheimer's disease onset: late-onset Dementia behavioral disturbance: without behavioral disturbance Qualified Code(s): G30.1 - Alzheimer's disease with late onset; F02.80 - Dementia in other diseases classified elsewhere without behavioral disturbance Is this a current diagnosis for this admission?: Yes Plan: Stable without behavioral disorder. (3) Hypertension Qualifiers: Hypertension type: essential hypertension Qualified Code(s): I10 - Essential (primary) hypertension Is this a current diagnosis for this admission?: Yes Plan: Lisinopril and amlodipine were resumed today. Because she has some tachycardia Toprol-XL was added. (4) Delirium Is this a current diagnosis for this admission?: Yes Plan: She was on Risperdal, Seroquel, and trazodone. I have stopped all of these medications and will wait for them to wash out of her system to see how she responds. We put her on some IV fluids until she can swallow better. - Time Time Spent with patient: 25-34 minutes
[2018-12-06] MEDS ORDERED: NORMAL SALINE 1000 ML 1,000 ML IV PRN (16:19)
[2018-12-06] MEDS: ATORVASTATIN CALCIUM 40 MG TABLET PO SCH (21:12)
--- NOTE | 2018-12-06 22:38 | XCELERA REPORT ---
[address] [address] Transthoracic Echocardiogram Report Name: DIEGO BURDEN Age: 73 yrs Gender: Female : 1945 Patient Status: Inpatient Patient Location: [address] [place], [place] [address] Study Date: 12/03/2018 07:13 PM Height: 64 in Weight: 153 lb BSA: 1.7 m2 Procedure: A two-dimensional transthoracic echocardiogram with color flow Doppler was performed. The study was technically difficult with many images being suboptimal in quality. Reason For Study: Acute ischemic stroke History: CVA. Ordering Physician: OLEG DIEZ Performed By: Maris Simms Interpretation Summary There is no obvious cardiac source of embolus noted on this transthoracic echocardiogram. Follow-up with a PETE is suggested if cardiac source is still suspected. The left ventricle is normal in size. The left ventricular ejection fraction is within normal limits. LV EF is 65% Doppler measurements suggest impaired left ventricular relaxation, which is associated with grade I/IV or mild diastolic dysfunction The left ventricular wall motion is normal. The right atrium is normal. The left atrial size is normal. There is no evidence of mitral valve prolapse. There is no vegetation seen on the mitral valve. There is mild mitral stenosis There is a trace amount of mitral regurgitation There is no aortic valve stenosis There is no LVOT obstruction. There is a mild amount of aortic regurgitation There is no tricuspid stenosis. There is a trace amount of tricuspid regurgitation Unable to calculate RVSP due lack of TR jet. The pulmonic valve is not well visualized. The aortic root is not well visualized. There is no pericardial effusion. There is no obvious cardiac source of embolus noted on this transthoracic echocardiogram. Follow-up with a PETE is suggested if cardiac source is still suspected MMode/2D Measurements & Calculations RVDd: 2.2 cm LVIDd: 4.4 cm FS: 34.3 % Ao root diam: 2.6 cm IVSd: 1.1 cm LVIDs: 2.9 cm EDV(Teich): 88.1 ml Ao root area: 5.5 cm2 LVPWd: 1.1 cm ESV(Teich): 32.1 ml LA dimension: 3.7 cm EF(Teich): 63.6 % LVOT diam: 1.5 cm LVOT area: 1.7 cm2 Doppler Measurements & Calculations MV E max star: MV P1/2t max star: Ao V2 max: AI max star: 88.0 cm/sec 98.3 cm/sec 147.3 cm/sec 416.7 cm/sec MV A max star: MV P1/2t: 89.3 msec Ao max P.7 mmHgAI max P.1 cm/sec MVA(P1/2t): 2.5 cm2 DIEGO(V,D): 0.94 cm2 69.5 mmHg MV E/A: 0.63 MV dec slope: AI dec slope: 232.8 cm/sec2 322.5 cm/sec2 AI P1/2t: MV dec time: 524.2 msec 0.29 sec LV V1 max PG: PA V2 max: AV P1/2t-pr_phl: MV P1/2t-pr_phl: 2.7 mmHg 93.8 cm/sec 540.8 msec 90.5 msec LV V1 max: PA max P.6 mmHg 80.8 cm/sec Left Ventricle The left ventricle is normal in size. There is normal left ventricular wall thickness. The left ventricular ejection fraction is within normal limits. LV EF is 65%. Doppler measurements suggest impaired left ventricular relaxation, which is associated with grade I/IV or mild diastolic dysfunction. The left ventricular wall motion is normal. Right Ventricle The right ventricle is normal in size and function. Atria The right atrium is normal. The left atrial size is normal. Mitral Valve There is mild to moderate mitral annular calcification. There is no evidence of mitral valve prolapse. There is no vegetation seen on the mitral valve. There is mild mitral stenosis. There is a trace amount of mitral regurgitation. Aortic Valve There is no aortic valvular vegetation. There is no aortic valve stenosis. There is no LVOT obstruction. There is a mild amount of aortic regurgitation. Tricuspid Valve There is no tricuspid stenosis. There is a trace amount of tricuspid regurgitation. Unable to calculate RVSP due lack of TR jet. Pulmonic Valve The pulmonic valve is not well visualized. Great Vessels The aortic root is not well visualized. The inferior vena cava was not visualized. Effusions There is no pericardial effusion. : OLEG DIEZ > Siobhan Molina
[2018-12-07] MEDS: INSULIN LISPRO 100 UNIT/ML 3 ML VIAL SUBCUT SCH ×4 (09:14→21:30)
[2018-12-07] MEDS: FAMOTIDINE 20 MG TABLET PO SCH ×2 (09:15→21:27)
[2018-12-07] MEDS: CLOPIDOGREL BISULFATE 75 MG TABLET PO SCH (09:15)
[2018-12-07] MEDS: METOPROLOL SUCCINATE 25 MG TAB.SR.24H PO SCH ×2 (09:15→21:27)
[2018-12-07] MEDS: ASPIRIN 81 MG TABLET, ENT COATED PO SCH (09:15)
[2018-12-07 11:47] LABS: ANION GAP 15 (5-19); BLOOD UREA NITROGEN 34 mg/dL (7-20); CARBON DIOXIDE 15 mmol/L (22-30); CHLORIDE 116 mmol/L (98-107); GLUCOSE 95 mg/dL (75-110); POTASSIUM 3.9 mmol/L (3.6-5.0); SODIUM 146.4 mmol/L (137-145)
[2018-12-07] MEDS: POTASSI CL 20 MEQ/D5-1/2NS 1L 1000 ML IV PRN (13:30)
--- NOTE | 2018-12-07 16:06 | PDOC PROGRESS REPORT ---
Subjective Progress Note for:: 12/07/18 Subjective:: No adverse events overnight. Vital signs been relatively stable. Blood pressure slightly elevated but she has not been safe to take any of her blood pressure medications by mouth. She is a little bit more awake today than yesterday but she still not talking or able to swallow. Her sister was in the room and I spoke to her at length. Her sister said she felt like the patient did not even recognize her now. Reason For Visit: ACUTE ISCHEMIC STROKE INVOLVING RIGHT GWYN Physical Exam Vital Signs: Temp Pulse Resp BP Pulse Ox 98.5 F 91 16 154/60 H 90 L 12/07/18 08:22 12/07/18 08:22 12/07/18 08:22 12/07/18 08:22 12/07/18 08:22 Intake & Output 12/06/18 12/07/18 12/08/18 06:59 06:59 06:59 Intake Total 175 Output Total 300 Balance -125 Weight 67 kg 65.5 kg General appearance: PRESENT: no acute distress, cooperative, disheveled Eye exam: PRESENT: EOMI, PERRLA Teeth exam: PRESENT: poor dentation Respiratory exam: PRESENT: clear to auscultation tressa, symmetrical, unlabored. ABSENT: accessory muscle use, crackles, prolonged expiratory phas, rhonchi, tachypnea, wheezes Cardiovascular exam: PRESENT: RRR, +S1, +S2, systolic murmur Pulses: PRESENT: normal carotid pulses Vascular exam: PRESENT: normal capillary refill GI/Abdominal exam: PRESENT: normal bowel sounds, soft. ABSENT: distended, guarding, rebound, tenderness Extremities exam: PRESENT: pedal edema, other - Severe onychomycosis in her feet. ABSENT: clubbing Musculoskeletal exam: PRESENT: normal inspection. ABSENT: deformity Neurological exam: PRESENT: Awake, eyes localize to verbal command, she will smile when you talk to her but she did not talk Results Laboratory Results: 12/03/18 11:25 12/07/18 11:21 12/07/18 11:21 Sodium 146.4 H Potassium 3.9 Chloride 116 H Carbon Dioxide 15 L Anion Gap 15 BUN 34 H Creatinine 0.81 Est GFR ( Amer) > 60 Est GFR (Non-Af Amer) > 60 Glucose 95 Calcium 10.0 12/03/18 12/03/18 11:25 11:25 Creatine Kinase 83 CK-MB (CK-2) 0.85 Troponin I < 0.012 Impressions: Chest X-Ray 12/03/18 11:19 IMPRESSION: No acute findings Hip/Pelvis X-Ray 12/03/18 12:03 IMPRESSION: Limited plain films, rotated to the [place] orientation. No acute fracture or malalignment. Right proximal femoral prosthesis in good alignment. Head MRI 12/03/18 13:33 IMPRESSION: 1. ACUTE INFARCT IN THE RIGHT SIDE OF THE GWYN. 2. STABLE OLD INFARCT IN THE LEFT SIDE OF THE GWYN. 3. STABLE MENINGIOMA ALONG THE RIGHT SIDE OF THE CLIVUS. 4. ATROPHY AND CHRONIC MICRO-VASCULAR ISCHEMIC CHANGES. EVIDENCE OF ACUTE STROKE: NO. Carotid Doppler Study 12/03/18 16:46 IMPRESSION: Small amount of plaque at both carotid bifurcations. Arterial velocities are relatively low in the internal carotid arteries bilaterally. No significant stenosis of either internal carotid artery. copyright 2010 [employer]- All Rights Reserved Head CT 12/05/18 00:00 IMPRESSION: CHRONIC CHANGES OF ATROPHY AND MICROVASCULAR ISCHEMIA. NO ACUTE PROCESS. EVIDENCE OF ACUTE STROKE: NO. Assessment and Plan - Diagnosis (1) Acute ischemic stroke Is this a current diagnosis for this admission?: Yes Plan: MRI shows an acute infarct in the right side of the gwyn on top of stable old infarcts in the left side of the gwyn and stable meningioma along the right side of the clivus. Repeat head CT was negative. Continue clopidogrel, aspirin and atorvastatin. Currently unable to tolerate p.o. (2) Dementia Qualifiers: Dementia type: Alzheimer's disease Alzheimer's disease onset: late-onset Dementia behavioral disturbance: without behavioral disturbance Qualified Code(s): G30.1 - Alzheimer's disease with late onset; F02.80 - Dementia in other diseases classified elsewhere without behavioral disturbance Is this a current diagnosis for this admission?: Yes Plan: Stable without behavioral disorder. (3) Hypertension Qualifiers: Hypertension type: essential hypertension Qualified Code(s): I10 - Essential (primary) hypertension Is this a current diagnosis for this admission?: Yes Plan: Has not been able to tolerate p.o., so we may need to use as needed medication for now, but fortunately her blood pressures have not been going terribly high (4) Delirium Is this a current diagnosis for this admission?: Yes Plan: Were currently trying to let the sedating medications wash out of her system. We got her on some IV fluids. The other possibility here, is that the stroke for which she was admitted has expanded despite treatment. If taking her off of her sedating medications does not improve her condition, and that would be more suggestive of an expansion of her existing stroke. We have not been able to locate any other source of her encephalopathy. Her sister said that the family would not be likely to put a PEG tube in her if she can swallow, and they may be considering hospice back at [place]. - Time Time Spent with patient: 25-34 minutes
[2018-12-07] MEDS: ATORVASTATIN CALCIUM 40 MG TABLET PO SCH (21:27)
[2018-12-08] MEDS ORDERED: MORPHINE SULFATE 10 MG/ML INJ ONE (04:26)
[2018-12-08] MEDS ORDERED: MORPHINE SULFATE 10 MG/ML INJ IV PRN ×2 (04:37→04:54)
[2018-12-08] MEDS: INSULIN LISPRO 100 UNIT/ML 3 ML VIAL SUBCUT SCH ×3 (07:55→16:06)
[2018-12-08] MEDS: METOPROLOL SUCCINATE 25 MG TAB.SR.24H PO SCH ×2 (09:50→21:25)
[2018-12-08] MEDS: POTASSI CL 20 MEQ/D5-1/2NS 1L 1000 ML IV PRN (09:55)
[2018-12-08] MEDS ORDERED: SCOPOLAMINE HYDROBROMIDE 1.5 MG PATCH.TD72 TD SCH (10:00)
[2018-12-08] MEDS: MORPHINE SULFATE 10 MG/ML INJ IV PRN ×3 (11:56→17:29)
--- NOTE | 2018-12-08 14:25 | PDOC PROGRESS REPORT ---
Subjective Progress Note for:: 12/08/18 Subjective:: No adverse events overnight. Patient remains on comfort measures. She was placed on a Ventimask overnight. She has become less responsive. Reason For Visit: ACUTE ISCHEMIC STROKE INVOLVING RIGHT GWYN Physical Exam Vital Signs: Temp Pulse Resp BP Pulse Ox 97.3 F 117 H 25 H 151/65 H 93 12/08/18 07:41 12/08/18 07:41 12/08/18 07:41 12/08/18 07:41 12/08/18 11:58 Intake & Output 12/07/18 12/08/18 12/09/18 06:59 06:59 06:59 Intake Total 1000 1000 Balance 1000 1000 Weight 65.5 kg 67.5 kg General appearance: PRESENT: mild distress, disheveled Teeth exam: PRESENT: poor dentation Respiratory exam: PRESENT: Rhonchi, symmetrical, unlabored. ABSENT: accessory muscle use, crackles, prolonged expiratory phas, tachypnea, wheezes Cardiovascular exam: PRESENT: Tachycardia, +S1, +S2, systolic murmur Pulses: PRESENT: normal carotid pulses Vascular exam: PRESENT: normal capillary refill GI/Abdominal exam: PRESENT: normal bowel sounds, soft. ABSENT: distended, g uarding, rebound, tenderness Extremities exam: PRESENT: pedal edema, other - Severe onychomycosis in her feet. ABSENT: clubbing Musculoskeletal exam: PRESENT: normal inspection. ABSENT: deformity Neurological exam: PRESENT: Does not respond to voice, will grimace to noxious stimuli Results Laboratory Results: 12/03/18 11:25 12/07/18 11:21 12/03/18 12/03/18 11:25 11:25 Creatine Kinase 83 CK-MB (CK-2) 0.85 Troponin I < 0.012 Impressions: Chest X-Ray 12/03/18 11:19 IMPRESSION: No acute findings Hip/Pelvis X-Ray 12/03/18 12:03 IMPRESSION: Limited plain films, rotated to the NANCY orientation. No acute f racture or malalignment. Right proximal femoral prosthesis in good alignment. Head MRI 12/03/18 13:33 IMPRESSION: 1. ACUTE INFARCT IN THE RIGHT SIDE OF THE GWYN. 2. STABLE OLD INFARCT IN THE LEFT SIDE OF THE GWYN. 3. STABLE MENINGIOMA ALONG THE RIGHT SIDE OF THE CLIVUS. 4. ATROPHY AND CHRONIC MICRO-VASCULAR ISCHEMIC CHANGES. EVIDENCE OF ACUTE STROKE: NO. Carotid Doppler Study 12/03/18 16:46 IMPRESSION: Small amount of plaque at both carotid bifurcations. Arterial velocities are relatively low in the internal carotid arteries bilaterally. No significant stenosis of either internal carotid artery. copyright 2011 [employer]- All Rights Reserved Head CT 12/05/18 00:00 IMPRESSION: CHRONIC CHANGES OF ATROPHY AND MICROVASCULAR ISCHEMIA. NO ACUTE PROCESS. EVIDENCE OF ACUTE STROKE: NO. Assessment and Plan - Diagnosis (1) Acute ischemic stroke Is this a current diagnosis for this admission?: Yes Plan: MRI shows an acute infarct in the right side of the gwyn on top of stable old infarcts in the left side of the gwyn and stable meningioma along the right side of the clivus. Repeat head CT was negative. Medications have been discontinued, patient now on comfort measures, suspect expansion of her acute stroke, family does not want any further investigation or intervention. (2) Dementia Qualifiers: Dementia type: Alzheimer's disease Alzheimer's disease onset: late-onset Dementia behavioral disturbance: without behavioral disturbance Qualified Code(s): G30.1 - Alzheimer's disease with late onset; F02.80 - Dementia in other diseases classified elsewhere without behavioral disturbance Is this a current diagnosis for this admission?: Yes Plan: Now on comfort measures (3) Hypertension Qualifiers: Hypertension type: essential hypertension Qualified Code(s): I10 - Essential (primary) hypertension Is this a current diagnosis for this admission?: Yes Plan: Medications have been discontinued because patient was unable to take p.o., now on comfort measures (4) Delirium Is this a current diagnosis for this admission?: Yes Plan: Sedating medications were discontinued but she continued to deteriorate, suspect expansion of acute stroke despite appropriate medical intervention, now on comfort measures at family's request - Time Time Spent with patient: 15-24 minutes
--- NOTE | 2018-12-08 18:21 | ADVANCED CARE ---
- Diagnosis (1) Acute ischemic stroke Diagnosis Current: Yes (2) Dementia Diagnosis Current: Yes (3) Hypertension Diagnosis Current: Yes (4) Delirium Diagnosis Current: Yes Attendance: Sister (legal guardian) Resuscitation Status: Comfort Measures Only Discussion: Sister said the family was in agreement that she would not want her life prolonged in her current condition, and have elected to make her comfort measures only. This discussion was held 12-07-18. Time Spent: 15
[2018-12-09] MEDS: MORPHINE SULFATE 10 MG/ML INJ IV PRN ×6 (00:11→21:31)
[2018-12-09] MEDS: METOPROLOL SUCCINATE 25 MG TAB.SR.24H PO SCH ×2 (09:02→21:02)
--- NOTE | 2018-12-09 09:44 | PROGRESS NOTE E ---
Progress Note NAME: DIEGO BURDEN : 1945 AGE: 73Y DATE: 12/09/2018 ROOM: 320 SUBJECTIVE: The patient is lying in bed. The patient is nonresponsive. At the time, she remains on comfort measures. There have been no reported episodes of vomiting or diarrhea. The patient appears comfortable at the time. REVIEW OF SYSTEMS: Unobtainable. MEDICATIONS: Reviewed. OBJECTIVE: GENERAL: The patient is a 73-year-old female who is currently resting peacefully. She does not appear to be distressed. VITAL SIGNS: Temperature 102.7, pulse 113, respirations 24, blood pressure 130/45, oxygen saturation is 94% on 2 liters nasal cannula. SKIN: Very pale. She is no diaphoretic. HEENT: No overt evidence of JVP. CVS: Heart is tachycardic, regular. CHEST: Symmetrical, unlabored. EXTREMITIES: No edema. PSYCHIATRIC: Unable to assess. DIAGNOSTICS/LAB VALUES: Hematology obtained on 12/03/2018: WBC 7.5, hemoglobin 14.0, hematocrit 40.7, platelet count 375,000. Chemistry obtained on 12/07/2018: Sodium 146, potassium 3.9, chloride 116, BUN 34, creatinine 0.1, glucose 95, calcium 10. ASSESSMENT AND PLAN: 1. ACUTE ISCHEMIC STROKE. The patient's MRI does show acute infarction on the right side of the dre, on top of stable old infarct to the left side in the dre and a stable meningioma along the right side of the clivus. Repeat head CT was negative. Medications have been discontinued. The patient continues on comfort measures, given suspected expansion of the stroke. Family does not want any further workup. 2. VASCULAR DEMENTIA. Now on comfort measures. 3. HYPERTENSION. Blood pressure medications have been discontinued. 4. METABOLIC ENCEPHALOPATHY. Secondary to #1. The patient is now deteriorating. Continue comfort measures. DISPOSITION: The patient is DO NOT RESUSCITATE/DO NOT INTUBATE, with comfort care measures only. The patient has been downgraded to a medical bed. Time spent on this followup including assessment, plan, physical examination, and review of records is 20 minutes. DICTATING PHYSICIAN: CALVIN GUNDERSON NP [id number] PHY#: [id number] ID: [id number] JOB#: [id number] ACCT: [id number] cc: > MTDD
[2018-12-09 09:56] VITALS: BP 91/31
--- NOTE | 2018-12-10 16:19 | DEATH SUMMARY E ---
Summary NAME: DIEGO BURDEN : 1945 AGE: 73Y ADMITTED: 12/03/2018 : 12/10/2018 CODE STATUS AT TIME OF : DO NOT RESUSCITATE/DO NOT INTUBATE. TIME OF : 2338 on 12/10/2018. FINAL DIAGNOSES INCLUDE: 1. Acute ischemic stroke. 2. Long history of cerebrovascular disease. 3. Vascular dementia. 4. Hypertension. 5. Metabolic encephalopathies. PHYSICAL EXAMINATION: Pulseless, apneic, asystole. DIAGNOSTICS: Lab values were as follows: Hematology obtained on 12/03/2018: WBCs 10.4, hemoglobin was 14.0, hematocrit was 40.7, platelet count was 275,000. Coagulation done on 12/03/2018: PT is 30.3, INR is 0.96. Chemistry obtained on 12/07/2018: Sodium is 146, potassium 3.9, chloride is 116, carbon dioxide 15, BUN 34, creatinine is 0.1, glucose 95. A1c is 5.1. Calcium is 10.0. Bilirubin 0.8, AST 35, ALT is 19, alk phos 75, total CK is 83, total protein 8.1, albumin 4.6. Triglycerides are 134, cholesterol is 125, LDL is 66, VLDL is 27, HDL is 40. Urinalysis obtained on 12/03/2018: Color: Yellow. Appearance: Clear. The pH is 6.0, specific gravity is 1.014, protein negative, glucose negative, ketones negative, occult blood negative, nitrite negative, bilirubin negative, urobilinogens 2.0, leukocyte esterase was negative, WBCs 0, mucus rare, ascorbic acid is negative. Microbiology: Sputum culture obtained on 12/03/2018 revealed no growth. Chest x-ray obtained on 12/03/2018 revealed no acute findings. Head CT obtained on 12/03/2018 revealed chronic white matter disease with old lacunar infarcts in left dre. Hip x-ray obtained on 12/03/2018 revealed limited plain films with no acute fracture. Head MRI obtained on 12/03/2018 revealed acute infarction of the right side of the dre, stable old infarction of the left side of the dre, stable meningioma along the right side of the [place], atrophy and chronic microvascular ischemic changes. Carotid Doppler study obtained on 12/03/2018 revealed a small amount of plaque in both carotid bifurcations. Arterial velocities are relatively low in the internal carotid arteries bilaterally, with no significant stenosis. Head CT obtained on 12/05/2018 revealed chronic changes of atrophy and microvascular ischemia. EKG obtained on 12/05/2018 revealed sinus tachycardia. HISTORY OF PRESENT ILLNESS: The patient is a 73-year-old female with a past medical history of known cerebrovascular disease with previous CVAs. The patient presented to the emergency department from [facility] with a chief complaint of altered mental status. The patient apparently was at the facility and was at her usual baseline state of health until the morning of presentation, when she was noted by nursing staff to be a little confused. The patient was felt to have some slurred speech as well as left-sided facial droop with drooling. The patient was unable to follow commands, so the patient was sent to the emergency department. While in the emergency department, the patient's blood work and urinalysis were found to be unremarkable. MRI of the brain revealed an acute infarction of the right side of the dre. The patient was not a candidate for tPA and the patient was referred to the hospitalist for admission and management. HOSPITAL COURSE: The patient was admitted to [facility], after much discussion with the family and the patient, elected to proceed with comfort care measures. The patient's oral medications were withheld, given that the patient was not arousable to even take them. The patient was treated for tachypnea with morphine and discomfort with morphine. The patient's condition rapidly deteriorated. The patient peacefully. January she rest in peace. Time spent on this summary was 7 minutes. DICTATING PHYSICIAN: CALVIN GUNDERSON NP [id number] Y#: [id number] ID: [id number] JOB#: [id number] ACCT: [id number] cc:CALVIN GUNDERSON NP >
== END 2018-12-10 01:31 | DRG 64 ==
LOC: ER 11:08 → EH 16:51 → 3W 22:40
PROVIDERS: ADMIT Internal Medicine; ATTEND Internal Medicine
PROC: 3E0F73Z Introduction of Anti-inflammatory into Respiratory Tract, Via Natural or Artificial Opening (ICD-10-PCS; principal; 2018-12-03)
DX: I63.81 Other cerebral infarction due to occlusion or stenosis of small artery (principal); G93.41 Metabolic encephalopathy; I50.32 Chronic diastolic (congestive) heart failure; Z66 Do not resuscitate; F01.50 Vascular dementia, unspecified severity, without behavioral disturbance, psychotic disturbance, mood disturbance, and anxiety; E78.5 Hyperlipidemia, unspecified; J44.9 Chronic obstructive pulmonary disease, unspecified; I25.10 Atherosclerotic heart disease of native coronary artery without angina pectoris; I11.0 Hypertensive heart disease with heart failure; E11.9 Type 2 diabetes mellitus without complications; R47.81 Slurred speech; G30.1 Alzheimer's disease with late onset; F02.80 Dementia in other diseases classified elsewhere, unspecified severity, without behavioral disturbance, psychotic disturbance, mood disturbance, and anxiety; Z85.41 Personal history of malignant neoplasm of cervix uteri; Z85.43 Personal history of malignant neoplasm of ovary; Z90.710 Acquired absence of both cervix and uterus; Z87.891 Personal history of nicotine dependence; Z82.3 Family history of stroke; Z82.49 Family history of ischemic heart disease and other diseases of the circulatory system; Z79.84 Long term (current) use of oral hypoglycemic drugs; Z79.82 Long term (current) use of aspirin; Z79.899 Other long term (current) drug therapy; Z88.6 Allergy status to analgesic agent; Z88.8 Allergy status to other drugs, medicaments and biological substances
CPT/HCPCS: 36415; 51702; 70450; 70551; 71045; 80048; 80053; 80061; 81001; 82550; 82553; 82962; 83036; 84484; 85025; 85610; 85730; 93005; 93010; 93306; 93880; 94640; 99291; J1650; J2270; J3480; J3490; J7030; J7620